=== PATIENT | female | born 1935 | race Caucasian/White ===

== ENCOUNTER → 2016-07-12 | Emergency (ER) | payer MEDICARE ==
[~2016-07-12] VITALS: Ht 154.9 cm; Wt 45.4 kg
[~2016-07-12] MED LIST: ASP81TEC PO; BUPR150T PO; CALC-676 PO; CPR500T PO; DICY10CA12 PO; FISH1CAP15 PO; KCL10CCR PO; LACT1CAP39 PO; LEVO125T6 PO; METO100T5 PO; METR500T PO; OXYB10TA PO; PRAV40TA PO; PRD20T PO; SIME125C PO; TRIA1TAB5 PO
--- NOTE | 2016-07-12 21:02 | ED Fall/Injury ---
General Chief Complaint: Trauma-Non Activation Stated Complaint: FALL AMS Source: patient, family Exam Limitations: clinical condition History of Present Illness Time seen by provider: 20:57 Initial Comments Patient and her daughter presented to the emergency room by private conveyance with a complaint of recent fall in Wednesday or Wednesday approximately 4 days ago. She was found down with no memory of the fall by her son but they were unable to convince her to come to the doctor's or emergency room at that time this is the first inspection by medical personnel she's had for this injury. She denies having any pain, nausea, syncope. The daughter reports for the past few days she has been hallucinating visually and audio hearing and seeing in speaking to people who were not there. They state this has happened in the past and at that time she was dehydrated. They feel she is having more and more falls lately and are afraid to let her go home. The patient does live alone and sets up her own meds. Patient has a pertinent history of bilateral carotid endarterectomies multiple bypasses and 6 stents and legs as well as hysterectomy. Patient's primary care physician is Dr. Aguirre in [place]. Allergies and Home Medications Allergies Coded Allergies: lisinopril (Unverified Allergy, Unknown, 07/12/16) Sulfa (Sulfonamide Antibiotics) (Verified Adverse Reaction, Intermediate, RASH, 02/25/11) Home Medications Aspirin 81 Mg Tabec, 1 TAB PO DAILY, (Reported) Bupropion Hcl 150 Mg Tab.sr.24h, 1 TAB PO DAILY, (Reported) Calcium Carbonate/Vitamin D3 1 Each Tablet, 1 TAB PO DAILY, (Reported) Ciprofloxacin 500 Mg Tablet, 1 TAB PO BID for 5 Days, (Reported) Dicyclomine Hcl 10 Mg Capsule, 1 TAB PO QID, (Reported) Fish Oil/Dha/Epa 1 Each Capsule, 1 TAB PO QID, (Reported) Lactobacillus Rhamnosus 1 Cap Capsule, 1 TAB PO DAILY, (Reported) Levothyroxine Sodium 125 Mcg Tablet, 1 TAB PO DAILY, (Reported) Metoprolol Succinate 100 Mg Tab.sr.24h, 1 TAB PO DAILY, (Reported) Metronidazole 500 Mg Tab, 1 EACH PO BID for 5 Days, (Reported) Oxybutynin Chloride 10 Mg Tablet, 1 TAB PO DAILY, (Reported) Potassium Chloride 10 Meq Capcr, 1 TAB PO DAILY, (Reported) Pravastatin Sodium 40 Mg Tablet, 1 TAB PO DAILY, (Reported) Prednisone 20 Mg Tab, 20 MG PO BID for 5 Days, (Reported) Simethicone 125 Mg Capsule, 1 CAP PO PRN, (Reported) Triamterene/Hydrochlorothiazid 1 Each Tablet, 1 TAB PO DAILY, (Reported) Constitutional: see HPI, No chills, No fever, No malaise, No weakness Eyes: Denies Blindness, Blurred Vision (for past 10 years), Denies Pain Ears, Nose, Mouth, Throat: denies ear pain, denies ear discharge, denies nose pain, denies nose discharge, denies epistaxis, denies mouth pain Respiratory: No cough, No dyspnea on exertion Cardiovascular: No chest pain, No edema, Hx of Intervention, No palpitations, No syncope Gastrointestinal: No abdominal pain, No constipation, No diarrhea, No loss of appetite, No nausea, No vomiting Genitourinary: No dysuria, No frequency, No hematuria, incontinence Musculoskeletal: No back pain, No joint pain, No joint swelling, No muscle pain Skin: No pruritus, No rash Psychiatric/Neurological: Denies Headache Past Gqkfjrh-Lhabqe-Tloyfo Hx Patient Social History Alcohol Use: Denies Use Recreational Drug Use: No Smoking Status: Never a Smoker Recent Foreign Travel: No Contact w/Someone Who Travel: No Immunizations Up To Date Date of Influenza Vaccine: Dec 26, 2010 Respiratory Hx Respiratory Disorders: No Cardiovascular Hx Cardiac Disorders: Yes Neurological Hx Neurological Disorders: No Reproductive System Hx Reproductive Disorders: Yes Genitourinary Hx Genitourinary Disorders: No Gastrointestinal Hx Gastrointestinal Disorders: Yes (IBS, COLITIS) Musculoskeletal Hx Musculoskeletal Disorders: No Endocrine Hx Endocrine Disorders: No HEENT HX ENT Disorders: No Psychosocial Hx Psychiatric Problems: No Blood Transfusions Hx Blood Disorders: No Physical Exam Vital Signs Vital Sign - Last 12Hours Capillary Refill : General Appearance: WD/WN, no apparent distress HEENT: PERRL/EOMI, normal ENT inspection, other (conjunctival hemorrhage) Neck: non-tender, full range of motion (kyphotic), supple, normal inspection, No carotid bruit Cardiovascular: normal peripheral pulses, regular rate, rhythm, no edema, no JVD, no murmur Respiratory: chest non-tender, lungs clear, normal breath sounds, no respiratory distress, no accessory muscle use Peripheral Pulses: 3+ Dorsalis Pedis (R), 3+ Left Dors-Pedis (L), 3+ Radial Pulses (R), 3+ Radial Pulses (L) Gastrointestinal: normal bowel sounds, non tender, soft Back: normal inspection, no CVA tenderness, no vertebral tenderness Extremities: normal range of motion, non-tender, normal inspection, no pedal edema Neurologic/Psychiatric: director biostatistics II-XII nml as tested, no motor/sensory deficits, alert, normal mood/affect, oriented x 3 Skin: normal color, warm/dry Lymphatic: no adenopathy Progress/Results/Core Measures Results/Orders Lab Results Laboratory Tests Test 07/12/16 20:49 Range/Units White Blood Count 6.2 4.3-11.0 10^3/uL Red Blood Count 4.45 4.35-5.85 10^6/uL Hemoglobin 14.4 11.5-16.0 G/DL Hematocrit 42 35-52 % Mean Corpuscular Volume 94 80-99 FL Mean Corpuscular Hemoglobin 32 25-34 PG Mean Corpuscular Hemoglobin Concent 35 32-36 G/DL Red Cell Distribution Width 12.8 10.0-14.5 % Platelet Count 135 130-400 10^3/uL Mean Platelet Volume 10.4 7.4-10.4 FL Neutrophils (%) (Auto) 55 42-75 % Lymphocytes (%) (Auto) 32 12-44 % Monocytes (%) (Auto) 13 H 0-12 % Eosinophils (%) (Auto) 0 0-10 % Basophils (%) (Auto) 0 0-10 % Neutrophils # (Auto) 3.4 1.8-7.8 X 10^3 Lymphocytes # (Auto) 2.0 1.0-4.0 X 10^3 Monocytes # (Auto) 0.8 0.0-1.0 X 10^3 Eosinophils # (Auto) 0.0 0.0-0.3 10^3/uL Basophils # (Auto) 0.0 0.0-0.1 10^3/uL Prothrombin Time 13.7 12.2-14.7 SEC INR Comment 1.1 0.8-1.4 Activated Partial Thromboplast Time 29 24-35 SEC Urine Color STRAW Urine Clarity CLEAR Urine pH 8 5-9 Urine Specific [place] 1.010 L 1.016-1.022 Urine Protein NEGATIVE NEGATIVE Urine Glucose (UA) NEGATIVE NEGATIVE Urine Ketones NEGATIVE NEGATIVE Urine Nitrite NEGATIVE NEGATIVE Urine Bilirubin NEGATIVE NEGATIVE Urine Urobilinogen NORMAL NORMAL MG/DL Urine Leukocyte Esterase 1+ H NEGATIVE Urine RBC (Auto) NEGATIVE NEGATIVE Urine RBC NONE /HPF Urine WBC 0-2 /HPF Urine Squamous Epithelial Cells 10-25 H /HPF Urine Renal Epithelial Cells NONE /HPF Urine Crystals NONE /LPF Urine Bacteria NEGATIVE /HPF Urine Casts NONE /LPF Urine Mucus NEGATIVE /LPF Urine Culture Indicated NO Sodium Level 140 135-145 MMOL/L Potassium Level 4.1 3.6-5.0 MMOL/L Chloride Level 106 98-107 MMOL/L Carbon Dioxide Level 22 21-32 MMOL/L Anion Gap 12 5-14 MMOL/L Blood Urea Nitrogen 18 7-18 MG/DL Creatinine 0.82 0.60-1.30 MG/DL Estimat Glomerular Filtration Rate > 60 BUN/Creatinine Ratio 22 Glucose Level 110 H 70-105 MG/DL Calcium Level 9.8 8.5-10.1 MG/DL Magnesium Level 2.3 1.8-2.4 MG/DL Total Bilirubin 0.4 0.1-1.0 MG/DL Aspartate Amino Transf (AST/SGOT) 30 5-34 U/L Alanine Aminotransferase (ALT/SGPT) 19 0-55 U/L Alkaline Phosphatase 58 40-136 U/L Total Protein 7.6 6.4-8.2 G/DL Albumin 4.3 3.2-4.5 G/DL My Orders Orders - SHIRENE,ERON J Saline Lock/Iv-Start (07/12/16 21:03) Cbc With Automated Diff (07/12/16 21:03) Comprehensive Metabolic Panel (07/12/16 21:03) Magnesium (07/12/16 21:03) Protime With Inr (07/12/16 21:03) Partial Thromboplastin Time (07/12/16 21:03) Ua Culture If Indicated (07/12/16 21:03) Chest Pa/Lat (2 View) (07/12/16 21:03) Ekg Tracing (07/12/16 21:03) Ct Head/Face/Cervical Wo (07/12/16 21:26) Vital Signs/I&O Vital Sign - Last 12Hours 07/12/16 07/12/16 20:45 20:45 Temp 97.6 97.6 Pulse 72 76 Resp 18 18 B/P (MAP) 172/94 (120) 172/94 Pulse Ox 94 96 Progress Note : Time: 21:24 Progress Note Patient presents with large ecchymosis over her face with right scleral hemorrhage and history of falls but no memory of the falls from proximal to 4 days ago. We'll plan to scan her for fracture or hemorrhage. Get blood work and urinalysis looking for occult infection. She'll probably need an observation stay and placement in some kind of significant for physiotherapy rehabilitation for her increased falls. Her neck is stable and she is been walking around with a 4 post cane and walker past several days without issue. ECG Initial ECG Impression Date: Jul 12, 2016 Initial ECG Impression Time: 21:13 Initial ECG Rate: 68 Initial ECG Rhythm: Normal Sinus Initial ECG Intervals: Normal Initial ECG Impression: Normal Initial ECG Comparisson: No Previous ECG Available Diagnostic Imaging Diagonstic Imaging: Xray Plain Films/CT/US/NM/MRI: chest Comments Evidence of prior sternotomy but no acute cardiopulmonary problems. NAME: BRADLEY SLADE [facility] REC#: [id number] PHYSICIAN: ERON IYER MD CC: KELECHI ALEXANDER MD; ERON IYER Page 1 of 1 RADIOLOGY REPORT VIA [facility]. [place], [place] CC: KELECHI ALEXANDER MD; ERON IYER Page 1 of 1 RADIOLOGY REPORT NAME: BRADLEY SLADE [facility] REC#: [id number] PT STATUS: REG ER : 1935 PHYSICIAN: ERON IYER MD ADMIT DATE: 07/12/16/ER Signed Date of Exam: 07/12/16 CHEST PA/LAT (2 VIEW) INDICATION: Fell six days ago. Amnesia. EXAMINATION: Two views of the chest were obtained. FINDINGS: Normal heart size and vascularity. There is bibasilar discoid atelectasis. There is no effusion or pneumothorax. There are changes of prior CABG. There is no acute bony abnormality evident. There is a compression deformity of a midthoracic vertebral body which is somewhat sclerotic and may be old. IMPRESSION: No acute abnormality is seen. Dictated by: Dictated on workstation # [id number] <Dictated by KELECHI ALEXANDER MD> 07/12/16 7270 Reviewed: Reviewed by Me Diagonstic Imaging: CT Plain Films/CT/US/NM/MRI: head (face) Comments No evidence of ischemia or hemorrhage in the brain. No evidence of acute fracture head or face. 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 Reviewed: Reviewed by Me Departure Impression Impression: Primary Impression: Fall Qualified Codes: W19.XXXA - Unspecified fall, initial encounter Additional Impression: Contusion Qualified Codes: S05.11XA - Contusion of eyeball and orbital tissues, right eye, initial encounter Disposition: HOME, SELF-CARE Condition: Stable Departure-Patient Inst. Decision time for Depature: 22:22 Referrals: NO,LOCAL PHYSICIAN (PCP) Primary Care Physician Patient Instructions: Minor Head Injury (DC) Add. Discharge Instructions: Your CAT scan and chest x-ray were unrevealing for any fractures or bleeds in the brain. Your labs are unremarkable for infection or other concerning features. You should follow up with your primary care physician sometime this following week. You should look into assisted living care for extra support to make sure that you get plenty of meals and support with her activities of daily living as well as make sure that you're getting the appropriate support in case of falls. you should also check with your home health company about your physical therapy and strengthening exercises as well as a home evaluation if it' s not been done to look for safety measures that could be addressed in your home. Family should check in on you every day for the next day or two. Return to the ER if you having any new, worsening symptoms such as nausea vomiting or intractable headaches or other concerning features. All discharge instructions reviewed with patient and/or family. Voiced understanding. ERON IYER Jul 12, 2016 21:02
[2016-07-12 21:28] LABS: BASOPHILS % (AUTO) 0 % (0-10); BILIRUBIN,URINE NEGATIVE (NEGATIVE); EOSINOPHILS % (AUTO) 0 % (0-10); KETONES,URINE NEGATIVE (NEGATIVE); LEUKOCYTE ESTERASE ,URINE 1+ (NEGATIVE); LYMPHOCYTES % (AUTO) 32 % (12-44); MEAN CORPUSCULAR HEMOGLOBIN 32 PG (25-34); MEAN CORPUSCULAR HGB CONC 35 G/DL (32-36); MEAN CORPUSCULAR VOLUME 94 FL (80-99); MEAN PLATELET VOLUME 10.4 FL (7.4-10.4); MONOCYTES # (AUTO) 0.8 X 10^3 (0.0-1.0); MONOCYTES % (AUTO) 13 % (0-12); NEUTROPHILS # (AUTO) 3.4 X 10^3 (1.8-7.8); NEUTROPHILS % (AUTO) 55 % (42-75); NITRITE,URINE NEGATIVE (NEGATIVE); PH,URINE 8 (5-9); PLATELET COUNT 135 10^3/uL (130-400); PROTEIN,URINE NEGATIVE (NEGATIVE); RED BLOOD COUNT 4.45 10^6/uL (4.35-5.85); RED CELL DISTRIBUTION WIDTH 12.8 % (10.0-14.5); UROBILINOGEN,URINE NORMAL (NORMAL); WHITE BLOOD COUNT 6.2 10^3/uL (4.3-11.0)
[2016-07-12 21:38] LABS: INR 1.1 (0.8-1.4); PROTHROMBIN TIME PATIENT 13.7 SEC (12.2-14.7)
[2016-07-12 21:42] LABS: WBC,URINE 0-2 /HPF
--- NOTE | 2016-07-12 21:43 | Diagnostic Imaging Report ---
PROCEDURE: CT head, face, and cervical spine without contrast. TECHNIQUE: Multiple contiguous axial images were obtained through the head, neck, and facial bones without the use of intravenous contrast. Sagittal and coronal reformations through the cervical spine and facial bones were also performed. INDICATION: 6 days status post fall. Right periorbital hematoma. The ventricles are normal in size, shape and position. There is no acute parenchymal hemorrhage, edema or mass. There is no extra-axial mass or hemorrhage. There is no skull fracture. No facial bone fracture is seen. The paranasal sinuses are well aerated. No intraorbital abnormality is seen. There are degenerative changes of the cervical spine with no fracture or other acute abnormality seen. There is no soft tissue swelling. There is no spinal canal encroachment. IMPRESSION: Normal CT of the head. Normal CT of the facial bones. There are degenerative changes of the cervical spine with no acute abnormality. Dictated by: Dictated on workstation # [id number]
--- NOTE | 2016-07-12 21:49 | Diagnostic Imaging Report ---
INDICATION: Fell six days ago. Amnesia. EXAMINATION: Two views of the chest were obtained. FINDINGS: Normal heart size and vascularity. There is bibasilar discoid atelectasis. There is no effusion or pneumothorax. There are changes of prior CABG. There is no acute bony abnormality evident. There is a compression deformity of a midthoracic vertebral body which is somewhat sclerotic and may be old. IMPRESSION: No acute abnormality is seen. Dictated by: Dictated on workstation # [id number]
[2016-07-12 21:50] LABS: ALANINE AMINOTRANSFERASE 19 U/L (0-55); ALBUMIN 4.3 G/DL (3.2-4.5); ANION GAP 12 MMOL/L (5-14); ASPARTATE AMINO TRANSFERASE 30 U/L (5-34); BILIRUBIN,TOTAL 0.4 MG/DL (0.1-1.0); BLOOD UREA NITROGEN 18 MG/DL (7-18); BUN/CREATININE RATIO 22; CALCIUM 9.8 MG/DL (8.5-10.1); CARBON DIOXIDE 22 MMOL/L (21-32); CHLORIDE 106 MMOL/L (98-107); CREATININE SERUM 0.82 MG/DL (0.60-1.30); GFR ESTIMATED > 60; GLUCOSE 110 MG/DL (70-105); MAGNESIUM 2.3 MG/DL (1.8-2.4); POTASSIUM 4.1 MMOL/L (3.6-5.0); SODIUM 140 MMOL/L (135-145); TOTAL PROTEIN 7.6 G/DL (6.4-8.2)
[2016-07-12 22:37] VITALS: BP 192/92
== END | disposition home or self-care (01) ==
LOC: EDUNIT# 20:37 → ER 20:41
DX: S00.11XA Contusion of right eyelid and periocular area, initial encounter (principal); R44.0 Auditory hallucinations; R44.1 Visual hallucinations; R54 Age-related physical debility; Z79.82 Long term (current) use of aspirin; Z79.899 Other long term (current) drug therapy; Z95.1 Presence of aortocoronary bypass graft; Z95.5 Presence of coronary angioplasty implant and graft; W01.0XXA Fall on same level from slipping, tripping and stumbling without subsequent striking against object, initial encounter; Y92.009 Unspecified place in unspecified non-institutional (private) residence as the place of occurrence of the external cause; Y99.8 Other external cause status
CPT/HCPCS: 36415; 70450; 70486; 71020; 72125; 80053; 81000; 83735; 85025; 85610; 85730; 93005

== ENCOUNTER 2019-08-10 13:37 | Emergency (ER) | payer MEDICARE ==
[~2019-08-10] VITALS: Ht 154 cm; Wt 58.9 kg
[2019-08-10] MEDS ORDERED: NS IV 1000 ML 1,000 ML IV SCH (14:26)
--- NOTE | 2019-08-10 14:33 | ED Abdominal Pain ---
General Chief Complaint: Abdominal/GI Problems Stated Complaint: ESCEMIC COLITIS Nursing Triage Note: PATIENT STATES "BLACK" STOOL WITH SOME BLOOD. STATES HX OF THIS Sepsis Screen: No Definite Risk Source of Information: Patient Exam Limitations: No Limitations History of Present Illness Date Seen by Provider: August 10, 2019 Time Seen by Provider: 14:15 Initial Comments Patient presents ER by private conveyance with chief complaint since last night she started having some severe 10 out of 10 abdominal pain on her right side and black stools. At the moment she says the pain has resided and she rates it as a 0 out of 10. She noticed some blood in the stool mixed in. She has some soreness around her anus due to excessive wiping. She says this happened a couple months ago and they did a colonoscopy and put her in the hospital in [place] and they said the colonoscopy was normal. She has a history of irritable bowel syndrome p redominantly diarrhea. She does not turn black however decided that her. She does take antacids or history of ulcers. She follows with Dr. Aguirre and cardiology by Dr. Gerber. She's not on a blood thinner or aspirin. She has a history of stents in her legs and CABG 2. She's not feeling short of breath or having any chest pain presently. She's had a hysterectomy, appendectomy, cholecystectomy. History of ulcerative colitis since 2006. The patient clarifies that she had a colonoscopy 2 months ago but she did not have EGD. She has not been referred to gastroenterology yet. She would prefer to do endoscopy here and [place]. Allergies and Home Medications Allergies Coded Allergies: lisinopril (Unverified Allergy, Unknown, 07/12/16) Sulfa (Sulfonamide Antibiotics) (Verified Adverse Reaction, Intermediate, RASH, 02/25/11) Home Medications Aspirin 81 Mg Tabec, 1 TAB PO DAILY, (Reported) Bupropion Hcl 150 Mg Tab.sr.24h, 1 TAB PO DAILY, (Reported) Calcium Carbonate/Vitamin D3 1 Each Tablet, 1 TAB PO DAILY, (Reported) Ciprofloxacin 500 Mg Tablet, 1 TAB PO BID, (Reported) Dicyclomine Hcl 10 Mg Capsule, 1 TAB PO QID, (Reported) Fish Oil/Dha/Epa 1 Each Capsule, 1 TAB PO QID, (Reported) Lactobacillus Rhamnosus 1 Cap Capsule, 1 TAB PO DAILY, (Reported) Levothyroxine Sodium 125 Mcg Tablet, 1 TAB PO DAILY, (Reported) Metoprolol Succinate 100 Mg Tab.sr.24h, 1 TAB PO DAILY, (Reported) Metronidazole 500 Mg Tab, 1 EACH PO BID, (Reported) Oxybutynin Chloride 10 Mg Tablet, 1 TAB PO DAILY, (Reported) Potassium Chloride 10 Meq Capcr, 1 TAB PO DAILY, (Reported) Pravastatin Sodium 40 Mg Tablet, 1 TAB PO DAILY, (Reported) Prednisone 20 Mg Tab, 20 MG PO BID, (Reported) Simethicone 125 Mg Capsule, 1 CAP PO PRN, (Reported) Triamterene/Hydrochlorothiazid 1 Each Tablet, 1 TAB PO DAILY, (Reported) Patient Home Medication List Home Medication List Reviewed: Yes Review of Systems Review of Systems Constitutional: No chills, No diaphoresis EENTM: No Blurred Vision, No Double Vision Respiratory: Denies Cough, Denies Shortness of Air Cardiovascular: Denies Chest Pain, Denies Lightheadedness, Denies Palpitations, Denies Syncope Gastrointestinal: See HPI, Abdominal Pain; Denies Constipated; Diarrhea; Denies Nausea Genitourinary: Denies Burning, Denies Discharge Musculoskeletal: No back pain, No joint pain Psychiatric/Neurological: Denies Anxiety, Denies Depressed All Other Systems Reviewed Negative Unless Noted: Yes Past Nwydayi-Fynvtl-Yurbli Hx Patient Social History Alcohol Use: Denies Use Recreational Drug Use: No Smoking Status: Former Smoker Former Smoker, Quit: July 28, 1999 Recent Foreign Travel: No Contact w/Someone Who Travel: No Recent Infectious Disease Expo: No Recent Hopitalizations: No Immunizations Up To Date Tetanus Booster (TDap): Unknown Date of Influenza Vaccine: Dec 26, 2010 Past Medical History Surgeries: Yes Appendectomy, CABG, Gallbladder, Hysterectomy, Thyroidectomy Respiratory: No Cardiac: Yes Coronary Artery Disease, High Cholesterol, Hypertension, Peripheral Vascular Neurological: No Reproductive Disorders: Yes Gastrointestinal: Yes (IBS, COLITIS) Musculoskeletal: No Endocrine: Yes (throid removed) Hyperthyroidism Cancer: No Psychosocial: No Blood Disorders: No Physical Exam Vital Signs Vital Signs - First Documented 08/10/19 14:10 Temp 36.6 Pulse 127 Resp 20 B/P (MAP) 137/100 (112) Pulse Ox 97 O2 Delivery Room Air Capillary Refill : Less Than 3 Seconds Height/Weight/BMI Height: 5'1.00" Weight: 100lbs. oz. [id number]; 24.00 BMI Method:Stated General Appearance: WD/WN, no apparent distress HEENT: PERRL/EOMI, pharynx normal Neck: full range of motion, normal inspection Respiratory: normal breath sounds, no respiratory distress, no accessory muscle use Cardiovascular: normal peripheral pulses, regular rate, rhythm, tachycardia (110) Peripheral Pulses: 2+ Radial Pulses (R), 2+ Radial Pulses (L) Gastrointestinal: abnormal bowel sounds (active, tinkling), distended, tenderness (especially right-sided tenderness without Abreu sign) Extremities: normal range of motion, normal inspection, normal capillary refill Neurologic/Psychiatric: alert, normal mood/affect, oriented x 3 Skin: normal color, warm/dry Focused Exam Sepsis Stage: Ruled Out Reason for ruling out sepsis: no source of infection Lactate Level 08/10/19 14:35: Lactic Acid Level 2.53*H 08/10/19 17:15: Lactic Acid Level 2.97*H Lactic Acid Level Laboratory Tests Test 08/10/19 14:35 08/10/19 17:15 Lactic Acid Level 2.53 MMOL/L (0.50-2.00) *H 2.97 MMOL/L (0.50-2.00) *H Progress/Results/Core Measures Results/Orders Lab Results Laboratory Tests Test 08/10/19 14:00 08/10/19 14:15 08/10/19 14:35 08/10/19 17:15 Range/Units Urine Color YELLOW Urine Clarity SL CLOUDY Urine pH 7.5 5-9 Urine Specific [place] 1.015 L 1.016-1.022 Urine Protein NEGATIVE NEGATIVE Urine Glucose (UA) NEGATIVE NEGATIVE Urine Ketones TRACE H NEGATIVE Urine Nitrite NEGATIVE NEGATIVE Urine Bilirubin NEGATIVE NEGATIVE Urine Urobilinogen 0.2 < = 1.0 MG/DL Urine Leukocyte Esterase NEGATIVE NEGATIVE Urine RBC (Auto) NEGATIVE NEGATIVE Urine RBC NONE /HPF Urine WBC NONE /HPF Urine Crystals PRESENT H /LPF Urine Amorphous Sediment LARGE STUART PHOSPHATE H /LPF Urine Bacteria FEW H /HPF Urine Casts NONE /LPF Urine Mucus SMALL H /LPF Urine Culture Indicated CULTURE PENDING White Blood Count 9.3 4.3-11.0 10^3/uL Red Blood Count 4.91 4.35-5.85 10^6/uL Hemoglobin 14.5 11.5-16.0 G/DL Hematocrit 43 35-52 % Mean Corpuscular Volume 87 80-99 FL Mean Corpuscular Hemoglobin 30 25-34 PG Mean Corpuscular Hemoglobin Concent 34 32-36 G/DL Red Cell Distribution Width 15.4 H 10.0-14.5 % Platelet Count 186 130-400 10^3/uL Mean Platelet Volume 10.9 H 7.4-10.4 FL Neutrophils (%) (Auto) 54 42-75 % Lymphocytes (%) (Auto) 37 12-44 % Monocytes (%) (Auto) 9 0-12 % Eosinophils (%) (Auto) 0 0-10 % Basophils (%) (Auto) 0 0-10 % Neutrophils # (Auto) 5.0 1.8-7.8 X 10^3 Lymphocytes # (Auto) 3.4 1.0-4.0 X 10^3 Monocytes # (Auto) 0.8 0.0-1.0 X 10^3 Eosinophils # (Auto) 0.0 0.0-0.3 10^3/uL Basophils # (Auto) 0.0 0.0-0.1 10^3/uL Prothrombin Time 13.0 12.2-14.7 SEC INR Comment 0.9 0.8-1.4 Activated Partial Thromboplast Time 29 24-35 SEC Sodium Level 141 135-145 MMOL/L Potassium Level 4.4 3.6-5.0 MMOL/L Chloride Level 106 98-107 MMOL/L Carbon Dioxide Level 19 L 21-32 MMOL/L Anion Gap 16 H 5-14 MMOL/L Blood Urea Nitrogen 14 7-18 MG/DL Creatinine 0.84 0.60-1.30 MG/DL Estimat Glomerular Filtration Rate > 60 BUN/Creatinine Ratio 17 Glucose Level 106 H 70-105 MG/DL Calcium Level 10.5 H 8.5-10.1 MG/DL Corrected Calcium 8.5-10.1 MG/DL Total Bilirubin 0.4 0.1-1.0 MG/DL Aspartate Amino Transf (AST/SGOT) 34 5-34 U/L Alanine Aminotransferase (ALT/SGPT) 15 0-55 U/L Alkaline Phosphatase 59 40-136 U/L Total Protein 9.1 H 6.4-8.2 GM/DL Albumin 4.6 H 3.2-4.5 GM/DL Lactic Acid Level 2.53 *H 2.97 *H 0.50-2.00 MMOL/L Test 08/10/19 18:00 Range/Units Troponin I < 0.028 <0.028 NG/ML My Orders Orders - STEFFEN SPARKS Cbc With Automated Diff (08/10/19) Comprehensive Metabolic Panel (08/10/19) Blood Culture (08/10/19) Sputum Culture (08/10/19) Urinalysis (08/10/19) Urine Culture (08/10/19) Protime With Inr (08/10/19) Partial Thromboplastin Time (08/10/19) Chest 1 View, Ap/Pa Only (08/10/19) Ed Iv/Invasive Line Start (08/10/19) Ed Iv/Invasive Line Start (08/10/19) Vital Signs Adult Sepsis Patie Q15M (08/10/19) O2 (08/10/19:) Remove Rings In Anticipation O (08/10/19) Lactic Acid Analyzer (08/10/19) Ns Iv 1000 Ml (Sodium Chloride 0.9%) (08/10/19:) Ed Iv/Invasive Line Start (08/10/19:) Ct Angio Abdomen/Pelv W (08/10/19:) Occult Blood Stool (08/10/19 14:37) Ed Iv/Invasive Line Start (08/10/19 16:10) Ns Iv 500 Ml (Sodium Chloride 0.9%) (08/10/19 16:10) Iohexol Injection (Omnipaque 350 Mg/Ml 1 (08/10/19 16:45) Received Contrast (Hold Metformin- Contr (08/10/19 16:45) Ns (Ivpb) (Sodium Chloride 0.9% Ivpb Bag (08/10/19 16:45) Troponin I (08/10/19 17:46) Ekg Tracing (08/10/19 17:46) Continuous Ekg Monitoring (08/10/19 17:46) Medications Given in ED Vital Signs/I&O 08/10/19 08/10/19 14:10 18:57 Temp 36.6 36.6 Pulse 127 100 Resp 20 18 B/P (MAP) 137/100 (112) 118/65 (112) Pulse Ox 97 96 O2 Delivery Room Air Room Air Blood Pressure Mean: 112 Progress Progress Note #1: Time: 14:33 Progress Note Concern for bowel obstruction, ischemic bowel given her history of peripheral and central coronary disease. Concern for diverticulitis or colitis. Plan to get labs including blood cultures and lactic acid. We'll hold off on antibiotics to leave better understanding. CT of her abdomen and pelvis. Progress Note #2: Time: 16:30 Progress Note Patient back from CT. She went to the bathroom and was able to walk short distance from the wheelchair to the commode and back to the bed. She was short of breath and had oxygen sat of 92% so 2 L by nasal cannula was initiated. Progress Note #3: Time: 17:15 Progress Note Oxygen was turned off and her O2 sats remained 98% on room air. Patient states she's not having any pain or nausea at this time. Initial ECG Impression Date: August 10, 2019 Initial ECG Impression Time: 17:49 Initial ECG Rate: 97 Initial ECG Rhythm: Normal Sinus Initial ECG Intervals: Normal Initial ECG Impression: Normal Initial ECG Comparisson: Unchanged Comment Normal sinus rhythm without ST elevation or depression. Diagnostic Imaging Diagonstic Imaging: CT (with IV contrast, angiogram) Plain Films/CT/US/NM/MRI: abdomen, pelvis Comments NAME: BRADLEY SLADE MED REC#: [id number] PT STATUS: REG ER : 1935 PHYSICIAN: STEFFEN SPARKS MD ADMIT DATE: 08/10/19/ER Signed Date of Exam:08/10/19 CT ANGIO ABDOMEN/PELV W PROCEDURE: CT Angio Abdomen/Pelvis with. TECHNIQUE: Multiple contiguous axial images were obtained through the abdomen and pelvis after the uneventful bolus administration of intravenous contrast. Sagittal and coronal MIP reconstructions with then performed. All CT scans use one or more of the following dose optimizing techniques: automated exposure control, MA and/or KvP adjustment based on a patient size and exam type, or iterative reconstruction. INDICATION: Melena. Diagnosed with ischemic bowel 2 months ago. Right-sided abdominal pain. COMPARISON: 02/25/2011. FINDINGS: Post CABG changes are noted. Prominent interstitial markings are seen in the lung bases. A nodule is present in the anterior aspect of the right lung base measuring 0.7 cm. There is calcified aortic and iliac atherosclerotic plaque without aneurysm. No evidence of dissection is seen in the abdominal aorta. No periaortic inflammatory changes are seen. The celiac axis, SMA, KRISTY, and renal arteries are patent. No evidence of bowel obstruction, free fluid, or free air. No definite areas of bowel not enhancement are seen to suggest ischemic bowel. The majority of the colon is decompressed. A tiny focus of increased attenuation is seen within the bowel lumen in the cecum. There is hepatic steatosis. No focal hepatic lesions are seen. The gallbladder surgically absent. The portal vein is patent. Small simple cortical cysts are seen in the kidneys bilaterally. No suspicious renal masses. No evidence of hydronephrosis or nephrolithiasis. The spleen, pancreas, and adrenal glands have a normal appearance. There is no pathologically enlarged mesenteric or retroperitoneal adenopathy. Age-indeterminate compression fractures seen at the T12 level. There is a small amount of bony retropulsion measuring 3 mm. Generalized osteopenia is noted. A right hip arthroplasty is noted. Ureters and bladder are grossly normal. There is no free air, loculated collection, or adenopathy in the pelvis. IMPRESSION: 1. No obvious CT evidence of bowel ischemia. No areas of non-enhancement of the bowel wall are seen. No evidence of bowel obstruction, free fluid, or free air. 2. Tiny focus of increased attenuation in the lumen of the cecum. This does not significantly miranda on delayed venous imaging. However, this still may represent a small focus of gastrointestinal bleed. Consider nuclear medicine gastrointestinal bleed study to further evaluate if indicated. 3. No evidence of aneurysm or dissection in the abdominal aorta. The major branch vessels are patent. Atherosclerotic plaque is present. 4. Nodule in the right lung base measuring 0.[address] on a nonemergent basis to further evaluate for additional nodules. Follow-up for this nodule should be performed in 6 months to ensure stability. 5. Hepatic steatosis. No focal hepatic lesions. 6. Age-indeterminate compression fracture at T12 with 3 mm a bony retropulsion at this level. Recommend correlation with point tenderness and if indicated MRI to evaluate for acuity. Findings were discussed with Steffen Sparks at 4:55 PM on 08/10/[address] Roxy Guallpa. Dictated by: Dictated on workstation # [id number] Dict: 08/10/19 1642 Trans: 08/10/191656 [facility] [id number] Interpreted by: ROXY GUALLPA DO Electronically signed by: ROXY GUALLPA DO 08/10/19 1657 Reviewed: Reviewed by Me Diagonstic Imaging: Xray Plain Films/CT/US/NM/MRI: chest (1 view) Comments No acute cardiopulmonary processes. Post CABG changes noted. [facility]Fitness[facility] [place], [place] NAME: BRADLEY SLADE [facility] REC#: [id number] PT STATUS: REG ER : 1935 PHYSICIAN: STEFFEN SPARKS MD ADMIT DATE: 08/10/19/ER Signed Date of Exam:08/10/19 CHEST 1 VIEW, AP/PA ONLY INDICATION: Colitis COMPARISON: 07/12/2016 FINDINGS: Slight bibasilar atelectasis, improved from prior. No alveolar consolidation, failure pattern, effusion or pneumothorax. Postoperative changes stable. IMPRESSION: Minimal residual atelectasis with no adverse development. Dictated by: Dictated on workstation # [id number] Dict: 08/10/19 1609 Trans: 08/10/191654 [facility] [id number] Interpreted by: MONTY GERBER Electronically signed by: MONTY GERBER 08/10/19 165 Reviewed: Reviewed by Me Consults : Consulting Physician: MARY OLSON DO Consults Notes 1800: Discussed the case and he reviewed imaging and agrees this does not seem to be ulcer of colitis flare. The patient is without symptoms now and wants to go home. He recommended she can go however she should return if she has any mounting symptoms. We discussed that she has not had an EGD yet and he is happy to see her in the clinic. We discussed the mounting lactate and it's not really clear how to interpret this as there does not seem to be any infection so there is no sepsis. With her ongoing GI bleed and history of ulcerative colitis the lactic acid is probably of no diagnostic value at this time. Departure Impression Primary Impression: GI bleeding Qualified Codes: K92.2 - Gastrointestinal hemorrhage, unspecified Additional Impressions: Abdominal pain Qualified Codes: R10.31 - Right lower quadrant pain Ulcerative colitis Qualified Codes: K51.90 - Ulcerative colitis, unspecified, without complications Disposition: 01 HOME, SELF-CARE Condition: Stable Departure-Patient Inst. Decision time for Depature: 18:12 Referrals: AMRY OLSON DO NO,LOCAL PHYSICIAN (PCP) Primary Care Physician Patient Instructions: Gastrointestinal Bleeding (DC) Add. Discharge Instructions: Return to the ER promptly if you begin to experience intractable nausea and vomiting, shortness of breath or intractable pain. Continue to take your medications as prescribed. Tomorrow morning call Dr. Olson, General Surgery and request a follow-up kavya ointment to discuss doing an EGD or other appropriate workup for your black, stools. Avoid NSAIDs such as ibuprofen, Advil, Aleve, naproxen or aspirin until you have been okayed by your doctor. I think your abdominal pain and black stools are related. You may have an upper GI bleed. Dr. Olson can help you discover and treat this appropriately. All discharge instructions reviewed with patient and/or family. Voiced understanding. Copy Copies To 1: AMRY OLSON TITUS J August 10, 2019 14:33
[2019-08-10 14:35] LABS: BILIRUBIN,URINE NEGATIVE (NEGATIVE); CLARITY,URINE SL CLOUDY; COLOR,URINE YELLOW; GLUCOSE, URINE (UA) NEGATIVE (NEGATIVE); KETONES,URINE TRACE (NEGATIVE); LEUKOCYTE ESTERASE ,URINE NEGATIVE (NEGATIVE); NITRITE,URINE NEGATIVE (NEGATIVE); PH,URINE 7.5 (5-9); PROTEIN,URINE NEGATIVE (NEGATIVE)
[2019-08-10 14:39] LABS: BASOPHILS % (AUTO) 0 % (0-10); EOSINOPHILS % (AUTO) 0 % (0-10); HEMATOCRIT 43 % (35-52); HEMOGLOBIN 14.5 G/DL (11.5-16.0); LYMPHOCYTES # (AUTO) 3.4 X 10^3 (1.0-4.0); LYMPHOCYTES % (AUTO) 37 % (12-44); MEAN CORPUSCULAR HEMOGLOBIN 30 PG (25-34); MEAN CORPUSCULAR HGB CONC 34 G/DL (32-36); MEAN CORPUSCULAR VOLUME 87 FL (80-99); MEAN PLATELET VOLUME 10.9 FL (7.4-10.4); MONOCYTES # (AUTO) 0.8 X 10^3 (0.0-1.0); MONOCYTES % (AUTO) 9 % (0-12); NEUTROPHILS % (AUTO) 54 % (42-75); PLATELET COUNT 186 10^3/uL (130-400); RED CELL DISTRIBUTION WIDTH 15.4 % (10.0-14.5); WHITE BLOOD COUNT 9.3 10^3/uL (4.3-11.0)
[2019-08-10 14:44] LABS: ALBUMIN 4.6 GM/DL (3.2-4.5); CHLORIDE 106 MMOL/L (98-107); POTASSIUM 4.4 MMOL/L (3.6-5.0); SODIUM 141 MMOL/L (135-145)
[2019-08-10 14:45] LABS: CALCIUM 10.5 MG/DL (8.5-10.1)
[2019-08-10 14:46] LABS: GLUCOSE 106 MG/DL (70-105); INR 0.9 (0.8-1.4)
[2019-08-10 14:47] LABS: CARBON DIOXIDE 19 MMOL/L (21-32); TOTAL PROTEIN 9.1 GM/DL (6.4-8.2)
[2019-08-10 14:48] LABS: BILIRUBIN,TOTAL 0.4 MG/DL (0.1-1.0)
[2019-08-10 14:50] LABS: ALKALINE PHOSPHATASE 59 U/L (40-136); CREATININE SERUM 0.84 MG/DL (0.60-1.30); GFR ESTIMATED > 60
[2019-08-10 14:51] LABS: BUN/CREATININE RATIO 17
[2019-08-10 14:53] LABS: ALANINE AMINOTRANSFERASE 15 U/L (0-55)
[2019-08-10 15:01] LABS: AMORPHOUS SEDIMENT,UR LARGE AMOR PHOSPHATE /LPF; BACTERIA,URINE FEW /HPF
[2019-08-10] MEDS ORDERED: NS IV 500 ML 500 ML IV ONE (16:10)
--- NOTE | 2019-08-10 16:15 | Diagnostic Imaging Report ---
INDICATION: Colitis COMPARISON: 07/12/2016 FINDINGS: Slight bibasilar atelectasis, improved from prior. No alveolar consolidation, failure pattern, effusion or pneumothorax. Postoperative changes stable. IMPRESSION: Minimal residual atelectasis with no adverse development. Dictated by: Dictated on workstation # [id number]
[2019-08-10] MEDS ORDERED: NS 100 ML (IVPB) BAG IV ONE (16:45)
[2019-08-10] MEDS ORDERED: HOLD METFORMIN - RECEIVED CONTRAST 20 ML VIAL IV SCH (16:45)
[2019-08-10] MEDS ORDERED: IOHEXOL 350 MG/ML 100 ML (OMNIPAQUE 350) VIAL IV ONE (16:45)
--- NOTE | 2019-08-10 16:58 | Diagnostic Imaging Report ---
PROCEDURE: CT Angio Abdomen/Pelvis with. TECHNIQUE: Multiple contiguous axial images were obtained through the abdomen and pelvis after the uneventful bolus administration of intravenous contrast. Sagittal and coronal MIP reconstructions with then performed. All CT scans use one or more of the following dose optimizing techniques: automated exposure control, MA and/or KvP adjustment based on a patient size and exam type, or iterative reconstruction. INDICATION: Melena. Diagnosed with ischemic bowel 2 months ago. Right-sided abdominal pain. COMPARISON: 02/25/2011. FINDINGS: Post CABG changes are noted. Prominent interstitial markings are seen in the lung bases. A nodule is present in the anterior aspect of the right lung base measuring 0.7 cm. There is calcified aortic and iliac atherosclerotic plaque without aneurysm. No evidence of dissection is seen in the abdominal aorta. No periaortic inflammatory changes are seen. The celiac axis, SMA, KRISTY, and renal arteries are patent. No evidence of bowel obstruction, free fluid, or free air. No definite areas of bowel not enhancement are seen to suggest ischemic bowel. The majority of the colon is decompressed. A tiny focus of increased attenuation is seen within the bowel lumen in the cecum. There is hepatic steatosis. No focal hepatic lesions are seen. The gallbladder surgically absent. The portal vein is patent. Small simple cortical cysts are seen in the kidneys bilaterally. No suspicious renal masses. No evidence of hydronephrosis or nephrolithiasis. The spleen, pancreas, and adrenal glands have a normal appearance. There is no pathologically enlarged mesenteric or retroperitoneal adenopathy. Age-indeterminate compression fractures seen at the T12 level. There is a small amount of bony retropulsion measuring 3 mm. Generalized osteopenia is noted. A right hip arthroplasty is noted. Ureters and bladder are grossly normal. There is no free air, loculated collection, or adenopathy in the pelvis. IMPRESSION: 1. No obvious CT evidence of bowel ischemia. No areas of non-enhancement of the bowel wall are seen. No evidence of bowel obstruction, free fluid, or free air. 2. Tiny focus of increased attenuation in the lumen of the cecum. This does not significantly miranda on delayed venous imaging. However, this still may represent a small focus of gastrointestinal bleed. Consider nuclear medicine gastrointestinal bleed study to further evaluate if indicated. 3. No evidence of aneurysm or dissection in the abdominal aorta. The major branch vessels are patent. Atherosclerotic plaque is present. 4. Nodule in the right lung base measuring 0.[address] on a nonemergent basis to further evaluate for additional nodules. Follow-up for this nodule should be performed in 6 months to ensure stability. 5. Hepatic steatosis. No focal hepatic lesions. 6. Age-indeterminate compression fracture at T12 with 3 mm a bony retropulsion at this level. Recommend correlation with point tenderness and if indicated MRI to evaluate for acuity. Findings were discussed with Steffen Sparks at 4:55 PM on 08/10/[address] Aiden Guallpa. Dictated by: Dictated on workstation # [id number]
[2019-08-10 18:57] VITALS: BP 118/65
[2019-08-11] MEDS ORDERED: PRD20T PO (22:53)
[2019-08-11] MEDS ORDERED: HYOS0.1283 SL (22:53)
== END 2019-08-10 19:11 | disposition home or self-care (01) ==
LOC: EDUNIT# 13:37 → ER 13:38
DX: K51.911 Ulcerative colitis, unspecified with rectal bleeding (principal); I10 Essential (primary) hypertension; I25.10 Atherosclerotic heart disease of native coronary artery without angina pectoris; E78.00 Pure hypercholesterolemia, unspecified; E05.90 Thyrotoxicosis, unspecified without thyrotoxic crisis or storm; Z88.2 Allergy status to sulfonamides; Z79.82 Long term (current) use of aspirin; Z79.52 Long term (current) use of systemic steroids; Z87.891 Personal history of nicotine dependence; Z11.59 Encounter for screening for other viral diseases
CPT/HCPCS: 36415; 71045; 74174; 80053; 81000; 82274; 83605; 84484; 85025; 85610; 85730; 87040; 87088; 93005; 96360; 96361

== ENCOUNTER 2019-08-11 21:44 | Emergency (ER) | payer MEDICARE ==
[~2019-08-11] VITALS: Ht 154 cm; Wt 58.0 kg
[2019-08-11 22:11] LABS: BASOPHILS % (AUTO) 0 % (0-10); EOSINOPHILS % (AUTO) 0 % (0-10); HEMATOCRIT 40 % (35-52); HEMOGLOBIN 13.8 G/DL (11.5-16.0); LYMPHOCYTES # (AUTO) 2.8 X 10^3 (1.0-4.0); LYMPHOCYTES % (AUTO) 41 % (12-44); MEAN CORPUSCULAR HEMOGLOBIN 30 PG (25-34); MEAN CORPUSCULAR HGB CONC 34 G/DL (32-36); MEAN CORPUSCULAR VOLUME 86 FL (80-99); MONOCYTES # (AUTO) 0.8 X 10^3 (0.0-1.0); MONOCYTES % (AUTO) 11 % (0-12); NEUTROPHILS # (AUTO) 3.2 X 10^3 (1.8-7.8); NEUTROPHILS % (AUTO) 47 % (42-75); PLATELET COUNT 172 10^3/uL (130-400); RED CELL DISTRIBUTION WIDTH 15.5 % (10.0-14.5); WHITE BLOOD COUNT 6.8 10^3/uL (4.3-11.0)
[2019-08-11 22:22] LABS: ALBUMIN 4.5 GM/DL (3.2-4.5); CHLORIDE 108 MMOL/L (98-107); POTASSIUM 3.8 MMOL/L (3.6-5.0); SODIUM 142 MMOL/L (135-145)
[2019-08-11 22:23] LABS: CALCIUM 9.9 MG/DL (8.5-10.1)
[2019-08-11 22:24] LABS: GLUCOSE 105 MG/DL (70-105)
[2019-08-11 22:25] LABS: TOTAL PROTEIN 8.4 GM/DL (6.4-8.2)
[2019-08-11 22:26] LABS: BILIRUBIN,TOTAL 0.4 MG/DL (0.1-1.0); CARBON DIOXIDE 20 MMOL/L (21-32)
[2019-08-11 22:28] LABS: ALKALINE PHOSPHATASE 58 U/L (40-136); CREATININE SERUM 0.77 MG/DL (0.60-1.30); GFR ESTIMATED > 60
[2019-08-11 22:29] LABS: BUN/CREATININE RATIO 13; ERYTHROCYTE SEDIMENTATION RATE 45 MM/HR (0-30)
[2019-08-11 22:31] LABS: ALANINE AMINOTRANSFERASE 21 U/L (0-55); MAGNESIUM 2.2 MG/DL (1.6-2.4)
[2019-08-11] MEDS ORDERED: PRD20T PO (22:53)
[2019-08-11] MEDS ORDERED: HYOS0.1283 SL (22:53)
--- NOTE | 2019-08-11 22:53 | ED Abdominal Pain ---
General Chief Complaint: Abdominal/GI Problems Stated Complaint: STOMACH PAIN,DIARRHEA Nursing Triage Note: patient states abdominal pain x2 days. hx of colitis Sepsis Screen: No Definite Risk Source of Information: Patient, Old Records Exam Limitations: No Limitations History of Present Illness Date Seen by Provider: August 11, 2019 Time Seen by Provider: 21:55 Initial Comments This 84-year-old woman presents to the emergency room for a recheck after being seen here yesterday and receiving a thorough workup primarily for abdominal pain and GI bleed. She has a history of ulcerative colitis and has been having hematochezia and cramping abdominal pain for several days. Her workup yesterday was thorough and included a CT angiogram. She has had continued hematochezia with a small amount of blood mixed in with her few bowel movements over the past 24 hours. She is not presently on any significant maintenance for her ulcer ative colitis. She has not been started on any antibiotics or steroids. See Dr. Sparks's note for a thorough history. Allergies and Home Medications Allergies Coded Allergies: lisinopril (Unverified Allergy, Unknown, 07/12/16) Sulfa (Sulfonamide Antibiotics) (Verified Adverse Reaction, Intermediate, RASH, 02/25/11) Home Medications Aspirin 81 Mg Tabec, 1 TAB PO DAILY, (Reported) Bupropion Hcl 150 Mg Tab.sr.24h, 1 TAB PO DAILY, (Reported) Calcium Carbonate/Vitamin D3 1 Each Tablet, 1 TAB PO DAILY, (Reported) Ciprofloxacin 500 Mg Tablet, 1 TAB PO BID, (Reported) Dicyclomine Hcl 10 Mg Capsule, 1 TAB PO QID, (Reported) Fish Oil/Dha/Epa 1 Each Capsule, 1 TAB PO QID, (Reported) Hyoscyamine Sulfate 0.125 Mg Tab.subl, 0.125 MG SL Q4H PRN for CRAMPS Prescribed by: ASUNCION LUJAN on 08/11/19 9475 Lactobacillus Rhamnosus 1 Cap Capsule, 1 TAB PO DAILY, (Reported) Levothyroxine Sodium 125 Mcg Tablet, 1 TAB PO DAILY, (Reported) Metoprolol Succinate 100 Mg Tab.sr.24h, 1 TAB PO DAILY, (Reported) Metronidazole 500 Mg Tab, 1 EACH PO BID, (Reported) Oxybutynin Chloride 10 Mg Tablet, 1 TAB PO DAILY, (Reported) Potassium Chloride 10 Meq Capcr, 1 TAB PO DAILY, (Reported) Pravastatin Sodium 40 Mg Tablet, 1 TAB PO DAILY, (Reported) Prednisone 20 Mg Tab, 20 MG PO BID, (Reported) Prednisone 20 Mg Tab, 40 MG PO DAILY Prescribed by: ASUNCION LUJAN on 08/11/192252 Simethicone 125 Mg Capsule, 1 CAP PO PRN, (Reported) Triamterene/Hydrochlorothiazid 1 Each Tablet, 1 TAB PO DAILY, (Reported) Patient Home Medication List Home Medication List Reviewed: Yes Review of Systems Review of Systems Constitutional: no symptoms reported EENTM: No Symptoms Reported Respiratory: No Symptoms Reported Cardiovascular: No Symptoms Reported Gastrointestinal: See HPI Genitourinary: No Symptoms Reported Musculoskeletal: other (severe disfiguring arthritis) Skin: no symptoms reported Psychiatric/Neurological: No Symptoms Reported Endocrine: No Symptoms Reported Hematologic/Lymphatic: No Symptoms Reported Past Wvrqmwj-Uzcbsi-Iexngk Hx Past Med/Social Hx: Reviewed Nursing Past Med/Soc Hx Patient Social History Alcohol Use: Denies Use Recreational Drug Use: No Smoking Status: Never a Smoker Former Smoker, Quit: July 28, 1999 2nd Hand Smoke Exposure: Yes Recent Foreign Travel: No Contact w/Someone Who Travel: No Recent Infectious Disease Expo: No Recent Hopitalizations: No Physical Abuse: No Sexual Abuse: No Mistreated: No Fear: No Immunizations Up To Date Tetanus Booster (TDap): Unknown Date of Pneumonia Vaccine: Nov 27, 2018 Date of Influenza Vaccine: Dec 26, 2018 Past Medical History Surgeries: Yes Appendectomy, CABG, Gallbladder, Hysterectomy, Thyroidectomy Respiratory: No Cardiac: Yes Coronary Artery Disease, High Cholesterol, Hypertension, Peripheral Vascular Neurological: No Reproductive Disorders: Yes Gastrointestinal: Yes (IBS, COLITIS) Musculoskeletal: Yes Arthritis Endocrine: Yes (throid removed) Hyperthyroidism Cancer: No Psychosocial: No Blood Disorders: No Physical Exam Vital Signs Vital Signs - First Documented 08/11/19 21:56 Temp 37.1 Pulse 111 Resp 20 B/P (MAP) 195/97 (129) Pulse Ox 96 O2 Delivery Simple Mask Capillary Refill : Less Than 3 Seconds Height/Weight/BMI Height: 5'1.00" Weight: 100lbs. oz. 45.364695nx; 24.00 BMI Method:Stated General Appearance: WD/WN, no apparent distress HEENT: PERRL/EOMI, normal ENT inspection Neck: normal inspection Respiratory: lungs clear, normal breath sounds, no respiratory distress Cardiovascular: regular rate, rhythm, no edema, no murmur Gastrointestinal: normal bowel sounds, non tender, soft; No distended Extremities: normal inspection, no pedal edema Neurologic/Psychiatric: mold maker plaster II-XII nml as tested, no motor/sensory deficits, alert, normal mood/affect, oriented x 3 Skin: normal color, warm/dry Progress/Results/Core Measures Results/Orders Lab Results Laboratory Tests Test 08/11/19 22:00 Range/Units White Blood Count 6.8 4.3-11.0 10^3/uL Red Blood Count 4.64 4.35-5.85 10^6/uL Hemoglobin 13.8 11.5-16.0 G/DL Hematocrit 40 35-52 % Mean Corpuscular Volume 86 80-99 FL Mean Corpuscular Hemoglobin 30 25-34 PG Mean Corpuscular Hemoglobin Concent 34 32-36 G/DL Red Cell Distribution Width 15.5 H 10.0-14.5 % Platelet Count 172 130-400 10^3/uL Mean Platelet Volume 10.0 7.4-10.4 FL Neutrophils (%) (Auto) 47 42-75 % Lymphocytes (%) (Auto) 41 12-44 % Monocytes (%) (Auto) 11 0-12 % Eosinophils (%) (Auto) 0 0-10 % Basophils (%) (Auto) 0 0-10 % Neutrophils # (Auto) 3.2 1.8-7.8 X 10^3 Lymphocytes # (Auto) 2.8 1.0-4.0 X 10^3 Monocytes # (Auto) 0.8 0.0-1.0 X 10^3 Eosinophils # (Auto) 0.0 0.0-0.3 10^3/uL Basophils # (Auto) 0.0 0.0-0.1 10^3/uL Erythrocyte Sedimentation Rate 45 H 0-30 MM/HR Sodium Level 142 135-145 MMOL/L Potassium Level 3.8 3.6-5.0 MMOL/L Chloride Level 108 H 98-107 MMOL/L Carbon Dioxide Level 20 L 21-32 MMOL/L Anion Gap 14 5-14 MMOL/L Blood Urea Nitrogen 10 7-18 MG/DL Creatinine 0.77 0.60-1.30 MG/DL Estimat Glomerular Filtration Rate > 60 BUN/Creatinine Ratio 13 Glucose Level 105 70-105 MG/DL Calcium Level 9.9 8.5-10.1 MG/DL Corrected Calcium 9.5 8.5-10.1 MG/DL Magnesium Level 2.2 1.6-2.4 MG/DL Total Bilirubin 0.4 0.1-1.0 MG/DL Aspartate Amino Transf (AST/SGOT) 49 H 5-34 U/L Alanine Aminotransferase (ALT/SGPT) 21 0-55 U/L Alkaline Phosphatase 58 40-136 U/L C-Reactive Protein High Sensitivity 0.69 H 0.00-0.50 MG/DL Total Protein 8.4 H 6.4-8.2 GM/DL Albumin 4.5 3.2-4.5 GM/DL My Orders Orders - ASUNCION BACK MD Cbc With Automated Diff (08/11/19 22:05) Comprehensive Metabolic Panel (08/11/19 22:05) Hs C Reactive Protein (08/11/19 22:05) Erythrocyte Sedimentation Rate (08/11/19 22:05) Ed Iv/Invasive Line Start (08/11/19 22:05) Magnesium (08/11/19 22:00) Vital Signs/I&O 08/11/19 08/11/19 21:56 23:10 Temp 37.1 37.1 Pulse 111 102 Resp 20 20 B/P (MAP) 195/97 (129) 149/90 (129) Pulse Ox 96 96 O2 Delivery Simple Mask Room Air Blood Pressure Mean: 129 Progress Progress Note : Progress Note Labs were obtained for comparison from yesterday. Patient is afebrile with a normal white count and normal CRP. ESR is elevated. These findings would suggest her symptoms are more related to ulcerative colitis than infection. Her abdomen demonstrates no significant tenderness. Her pain is more of a crampy nature when she has bowel movements. I have suggested treatment with a short burst of steroids and Levsin for cramping as a short-term therapy until she follows up with her primary care provider. Patient is agreeable to trying these options. Hemoglobin was stable despite some continued bleeding with stools. Departure Impression Primary Impression: Intestinal cramps Additional Impression: Colitis Disposition: 01 HOME, SELF-CARE Condition: Improved Departure-Patient Inst. Decision time for Depature: 22:51 Referrals: NO,LOCAL PHYSICIAN (PCP/Family) Primary Care Physician Patient Instructions: Ulcerative Colitis in Adults Add. Discharge Instructions: Continue your previously prescribed medications. Try using Levsin (hyoscyamine) dissolved under the tongue every 4 hours as needed for bowel cramping. This may reduce your pain significantly when you cramping. Start your prednisone in the morning. Take with food or milk to avoid stomach upset. Take prednisone early in the day to avoid sleep disturbance. Please follow-up with your primary care provider soon as possible. Call Wednesday for an appointment. Return to the emergency room if you have worsening symptoms. All discharge instructions reviewed with patient and/or family. Voiced understanding. Scripts Prednisone (Prednisone) 20 Mg Tab 40 MG PO DAILY, #8 TAB 0 Refills Prov: ASUNCION BACK MD 08/11/19 Hyoscyamine Sulfate (Levsin-Sl) 0.125 Mg Tab.subl 0.125 MG SL Q4H PRN for CRAMPS, #10 TAB 0 Refills Prov: ASUNCION BACK MD 08/11/19 ASUNCION BACK MD August 11, 2019 22:53
[2019-08-11 23:10] VITALS: BP 149/90
== END 2019-08-11 23:13 | disposition home or self-care (01) ==
LOC: EDUNIT# 21:44 → ER 21:46
DX: K52.9 Noninfective gastroenteritis and colitis, unspecified (principal); I25.10 Atherosclerotic heart disease of native coronary artery without angina pectoris; E78.00 Pure hypercholesterolemia, unspecified; I10 Essential (primary) hypertension; E05.90 Thyrotoxicosis, unspecified without thyrotoxic crisis or storm; K58.9 Irritable bowel syndrome, unspecified; I73.9 Peripheral vascular disease, unspecified; Z88.8 Allergy status to other drugs, medicaments and biological substances; Z88.2 Allergy status to sulfonamides; Z79.82 Long term (current) use of aspirin; Z77.22 Contact with and (suspected) exposure to environmental tobacco smoke (acute) (chronic); Z95.1 Presence of aortocoronary bypass graft; Z79.52 Long term (current) use of systemic steroids
CPT/HCPCS: 36415; 80053; 83735; 85025; 85652; 86141

== ENCOUNTER 2020-07-30 21:50 | Inpatient (IN) | payer MEDICARE ==
[~2020-07-30] VITALS: Ht 154.9 cm; Wt 61.3 kg
[~2020-07-30 21:50] MED LIST changes: +HYOS0.1283 SL
[2020-07-30] MEDS ORDERED: RT-ALBUTEROL INHALER HFA (VENTOLIN HFA) 18 GM IH ONE ×2 (22:21→22:30)
[2020-07-30] MEDS ORDERED: ASPIRIN 81 MG CHEW (CHILDREN'S ASA) ONE (22:21)
[2020-07-30] MEDS ORDERED: ASPIRIN 81 MG CHEW (CHILDREN'S ASA) PO ONE (22:30)
[2020-07-30 22:41] LABS: BASOPHILS % (AUTO) 0 % (0-10); EOSINOPHILS # (AUTO) 0.1 10^3/uL (0.0-0.3); EOSINOPHILS % (AUTO) 2 % (0-10); HEMATOCRIT 38 % (35-52); HEMOGLOBIN 11.7 g/dL (11.5-16.0); LYMPHOCYTES # (AUTO) 1.2 10^3/uL (1.0-4.0); LYMPHOCYTES % (AUTO) 20 % (12-44); MEAN CORPUSCULAR HEMOGLOBIN 29 pg (25-34); MEAN CORPUSCULAR HGB CONC 31 g/dL (32-36); MEAN CORPUSCULAR VOLUME 93 fL (80-99); MEAN PLATELET VOLUME 11.4 fL (9.0-12.2); MONOCYTES # (AUTO) 0.6 10^3/uL (0.0-1.0); MONOCYTES % (AUTO) 10 % (0-12); NEUTROPHILS # (AUTO) 4.1 10^3/uL (1.8-7.8); NEUTROPHILS % (AUTO) 67 % (42-75); PLATELET COUNT 196 10^3/uL (130-400); WHITE BLOOD COUNT 6.1 10^3/uL (4.3-11.0)
[2020-07-30 22:48] LABS: CHLORIDE 106 MMOL/L (98-107); POTASSIUM 3.8 MMOL/L (3.6-5.0); SODIUM 143 MMOL/L (135-145)
[2020-07-30 22:51] LABS: GLUCOSE 111 MG/DL (70-105); TOTAL PROTEIN 7.8 GM/DL (6.4-8.2)
[2020-07-30 22:52] LABS: CARBON DIOXIDE 24 MMOL/L (21-32)
[2020-07-30 22:53] LABS: BILIRUBIN,TOTAL 0.8 MG/DL (0.1-1.0)
[2020-07-30 22:54] LABS: ALKALINE PHOSPHATASE 52 U/L (40-136); CREATININE SERUM 0.83 MG/DL (0.60-1.30); GFR ESTIMATED > 60
[2020-07-30 22:55] LABS: BUN/CREATININE RATIO 12; FIBRIN DEGRADATION PRODUCTS 1.49 UG/ML (0.00-0.49); PROTHROMBIN TIME PATIENT 13.8 SEC (12.2-14.7)
[2020-07-30 22:57] LABS: ALANINE AMINOTRANSFERASE 19 U/L (0-55); MAGNESIUM 1.9 MG/DL (1.6-2.4)
[2020-07-30] MEDS ORDERED: NS IV 1000 ML 1,000 ML IV SCH (23:00)
[2020-07-31] MEDS ORDERED: IOHEXOL 350 MG/ML 100 ML (OMNIPAQUE 350) VIAL IV ONE (00:30)
[2020-07-31] MEDS ORDERED: NS 100 ML (IVPB) BAG IV ONE (00:30)
[2020-07-31] MEDS ORDERED: HOLD METFORMIN - RECEIVED CONTRAST 20 ML VIAL IV SCH (00:30)
[2020-07-31 01:10] LABS: BILIRUBIN,URINE NEGATIVE (NEGATIVE); CLARITY,URINE CLEAR; COLOR,URINE YELLOW; GLUCOSE, URINE (UA) NEGATIVE (NEGATIVE); KETONES,URINE NEGATIVE (NEGATIVE); LEUKOCYTE ESTERASE ,URINE NEGATIVE (NEGATIVE); NITRITE,URINE NEGATIVE (NEGATIVE); PROTEIN,URINE NEGATIVE (NEGATIVE)
[2020-07-31] MEDS ORDERED: CLOPIDOGREL 75 MG (PLAVIX) TABLET PO ONE (01:15)
[2020-07-31] MEDS ORDERED: KCL 10 MEQ TAB (MICRO K) PO ONE (01:15)
[2020-07-31] MEDS ORDERED: FUROSEMIDE 40 MG/4 ML INJ (LASIX) IVP ONE (01:15)
[2020-07-31 01:25] LABS: BACTERIA,URINE NEGATIVE /HPF; RBC,URINE RARE /HPF; SQUAMOUS EPITHELIAL CELL,UR 0-2 /HPF
[2020-07-31] MEDS ORDERED: methylPREDNISolone 40 MG/ML (Solu-MEDROL) VIAL IV ONE (01:30)
--- NOTE | 2020-07-31 01:30 | ED Chest Pain ---
General Chief Complaint: Respiratory Problems Stated Complaint: SOB Nursing Triage Note: AMBULATES TO ROOM #9 VIA POV W/CO SOA. LABORED BREATHING NOTED UPON ARRIVAL. POST EXERTIONAL INITIAL SPO2 83%VIA RA. 4L NC APPLIED ET SAT ISABELLE TO 100%. O2 DECREASED TO 2L VIA NC ET REMAINS >95% STATES PROGRESSIVE SOA FOR THE PAST 2-3 DAYS ASSOCIATED WITH MEDIAL CHEST DISCOMFORT. DENIES CHEST PAIN OR DISCOMFORT DURING TRIAGE. Nursing Sepsis Screen: No Definite Risk Source: patient, family Exam Limitations: no limitations History of Present Illness Date Seen by Provider: July 30, 2020 Time Seen by Provider: 22:15 Initial Comments This 85-year-old woman presents to the emergency room with complaints of shortness of breath and chest pain worsening over the past 5 days. She denies any cough or fever. She does have history of coronary artery disease treated with stenting and CABG. O2 sat was 83% on initial assessment. This recovered rapidly with nasal cannula. She has audible wheezing but denies any asthma or COPD. She does have an appointment pending with Dr. Cowart later this month. Patient recently moved to [place] to be near her family. She had been in the [facility]. She lives in a trailer by her daughter. Dr. Aguirre in [place] has been her primary care doctor. Allergies and Home Medications Allergies Coded Allergies: lisinopril (Unverified Allergy, Unknown, 07/12/16) Sulfa (Sulfonamide Antibiotics) (Verified Adverse Reaction, Intermediate, RASH, 02/25/11) Home Medications Aspirin 81 Mg Tabec, 1 TAB PO DAILY, (Reported) Bupropion Hcl 150 Mg Tab.sr.24h, 1 TAB PO DAILY, (Reported) Calcium Carbonate/Vitamin D3 1 Each Tablet, 1 TAB PO DAILY, (Reported) Ciprofloxacin 500 Mg Tablet, 1 TAB PO BID, (Reported) Dicyclomine Hcl 10 Mg Capsule, 1 TAB PO QID, (Reported) Fish Oil/Dha/Epa 1 Each Capsule, 1 TAB PO QID, (Reported) Hyoscyamine Sulfate 0.125 Mg Tab.subl, 0.125 MG SL Q4H PRN for CRAMPS Prescribed by: ASUNCION LUJAN on 08/11/19 6783 Lactobacillus Rhamnosus 1 Cap Capsule, 1 TAB PO DAILY, (Reported) Levothyroxine Sodium 125 Mcg Tablet, 1 TAB PO DAILY, (Reported) Metoprolol Succinate 100 Mg Tab.sr.24h, 1 TAB PO DAILY, (Reported) Metronidazole 500 Mg Tab, 1 EACH PO BID, (Reported) Oxybutynin Chloride 10 Mg Tablet, 1 TAB PO DAILY, (Reported) Potassium Chloride 10 Meq Capcr, 1 TAB PO DAILY, (Reported) Pravastatin Sodium 40 Mg Tablet, 1 TAB PO DAILY, (Reported) Prednisone 20 Mg Tab, 20 MG PO BID, (Reported) Prednisone 20 Mg Tab, 40 MG PO DAILY Prescribed by: ASUNCION LUJAN on 08/11/19 9235 Simethicone 125 Mg Capsule, 1 CAP PO PRN, (Reported) Triamterene/Hydrochlorothiazid 1 Each Tablet, 1 TAB PO DAILY, (Reported) Patient Home Medication List Home Medication List Reviewed: Yes Review of Systems Review of Systems Constitutional: no symptoms reported EENTM: No Symptoms Reported Respiratory: See HPI Cardiovascular: See HPI Gastrointestinal: No Symptoms Reported Genitourinary: No Symptoms Reported Musculoskeletal: no symptoms reported Skin: no symptoms reported Psychiatric/Neurological: No Symptoms Reported Endocrine: No Symptoms Reported Past Ptwgqke-Ccxcrd-Xdrzam Hx Patient Social History Alcohol Use: Denies Use Smoking Status: Former Smoker Former Smoker, Quit: July 28, 1999 2nd Hand Smoke Exposure: Yes Recent Infectious Disease Expo: No Recent Hopitalizations: No Immunizations Up To Date Tetanus Booster (TDap): Unknown Date of Pneumonia Vaccine: Nov 27, 2018 Date of Influenza Vaccine: Dec 26, 2018 Past Medical History Surgeries: Yes Appendectomy, CABG, Coronary Stent, Gallbladder, Hysterectomy, Thyroidectomy Respiratory: No Cardiac: Yes Coronary Artery Disease, High Cholesterol, Hypertension, Peripheral Vascular Neurological: No Reproductive Disorders: Yes Gastrointestinal: Yes (IBS, COLITIS) Musculoskeletal: Yes Arthritis Endocrine: Yes (throid removed) Hyperthyroidism Cancer: No Psychosocial: No Blood Disorders: No Physical Exam Vital Signs Vital Signs - First Documented 07/30/20 22:06 Temp 37.0 Pulse 79 Resp 30 B/P (MAP) 112/79 (90) Pulse Ox 95 O2 Delivery Nasal Cannula O2 Flow Rate 2.00 Capillary Refill : Less Than 3 Seconds Height, Weight, BMI Height: 5'1.00" Weight: 100lbs. oz. 45.913219eo; 24.00 BMI Method:Stated General Appearance: WD/WN, Mild Distress HEENT: PERRL/EOMI, Normal ENT Inspection Neck: Normal Inspection Respiratory: No Accessory Muscle Use, No Respiratory Distress, Wheezing, Other (Increased work of breathing) Cardiovascular: Regular Rate, Rhythm, No Edema, Systolic Murmur Gastrointestinal: Normal Bowel Sounds, Non Tender, Soft Extremity: Normal Inspection Focused Exam Lactate Level 07/30/20 22:50: Lactic Acid Level 1.35 Lactic Acid Level Laboratory Tests Test 07/30/20 22:50 Lactic Acid Level 1.35 MMOL/L (0.50-2.00) Progress/Results/Core Measures Results/Orders Lab Results Laboratory Tests Test 07/30/20 22:20 07/30/20 22:25 07/30/20 22:50 07/31/20 01:00 Range/Units Coronavirus 2019 (OSVALDO) Negative Not Detecte White Blood Count 6.1 4.3-11.0 10^3/uL Red Blood Count 4.07 3.80-5.11 10^6/uL Hemoglobin 11.7 11.5-16.0 g/dL Hematocrit 38 35-52 % Mean Corpuscular Volume 93 80-99 fL Mean Corpuscular Hemoglobin 29 25-34 pg Mean Corpuscular Hemoglobin Concent 31 L 32-36 g/dL Red Cell Distribution Width 15.9 H 10.0-14.5 % Platelet Count 196 130-400 10^3/uL Mean Platelet Volume 11.4 9.0-12.2 fL Immature Granulocyte % (Auto) 1 % Neutrophils (%) (Auto) 67 42-75 % Lymphocytes (%) (Auto) 20 12-44 % Monocytes (%) (Auto) 10 0-12 % Eosinophils (%) (Auto) 2 0-10 % Basophils (%) (Auto) 0 0-10 % Neutrophils # (Auto) 4.1 1.8-7.8 10^3/uL Lymphocytes # (Auto) 1.2 1.0-4.0 10^3/uL Monocytes # (Auto) 0.6 0.0-1.0 10^3/uL Eosinophils # (Auto) 0.1 0.0-0.3 10^3/uL Basophils # (Auto) 0.0 0.0-0.1 10^3/uL Immature Granulocyte # (Auto) 0.0 0.0-0.1 10^3/uL Prothrombin Time 13.8 12.2-14.7 SEC INR Comment 1.0 0.8-1.4 Activated Partial Thromboplast Time 30 24-35 SEC D-Dimer 1.49 H 0.00-0.49 UG/ML Sodium Level 143 135-145 MMOL/L Potassium Level 3.8 3.6-5.0 MMOL/L Chloride Level 106 98-107 MMOL/L Carbon Dioxide Level 24 21-32 MMOL/L Anion Gap 13 5-14 MMOL/L Blood Urea Nitrogen 10 7-18 MG/DL Creatinine 0.83 0.60-1.30 MG/DL Estimat Glomerular Filtration Rate > 60 BUN/Creatinine Ratio 12 Glucose Level 111 H 70-105 MG/DL Calcium Level 9.0 8.5-10.1 MG/DL Corrected Calcium 9.0 8.5-10.1 MG/DL Magnesium Level 1.9 1.6-2.4 MG/DL Total Bilirubin 0.8 0.1-1.0 MG/DL Aspartate Amino Transf (AST/SGOT) 38 H 5-34 U/L Alanine Aminotransferase (ALT/SGPT) 19 0-55 U/L Alkaline Phosphatase 52 40-136 U/L Lactate Dehydrogenase 357 H 125-220 U/L Myoglobin 81.0 10.0-92.0 NG/ML Troponin I 1.814 *H <0.028 NG/ML C-Reactive Protein High Sensitivity 2.34 H 0.00-0.50 MG/DL B-Type Natriuretic Peptide 352.9 H <100.0 PG/ML Total Protein 7.8 6.4-8.2 GM/DL Albumin 4.0 3.2-4.5 GM/DL Procalcitonin 0.07 <0.10 NG/ML Lactic Acid Level 1.35 0.50-2.00 MMOL/L Urine Color YELLOW Urine Clarity CLEAR Urine pH 5.0 5-9 Urine Specific [place] <=1.005 1.016-1.022 Urine Protein NEGATIVE NEGATIVE Urine Glucose (UA) NEGATIVE NEGATIVE Urine Ketones NEGATIVE NEGATIVE Urine Nitrite NEGATIVE NEGATIVE Urine Bilirubin NEGATIVE NEGATIVE Urine Urobilinogen 0.2 < = 1.0 MG/DL Urine Leukocyte Esterase NEGATIVE NEGATIVE Urine RBC (Auto) TRACE-I NEGATIVE Urine RBC RARE /HPF Urine WBC NONE /HPF Urine Squamous Epithelial Cells 0-2 /HPF Urine Crystals NONE /LPF Urine Bacteria NEGATIVE /HPF Urine Casts NONE /LPF Urine Mucus NEGATIVE /LPF Urine Culture Indicated CULTURE PENDING Micro Results Microbiology 07/30/20 Influenza Types A,B Antigen (SANDRA) - Final, Complete My Orders Orders - ASUNCION BACK MD Cbc With Automated Diff (07/30/20:) Magnesium (07/30/20:) Chest 1 View, Ap/Pa Only (07/30/20:) Ekg Tracing (07/30/20:) Comprehensive Metabolic Panel (07/30/20) Myoglobin Serum (07/30/20:) Protime With Inr (07/30/20:) Partial Thromboplastin Time (07/30/20:) O2 (07/30/20:) Monitor-Rhythm Ecg Trace Only (07/30/20:) Ed Iv/Invasive Line Start (07/30/20:) Troponin I (07/30/20:) Aspirin Chewable Tablet (Baby Aspirin Ch (07/30/20 22:30) Albuterol Inhaler (Ventolin Hfa) (07/30/20 22:30) Procalcitonin (Pct) (07/30/20 22:) Hs C Reactive Protein (07/30/20:) LDH (07/30/20:) Influenza A And B Antigens (07/30/20:) Covid 19 Inhouse Test (07/30/20:) Aspirin Chewable Tablet (Baby Aspirin Ch (07/30/20 22:21) Albuterol Inhaler (Ventolin Hfa) (07/30/20 22:) Fibrin Degradation Products (07/30/20 22:25) Ns Iv 1000 Ml (Sodium Chloride 0.9%) (07/30/20 23:00) Blood Culture (07/30/20 23:03) Sputum Culture (07/30/20 23:03) Urinalysis (07/30/20 23:03) Urine Culture (07/30/20 23:03) Vital Signs Adult Sepsis Patie Q15M (07/30/20 23:03) Remove Rings In Anticipation O (07/30/20 23:03) Lactic Acid Analyzer (07/30/20 23:03) Ct Angio Chest W (07/30/20 23:04) Iohexol Injection (Omnipaque 350 Mg/Ml 1 (07/31/20 00:30) Received Contrast (Hold Metformin- Contr (07/31/20 00:30) Ns (Ivpb) (Sodium Chloride 0.9% Ivpb Bag (07/31/20 00:30) BNP (07/31/20 00:40) Clopidogrel Tablet (Plavix Tablet) (07/31/20 01:15) Furosemide Injection (Lasix Injection) (07/31/20 01:15) Potassium Chloride (Tablet) (Klor Con Ta (07/31/20 01:15) Methylprednisolone Sod Succ (Solu-Medrol (07/31/20 01:30) Medications Given in ED Current Medications Medications Dose Ordered Sig/Norma Route Start Time Stop Time Status Last Admin Dose Admin Albuterol Sulfate 4 puffs with spacer ONCE ONCE IH 07/30/20 22:30 07/30/20 22:31 DC 07/30/20 22:47 18 GM Aspirin 324 mg ONCE ONCE PO 07/30/20 22:30 07/30/20 22:31 DC 07/30/20 22:45 324 MG Clopidogrel Bisulfate 150 mg ONCE ONCE PO 07/31/20 01:15 07/31/20 01:16 DC 07/31/20 01:33 150 MG Furosemide 20 mg ONCE ONCE IVP 07/31/20 01:15 07/31/20 01:16 DC 07/31/20 01:32 20 MG Iohexol 100 ml ONCE ONCE IV 07/31/20 00:30 07/31/20 00:32 DC 07/31/20 00:19 100 ML Potassium Chloride 20 meq ONCE ONCE PO 07/31/20 01:15 07/31/20 01:16 DC 07/31/20 01:33 20 MEQ Sodium Chloride 80 ml ONCE ONCE IV 07/31/20 00:30 07/31/20 00:32 DC 07/31/20 00:19 80 ML Vital Signs/I&O 07/30/20 07/30/20 07/30/20 07/30/20 22:06 22:06 22:15 23:00 Temp 37.0 36.0 Pulse 79 Resp 30 B/P (MAP) 112/79 (90) Pulse Ox 95 95 O2 Delivery Nasal Cannula Nasal Cannula Nasal Cannula O2 Flow Rate 2.00 2.0 5/5/21 00:00 Intake Total 1000 ml Balance 1000 ml Blood Pressure Mean: 90 Progress Progress Note : Progress Note Patient's oxygen saturations rebounded with nasal cannula. Albuterol was administered for the wheezing. Patient was found to have an elevated troponin likely representing NSTEMI. It is unclear if this was caused by the hypoxia or if she had a primary cardiac event. Case was discussed with Dr. Pugh who recommended treatment with Plavix 150 mg, Lasix 20 to 40 mg, and potassium 20 mEq. D-dimer was elevated and CT angiogram was obtained. It did not reveal any pulmonary emboli. Steroids were given for COPD exacerbation. Chest pain re solved prior to admission. Initial ECG Impression Date: July 30, 2020 Initial ECG Impression Time: 22:12 Initial ECG Rate: 88 Initial ECG Rhythm: Normal Sinus Comment Sinus rhythm with ST depression in lead II borderline depression and additional veins. No ST elevation. No abnormal intervals or axis deviation. Diagnostic Imaging Diagonstic Imaging: Xray Plain Films/CT/US/NM/MRI: chest Comments Chest x-ray viewed by me and report reviewed. See report below: NAME: BRADLEY LSADE [facility] REC#: [id number] PT STATUS: ADM IN : 1935 PHYSICIAN: ASUNCION BACK MD ADMIT DATE: 07/31/20/ICU Draft Date of Exam:07/30/20 CHEST 1 VIEW, AP/PA ONLY INDICATION: Chest pain Portable chest 11:28 PM There are postoperative changes from CABG surgery. There is cardiomegaly with pulmonary vascular congestion and interstitial edema. IMPRESSION: Congestive heart failure Dictated on workstation # [id number] Dict: 07/31/20 0501 Trans: 07/31/20 0510 VIV [id number] Interpreted by: JOSÉ MIGUEL OLMEDO MD Diagonstic Imaging: CT Plain Films/CT/US/NM/MRI: chest Comments CT angiogram chest viewed by me and report reviewed. See report below: NAME: BRADLEY SLADE [facility] REC#: [id number] PT STATUS: ADM IN : 1935 PHYSICIAN: ASUNCION BACK MD ADMIT DATE: 07/31/20/ICU Draft Date of Exam:07/30/20 CT ANGIO CHEST W PROCEDURE: CT angiography of the chest with contrast. TECHNIQUE: Multiple contiguous axial images were obtained through the chest after uneventful bolus administration of intravenous contrast. 3D reconstructed CTA MIP acquisitions were also performed. Auto Exposure Controls were utilized during the CT exam to meet ALARA standards for radiation dose reduction. INDICATION: Respiratory distress. FINDINGS: There is good opacification of the pulmonary arteries. There are no filling defects. No findings that would indicate pulmonary emboli. No evidence of aortic dissection. The aortic root measures 2.7 cm. There are moderate bilateral pleural effusions. There are bilateral groundglass infiltrates with bibasilar atelectasis. No mediastinal or hilar adenopathy of pathologic size. There is noted a cyst in the left kidney which is unchanged since 08/10/2019. IMPRESSION: 1. No evidence of pulmonary emboli. 2. Bilateral pleural effusions with basilar atelectasis and infiltrates consistent with congestive heart failure. Dictated on workstation # [id number] Dict: 07/31/20 0612 Trans: 07/31/20 0615 [facility] [id number] Interpreted by: MARY AVILA MD Departure Communication (Admissions) Time/Spoke to Admitting Phy: 01:20 Dr. Figueredo Time/Spoke to Consulting Phy: 01:15 Dr. Sandoval Impression Primary Impression: NSTEMI (non-ST elevated myocardial infarction) Additional Impression: COPD exacerbation Disposition: ADMITTED INPATIENT Condition: Improved Admissions Decision to Admit Reason: Admit from ER (General) Decision to Admit/Date: July 31, 2020 Time/Decision to Admit Time: 00:00 Departure-Patient Inst. Referrals: NO,LOCAL PHYSICIAN (PCP/Family) Primary Care Physician ASUNCION BACK MD July 31, 2020 01:30
[2020-07-31 02:30] VITALS: BP 95/75
[2020-07-31 02:49] VITALS: BP 112/79
[2020-07-31] MEDS ORDERED: RT-ALBUTEROL/IPRATROPIUM 3 ML (DUONEB) VIAL INH PRN (03:00)
[2020-07-31] MEDS ORDERED: ONDANSETRON 4 MG/2 ML (SDV) Z0FRAN IV PRN (03:15)
[2020-07-31] MEDS ORDERED: CATHETER FLUSH 10 ML SYR IV PRN (03:15)
[2020-07-31 03:36] LABS: BASOPHILS % (AUTO) 0 % (0-10); EOSINOPHILS % (AUTO) 0 % (0-10); HEMATOCRIT 35 % (35-52); HEMOGLOBIN 10.9 g/dL (11.5-16.0); LYMPHOCYTES # (AUTO) 0.6 10^3/uL (1.0-4.0); LYMPHOCYTES % (AUTO) 11 % (12-44); MEAN CORPUSCULAR HEMOGLOBIN 29 pg (25-34); MEAN CORPUSCULAR HGB CONC 31 g/dL (32-36); MEAN CORPUSCULAR VOLUME 93 fL (80-99); MONOCYTES # (AUTO) 0.3 10^3/uL (0.0-1.0); MONOCYTES % (AUTO) 6 % (0-12); NEUTROPHILS # (AUTO) 4.6 10^3/uL (1.8-7.8); NEUTROPHILS % (AUTO) 83 % (42-75); PLATELET COUNT 207 10^3/uL (130-400); WHITE BLOOD COUNT 5.6 10^3/uL (4.3-11.0)
[2020-07-31 03:49] LABS: CHLORIDE 106 MMOL/L (98-107); SODIUM 142 MMOL/L (135-145)
[2020-07-31 03:51] LABS: CALCIUM 8.4 MG/DL (8.5-10.1)
[2020-07-31 03:52] LABS: GLUCOSE 117 MG/DL (70-105); TRIGLYCERIDES 138 MG/DL (<150); VLDL CHOLESTEROL 28 MG/DL (5-40)
[2020-07-31 03:53] LABS: CARBON DIOXIDE 24 MMOL/L (21-32)
[2020-07-31 03:55] LABS: CREATININE SERUM 0.75 MG/DL (0.60-1.30); GFR ESTIMATED > 60; PHOSPHORUS 3.1 MG/DL (2.3-4.7)
[2020-07-31 03:56] LABS: BUN/CREATININE RATIO 12
[2020-07-31 03:57] LABS: CHOLESTEROL 169 MG/DL (< 200)
[2020-07-31 03:58] LABS: HDL CHOLESTEROL 31 MG/DL (40-60); MAGNESIUM 1.9 MG/DL (1.6-2.4)
--- NOTE | 2020-07-31 05:10 | Diagnostic Imaging Report ---
INDICATION: Chest pain Portable chest 11:28 PM There are postoperative changes from CABG surgery. There is cardiomegaly with pulmonary vascular congestion and interstitial edema. IMPRESSION: Congestive heart failure Dictated by: Dictated on workstation # [id number]
--- NOTE | 2020-07-31 05:13 | Pulmonary Consultation ---
History of Present Illness History of Present Illness Date Seen by Provider: July 31, 2020 Time Seen by Provider: 05:11 Date of Admission History of Present Illness 85yo presented to ED secondary to worsening SOB. She was found to be hypoxic upon admission which improved with NC. She denies CP. Pt was dx with NSTEMI and admitted to ICU. Allergies and Home Medications Allergies Coded Allergies: lisinopril (Unverified Allergy, Unknown, 07/12/16) Sulfa (Sulfonamide Antibiotics) (Verified Adverse Reaction, Intermediate, RASH, 02/25/11) Home Medications Aspirin 81 Mg Tabec, 1 TAB PO DAILY, (Reported) Bupropion Hcl 150 Mg Tab.sr.24h, 1 TAB PO DAILY, (Reported) Calcium Carbonate/Vitamin D3 1 Each Tablet, 1 TAB PO DAILY, (Reported) Ciprofloxacin 500 Mg Tablet, 1 TAB PO BID, (Reported) Dicyclomine Hcl 10 Mg Capsule, 1 TAB PO QID, (Reported) Fish Oil/Dha/Epa 1 Each Capsule, 1 TAB PO QID, (Reported) Hyoscyamine Sulfate 0.125 Mg Tab.subl, 0.125 MG SL Q4H PRN for CRAMPS Prescribed by: ASUNCION LUJAN on 08/11/192252 Lactobacillus Rhamnosus 1 Cap Capsule, 1 TAB PO DAILY, (Reported) Levothyroxine Sodium 125 Mcg Tablet, 1 TAB PO DAILY, (Reported) Metoprolol Succinate 100 Mg Tab.sr.24h, 1 TAB PO DAILY, (Reported) Metronidazole 500 Mg Tab, 1 EACH PO BID, (Reported) Oxybutynin Chloride 10 Mg Tablet, 1 TAB PO DAILY, (Reported) Potassium Chloride 10 Meq Capcr, 1 TAB PO DAILY, (Reported) Pravastatin Sodium 40 Mg Tablet, 1 TAB PO DAILY, (Reported) Prednisone 20 Mg Tab, 20 MG PO BID, (Reported) Prednisone 20 Mg Tab, 40 MG PO DAILY Prescribed by: ASUNCION LUJAN on 08/11/192252 Simethicone 125 Mg Capsule, 1 CAP PO PRN, (Reported) Triamterene/Hydrochlorothiazid 1 Each Tablet, 1 TAB PO DAILY, (Reported) Past Uismlxd-Clkcaw-Fgaotd Hx Patient Social History Alcohol Use: Denies Use Smoking Status: Former Smoker Former Smoker, Quit: July 28, 1999 2nd Hand Smoke Exposure: Yes Recent Infectious Disease Expo: No Recent Hopitalizations: No Have you traveled recently?: No Alcohol Use?: No Immunizations Up To Date Tetanus Booster (TDap): Unknown Date of Pneumonia Vaccine: Nov 27, 2018 Date of Influenza Vaccine: Dec 02, 2019 Past Medical History Surgeries: Yes Appendectomy, CABG, Gallbladder, Hysterectomy, Thyroidectomy Respiratory: No Cardiac: Yes Coronary Artery Disease, High Cholesterol, Hypertension, Peripheral Vascular Neurological: No Reproductive Disorders: Yes Gastrointestinal: Yes (IBS, COLITIS) Musculoskeletal: Yes Arthritis Endocrine: Yes (throid removed) Hyperthyroidism Cancer: No Psychosocial: No Blood Disorders: No Review of Systems Time Seen by Provider: 05:11 Sepsis Event Evaluation Height, Weight, BMI Height: 5'1.00" Weight: 100lbs. oz. 45.563174qc; 25.42 BMI Method:Stated Exam Exam Vital Signs Date Time Temp Pulse Resp B/P (MAP) Pulse Ox O2 Delivery O2 Flow Rate FiO2 07/31/20 05:00 76 22 97/58 (71) 95 Nasal Cannula 2.00 07/31/20 04:19 96 Nasal Cannula 2.00 07/31/20 04:00 77 16 108/70 (83) 93 Nasal Cannula 2.00 07/31/20 03:00 80 26 96/69 (78) 97 Nasal Cannula 2.00 07/31/20 02:52 36.0 84 18 95/75 (82) 96 Nasal Cannula 2.00 07/31/20 02:49 37.0 79 95 07/31/20 02:46 83 07/31/20 02:30 94 Nasal Cannula 2.00 07/31/20 02:30 36.0 73 21 95/75 (82) 94 Nasal Cannula 2.00 07/31/20 02:20 36.6 83 22 157/71 (90) 95 Nasal Cannula 2.00 07/30/20 23:00 36.0 07/30/20 22:15 Nasal Cannula 2.0 07/30/20 22:06 37.0 79 30 112/79 (90) 95 Nasal Cannula 07/30/20 22:06 95 Nasal Cannula 2.00 I & O 07/31/20 06:59 Intake Total 1000 ml Balance 1000 ml Height & Weight Height: 5'1.00" Weight: 100lbs. oz. 45.227642eg; 25.42 BMI Method:Stated General Appearance: No Apparent Distress, WD/WN HEENT: PERRL/EOMI, Normal ENT Inspection, Pharynx Normal Neck: Full Range of Motion, Non Tender, Supple Respiratory: Chest Non Tender, No Accessory Muscle Use, No Respiratory Distress, Crackles, Decreased Breath Sounds Cardiovascular: Regular Rate, Rhythm, No Edema Capillary Refill: Less Than 3 Seconds Gastrointestinal: non tender, soft Extremity: Normal Capillary Refill, Normal Inspection, Non Tender Neurologic/Psychiatric: Alert, Oriented x3 Skin: Normal Color, Warm/Dry Lymphatic: No Adenopathy Results Lab Laboratory Tests 07/30/20 22:25 07/31/20 03:17 Assessment/Plan Assessment/Plan NSTEMI -Cardiology following COPDAE -Solumedrol -Duoneb -Oxygen 2liters/min -Does not have home 02 Bilateral pleural effusions -start Lasix -Check Echo Anemia -Monitor ILIANA CORREA DO July 31, 2020 05:13
[2020-07-31] MEDS: ENOXAPARIN 40 MG/0.4 ML (LOVENOX) SYR SC SCH (05:59)
[2020-07-31] MEDS: KCL 20 MEQ TAB (K-DUR) PO SCH ×2 (06:00→08:47)
[2020-07-31] MEDS: MAGNESIUM 1 GM/100 ML IVPB 100 ML IV SCH (06:00)
[2020-07-31] MEDS: POTASSIUM CL 10MEQ/50ML IVPB 50 ML IV SCH (06:00)
[2020-07-31] MEDS: CATHETER FLUSH 10 ML SYR IV SCH ×3 (06:01→20:09)
--- NOTE | 2020-07-31 06:16 | Diagnostic Imaging Report ---
PROCEDURE: CT angiography of the chest with contrast. TECHNIQUE: Multiple contiguous axial images were obtained through the chest after uneventful bolus administration of intravenous contrast. 3D reconstructed CTA MIP acquisitions were also performed. Auto Exposure Controls were utilized during the CT exam to meet ALARA standards for radiation dose reduction. INDICATION: Respiratory distress. FINDINGS: There is good opacification of the pulmonary arteries. There are no filling defects. No findings that would indicate pulmonary emboli. No evidence of aortic dissection. The aortic root measures 2.7 cm. There are moderate bilateral pleural effusions. There are bilateral groundglass infiltrates with bibasilar atelectasis. No mediastinal or hilar adenopathy of pathologic size. There is noted a cyst in the left kidney which is unchanged since 08/10/2019. IMPRESSION: 1. No evidence of pulmonary emboli. 2. Bilateral pleural effusions with basilar atelectasis and infiltrates consistent with congestive heart failure. Dictated by: Dictated on workstation # [id number]
[2020-07-31] MEDS: RT-ALBUTEROL/IPRATROPIUM 3 ML (DUONEB) VIAL INH SCH ×3 (07:50→20:58)
--- NOTE | 2020-07-31 08:39 | History & Physical-Hospitalist ---
History of Present Illness HPI/Chief Complaint Pt is an 85yoCF with a PMH of CAD s/p 2 vessel CABG, HTN, HLD, PVD, and post surgical hypothyroidism who presented to the ER due to shortness of breath. She reported to the ER it had been going on for 2-3 days but to me states it had acctually been several weeks. She has not been vaccinated for COVID. She denies fevers, cough, or sick contacts. She states it was accompanied by chest pain and there we not aggrevating or alleviating factors. She was found to have a troponin of 1.8 on arrival and was admitted for an NSTEMI. She was also found to be hypoxic at 83%. She was currently receiving a breathing treatment and denied any shortness of breath to me. Source: patient Date Seen 07/31/20 Time Seen by a Provider: 13:21 Attending Physician Alicia Figueredo MD PCP No,Local Physician Referring Physician Date of Admission July 31, 2020 at 01:25 Home Medications & Allergies Home Medications Reviewed patient Home Medication Reconciliation performed by pharmacy medication reconciliations bindery technician and/or nursing. Patients Allergies have been reviewed. Allergies Allergies Coded Allergies lisinopril (Unverified Allergy, Unknown, 07/12/16) Sulfa (Sulfonamide Antibiotics) (Verified Adverse Reaction, Intermediate, RASH, 02/25/11) Patient Social History Employed/Student: retired Tobacco Use?: No Smoking Status: Former Smoker (quit in 1999) Smokeless Tobacco Frequency: Former User Use of E-Cig and/or Vaping dev: No Substance use?: No Alcohol Use?: No Pt stated abuse/neglect: No Immunizations Up To Date Influenza Vaccine Up-to-Date: Yes; Up-to-Date Tetanus Booster (TDap): Unknown Hepatitis A: No Hepatitis B: No TB Skin Test: None Date of Pneumonia Vaccine: Nov 27, 2018 Current Status status: No status: No Do you have an Advance Directi: No Communicates: Verbally Primary Language: Palestinian Preferred Spoken Language: Palestinian Is interpretation needed?: No Sensory deficits: Hearing impairment Implanted or Applied Medical D: None Past Medical History HTN, HLD CAD s/p CABG, PVD, post surgical hypothyroidism, IBS Surgical: CABG, Appendectomy, thyroidectomy, hysterectomy Family Medical History Family Hx: Non contributory Review of Systems Constitutional: No chills, No fever, No malaise Respiratory: No cough; dyspnea on exertion; No phlegm; short of breath; No wheezing Cardiovascular: chest pain, Hx of Intervention; No palpitations Gastrointestinal: No abdominal pain, No constipation, No diarrhea, No nausea, No vomiting Genitourinary: No dysuria, No frequency Musculoskeletal: no symptoms reported Skin: no symptoms reported Psychiatric/Neurological: No Symptoms Reported Physical Exam Physical Exam Vital Signs Vital Signs - First Documented 07/30/20 08/01/20 22:06 09:16 Temp 37.0 Pulse 79 Resp 30 B/P (MAP) 112/79 (90) Pulse Ox 95 O2 Delivery Nasal Cannula O2 Flow Rate 2.00 FiO2 32 Capillary Refill : Less Than 3 Seconds Height, Weight, BMI Height: 5'1.00" Weight: 100lbs. oz. 45.182223ld; 25.42 BMI Method:Stated General Appearance: No Apparent Distress, WD/WN HEENT: PERRL/EOMI, Moist Mucous Membranes Neck: Normal Inspection, Supple Respiratory: Lungs Clear, No Accessory Muscle Use, Other (on nasal cannula, doing breathing treatment) Cardiovascular: Regular Rate, Rhythm, No Murmur Gastrointestinal: Normal Bowel Sounds, Soft Extremity: No Calf Tenderness, No Pedal Edema Neurologic/Psychiatric: Alert, Oriented x3, Normal Mood/Affect Skin: Normal Color, Warm/Dry Results Results/Procedures Labs Laboratory Tests 07/30/20 22:25 07/31/20 03:17 08/01/20 02:49 Patient resulted labs reviewed. Imaging: Reviewed Imaging Report Imaging [facility] [place], [place] NAME: BRADLEY SLADE [facility] REC#: [id number] PT STATUS: ADM IN : 1935 PHYSICIAN: ASUNCION BACK MD ADMIT DATE: 07/31/20/ICU Draft Date of Exam:07/30/20 CHEST 1 VIEW, AP/PA ONLY INDICATION: Chest pain Portable chest 11:28 PM There are postoperative changes from CABG surgery. There is cardiomegaly with pulmonary vascular congestion and interstitial edema. IMPRESSION: Congestive heart failure Dictated on workstation # [id number] Dict: 07/31/20 0501 Trans: 07/31/20 0510 VIV [id number] Interpreted by: JOSÉ MIGUEL OLMEDO MD Electronically signed by: [facility] [place], [place] NAME: BRADLEY SLADE [facility] REC#: [id number] PT STATUS: ADM IN : 1935 PHYSICIAN: ASUNCION BACK MD ADMIT DATE: 07/31/20/ICU Draft Date of Exam:07/30/20 CT ANGIO CHEST W PROCEDURE: CT angiography of the chest with contrast. TECHNIQUE: Multiple contiguous axial images were obtained through the chest after uneventful bolus administration of intravenous contrast. 3D reconstructed CTA MIP acquisitions were also performed. Auto Exposure Controls were utilized during the CT exam to meet ALARA standards for radiation dose reduction. INDICATION: Respiratory distress. FINDINGS: There is good opacification of the pulmonary arteries. There are no filling defects. No findings that would indicate pulmonary emboli. No evidence of aortic dissection. The aortic root measures 2.7 cm. There are moderate bilateral pleural effusions. There are bilateral groundglass infiltrates with bibasilar atelectasis. No mediastinal or hilar adenopathy of pathologic size. There is noted a cyst in the left kidney which is unchanged since 08/10/2019. IMPRESSION: 1. No evidence of pulmonary emboli. 2. Bilateral pleural effusions with basilar atelectasis and infiltrates consistent with congestive heart failure. Dictated on workstation # [id number] Dict: 07/31/20611 Trans: 07/31/20 0615 VIV [id number] Interpreted by: MARY AVILA MD Electronically signed by: Assessment/Plan Admission Diagnosis NSTEMI Admission Status: Inpatient Order (span 2 midnights) Reason for Inpatient Admission: see below Assessment and Plan NSTEMI CAD s/p CABG troponin elevated on arrival and trended up overnight Cardiology consulted, apprecaite recs NPO Echo ordered Received ASA and Plavix Hypoxia COPD Likely multifactorial with COPD and CHF given effusions on imaging Given lasix this AM Continue steroids HTN BP on the low side, monitor and hold home meds HLD Continue home meds Hypothyroidism Continue home synthroid Falls Pt reported falls at home to RN PT/OT support services tech DVT ppx: Lovenox Diagnosis/Problems Diagnosis/Problems (1) NSTEMI (non-ST elevated myocardial infarction) Status: Acute (2) CAD (coronary artery disease) Qualifiers: Coronary Disease-Associated Artery/Lesion type: [place] artery [place] vs. transplanted heart: [place] heart Associated angina: with unspecified angina Qualified Codes: I25.119 - Atherosclerotic heart disease of [place] coronary artery with unspecified angina pectoris (3) Acute respiratory failure Status: Acute Qualifiers: Respiratory failure complication: hypoxia Qualified Codes: J96.01 - Acute respiratory failure with hypoxia (4) HLD (hyperlipidemia) Status: Chronic Qualifiers: Hyperlipidemia type: mixed hyperlipidemia Qualified Codes: E78.2 - Mixed hyperlipidemia (5) Essential (primary) hypertension Status: Chronic (6) Debility Status: Acute (7) Hypothyroidism Status: Chronic Qualifiers: Hypothyroidism type: postoperative Qualified Codes: E89.0 - Postprocedural hypothyroidism (8) COPD exacerbation Status: Acute Clinical Quality Measures AMI/AHF: ASA po Prior to arrival: YONY Rivas MD July 31, 2020 08:39
[2020-07-31] MEDS: ASPIRIN 81 MG CHEW (CHILDREN'S ASA) PO SCH (08:46)
[2020-07-31] MEDS: methylPREDNISolone 40 MG/ML (Solu-MEDROL) VIAL IV SCH ×3 (08:47→20:09)
[2020-07-31] MEDS: CLOPIDOGREL 75 MG (PLAVIX) TABLET PO SCH (08:47)
[2020-07-31] MEDS: FUROSEMIDE 40 MG/4 ML INJ (LASIX) IVP SCH (08:47)
--- NOTE | 2020-07-31 09:13 | Consultation-Cardiology ---
HPI-Cardiology Cardiology Consultation: Date of Consultation 07/31/20 Time Seen by a Provider: 08:35 Date of Admission 07-30-20 Attending Physician Alicia Figueredo MD Admitting Physician No,Local Physician Consulting Physician Talha Sandoval MD HPI: Chief Complaint: NSTEMI Ms. uKrtz is an 85 yr old female admitted to ICU 2 from the ED with c/o chest pain which radiates across her chest and into her left arm. She reports the discomfort started approx a yr ago, but has progressively become worse. She reports the pain comes in with exertion and relieves with rest after minutes to >20 minutes. She reports feeling diaphoretic, nauseated, palpitations, SOB. She states last night her daughter brought her to the ED. She reports LE swelling. No syncope or near syncope. She states the discomfort is exactly like the pain she had at the time of her OR prior CABG. She reports she was seeing Dr. Gunn, but quit seeing him because he made her mad. She states she do es not take ASA d/t blood in her stools in the past d/t colitis. She does not report any CP at this time. Review of Systems-Cardiology Review of Systems Constitutional: No chills, No fever; malaise Eyes: No vision change Ears/Nose/Throat: No epistaxis, No recent hearing loss Respiratory: As described under HPI Cardiovascular: As described under HPI Gastrointestinal: diarrhea, nausea Genitourinary: No dysuria, No hematuria Musculoskeletal: no symptoms reported Skin: No rash on exposed areas, No ulcerations on exposed areas Psychiatric/Neurological: No anxiety, No depression, No seizure, No focal weakness, No syncope Hematologic: No bleeding abnormalities FVT-Zzlota-Eekcip Hx Patient Social History Employed/Student: retired Smoking Status: Former Smoker (quit in 1999) 2nd Hand Smoke Exposure: Yes Have you traveled recently?: No Alcohol Use?: No Pt feels they are or have been: No Immunizations Up To Date Tetanus Booster (TDap): Unknown Date of Pneumonia Vaccine: Nov 27, 2018 Date of Influenza Vaccine: Dec 02, 2019 Past Medical History PMH As described under Assessment. Family Medical History Family Medical History: She reports her mother and sisters all have CAD. Allergies and Home Medications Allergies Coded Allergies: lisinopril (Unverified Allergy, Unknown, 07/12/16) Sulfa (Sulfonamide Antibiotics) (Verified Adverse Reaction, Intermediate, RASH, 02/25/11) Home Medications Acetaminophen 325 Mg Tablet, 325-650 MG PO Q6H PRN for PAIN-MILD (1-4), (Reported) Last Action: Reviewed Amlodipine Besylate 2.5 Mg Tablet, 2.5 MG PO DAILY, (Reported) Last Action: Reviewed Atorvastatin Calcium 40 Mg Tablet, 40 MG PO DAILY, (Reported) LAST FILLED 06-12-2020 #15/15 DAY SUPPLY Last Action: Reviewed Citalopram Hydrobromide 10 Mg Tablet, 10 MG PO DAILY, (Reported) Last Action: Reviewed Colestipol HCl 1 Gm Tablet, 1-2 GM PO Q8H PRN for DIARRHEA, (Reported) TAKES 1 TO 2 (1GM) TABS Last Action: Reviewed Fish Oil/Dha/Epa 1 Each Capsule, 1 EACH PO DAILY, (Reported) Last Action: Reviewed Furosemide 40 Mg Tablet, 40 MG PO 0700,1400, (Reported) LAST FILLED 03-25-2021 #180/90 DAY SUPPLY Last Action: Reviewed Isosorbide Mononitrate 30 Mg Tab.er.24h, 30 MG PO DAILY, (Reported) Last Action: Reviewed Levothyroxine Sodium 125 Mcg Tablet, 125 MCG PO DAILY, (Reported) Last Action: Reviewed Loperamide HCl 2 Mg Tablet, 2-4 MG PO UD PRN for DIARRHEA, (Reported) Last Action: Reviewed Meclizine HCl 25 Mg Tablet, 25 MG PO Q6H PRN for DIZZINESS, (Reported) Last Action: Reviewed Metoprolol Succinate 50 Mg Tab.er.24h, 50 MG PO DAILY, (Reported) Last Action: Reviewed Pantoprazole Sodium 40 Mg Tablet.dr, 40 MG PO DAILY, (Reported) Last Action: Reviewed Potassium Chloride 10 Meq Tab.er.prt, 10 MEQ PO 0700,1400, (Reported) LAST FILLED 04-22-2020 #60/30 DAY SUPPLY Last Action: Reviewed Physical Exam-Cardiology Physical Exam Vital Signs/I&O 08/01/20 08/01/20 08/01/20 08/01/20 05:26 06:36 06:37 08:00 Temp 36.0 Pulse 76 75 84 Resp 13 23 B/P (MAP) 134/56 (82) 158/69 (98) Pulse Ox 91 93 O2 Delivery Nasal Cannula Nasal Cannula Nasal Cannula O2 Flow Rate 2.00 3.00 3.00 08/01/20 08/01/20 08/01/20 08/01/20 09:16 10:08 15:00 16:00 Pulse 76 84 76 Resp 13 12 B/P (MAP) 122/61 (81) 125/59 (81) Pulse Ox 91 96 89 97 O2 Delivery Nasal Cannula Nasal Cannula Nasal Cannula O2 Flow Rate 3.00 5.00 5.00 FiO2 32 08/01/20 17:00 Pulse 86 Resp 11 B/P (MAP) 159/73 (101) Pulse Ox 98 O2 Delivery Nasal Cannula O2 Flow Rate 3.00 08/01/20 00:00 Intake Total 750 ml Output Total 775 ml Balance -25 ml Capillary Refill : Less Than 3 Seconds Constitutional: AAO x 3, well-developed, well-nourished HEENT: PERRL, hearing is well preserved Neck: No carotid bruit; carotid pulses are 2 + bilaterally Respiratory: No accessory muscle use, No respiratory distress; chest expansion is symmetric, chest is bilaterally symmetric, lungs clear to auscultation Cardiovascular: regular rate-rhythm; No JVD; S1 and S2 Gastrointestinal: soft, round; No guarding; audible bowel sounds Extremities: no lower extremity edema bilateral Neurologic/Psychiatric: grossly intact (moves all extremities) Skin: No rash on exposed areas, No ulcerations on exposed areas Data Review Labs Laboratory Tests 08/01/20 02:49: White Blood Count 7.5, Red Blood Count 3.96, Hemoglobin 11.5, Hematocrit 36, Mean Corpuscular Volume 91, Mean Corpuscular Hemoglobin 29, Mean Corpuscular Hemoglobin Concent 32, Red Cell Distribution Width 15.9H, Platelet Count 216, Mean Platelet Volume 11.6, Immature Granulocyte % (Auto) 1, Neutrophils (%) (Auto) 88H, Lymphocytes (%) (Auto) 8L, Monocytes (%) (Auto) 3, Eosinophils (%) (Auto) 0, Basophils (%) (Auto) 0, Neutrophils # (Auto) 6.6, Lymphocytes # (Auto) 0.6L, Monocytes # (Auto) 0.2, Eosinophils # (Auto) 0.0, Basophils # (Auto) 0.0, Immature Granulocyte # (Auto) 0.1, Neutrophils % (Manual) 91, Lymphocytes % (Manual) 8, Monocytes % (Manual) 1, Blood Morphology Comment NORMAL, Sodium Level 141, Potassium Level 3.7, Chloride Level 103, Carbon Dioxide Level 25, Anion Gap 13, Blood Urea Nitrogen 17, Creatinine 0.85, Estimat Glomerular Filtr ation Rate > 60, BUN/Creatinine Ratio 20, Glucose Level 152H, Calcium Level 9.0, Phosphorus Level 3.2, Magnesium Level 2.3 08/01/20 03:30: Prothrombin Time 14.3, INR Comment 1.0, Activated Partial Thromboplast Time 29 Microbiology 07/31/20 Urine Culture - Final, Complete NO GROWTH 07/30/20 Blood Culture - Preliminary, Resulted No growth 07/30/20 Influenza Types A,B Antigen (SANDRA) - Final, Complete Radiology NAME: BRADLEY KURTZ [facility] REC#: [id number] PT STATUS: ADM IN : 1935 PHYSICIAN: ASUNCION BACK MD ADMIT DATE: 07/31/20/ICU Draft Date of Exam:07/30/20 CHEST 1 VIEW, AP/PA ONLY INDICATION: Chest pain Portable chest 11:28 PM There are postoperative changes from CABG surgery. There is cardiomegaly with pulmonary vascular congestion and interstitial edema. IMPRESSION: Congestive heart failure Dictated on workstation # [id number] Dict: 07/31/20 0501 Trans: 07/31/20 0510 VIV [id number] Interpreted by: JOSÉ MIGUEL OLMEDO MD Electronically signed by: NAME: BRADLEY KURTZ [employer] [facility] REC#: [id number] PT STATUS: ADM IN : 1935 PHYSICIAN: ASUNCION BACK MD ADMIT DATE: 07/31/20/ICU Draft Date of Exam:07/30/20 CT ANGIO CHEST W PROCEDURE: CT angiography of the chest with contrast. TECHNIQUE: Multiple contiguous axial images were obtained through the chest after uneventful bolus administration of intravenous contrast. 3D reconstructed CTA MIP acquisitions were also performed. Auto Exposure Controls were utilized during the CT exam to meet ALARA standards for radiation dose reduction. INDICATION: Respiratory distress. FINDINGS: There is good opacification of the pulmonary arteries. There are no filling defects. No findings that would indicate pulmonary emboli. No evidence of aortic dissection. The aortic root measures 2.7 cm. There are moderate bilateral pleural effusions. There are bilateral groundglass infiltrates with bibasilar atelectasis. No mediastinal or hilar adenopathy of pathologic size. There is noted a cyst in the left kidney which is unchanged since 08/10/2019. IMPRESSION: 1. No evidence of pulmonary emboli. 2. Bilateral pleural effusions with basilar atelectasis and infiltrates consistent with congestive heart failure. Dictated on workstation # [id number] Dict: 07/31/20611 Trans: 07/31/20 0615 [facility] [id number] Interpreted by: MARY AVILA MD Electronically signed by: ECG Impression ECG Initial ECG Rhythm: Normal Sinus A/P-Cardiology Assessment/Admission Diagnosis NSTEMI CAD: - CABG x 2 vessel approx 20 yrs ago at [facility] by Dr. Guadalupe Carotid dz: - H/O bilat CEA at [facility] > 10 yrs ago HTN HLD Colitis Discussion and Recomendations NSTEMI - advise cardiac cath. We have discussed the procedure, risks, benefits and potential complications of cardiac cath with possible ad hoc coronary i ntervention. She wishes to talk to her daughter and will let us know of her decision. She is currently pain free Continue ASA, Plavix and statin Not suitable for BB at this time d/t low blood pressure, albeit asymptomatic Monitor lab Replace electrolytes as indicated Further recs will be based on her hospital course We would like to thank medical services for this consult Clinical Quality Measures AMI/AHF: ASA po Prior to arrival: CM Knight July 31, 2020 09:13
[2020-07-31] MEDS ORDERED: PANT40TA52 PO (10:02)
[2020-07-31] MEDS ORDERED: AMLO2.5T4 PO (10:02)
[2020-07-31] MEDS ORDERED: MECL-149 PO (10:02)
[2020-07-31] MEDS ORDERED: POTA10TA36 PO (10:02)
[2020-07-31] MEDS ORDERED: LOPE-134 PO (10:02)
[2020-07-31] MEDS ORDERED: FURO40TA4 PO (10:02)
[2020-07-31] MEDS ORDERED: COLE1TAB PO (10:02)
[2020-07-31] MEDS ORDERED: METO50TA7 PO (10:02)
[2020-07-31] MEDS ORDERED: CITA10TA7 PO (10:02)
[2020-07-31] MEDS ORDERED: ISOS30TA82 PO (10:02)
[2020-07-31] MEDS ORDERED: ACET325T38 PO (10:02)
[2020-07-31] MEDS ORDERED: ATOR40TA70 PO (10:02)
[2020-07-31] MEDS ORDERED: LEVO125T6 PO (10:02)
[2020-07-31] MEDS ORDERED: FISH1CAP15 PO (10:03)
--- NOTE | 2020-07-31 12:45 | Consultation-Cardiology ---
HPI-Cardiology Cardiology Consultation: Date of Consultation 07/31/20 Time Seen by a Provider: 09:15 Date of Admission Attending Physician Alicia Figueredo MD Admitting Physician No,Local Physician Consulting Physician JUDAH WHITTINGTON MD, MA, FACP, FACC, [facility] [place], CCDS HPI: Chief Complaint: Reason for consultation: NSTEMI HPI Ms. Kurtz is an 85 yr old female admitted to ICU 2 from the ED with c/o chest pain which radiates across her chest and into her left arm. She reports the discomfort started approx a yr ago, but has progressively become worse. She reports the pain comes in with exertion and relieves with rest after minutes to >20 minutes. She reports feeling diaphoretic, nauseated, palpitations, SOB. She states last night her daughter brought her to the ED. She reports LE swelling. No syncope or near syncope. She states the discomfort is exactly like the pain she had at the time of her [place] prior CABG. She reports she was seeing Dr. Gunn, but quit seeing him because he made her mad. She states she does not take ASA d/t blood in her stools in the past d/t colitis. She does not report any CP at this time. Review of Systems-Cardiology Review of Systems Constitutional: No chills, No fever; malaise Eyes: No vision change Ears/Nose/Throat: No epistaxis, No recent hearing loss Respiratory: As described under HPI Cardiovascular: As described under HPI Gastrointestinal: diarrhea, nausea Genitourinary: No dysuria, No hematuria Musculoskeletal: no symptoms reported Skin: No rash on exposed areas, No ulcerations on exposed areas Psychiatric/Neurological: No anxiety, No depression, No seizure, No focal weakness, No syncope Hematologic: No bleeding abnormalities HGS-[id number]-Wsptoj Hx Patient Social History Employed/Student: retired Smoking Status: Former Smoker (quit in 1999) 2nd Hand Smoke Exposure: Yes Have you traveled recently?: No Alcohol Use?: No Pt feels they are or have been: No Immunizations Up To Date Tetanus Booster (TDap): Unknown Date of Pneumonia Vaccine: Nov 27, 2018 Date of Influenza Vaccine: Dec 02, 2019 Past Medical History PMH As described under Assessment. Family Medical History Family Medical History: She reports her mother and sisters all have CAD. Allergies and Home Medications Allergies Coded Allergies: lisinopril (Unverified Allergy, Unknown, 07/12/16) Sulfa (Sulfonamide Antibiotics) (Verified Adverse Reaction, Intermediate, RASH, 02/25/11) Home Medications Acetaminophen 325 Mg Tablet, 325-650 MG PO Q6H PRN for PAIN-MILD (1-4), (Reported) Last Action: Reviewed Amlodipine Besylate 2.5 Mg Tablet, 2.5 MG PO DAILY, (Reported) Last Action: Reviewed Atorvastatin Calcium 40 Mg Tablet, 40 MG PO DAILY, (Reported) LAST FILLED 06-12-2020 #15/15 DAY SUPPLY Last Action: Reviewed Citalopram Hydrobromide 10 Mg Tablet, 10 MG PO DAILY, (Reported) Last Action: Reviewed Colestipol HCl 1 Gm Tablet, 1-2 GM PO Q8H PRN for DIARRHEA, (Reported) TAKES 1 TO 2 (1GM) TABS Last Action: Reviewed Fish Oil/Dha/Epa 1 Each Capsule, 1 EACH PO DAILY, (Reported) Last Action: Reviewed Furosemide 40 Mg Tablet, 40 MG PO 0700,1400, (Reported) LAST FILLED 03-25-2021 #180/90 DAY SUPPLY Last Action: Reviewed Isosorbide Mononitrate 30 Mg Tab.er.24h, 30 MG PO DAILY, (Reported) Last Action: Reviewed Levothyroxine Sodium 125 Mcg Tablet, 125 MCG PO DAILY, (Reported) Last Action: Reviewed Loperamide HCl 2 Mg Tablet, 2-4 MG PO UD PRN for DIARRHEA, (Reported) Last Action: Reviewed Meclizine HCl 25 Mg Tablet, 25 MG PO Q6H PRN for DIZZINESS, (Reported) Last Action: Reviewed Metoprolol Succinate 50 Mg Tab.er.24h, 50 MG PO DAILY, (Reported) Last Action: Reviewed Pantoprazole Sodium 40 Mg Tablet.dr, 40 MG PO DAILY, (Reported) Last Action: Reviewed Potassium Chloride 10 Meq Tab.er.prt, 10 MEQ PO 0700,1400, (Reported) LAST FILLED 04-22-2020 #60/30 DAY SUPPLY Last Action: Reviewed Patient Home Medication List Home Medication List Reviewed: Yes Physical Exam-Cardiology Physical Exam Vital Signs/I&O 07/31/20 07/31/20 07/31/20 07/31/20 02:20 02:30 02:30 02:46 Temp 36.6 36.0 Pulse 83 73 83 Resp 22 21 B/P (MAP) 157/71 (90) 95/75 (82) Pulse Ox 95 94 94 O2 Delivery Nasal Cannula Nasal Cannula Nasal Cannula O2 Flow Rate 2.00 2.00 2.00 07/31/20 07/31/20 07/31/20 07/31/20 02:49 02:52 03:00 04:00 Temp 37.0 36.0 Pulse 79 84 80 77 Resp 18 26 16 B/P (MAP) 95/75 (82) 96/69 (78) 108/70 (83) Pulse Ox 95 96 97 93 O2 Delivery Nasal Cannula Nasal Cannula Nasal Cannula O2 Flow Rate 2.00 2.00 2.00 07/31/20 07/31/20 07/31/20 07/31/20 04:19 05:00 06:54 07:20 Temp 37.0 Pulse 76 84 Resp 22 B/P (MAP) 97/58 (71) Pulse Ox 96 95 O2 Delivery Nasal Cannula Nasal Cannula O2 Flow Rate 2.00 2.00 07/31/20 07/31/20 07/31/20 07/31/20 07:50 08:00 08:00 12:00 Pulse 87 Resp 19 B/P (MAP) 90/56 (67) Pulse Ox 95 94 94 94 O2 Delivery Nasal Cannula Nasal Cannula Nasal Cannula Nasal Cannula O2 Flow Rate 2.00 2.00 2.00 2.00 07/31/20 00:00 Intake Total 1000 ml Balance 1000 ml Capillary Refill : Less Than 3 Seconds Constitutional: AAO x 3, well-developed, well-nourished HEENT: PERRL, hearing is well preserved Neck: No carotid bruit; carotid pulses are 2 + bilaterally Respiratory: No accessory muscle use, No respiratory distress; chest expansion is symmetric, chest is bilaterally symmetric, lungs clear to auscultation Cardiovascular: regular rate-rhythm; No JVD; S1 and S2 Gastrointestinal: soft, round; No guarding; audible bowel sounds Extremities: no lower extremity edema bilateral Neurologic/Psychiatric: grossly intact (moves all extremities) Skin: No rash on exposed areas, No ulcerations on exposed areas Data Review Labs Laboratory Tests 07/30/20 22:20: Coronavirus 2019 (OSVALDO) Negative 07/30/20 22:25: White Blood Count 6.1, Red Blood Count 4.07, Hemoglobin 11.7, Hematocrit 38, Mean Corpuscular Volume 93, Mean Corpuscular Hemoglobin 29, Mean Corpuscular Hemoglobin Concent 31L, Red Cell Distribution Width 15.9H, Platelet Count 196, Mean Platelet Volume 11.4, Immature Granulocyte % (Auto) 1, Neutrophils (%) (Auto) 67, Lymphocytes (%) (Auto) 20, Monocytes (%) (Auto) 10, Eosinophils (%) (Auto) 2, Basophils (%) (Auto) 0, Neutrophils # (Auto) 4.1, Lymphocytes # (Auto) 1.2, Monocytes # (Auto) 0.6, Eosinophils # (Auto) 0.1, Basophils # (Auto) 0.0, Immature Granulocyte # (Auto) 0.0, Prothrombin Time 13.8, INR Comment 1.0, Activated Partial Thromboplast Time 30, D-Dimer 1.49H, Sodium Level 143, Potassium Level 3.8, Chloride Level 106, Carbon Dioxide Level 24, Anion Gap 13, Blood Urea Nitrogen 10, Creatinine 0.83, Estimat Glomerular Filtration Rate > 60, BUN/Creatinine Ratio 12, Glucose Level 111H, Calcium Level 9.0, Corrected Calcium 9.0, Magnesium Level 1.9, Total Bilirubin 0.8, Aspartate Amino Transf (AST/SGOT) 38H, Alanine Aminotransferase (ALT/SGPT) 19, Alkaline Phosphatase 52, Lactate Dehydrogenase 357H, Myoglobin 81.0, Troponin I 1.814*H, C-Reactive Protein High Sensitivity 2.34H, B-Type Natriuretic Peptide 352.9H, Total Protein 7.8, Albumin 4.0, Procalcitonin 0.07 07/30/20 22:50: Lactic Acid Level 1.35 07/31/20 01:00: Urine Color YELLOW, Urine Clarity CLEAR, Urine pH 5.0, Urine Specific [place] <=1.005, Urine Protein NEGATIVE, Urine Glucose (UA) NEGATIVE, Urine Ketones NEGATIVE, Urine Nitrite NEGATIVE, Urine Bilirubin NEGATIVE, Urine Urobilinogen 0.2, Urine Leukocyte Esterase NEGATIVE, Urine RBC (Auto) TRACE-I, Urine RBC RARE, Urine WBC NONE, Urine Squamous Epithelial Cells 0-2, Urine Crystals NONE, Urine Bacteria NEGATIVE, Urine Casts NONE, Urine Mucus NEGATIVE, Urine Culture Indicated CULTURE PENDING 07/31/20 03:17: White Blood Count 5.6, Red Blood Count 3.78L, Hemoglobin 10.9L, Hematocrit 35, Mean Corpuscular Volume 93, Mean Corpuscular Hemoglobin 29, Mean Corpuscular Hemoglobin Concent 31L, Red Cell Distribution Width 16.1H, Platelet Count 207, Mean Platelet Volume 12.0, Immature Granulocyte % (Auto) 1, Neutrophils (%) (Auto) 83H, Lymphocytes (%) (Auto) 11L, Monocytes (%) (Auto) 6, Eosinophils (%) (Auto) 0, Basophils (%) (Auto) 0, Neutrophils # (Auto) 4.6, Lymphocytes # (Auto) 0.6L, Monocytes # (Auto) 0.3, Eosinophils # (Auto) 0.0, Basophils # (Auto) 0.0, Immature Granulocyte # (Auto) 0.0, Sodium Level 142, Potassium Level 4.0, Chloride Level 106, Carbon Dioxide Level 24, Anion Gap 12, Blood Urea Nitrogen 9, Creatinine 0.75, Estimat Glomerular Filtration Rate > 60, BUN/Creatinine Ratio 12, Glucose Level 117H, Calcium Level 8.4L, Phosphorus Level 3.1, Magnesium Level 1.9, Troponin I 2.131*H, Triglycerides Level 138, Cholesterol Level 169, LDL Cholesterol Direct 130H, VLDL Cholesterol 28, HDL Cholesterol 31L Microbiology 07/30/20 Influenza Types A,B Antigen (SANDRA) - Final, Complete Laboratory Tests 07/30/20 22:25 07/31/20 03:17 A/P-Cardiology Assessment/Admission Diagnosis NSTEMI CAD: - CABG x 2 vessel approx 20 yrs ago at [facility] by Dr. Guadalupe Carotid dz: - H/O bilat CEA at [facility] > 10 yrs ago HTN HLD Colitis Discussion and Recomendations NSTEMI - advise cardiac cath. We have discussed the procedure, risks, benefits and potential complications of cardiac cath with possible ad hoc coronary intervention. She wishes to talk to her daughter and will let us know of her decision. She is currently pain free Continue ASA, Plavix and statin Not suitable for BB at this time d/t low blood pressure, albeit asymptomatic Monitor lab Replace electrolytes as indicated Further recs will be based on her hospital course We would like to thank medical services for this consult Discussed with Dr White Clinical Quality Measures AMI/AHF: ASA po Prior to arrival: JUDAH Henderson MD [facility] July 31, 2020 12:45
[2020-07-31] MEDS ORDERED: ALPRAZolam 0.25 MG (XANAX) TAB ONE (21:06)
[2020-07-31] MEDS: ALPRAZolam 0.25 MG (XANAX) TAB PO PRN (21:25)
[2020-08-01] MEDS: RT-ALBUTEROL/IPRATROPIUM 3 ML (DUONEB) VIAL INH SCH ×2 (02:56→10:08)
[2020-08-01] MEDS: methylPREDNISolone 40 MG/ML (Solu-MEDROL) VIAL IV SCH ×4 (03:01→21:07)
[2020-08-01 03:20] LABS: BASOPHILS % (AUTO) 0 % (0-10); EOSINOPHILS % (AUTO) 0 % (0-10); HEMATOCRIT 36 % (35-52); HEMOGLOBIN 11.5 g/dL (11.5-16.0); LYMPHOCYTES # (AUTO) 0.6 10^3/uL (1.0-4.0); LYMPHOCYTES % (AUTO) 8 % (12-44); MEAN CORPUSCULAR HEMOGLOBIN 29 pg (25-34); MEAN CORPUSCULAR HGB CONC 32 g/dL (32-36); MEAN CORPUSCULAR VOLUME 91 fL (80-99); MEAN PLATELET VOLUME 11.6 fL (9.0-12.2); MONOCYTES # (AUTO) 0.2 10^3/uL (0.0-1.0); MONOCYTES % (AUTO) 3 % (0-12); NEUTROPHILS # (AUTO) 6.6 10^3/uL (1.8-7.8); NEUTROPHILS % (AUTO) 88 % (42-75); PLATELET COUNT 216 10^3/uL (130-400); WHITE BLOOD COUNT 7.5 10^3/uL (4.3-11.0)
[2020-08-01 03:41] LABS: CHLORIDE 103 MMOL/L (98-107); POTASSIUM 3.7 MMOL/L (3.6-5.0); SODIUM 141 MMOL/L (135-145)
[2020-08-01 03:42] LABS: GLUCOSE 152 MG/DL (70-105)
[2020-08-01 03:44] LABS: CARBON DIOXIDE 25 MMOL/L (21-32)
[2020-08-01 03:46] LABS: CREATININE SERUM 0.85 MG/DL (0.60-1.30); GFR ESTIMATED > 60; PHOSPHORUS 3.2 MG/DL (2.3-4.7)
[2020-08-01 03:47] LABS: BUN/CREATININE RATIO 20
[2020-08-01 03:48] LABS: MAGNESIUM 2.3 MG/DL (1.6-2.4)
[2020-08-01 04:05] LABS: PROTHROMBIN TIME PATIENT 14.3 SEC (12.2-14.7)
[2020-08-01 04:34] LABS: LYMPHOCYTES % (MANUAL) 8 %; MONOCYTES % (MANUAL) 1 %; NEUTROPHILS % (MANUAL) 91 %; RBC MORPH NORMAL
[2020-08-01] MEDS: MAGNESIUM 1 GM/100 ML IVPB 100 ML IV SCH (05:19)
[2020-08-01] MEDS: POTASSIUM CL 10MEQ/50ML IVPB 50 ML IV SCH (05:19)
[2020-08-01] MEDS: KCL 20 MEQ TAB (K-DUR) PO SCH ×2 (05:20→09:04)
[2020-08-01] MEDS: CATHETER FLUSH 10 ML SYR IV SCH ×3 (05:59→21:07)
[2020-08-01] MEDS ORDERED: NS IV 1000 ML 1,000 ML IV SCH (06:00)
--- NOTE | 2020-08-01 08:27 | Progress Note - Hospitalist ---
Subjective HPI/CC On Admission Date Seen by Provider: August 01, 2020 Time Seen by Provider: 08:21 Pt is an 85yoCF with a PMH of CAD s/p 2 vessel CABG, HTN, HLD, PVD, and post surgical hypothyroidism who presented to the ER due to shortness of breath. She reported to the ER it had been going on for 2-3 days but to me states it had acctually been several weeks. She has not been vaccinated for COVID. She denies fevers, cough, or sick contacts. She states it was accompanied by chest pain and there we not aggrevating or alleviating factors. She was found to have a troponin of 1.8 on arrival and was admitted for an NSTEMI. She was also found to be hypoxic at 83%. She was currently receiving a breathing treatment and denied any shortness of breath to me. Subjective/Events-last exam Pt sleeping when I entered. No complaints. Breathing better. States she was sleeping well. Now agreeable to cath. Focused Exam Lactate Level 07/30/20 22:50: Lactic Acid Level 1.35 Objective Exam Vital Signs Vital Signs Date Time Temp Pulse Resp B/P (MAP) Pulse Ox O2 Delivery O2 Flow Rate FiO2 08/01/20 06:37 Nasal Cannula 3.00 08/01/20 06:36 75 08/01/20 05:26 36.0 13 134/56 (82) 91 Capillary Refill : Less Than 3 Seconds General Appearance: No Apparent Distress, Chronically ill Respiratory: Lungs Clear, No Respiratory Distress Cardiovascular: Regular Rate, Rhythm, No Murmur Gastrointestinal: Normal Bowel Sounds, Non Tender, Soft Neurologic/Psychiatric: Alert, Oriented x3 Results/Procedures Lab Laboratory Tests 08/01/20 02:49 Patient resulted labs reviewed. Imaging: Reviewed Imaging Report Assessment/Plan Assessment and Plan Assess & Plan/Chief Complaint NSTEMI CAD s/p CABG troponin elevated Cardiology consulted, appreciate recs NPO for cath Echo read pending Continue ASA and Plavix Discussed with Hanna [employer] SUPERVISOR For Dr Sandoval about patient's agreement with cath today, she will attempt to get on schedule today Hypoxia COPD Likely multifactorial with COPD and CHF given effusions on imaging Continue lasix Continue steroids HTN BP improved somewhat today, trend HLD Continue home meds Hypothyroidism Continue home synthroid Falls Pt reported falls at home to RN PT/OT rn patient services DVT ppx: Lovenox Diagnosis/Problems Diagnosis/Problems (1) NSTEMI (non-ST elevated myocardial infarction) Status: Acute (2) CAD (coronary artery disease) Qualifiers: Coronary Disease-Associated Artery/Lesion type: [place] artery [place] vs. transplanted heart: [place] heart Associated angina: with unspecified angina Qualified Codes: I25.119 - Atherosclerotic heart disease of [place] coronary artery with unspecified angina pectoris (3) Acute respiratory failure Status: Acute Qualifiers: Respiratory failure complication: hypoxia Qualified Codes: J96.01 - Acute respiratory failure with hypoxia (4) HLD (hyperlipidemia) Status: Chronic Qualifiers: Hyperlipidemia type: mixed hyperlipidemia Qualified Codes: E78.2 - Mixed hyperlipidemia (5) Essential (primary) hypertension Status: Chronic (6) Debility Status: Acute (7) Hypothyroidism Status: Chronic Qualifiers: Hypothyroidism type: postoperative Qualified Codes: E89.0 - Postprocedural hypothyroidism (8) COPD exacerbation Status: Acute Clinical Quality Measures AMI/AHF: ASA po Prior to arrival: YONY Rivas MD August 01, 2020 08:27
--- NOTE | 2020-08-01 08:35 | Diagnostic Imaging Report ---
HISTORY: COPD exacerbation COMPARISON: 07/30/2020 TECHNIQUE: Frontal view the chest FINDINGS: Lung volumes are mildly low. There is mild central vascular congestion and interstitial edema which appears improved compared to the prior study. No significant pleural effusion or pneumothorax is seen. Sternotomy wires and multiple clips are seen in the chest. There is diffuse osteopenia. IMPRESSION: 1. Bilateral interstitial opacities, likely interstitial edema, mildly improved since the prior exam. No new consolidation is seen. Dictated by: Dictated on workstation # [id number]
[2020-08-01] MEDS: ASPIRIN 81 MG CHEW (CHILDREN'S ASA) PO SCH (09:04)
[2020-08-01] MEDS: CLOPIDOGREL 75 MG (PLAVIX) TABLET PO SCH (09:04)
[2020-08-01] MEDS: FUROSEMIDE 40 MG/4 ML INJ (LASIX) IVP SCH (09:04)
[2020-08-01 09:16] VITALS: BP 134/56
[2020-08-01] MEDS ORDERED: HEParin (CATH LAB) 2,000 ML IV ONE (09:34)
[2020-08-01] MEDS ORDERED: LIDOCAINE 1% INJ 20 ML 20 ML VIAL ONE (09:34)
[2020-08-01] MEDS ORDERED: NS IV 1000 ML 1,000 ML ONE (09:34)
[2020-08-01] MEDS: ENOXAPARIN 40 MG/0.4 ML (LOVENOX) SYR SC SCH (10:53)
[2020-08-01] MEDS ORDERED: MIDAZOLAM 5 MG/5 ML (VERSED) VIAL ONE (11:14)
[2020-08-01] MEDS ORDERED: fentaNYL INJ 100 MCG/2 ML AMP ONE ×2 (11:14→16:03)
--- NOTE | 2020-08-01 11:27 | Physical Therapy Evaluation ---
PT Evaluation-General Medical Diagnosis Admission Date July 31, 2020 at 01:25 Medical Diagnosis: NSTEMI/COPD exacerbation Onset Date: July 31, 2020 Therapy Diagnosis Therapy Diagnosis: generalized weakness/debility Height/Weight Height (Feet): 5 Height (Inches): 1.00 Weight (Pounds): 100 Precautions Precautions/Isolations: Fall Prevention, Standard Precautions Referral Physician: Henrietta Reason for Referral: Evaluation/Treatment Medical History Pertinent Medical History: CABG, CAD, COPD, HTN, PVD Current History ER secondary to CP and SOA Reviewed History: Yes Social History Home: Single Level (trailer) Current Living Status: Alone PT Steps Into Home: 5 Prior Prior Level of Function SCALE: Activities may be completed with or without assistive devices. 2-Mgmqcjxscx-ggfxmlv completes the activity by him/herself with no assistance from a helper. 5-Set-up or Clean-up Assistance-helper sets up or cleans up; patient completes activity. [place] assists only prior to or following the activity. 4-Supervision or Touching Assistance-helper provides verbal cues and/or touching/steadying and/or contact guard assistance as patient completes activity. Assistance may be provided throughout the activity or intermittently. 3-Partial/Moderate Assistance-helper does LESS THAN HALF the effort. [place] lifts, holds or supports trunk or limbs, but provides less than half the effort. 2-Substantial/Maximal Assistance-helper does MORE THAN HALF the effort. [place] lifts or holds trunk or limbs and provides more than half the effort. 6-Zmdpafhib-nziuqn does ALL the effort. Patient does none of the effort to complete the activity. Or, the assistance of 2 or more helpers is required for the patient to complete the activity. If activity was not attempted, code reason: 7-Patient Refused. 9-Not Applicable-not attempted and the patient did not perform the activity before the current illness, exacerbation or injury. 10-Not Attempted due to Environmental Limitations-(lack of equipment, weather restraints, etc.). 88-Not Attempted due to Medical Conditions or Safety Concerns. Bed Mobility: 6 Transfers (B,C,W/C): 6 Gait: 6 Stairs: 6 Indoor Mobility (Ambulation): Independent Stairs: Independent Prior Devices Use: Walker PT Evaluation-Current Subjective Patient reports she just moved from an apartment to a trailer near family. Agrees to PT. Objective Patient Orientation: Normal For Age Attachments: Oxygen ROM/Strength ROM Lower Extremities bilateral LE WFL Strength Lower Extremities 3/5 grossly bilateral LE Integumentary/Posture Integumentary refer to nursing notes Bladder Incontinence: No Posture slightly kyphotic Neuromuscular (Tone, Coordination, Reflexes) grossly intact Sensory Vision: Functional Hearing: Impaired Transfers Roll Left to Right (QC): 3 Lying to Sitting/Side of Bed(Q: 3 Sit to Stand (QC): 3 Chair/Xfr-qv-Showz Xfer(QC): 3 Gait Does the Patient Walk?: Yes Mode of Locomotion: Walk Anticipated Mode of Locomotion: Walk Walk 10 feet (QC): 3 Walk 50 ft with 2 Turns(QC): 88 Walk 150 ft (QC): 88 Gait Assistive Device: FWW Comments/Gait Description slightly unsteady Balance Sitting Static: Normal Sitting Dynamic: Normal Standing Static: Fair Standing Dynamic: Fair Picking up an Object (QC): 88 Assessment/Needs 85 y.o. female, to have a heart cath on this date, will benefit from skilled PT to address functional strength and mobility to improve current LOF to safely return to home at maximum LOF. Rehab Potential: Fair PT Port Surveyor Goals Port Surveyor Goals PT Port Surveyor Goals Time Frame: August 10, 2020 Roll Left & Right (QC): 6 Sit to Lying (QC): 6 Lying-Sitting on Side/Bed(QC): 6 Sit to Stand (QC): 6 Chair/Sxr-dx-Onznv Xfer(QC): 6 Toilet Transfer (QC): 6 Does the Patient Walk: Yes Walk 10 feet (QC): 6 Walk 50ft with 2 Turns (QC): 6 Walk 150 ft (QC): 6 1 Step (curb) (QC): 6 4 Steps (QC): 6 PT Plan Problem List Problem List: Activity Tolerance, Functional Strength, Safety, Balance, Gait, Transfer, Bed Mobility Treatment/Plan Treatment Plan: Continue Plan of Care Treatment Plan: Bed Mobility, Education, Functional Activity Kurtis, Functional Strength, Gait, Safety, Therapeutic Exercise, Transfers Treatment Duration: August 10, 2020 Frequency: 6 times per week Estimated Hrs Per Day: .25 hour per day Patient and/or Family Agrees t: Yes Time/GCodes Time In: 1040 Time Out: 1051 Total Billed Treatment Time: 11 Total Billed Treatment 1 visit EVModC 11 min ILA BURROWS PT August 01, 2020 11:27
[2020-08-01] MEDS ORDERED: NITRO DRIP 25000 MCG/D5W 0 ML IV ONE (12:16)
[2020-08-01] MEDS ORDERED: EPTIFIBATIDE BOLUS 20 ML IV ONE (12:16)
[2020-08-01] MEDS ORDERED: HEParin 1000 UNIT/ML (10ML VIAL) FOR BOLUS ONE (12:16)
[2020-08-01] MEDS ORDERED: niCARdipine 25 MG/10 ML (CARDENE) AMP IV ONE (12:38)
[2020-08-01] MEDS ORDERED: NS (IVPB) 250 ML ONE (12:38)
[2020-08-01] MEDS ORDERED: PATIENT MAY USE OWN MEDS, ALL PO SCH (13:45)
[2020-08-01] MEDS ORDERED: CLOPIDOGREL 300 MG (PLAVIX) TABLET PO ONE (13:51)
[2020-08-01] MEDS ORDERED: ASPIRIN 81 MG CHEW (CHILDREN'S ASA) PO NR (14:15)
[2020-08-01] MEDS ORDERED: CLOPIDOGREL 300 MG (PLAVIX) TABLET PO NR (14:15)
[2020-08-01] MEDS: NS IV 1000 ML 1,000 ML IV SCH (14:22)
--- NOTE | 2020-08-01 15:19 | Occ Therapy Progress Note ---
Therapy Progress Note OT order received. Pt. to have heart cath. Will evaluate in a.m. 1519 MOHAN VENCES OT August 01, 2020 15:19
[2020-08-01] MEDS ORDERED: ATROPINE INJ 0.4 MG/ML SDV ONE (16:03)
--- NOTE | 2020-08-01 17:03 | CARDIAC CATHETERIZATION ---
DATE OF SERVICE: 08/01/2020 CARDIAC CATHETERIZATION AND CORONARY INTERVENTION REPORT INDICATION FOR PROCEDURE: The patient is an 85-year-old lady, who has a history of coronary artery disease and coronary artery bypass surgery several years ago. This was done at [facility] in [place], [place]. After that, she also has a history of stenting of the right coronary artery. She presented with acute non-ST elevation myocardial infarction. Cardiac catheterization was recommended. Informed consent was obtained. The procedure was carried out today after she provided informed consent today. DESCRIPTION OF PROCEDURE: She was brought to the cardiac catheterization laboratory in a fasting state. Right groin was prepared and draped in the usual sterile fashion. Lidocaine 1% was used for local anesthesia. Modified Seldinger technique was used to advance a 5-Mexican sheath into the right femoral artery. A 5-Mexican JL4 catheter was used for left coronary angiography. A 5-Mexican JR4 catheter was used for left heart catheterization and left ventricular angiography. The JR4 catheter was then pulled back. It did not engage the right coronary artery adequately. It did engage the saphenous vein graft to a diagonal branch of the left anterior descending, and angiography of that was performed. The catheter was then used to carry out angiography of the left subclavian artery. Selective angiography of the left internal mammary artery graft to left anterior descending artery could not be performed because there is 99% to 100% stenosis in the proximal left subclavian artery. Subsequently, we changed the sheath over a wire for a 6-Mexican sheath and we used a 6-Mexican JR4 guide catheter with a short tape to engage the right coronary artery and to perform selective angiography of the right coronary artery. This catheter was then used to perform percutaneous intervention to the saphenous vein graft to a diagonal and that is described below. PERCUTANEOUS INTERVENTION TO THE SAPHENOUS VEIN GRAFT TO A DIAGONAL BRANCH OF THE LEFT ANTERIOR DESCENDING: We used a 6-Mexican JR4 catheter with a short tape. We used a ChoICE floppy wire to cross the lesion. That did not cross. We then chose a ChoICE PT Graphix wire. This did cross with moderate difficulty and we were able to place the tip of the wire in the diagonal branch. We then carried out balloon angioplasty with a 2.0 x 20 mm balloon. This reduced a subtotal stenosis to approximately 80% residual. The balloon was removed. We try to advance, Alpine Xience 3.0 x 18 mm stent across the lesion, but were not successful. We then used a phuong wire. We chose ChoICE extra support wire and used it as a phuong wire and we then were able to advance a stent on the Choice PT Graphix wire with moderate difficulty. The stent was adequately positioned and deployed at 22 atmospheres after the phuong wire had been removed. Subsequent angiography revealed no significant residual stenosis at the previous site of greater than 99% stenosis in the mid portion of this saphenous vein graft. Flow prior to intervention was SHANIA 1. Following intervention, there was SHANIA 3. She tolerated the procedure well. HEMODYNAMICS: Left ventricular end-diastolic pressure following coronary angiography was 8 mmHg. There is approximately 10 mmHg pressure gradient across the aortic valve. Ascending aortic pressure was 119/49 with a mean of 79 mmHg. CORONARY ANGIOGRAPHY: Left main coronary artery does not exhibit significant disease. Left anterior descending artery is occluded at its ostium. The left circumflex artery is patent and has diffuse mild to moderate disease. Right coronary artery is patent and is found to be extensively stented. The stents are patent and do not exhibit significant obstructive disease. There was diffuse moderate plaque within the right coronary artery. AORTOCORONARY GRAFT ANGIOGRAPHY: Aortocoronary graft to a diagonal branch, left anterior descending artery had a greater than 99% stenosis in its mid portion with slow antegrade flow. To this, successful percutaneous intervention was carried out and, following deployment of Alpine Xience 3.0 x 18 mm stent, there is no significant residual stenosis and flow throughout the vessel is normal. ANGIOGRAPHY OF THE LEFT SUBCLAVIAN ARTERY: The subclavian artery is 95% to 99% stenosed in its proximal portion. The left internal mammary artery graft is not well visualized on antegrade injection of the left subclavian. The left internal mammary artery graft is visualized on the injections performed through the aortocoronary graft to the diagonal branch. It exhibits competitive flow in the distal part of the left anterior descending. LEFT VENTRICULAR ANGIOGRAPHY: Left ventricular angiography was carried out in the right anterior oblique projection. Global left ventricular systolic function is well preserved. Left ventricular ejection fraction approximately 60%. CONCLUSIONS: 1. Coronary artery disease primarily consisting of ostial occlusion of the left anterior descending, mild to moderate diffuse disease of the left circumflex artery, and an extensively stented dominant right coronary with diffuse moderate disease without significant focal obstructive disease. 2. 95% to 99% stenosis of the proximal left subclavian. The left internal mammary artery graft is not well visualized. 3. Greater than 99% mid-vessel stenosis of a saphenous vein graft to a diagonal. This was probably the culprit lesion and was successfully stented with Alpine Xience 3.0 x 18 mm stent. 4. Well-preserved global left ventricular systolic function with ejection fraction approximately 60%. 5. 10 mm pressure gradient on pullback across the aortic valve. 7. Normal left ventricular end-diastolic pressure. DISCUSSION AND RECOMMENDATIONS: The culprit vessel was treated. 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 The left internal mammary artery graft is probably served via the left-sided circulation. This subclavian lesion may need intervention at a later time. This is a chronic lesion and does not appear to have been responsible for her acute symptom. Job ID: [id number] DocumentID: [id number] Dictated Date: 08/01/2020 13:33:21 Rn Staff Date: 08/01/2020 17:03:14 Dictated By: JUDAH WHITTINGTON MD, MA, FACP, FACC, MTDD
--- NOTE | 2020-08-01 17:38 | Progress Note - Cardiology ---
Cardiology SOAP Progress Note Subjective: Gen malaise and weakness Vague chest discomfort this am No shortness of breath No palp or syncope No n/v/d Objective: I&O/Vital Signs 08/01/20 08/01/20 08/01/20 08/01/20 06:36 06:37 07:50 08:00 Pulse 75 84 Resp 23 B/P (MAP) 158/69 (98) Pulse Ox 97 93 O2 Delivery Nasal Cannula Nasal Cannula Nasal Cannula O2 Flow Rate 3.00 3.00 3.00 08/01/20 08/01/20 08/01/20 08/01/20 09:16 10:08 11:15 15:00 Pulse 76 84 Resp 13 B/P (MAP) 122/61 (81) Pulse Ox 91 96 96 89 O2 Delivery Nasal Cannula Nasal Cannula Nasal Cannula O2 Flow Rate 3.00 3.00 5.00 FiO2 32 08/01/20 08/01/20 08/01/20 16:00 16:30 17:00 Pulse 76 86 Resp 12 11 B/P (MAP) 125/59 (81) 159/73 (101) Pulse Ox 97 96 98 O2 Delivery Nasal Cannula Nasal Cannula Nasal Cannula O2 Flow Rate 5.00 3.00 3.00 08/01/20 00:00 Intake Total 750 ml Output Total 775 ml Balance -25 ml Weight (Pounds): 100 Weight (Calculated Kilograms): 45.508656 Constitutional: AAO x 3, well-developed, well-nourished Respiratory: No accessory muscle use, No respiratory distress; chest expansion is symmetric, chest is bilaterally symmetric, lungs clear to auscultation Cardiovascular: regular rate-rhythm; No JVD; S1 and S2 Gastrointestional: soft, round; No guarding; audible bowel sounds Extremities: no lower extremity edema bilateral Neurologic/Psychiatric: grossly intact (moves all extremities) Skin: No rash on exposed areas, No ulcerations on exposed areas Results/Procedures: Labs Laboratory Tests 08/01/20 02:49: White Blood Count 7.5, Red Blood Count 3.96, Hemoglobin 11.5, Hematocrit 36, Mean Corpuscular Volume 91, Mean Corpuscular Hemoglobin 29, Mean Corpuscular Hemoglobin Concent 32, Red Cell Distribution Width 15.9H, Platelet Count 216, Mean Platelet Volume 11.6, Immature Granulocyte % (Auto) 1, Neutrophils (%) (Auto) 88H, Lymphocytes (%) (Auto) 8L, Monocytes (%) (Auto) 3, Eosinophils (%) (Auto) 0, Basophils (%) (Auto) 0, Neutrophils # (Auto) 6.6, Lymphocytes # (Auto) 0.6L, Monocytes # (Auto) 0.2, Eosinophils # (Auto) 0.0, Basophils # (Auto) 0.0, Immature Granulocyte # (Auto) 0.1, Neutrophils % (Manual) 91, Lymphocytes % (Manual) 8, Monocytes % (Manual) 1, Blood Morphology Comment NORMAL, Sodium Level 141, Potassium Level 3.7, Chloride Level 103, Carbon Dioxide Level 25, Anion Gap 13, Blood Urea Nitrogen 17, Creatinine 0.85, Estimat Glomerular Filt ration Rate > 60, BUN/Creatinine Ratio 20, Glucose Level 152H, Calcium Level 9. 0, Phosphorus Level 3.2, Magnesium Level 2.3 08/01/20 03:30: Prothrombin Time 14.3, INR Comment 1.0, Activated Partial Thromboplast Time 29 Microbiology 07/31/20 Urine Culture - Final, Complete NO GROWTH 07/30/20 Blood Culture - Preliminary, Resulted No growth 07/30/20 Influenza Types A,B Antigen (SANDRA) - Final, Complete Laboratory Tests 07/30/20 22:25 07/31/20 03:17 08/01/20 02:49 A/P: Assessment: NSTEMI and unstable angina (treated with PCI to SVG to LAD, as described below) CAD: - CABG x 2 vessel approx 20 yrs ago at [facility] by Dr. Guadalupe - Card cath on 08/01/20: ostial occlusion of the left anterior descending, mild to moderate diffuse disease of the left circumflex artery, and an extensively stented dominant right coronary with diffuse moderate disease without signi ficant focal obstructive disease. 95% to 99% stenosis of the proximal left subclavian. The left internal mammary artery graft is not well visualized. Greater than 99% mid-vessel stenosis of a saphenous vein graft to a diagonal. This was probably the culprit lesion and was successfully stented with Alpine Xience 3.0 x 18 mm stent. Well-preserved global left ventricular systolic function with ejection fraction approximately 60%.10 mm pressure gradient on pullback across the aortic valve. 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 This appears to be a chronic lesion. Intervention to this would be planned for a later date if pt and family agree I discussed her cath findings and the interventions undertaken in detail with her and her daughter Continue current regimen, including DAPT Monitor labs Clinical Quality Measures AMI/AHF: ASA po Prior to arrival: JUDAH Henderson MD FACP FAC CCDS August 01, 2020 17:38
[2020-08-02] MEDS: NS IV 1000 ML 1,000 ML IV SCH (00:39)
[2020-08-02] MEDS: methylPREDNISolone 40 MG/ML (Solu-MEDROL) VIAL IV SCH ×4 (02:20→21:25)
[2020-08-02 03:58] LABS: BASOPHILS % (AUTO) 0 % (0-10); EOSINOPHILS % (AUTO) 0 % (0-10); HEMATOCRIT 35 % (35-52); HEMOGLOBIN 10.6 g/dL (11.5-16.0); LYMPHOCYTES # (AUTO) 0.6 10^3/uL (1.0-4.0); LYMPHOCYTES % (AUTO) 6 % (12-44); MEAN CORPUSCULAR HEMOGLOBIN 28 pg (25-34); MEAN CORPUSCULAR HGB CONC 31 g/dL (32-36); MEAN CORPUSCULAR VOLUME 93 fL (80-99); MEAN PLATELET VOLUME 11.7 fL (9.0-12.2); MONOCYTES # (AUTO) 0.4 10^3/uL (0.0-1.0); MONOCYTES % (AUTO) 4 % (0-12); NEUTROPHILS # (AUTO) 8.8 10^3/uL (1.8-7.8); NEUTROPHILS % (AUTO) 89 % (42-75); PLATELET COUNT 225 10^3/uL (130-400); WHITE BLOOD COUNT 9.9 10^3/uL (4.3-11.0)
[2020-08-02 04:19] LABS: CHLORIDE 107 MMOL/L (98-107); POTASSIUM 4.3 MMOL/L (3.6-5.0); SODIUM 143 MMOL/L (135-145)
[2020-08-02 04:20] LABS: CALCIUM 8.7 MG/DL (8.5-10.1); GLUCOSE 177 MG/DL (70-105)
[2020-08-02 04:22] LABS: CARBON DIOXIDE 24 MMOL/L (21-32)
[2020-08-02 04:24] LABS: GFR ESTIMATED > 60; PHOSPHORUS 2.2 MG/DL (2.3-4.7)
[2020-08-02 04:25] LABS: BUN/CREATININE RATIO 29
[2020-08-02 04:27] LABS: MAGNESIUM 2.2 MG/DL (1.6-2.4)
[2020-08-02] MEDS: MAGNESIUM 1 GM/100 ML IVPB 100 ML IV SCH (05:53)
[2020-08-02] MEDS: KCL 20 MEQ TAB (K-DUR) PO SCH ×2 (05:53→08:29)
[2020-08-02] MEDS: POTASSIUM CL 10MEQ/50ML IVPB 50 ML IV SCH (05:53)
[2020-08-02] MEDS: CATHETER FLUSH 10 ML SYR IV SCH ×3 (06:21→21:25)
[2020-08-02] MEDS: RT-ALBUTEROL/IPRATROPIUM 3 ML (DUONEB) VIAL INH SCH ×3 (06:45→18:55)
--- NOTE | 2020-08-02 06:47 | Diagnostic Imaging Report ---
INDICATION: COPD exacerbation. Comparison made with prior examination 08/01/2020 FINDINGS: The heart size is stable. There is some venous congestion. There is bibasilar atelectasis and/or pneumonitis. There is no pleural effusion or pneumothorax. Mediastinum is unremarkable. There has been previous median sternotomy and coronary bypass graft IMPRESSION: Bibasilar atelectasis and/or pneumonitis. Mild central pulmonary venous congestion. Dictated by: Dictated on workstation # [id number]
[2020-08-02] MEDS ORDERED: METO-351 PO (08:09)
[2020-08-02] MEDS ORDERED: CLOP75TA28 PO (08:09)
[2020-08-02] MEDS ORDERED: SIMETHICONE 80 MG (MYLICON) CHEW PO PRN (08:15)
[2020-08-02] MEDS ORDERED: SIMETHICONE 80 MG (MYLICON) CHEW PO NR (08:15)
[2020-08-02] MEDS: ASPIRIN 81 MG CHEW (CHILDREN'S ASA) PO SCH (08:29)
[2020-08-02] MEDS: CLOPIDOGREL 75 MG (PLAVIX) TABLET PO SCH (08:30)
[2020-08-02] MEDS: ENOXAPARIN 40 MG/0.4 ML (LOVENOX) SYR SC SCH (08:30)
[2020-08-02] MEDS: FUROSEMIDE 40 MG/4 ML INJ (LASIX) IVP SCH (08:30)
[2020-08-02] MEDS ORDERED: METO-352 PO (08:55)
--- NOTE | 2020-08-02 08:59 | Progress Note - Cardiology ---
Cardiology SOAP Progress Note Subjective: Sitting up in bed this morning No c/o CP or SOB No c/o right groin discomfort No c/o palpitations Objective: I&O/Vital Signs Weight (Pounds): 100 Weight (Calculated Kilograms): 45.373747 Side: right Groin site without hematoma: Yes Condition: DP/PT pulses palpable Bruising: moderated bruising Constitutional: AAO x 3, well-developed, well-nourished Respiratory: No accessory muscle use, No respiratory distress; chest expansion is symmetric, chest is bilaterally symmetric, lungs clear to auscultation Cardiovascular: regular rate-rhythm; No JVD; S1 and S2 Gastrointestional: soft, round; No guarding; audible bowel sounds Extremities: no lower extremity edema bilateral Neurologic/Psychiatric: grossly intact (moves all extremities) Skin: No rash on exposed areas, No ulcerations on exposed areas Results/Procedures: Labs Microbiology 07/31/20 Urine Culture - Final, Complete NO GROWTH 07/30/20 Blood Culture - Final, Complete No growth 07/30/20 Influenza Types A,B Antigen (SANDRA) - Final, Complete Procedures NAME: [facility] REC#: [id number] PT STATUS: ADM IN : 1935 PHYSICIAN: YOSSI EDMONDS MD ADMIT DATE: 07/31/20/ICU Signed Date of Exam:08/02/20 CHEST 1 VIEW, AP/PA ONLY INDICATION: COPD exacerbation. Comparison made with prior examination 08/01/2020 FINDINGS: The heart size is stable. There is some venous congestion. There is bibasilar atelectasis and/or pneumonitis. There is no pleural effusion or pneumothorax. Mediastinum is unremarkable. There has been previous median sternotomy and coronary bypass graft IMPRESSION: Bibasilar atelectasis and/or pneumonitis. Mild central pulmonary venous congestion. Dictated by: Dictated on workstation # [id number] Dict: 08/02/20 [id number] Trans: 08/02/2009 [id number] Interpreted by: ROSE MARIE LOPEZ MD Electronically signed by: ROSE MARIE LOPEZ MD 08/02/20 0809 A/P: Assessment: NSTEMI and unstable angina (treated with PCI to SVG to LAD, as described below) CAD: - CABG x 2 vessel approx 20 yrs ago at [facility] by Dr. Guadalupe - Card cath on 08/01/20: ostial occlusion of the left anterior descending, mild to moderate diffuse disease of the left circumflex artery, and an extensively stented dominant right coronary with diffuse moderate disease without significa nt focal obstructive disease. 95% to 99% stenosis of the proximal left subclavian. The left internal mammary artery graft is not well visualized. Greater than 99% mid-vessel stenosis of a saphenous vein graft to a diagonal. This was probably the culprit lesion and was successfully stented with [employer] Xience 3.0 x 18 mm stent. Well-preserved global left ventricular systolic functi on with ejection fraction approximately 60%.10 mm pressure gradient on pullback across the aortic valve. 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 Intervention to this would be planned for a la ter date if pt and family agree I discussed her cath findings and the interventions undertaken in detail with her and her daughter Continue current regimen, including DAPT HR and BP not well controlled - add BB to her regimen Add statin Monitor labs Increase activity today Clinical Quality Measures AMI/AHF: ASA po Prior to arrival: CM Knight August 02, 2020 08:59
[2020-08-02] MEDS ORDERED: meTOproloL SUCCINATE 50 MG (TOPROL XL) TAB PO SCH (09:00)
--- NOTE | 2020-08-02 09:51 | Progress Note - Hospitalist ---
Subjective HPI/CC On Admission Date Seen by Provider: August 02, 2020 Time Seen by Provider: 09:46 Pt is an 85yoCF with a PMH of CAD s/p 2 vessel CABG, HTN, HLD, PVD, and post surgical hypothyroidism who presented to the ER due to shortness of breath. She reported to the ER it had been going on for 2-3 days but to me states it had acctually been several weeks. She has not been vaccinated for COVID. She denies fevers, cough, or sick contacts. She states it was accompanied by chest pain and there we not aggrevating or alleviating factors. She was found to have a troponin of 1.8 on arrival and was admitted for an NSTEMI. She was also found to be hypoxic at 83%. She was currently receiving a breathing treatment and denied any shortness of breath to me. Subjective/Events-last exam Pt reports feeling better today. No complaints. Discussed with KALI Ferreira for Dr Sandoval and plan to ambulate today and make sureno more symptoms and would be ready for DC tomorrow from their standpoint. Focused Exam Lactate Level 07/30/20 22:50: Lactic Acid Level 1.35 Objective Exam Vital Signs Vital Signs Date Time Temp Pulse Resp B/P (MAP) Pulse Ox O2 Delivery O2 Flow Rate FiO2 08/02/20 09:12 112 12 176/74 (108) 94 Nasal Cannula 1.50 08/02/20 04:00 36.8 08/01/20 09:16 32 Capillary Refill : Less Than 3 Seconds General Appearance: No Apparent Distress, WD/WN Respiratory: Lungs Clear, No Respiratory Distress Cardiovascular: Regular Rate, Rhythm, No Murmur Neurologic/Psychiatric: Alert, Oriented x3 Results/Procedures Lab Laboratory Tests 08/02/20 03:43 Patient resulted labs reviewed. 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 transplanted heart: [place] heart Associated angina: with unspecified angina Qualified Codes: I25.119 - Atherosclerotic heart disease of [place] coronary artery with unspecified angina pectoris (3) Acute respiratory failure Status: Acute Qualifiers: Respiratory failure complication: hypoxia Qualified Codes: J96.01 - Acute respiratory failure with hypoxia (4) HLD (hyperlipidemia) Status: Chronic Qualifiers: Hyperlipidemia type: mixed hyperlipidemia Qualified Codes: E78.2 - Mixed hyperlipidemia (5) Essential (primary) hypertension Status: Chronic (6) Debility Status: Acute (7) Hypothyroidism Status: Chronic Qualifiers: Hypothyroidism type: postoperative Qualified Codes: E89.0 - Postprocedural hypothyroidism (8) COPD exacerbation Status: Acute Clinical Quality Measures AMI/AHF: ASA po Prior to arrival: YONY Rivas MD August 02, 2020 09:51
--- NOTE | 2020-08-02 10:35 | Physical Therapy Daily Note ---
PT Daily Note-Current Subjective Patient agrees to PT. Had heart cath 08/01/20. Rn placed patient on portable telemetry. Mental Status Patient Orientation: Normal For Age Attachments: Oxygen (1.5L) Transfers SCALE: Activities may be completed with or without assistive devices. 1-Rizkoecnaz-vhtkdnb completes the activity by him/herself with no assistance from a helper. 5-Set-up or Clean-up Assistance-helper sets up or cleans up; patient completes activity. [place] assists only prior to or following the activity. 4-Supervision or Touching Assistance-helper provides verbal cues and/or touching/steadying and/or contact guard assistance as patient completes activity. Assistance may be provided throughout the activity or intermittently. 3-Partial/Moderate Assistance-helper does LESS THAN HALF the effort. [place] lifts, holds or supports trunk or limbs, but provides less than half the effort. 2-Substantial/Maximal Assistance-helper does MORE THAN HALF the effort. [place] lifts or holds trunk or limbs and provides more than half the effort. 2-Dowhoogoc-qepyfi does ALL the effort. Patient does none of the effort to complete the activity. Or, the assistance of 2 or more helpers is required for the patient to complete the activity. If activity was not attempted, code reason: 7-Patient Refused. 9-Not Applicable-not attempted and the patient did not perform the activity before the current illness, exacerbation or injury. 10-Not Attempted due to Environmental Limitations-(lack of equipment, weather restraints, etc.). 88-Not Attempted due to Medical Conditions or Safety Concerns. Lying to Sitting/Side of Bed(Q: 4 Sit to Stand (QC): 4 Chair/Zcx-qz-Wrgsk Xfer(QC): 4 Gait Training Does the Patient Walk?: Yes Distance: 275' Walk 10 feet (QC): 4 Walk 50 ft with 2 Turns(QC): 4 Walk 150 ft (QC): 4 Gait Assistive Device: FWW safe and functional with no deviation Treatments Patient performed activity on RA with SAO2 remaining 94% with all activity. RN notified and patient left off O2 at this time with RN monitoring PRN to ensure SAO2 remains >90% RA. Assessment Patient tolerated treatment well and is up in recliner on RA with needs met. Per , patient will dismiss to home on this date with home health intervention. PT Wetlands Technician Goals Skilled Nursing Goals PT Wetlands Technician Goals Time Frame: August 10, 2020 Roll Left & Right (QC): 6 Sit to Lying (QC): 6 Lying-Sitting on Side/Bed(QC): 6 Sit to Stand (QC): 6 Chair/Mfy-rm-Tplkt Xfer(QC): 6 Toilet Transfer (QC): 6 Does the Patient Walk: Yes Walk 10 feet (QC): 6 Walk 50ft with 2 Turns (QC): 6 Walk 150 ft (QC): 6 1 Step (curb) (QC): 6 4 Steps (QC): 6 PT Plan Treatment/Plan Treatment Plan: Continue Plan of Care Treatment Plan: Bed Mobility, Education, Functional Activity Kurtis, Functional Strength, Gait, Safety, Therapeutic Exercise, Transfers Treatment Duration: August 10, 2020 Frequency: 6 times per week Estimated Hrs Per Day: .25 hour per day Patient and/or Family Agrees t: Yes Time/GCodes Time In: 935 Time Out: 953 Total Billed Treatment Time: 18 Total Billed Treatment 1 visit FA 18 min ILA BURROWS PT August 02, 2020 10:35
--- NOTE | 2020-08-02 12:15 | Progress Note - Cardiology ---
Cardiology SOAP Progress Note Subjective: Gen weakness and malaise No cp or palp or syncope or shortness of breath No n/v/d Objective: I&O/Vital Signs 08/02/20 08/02/20 08/02/20 08/02/20 00:33 01:00 04:00 04:00 Temp 36.8 Pulse 79 90 Resp 17 B/P (MAP) 145/63 (90) Pulse Ox 96 98 O2 Delivery Nasal Cannula Nasal Cannula O2 Flow Rate 2.00 2.00 08/02/20 08/02/20 08/02/20 08/02/20 06:01 06:20 06:47 07:00 Pulse 95 Pulse Ox 98 97 O2 Delivery Room Air Nasal Cannula Nasal Cannula O2 Flow Rate 2.00 2.00 08/02/20 08/02/20 08/02/20 08/02/20 08:00 08:30 09:12 12:00 Temp 36.8 Pulse 112 112 Resp 12 12 B/P (MAP) 176/74 (108) 176/74 (108) Pulse Ox 94 94 O2 Delivery Nasal Cannula Nasal Cannula Nasal Cannula O2 Flow Rate 1.50 1.50 1.50 08/01/20 23:59 Intake Total 750 ml Output Total 950 ml Balance -200 ml Weight (Pounds): 100 Weight (Calculated Kilograms): 45.204141 Side: right Groin site without hematoma: Yes Condition: DP/PT pulses palpable Bruising: moderated bruising Constitutional: AAO x 3, well-developed, well-nourished Respiratory: No accessory muscle use, No respiratory distress; chest expansion is symmetric, chest is bilaterally symmetric, lungs clear to auscultation Cardiovascular: regular rate-rhythm; No JVD; S1 and S2 Gastrointestional: soft, round; No guarding; audible bowel sounds Extremities: no lower extremity edema bilateral Neurologic/Psychiatric: grossly intact (moves all extremities) Skin: No rash on exposed areas, No ulcerations on exposed areas Results/Procedures: Labs Laboratory Tests 08/02/20 03:43: White Blood Count 9.9, Red Blood Count 3.73L, Hemoglobin 10.6L, Hematocrit 35, Mean Corpuscular Volume 93, Mean Corpuscular Hemoglobin 28, Mean Corpuscular Hemoglobin Concent 31L, Red Cell Distribution Width 16.4H, Platelet Count 225, Mean Platelet Volume 11.7, Immature Granulocyte % (Auto) 1, Neutrophils (%) (Auto) 89H, Lymphocytes (%) (Auto) 6L, Monocytes (%) (Auto) 4, Eosinophils (%) (Auto) 0, Basophils (%) (Auto) 0, Neutrophils # (Auto) 8.8H, Lymphocytes # (Auto) 0.6L, Monocytes # (Auto) 0.4, Eosinophils # (Auto) 0.0, Basophils # (Auto) 0.0, Immature Granulocyte # (Auto) 0.1, Sodium Level 143, Potassium Level 4.3, Chloride Level 107, Carbon Dioxide Level 24, Anion Gap 12, Blood Urea Nitrogen 23H, Creatinine 0.80, Estimat Glomerular Filtration Rate > 60, BUN/Creatinine Ratio 29, Glucose Level 177H, Calcium Level 8.7, Phosphorus Level 2.2L, Magnesium Level 2.2 Microbiology 07/31/20 Urine Culture - Final, Complete NO GROWTH 07/30/20 Blood Culture - Preliminary, Resulted No growth 07/30/20 Influenza Types A,B Antigen (SANDRA) - Final, Complete Laboratory Tests 08/01/20 02:49 08/02/20 03:43 A/P: Assessment: NSTEMI and unstable angina (treated with PCI to SVG to LAD, as described below) CAD: - CABG x 2 vessel approx 20 yrs ago at [facility] by Dr. Guadalupe - Card cath on 08/01/20 showed the following. [place] cors: ostial occlusion of the left anterior descending, mild to moderate diffuse disease of the left circumflex artery, and an extensively stented dominant right coronary with diffuse moderate disease without significant focal obstructive disease. 95% to 99% stenosis of the proximal left subclavian. The left internal mammary artery graft not well visualized. Greater than 99% mid-vessel stenosis of a saphenous vein graft to a diagonal. This was probably the culprit lesion and was successfully stented with Alpine Xience 3.0 x 18 mm stent. Well-preserved global left ventricular systolic function with ejection fraction approximately 60%.10 mm pressure gradient on pullback across the aortic valve. LVEDP 8 mmHg Echo on 07/31/20: LVEF 50-55%, mild to mod and MR Carotid dz: - H/O bilat CEA at [facility] > 10 yrs ago HTN HLD Colitis Plan: Extensive CAD seen. 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 Intervention to this would be planned for a later date if pt and family agree Continue current regimen, including DAPT HR and BP not well controlled - add BB to her regimen Add statin Monitor labs Increase activity today Dr Hills covering Cardiology service Clinical Quality Measures AMI/AHF: ASA po Prior to arrival: JUDAH Henderson MD FACP FAC CCDS August 02, 2020 12:14
--- NOTE | 2020-08-02 12:21 | D/C HH Face to Face Order ---
D/C Face to Face Orders Instructions for Patient Via [facility], Patient Instructions/FollowUp: Please continue to take your medications as written. Please follow up with your primary care doctor in the next week and with Dr Sandoval in one week. Physician to follow Patient: Dr. Boone Discharge Diet for Home: Cardiac Diet Patient Data-Allergies,Ht & Wt Patient Allergies: Coded Allergies: lisinopril (Unverified Allergy, Unknown, 07/12/16) Sulfa (Sulfonamide Antibiotics) (Verified Adverse Reaction, Intermediate, RASH, 02/25/11) Height (Feet): 5 Height (Inches): 1.00 Weight (Pounds): 100 Home Health Need/Face to Face Date of Face to Face: August 02, 2020 Clinical Findings: Generalized weakness and fatigue, Shortness of breath I have seen Pt [id number]: Yes Discharged To: Home Diagnosis/Conditions: CAD, HTN Patient is Homebound due to: Shortness of breath/distress Homebound Status Due to the above stated illness, injury or surgical procedure (medical condition or diagnosis) and associated clinical findings, the patient is homebound because of his/her inability to leave home except with aid of a s upportive device and/or person AND leaving the home requires a considerable and taxing effort or is medically contraindicated. Pt req the following assistanc: Walker Home Health Nursing Orders Home Health Services Order: Nursing Services, Physical Therapy-Evaluate & Treat Home Health Infusion Therapy Line Start Date: July 30, 2020 Therapy Orders Therapy Orders: Physical Therapy, PT to assess for OT Therapy Specific Orders: Eval assistive deivces, Teach enviro modifications/safety, Gait training, Increase strength/endurance Certify Stmt I certify that this patient is under my care and that I, a nurse practitioner or a physician; a health assistant working with me, had a face to face encounter that - meets the physician face to face encounter requirements with this patient as dated. YONY ORR MD August 02, 2020 12:21
--- NOTE | 2020-08-02 14:22 | Occupational Therapy Eval ---
OT Evaluation-General/PLF Medical Diagnosis Admission Date July 31, 2020 at 01:25 Medical Diagnosis: NSTEMI/COPD exacerbation Onset Date: July 31, 2020 Therapy Diagnosis Therapy Diagnosis: Decreased ADL status Height/Weight Height (Feet): 5 Height (Inches): 1.00 Weight (Pounds): 100 Precautions Precautions/Isolations: Fall Prevention, Standard Precautions Referral Physician: Henrietta Referral Reason: Activity Tolerance, Self Care, Evaluation/Treatment, Strengthening/ROM Medical History Pertinent Medical History: CABG, CAD, COPD, HTN, PVD Additional Medical History CABG, HTN, HLD, PVD, falls Current History admits to ER with SOB, NSTEMI with hypoxia. Reviewed History: Yes Social History Home: Single Level (trailer) Current Living Status: Alone Steps Into Home: 5 ADL-Prior Level of Function SCALE: Activities may be completed with or without assistive devices. 1-Zizvuroljs-iunsaxl completes the activity by him/herself with no assistance from a helper. 5-Set-up or Clean-up Assistance-helper sets up or cleans up; patient completes a ctivity. [place] assists only prior to or following the activity. 4-Supervision or Touching Assistance-helper provides verbal cues and/or touching/steadying and/or contact guard assistance as patient completes activity. Assistance may be provided throughout the activity or intermittently. 3-Partial/Moderate Assistance-helper does LESS THAN HALF the effort. [place] lifts, holds or supports trunk or limbs, but provides less than half the effort. 2-Substantial/Maximal Assistance-helper does MORE THAN HALF the effort. [place] lifts or holds trunk or limbs and provides more than half the effort. 2-Ypcnnwhcs-rvpvid does ALL the effort. Patient does none of the effort to complete the activity. Or, the assistance of 2 or more helpers is required for the patient to complete the activity. If activity was not attempted, code reason: 7-Patient Refused. 9-Not Applicable-not attempted and the patient did not perform the activity before the current illness, exacerbation or injury. 10-Not Attempted due to Environmental Limitations-(lack of equipment, weather restraints, etc.). 88-Not Attempted due to Medical Conditions or Safety Concerns. ADL PLOF Comments Pt expresses IND without use of AD in the home for all ADLs. Pt states a hx of a few falls, use of walker when "feeling dizzy" and daughter's assist when needed. Completes cooking/ cleaning IND though requires daughter's assist for community transportation Self Care: Independent Functional Cognition: Independent DME/Equipment: Grab Bars, Shower DME/Equipment Comments states just moved into her trailer and has plans to place gbs in shower. Does not utilize sc. Occupation: retired. Drive Self: No OT Current Status Subjective Pt's nurse clears for OT entry. Pt AxO, agrees to tx. No pain. Mental Status/Objective Patient Orientation: Person, Place, Situation, Normal For Age Attachments: Telemetry Current Glasses/Contacts: No Hearing Aids: No Dentures/Partials: Yes Upper Extremity ROM WFL BUE Upper Extremity Coordination WFL BUE Upper Extremity Sensation decreased median nerve distribution in BUE Upper Extremity Strength WFL BUE (4-/5) ADL-Treatment Eating (QC): 6 Oral Hygiene (QC): 6 On/Off Footwear (QC): 6 Other Treatments Pt completes environmental hx and medical hx. Pt AROM MMT/ ROM WFL. Pt expresses no concerns for d/c tomorrow, expresses will have daughter's assist at home if needed as she lives across the street. Pt expresses multiple falls in past- educated on safety in the home including life alert (pt denies use as had poor experience prior) then educated to keep phone on her/ in bathroom or use of Rubina for emergency contact by voice command. Pt educated on safety in kitchen and proper body positioning in/out of oven as she utilizes to cook. Pt acknowledges understanding. Pt completes sock doff/ donning BLE. No issues. Pt left in recliner with all needs met, call light in reach. Pt states at PLOF and will continue to Education OT Patient Education: Progress toward Goal/Update tx plan, Purpose of tx/functional activities, Safety issues Teaching Recipient: Patient Teaching Methods: Discussion Response to Teaching: Verbalize Understanding, Return Demonstration OT Senior Care Goals Senior Care Goals 1=Demonstrate adherence to instructed precautions during ADL tasks. 2=Patient will verbalize/demonstrate understanding of assistive devices/modifications for ADL. 3=Patient will improve strength/tolerance for activity to enable patient to perform ADL's. OT Education/Plan Problem List/Assessment Assessment: No Skilled OT Needs ID'd Discharge Recommendations Plan/Recommendations: Discharge/Goals Met Therapy Discharge Recommendati: Home & Family Equpiment Recommendations-D/C: Rails on Tub/Shower, Bath Chair Comment pt educated on use of cell phone or Rubina unit in bathroom/ around home in case of falls. Pt expresses she does not have, nor will get, life alert again. Treatment Plan/Plan of Care Treatment,Training & Education: Yes Patient would benefit from OT for education, treatment and training to promote independence in ADL's, mobility, safety and/or upper extremity function for ADL's. Plan of Care: OTHER (d/c) Treatment Duration: August 02, 2020 Frequency: 1 time per week (eval and d/c. ) Rehab Potential: Fair Time/GCodes Start Time: 13:55 Stop Time: 14:10 Total Time Billed (hr/min): 15 Billed Treatment Time 1, EVM (15) d/c. BING LORD OTR August 02, 2020 14:22
[2020-08-02] MEDS: meTOproloL SUCCINATE 50 MG (TOPROL XL) TAB PO SCH (21:24)
[2020-08-03] MEDS: ALPRAZolam 0.25 MG (XANAX) TAB PO PRN (00:19)
[2020-08-03] MEDS: RT-ALBUTEROL/IPRATROPIUM 3 ML (DUONEB) VIAL INH SCH ×2 (02:08→07:11)
[2020-08-03] MEDS: methylPREDNISolone 40 MG/ML (Solu-MEDROL) VIAL IV SCH ×2 (03:49→08:13)
[2020-08-03 04:46] LABS: BASOPHILS % (AUTO) 0 % (0-10); EOSINOPHILS % (AUTO) 0 % (0-10); HEMATOCRIT 35 % (35-52); HEMOGLOBIN 10.7 g/dL (11.5-16.0); LYMPHOCYTES # (AUTO) 0.9 10^3/uL (1.0-4.0); LYMPHOCYTES % (AUTO) 9 % (12-44); MEAN CORPUSCULAR HEMOGLOBIN 28 pg (25-34); MEAN CORPUSCULAR HGB CONC 31 g/dL (32-36); MEAN CORPUSCULAR VOLUME 92 fL (80-99); MEAN PLATELET VOLUME 11.6 fL (9.0-12.2); MONOCYTES # (AUTO) 0.6 10^3/uL (0.0-1.0); MONOCYTES % (AUTO) 6 % (0-12); NEUTROPHILS # (AUTO) 8.6 10^3/uL (1.8-7.8); NEUTROPHILS % (AUTO) 84 % (42-75); PLATELET COUNT 225 10^3/uL (130-400); WHITE BLOOD COUNT 10.3 10^3/uL (4.3-11.0)
[2020-08-03 05:02] LABS: CHLORIDE 103 MMOL/L (98-107); POTASSIUM 4.3 MMOL/L (3.6-5.0); SODIUM 141 MMOL/L (135-145)
[2020-08-03 05:03] LABS: CALCIUM 9.1 MG/DL (8.5-10.1)
[2020-08-03 05:04] LABS: GLUCOSE 165 MG/DL (70-105)
[2020-08-03 05:05] LABS: CARBON DIOXIDE 23 MMOL/L (21-32)
[2020-08-03 05:07] LABS: CREATININE SERUM 0.75 MG/DL (0.60-1.30); GFR ESTIMATED > 60; PHOSPHORUS 2.6 MG/DL (2.3-4.7)
[2020-08-03 05:08] LABS: BUN/CREATININE RATIO 32
[2020-08-03 05:10] LABS: MAGNESIUM 2.1 MG/DL (1.6-2.4)
[2020-08-03] MEDS: MAGNESIUM 1 GM/100 ML IVPB 100 ML IV SCH (05:42)
[2020-08-03] MEDS: CATHETER FLUSH 10 ML SYR IV SCH (05:42)
[2020-08-03] MEDS: POTASSIUM CL 10MEQ/50ML IVPB 50 ML IV SCH (05:42)
[2020-08-03] MEDS: KCL 20 MEQ TAB (K-DUR) PO SCH ×2 (05:43→08:13)
[2020-08-03] MEDS: ENOXAPARIN 40 MG/0.4 ML (LOVENOX) SYR SC SCH (08:13)
[2020-08-03] MEDS: CLOPIDOGREL 75 MG (PLAVIX) TABLET PO SCH (08:13)
[2020-08-03] MEDS: ASPIRIN 81 MG CHEW (CHILDREN'S ASA) PO SCH (08:13)
[2020-08-03] MEDS: meTOproloL SUCCINATE 50 MG (TOPROL XL) TAB PO SCH (08:13)
[2020-08-03] MEDS: FUROSEMIDE 40 MG/4 ML INJ (LASIX) IVP SCH (08:13)
[2020-08-03] MEDS ORDERED: MTP100TCR PO (08:47)
--- NOTE | 2020-08-03 08:48 | Discharge Summary ---
Diagnosis/Chief Complaint Date of Admission July 31, 2020 at 01:25 Date of Discharge Discharge Date: August 03, 2020 Admission Diagnosis NSTEMI Primary Care No,Local Physician Discharge Diagnosis (1) NSTEMI (non-ST elevated myocardial infarction) Status: Acute (2) CAD (coronary artery disease) (3) Acute respiratory failure Status: Acute (4) HLD (hyperlipidemia) Status: Chronic (5) Essential (primary) hypertension Status: Chronic (6) Debility Status: Acute (7) Hypothyroidism Status: Chronic (8) COPD exacerbation Status: Acute Discharge Summary Discharge Physical Exam Allergies: Coded Allergies: lisinopril (Unverified Allergy, Unknown, 07/12/16) Sulfa (Sulfonamide Antibiotics) (Verified Adverse Reaction, Intermediate, RASH, 02/25/11) Vitals & I&Os Vital Signs Date Time Temp Pulse Resp B/P (MAP) Pulse Ox O2 Delivery O2 Flow Rate FiO2 08/03/20 11:00 36.6 79 18 143/74 (97) 93 Room Air 08/02/20 16:00 1.50 08/01/20 09:16 32 General Appearance: No Apparent Distress, Chronically ill Cardiovascular: Regular Rate, Rhythm, No Murmur Neurologic/Psychiatric: Alert, Oriented x3 Hospital Course Pt was admitted to the hospital due to an NSTEMI. She has a history of CABG and cardiology was consulted and recommended cardiac cath and stent was deployed during this. She had further disease that Dr Sandoval recommends further evaluation and possible intervention at a later date. She was able to be titrated off oxygen and home study revealed no need for exertional oxygen. She was discharged home with Home Health for continued therapy. She is to follow up with her primary care doctor and Dr Sandoval in the next week to follow up this hospital stay. Labs (last 24 hrs) Microbiology 07/31/20 Urine Culture - Final, Complete NO GROWTH 07/30/20 Blood Culture - Preliminary, Resulted No growth 07/30/20 Influenza Types A,B Antigen (SANDRA) - Final, Complete Patient resulted labs reviewed. Pending Labs Imaging: Reviewed Imaging Report Discussion & Recommendations Discharge Planning: >30 minutes discharge planning Discharge Home Medications: Active Scripts Active Metoprolol Succinate 100 Mg Tab.er.24h 100 Mg PO DAILY Clopidogrel (Clopidogrel Bisulfate) 75 Mg Tablet 75 Mg PO DAILY Reported Fish Oil 1,200 mg Fish Oil (Fish Oil/Dha/Epa) 1 Each Capsule 1 Each PO DAILY Imodium A-D (Loperamide HCl) 2 Mg Tablet 2-4 Mg PO UD PRN Tylenol (Acetaminophen) 325 Mg Tablet 325-650 Mg PO Q6H PRN Potassium Chloride 10 Meq Tab.er.prt 10 Meq PO 0700,1400 LAST FILLED 04-22-2020 #60/30 DAY SUPPLY Furosemide 40 Mg Tablet 40 Mg PO 0700,1400 LAST FILLED 03-25-2021 #180/90 DAY SUPPLY Colestipol HCl 1 Gm Tablet 1-2 Gm PO Q8H PRN TAKES 1 TO 2 (1GM) TABS Pantoprazole Sodium 40 Mg Tablet.dr 40 Mg PO DAILY Meclizine HCl 25 Mg Tablet 25 Mg PO Q6H PRN Citalopram HBr (Citalopram Hydrobromide) 10 Mg Tablet 10 Mg PO DAILY Atorvastatin Calcium 40 Mg Tablet 40 Mg PO DAILY LAST FILLED 06-12-2020 #15/15 DAY SUPPLY Levothyroxine Sodium 125 Mcg Tablet 125 Mcg PO DAILY Instructions to patient/family Please see electronic discharge instructions given to patient. Clinical Quality Measures AMI/AHF: ASA po Prior to arrival: No Problem Qualifiers (1) CAD (coronary artery disease): Coronary Disease-Associated Artery/Lesion type: [place] artery [place] vs. transplanted heart: [place] heart Associated angina: with unspecified angina Qualified Codes: I25.119 - Atherosclerotic heart disease of [place] coronary artery with unspecified angina pectoris (2) Acute respiratory failure: Respiratory failure complication: hypoxia Qualified Codes: J96.01 - Acute respiratory failure with hypoxia (3) HLD (hyperlipidemia): Hyperlipidemia type: mixed hyperlipidemia Qualified Codes: E78.2 - Mixed hyperlipidemia (4) Hypothyroidism: Hypothyroidism type: postoperative Qualified Codes: E89.0 - Postprocedural hypothyroidism YONY ORR MD August 03, 2020 08:48
--- NOTE | 2020-08-03 08:49 | Cardiology Progress Note ---
Subjective Date Seen by Provider: August 03, 2020 Time Seen by Provider: 08:47 Subjective/Events-last exam Patient was seen at bedside, sitting comfortably, denied any active pain. Feeling better. Review of Systems General: No Chills, No Night Sweats; Fatigue; No Malaise, No Appetite, No Other HEENT: No Head Aches, No Visual Changes, No Eye Pain, No Ear Pain, No Dyspha marianna, No Sinus Congestion, No Post Nasal Drip, No Sore Throat, No Other Pulmonary: No Dyspnea, No Cough, No Pleuritic Chest Pain, No Other Cardiovascular: No: Chest Pain, Palpitations, Orthopnea, Paroxysmal Noc. Dyspnea, Edema, Lt Headedness, Other Objective-Cardiology Exam Last Set of Vital Signs Vital Signs 08/01/20 08/02/20 08/03/20 08/03/20 08/03/20 09:16 16:00 04:00 07:00 08:16 Temp 36.3 Pulse 67 Resp 18 B/P (MAP) 161/79 (106) Pulse Ox 92 O2 Delivery Room Air O2 Flow Rate 1.50 FiO2 32 Capillary Refill : Less Than 3 Seconds I&O Intake and Output 08/03/20 00:00 Intake Total 1430 ml Output Total 300 ml Balance 1130 ml Intake Oral 1430 ml Output Urine Total 300 ml # Voids 5 General: Alert, Oriented X3, Cooperative HEENT: Atraumatic, PERRLA Neck: Supple, No JVD, No Thyromegaly Lungs: Clear to Auscultation, Normal Air Movement Heart: Regular Rate, Normal S1, Normal S2, No Murmurs Abdomen: Normal Bowel Sounds, Soft, No Tenderness, No Hepatosplenomegaly, No Masses Extremities: No Clubbing, No Cyanosis, No Edema, Normal Pulses, No Tenderness/Swelling Skin: No Rashes, No Breakdown, No Significant Lesion Neuro: Normal Gait, Normal Speech, Strength at 5/5 X4 Ext, Normal Tone, Sensation Intact Psych/Mental Status: Mental Status NL, Mood NL Results Lab Laboratory Tests 08/03/20 04:05 A/P-Cardiology Admission Diagnosis Non-ST elevation myocardial infarction Coronary artery disease Hypertension Hyperlipidemia Assessment/Plan NSTEMI and unstable angina, reporting improvement. Continue to monitor Coronary artery disease, - CABG x 2 vessel approx 20 yrs ago at [facility] by Dr. Guadalupe - Card cath on 08/01/20 showed the following. [place] cors: ostial occlusion of the left anterior descending, mild to moderate diffuse disease of the left circumflex artery, and an extensively stented dominant right coronary with diffuse moderate disease without significant focal obstructive disease. 95% to 99% stenosis of the proximal left subclavian. The left internal mammary artery graft not well visualized. Greater than 99% mid-vessel stenosis of a saphenous vein graft to a diagonal. This was probably the culprit lesion and was successf ully stented with Alpine Xience 3.0 x 18 mm stent. Well-preserved global left ventricular systolic function with ejection fraction approximately 60%.10 mm pressure gradient on pullback across the aortic valve. LVEDP 8 mmHg. Continue on aspirin and Plavix. Okay for discharge and follow-up with Dr. Janet wray as an outpatient Echo on 07/31/20: LVEF 50-55%, mild to mod and MR Carotid dz: - H/O bilat CEA at [facility] > 10 yrs ago HTN, continue on current medication monitor blood pressure HLD, continue to monitor lipids Okay for discharge from cardiology standpoint, follow-up with Dr. Sandoval as an outpatient Clinical Quality Measures AMI/AHF: ASA po Prior to arrival: No ANETTE RODRIGUEZ MD August 03, 2020 08:49
--- NOTE | 2020-08-03 08:55 | Diagnostic Imaging Report ---
EXAMINATION: Chest 1 view HISTORY: COPD exacerbation COMPARISON: Chest radiograph 08/02/2020 FINDINGS: Heart size and pulmonary vasculature are stable with surgical changes from CABG and median sternotomy. Stable surgical clips overlying the mediastinum and left hilum. Stable low lung volumes with bibasilar opacities. No pleural effusion or pneumothorax. The osseous structures are intact. IMPRESSION: 1. Stable low lung volumes with bibasilar atelectasis or consolidation. Dictated by: Dictated on workstation # [id number]
== END 2020-08-03 11:50 | disposition home health service (06) | DRG 246 ==
LOC: EDUNIT# 21:50 → ER 21:51 → ICU 07-31 01:25
PROVIDERS: ADMIT Internal Medicine; ATTEND Internal Medicine
PROC: 027034Z Dilation of Coronary Artery, One Artery with Drug-eluting Intraluminal Device, Percutaneous Approach (ICD-10-PCS; principal; 2020-07-31)
PROC: 4A023N7 Measurement of Cardiac Sampling and Pressure, Left Heart, Percutaneous Approach (ICD-10-PCS; 2020-07-31)
PROC: B2111ZZ Fluoroscopy of Multiple Coronary Arteries using Low Osmolar Contrast (ICD-10-PCS; 2020-07-31)
PROC: B2151ZZ Fluoroscopy of Left Heart using Low Osmolar Contrast (ICD-10-PCS; 2020-07-31)
PROC: B2121ZZ Fluoroscopy of Single Coronary Artery Bypass Graft using Low Osmolar Contrast (ICD-10-PCS; 2020-07-31)
DX: I21.4 Non-ST elevation (NSTEMI) myocardial infarction (principal); J96.01 Acute respiratory failure with hypoxia; J44.1 Chronic obstructive pulmonary disease with (acute) exacerbation; E89.0 Postprocedural hypothyroidism; Z20.822 Contact with and (suspected) exposure to COVID-19; I25.110 Atherosclerotic heart disease of native coronary artery with unstable angina pectoris; I11.0 Hypertensive heart disease with heart failure; E78.00 Pure hypercholesterolemia, unspecified; M19.90 Unspecified osteoarthritis, unspecified site; I73.9 Peripheral vascular disease, unspecified; K58.9 Irritable bowel syndrome, unspecified; I50.9 Heart failure, unspecified; R53.81 Other malaise; Z95.1 Presence of aortocoronary bypass graft; Z79.82 Long term (current) use of aspirin; Z79.899 Other long term (current) drug therapy; Z87.891 Personal history of nicotine dependence; Z88.2 Allergy status to sulfonamides
CPT/HCPCS: 36415; 71045; 71275; 80048; 80053; 80061; 81000; 83605; 83615; 83735; 83874; 83880; 84100; 84145; 84484; 85007; 85025; 85027; 85379; 85610; 85730; 86141; 87040; 87088; 87635; 87804; 93005; 93041; 93306; 93459; 93567; 94640; 94761

== ENCOUNTER → 2020-08-21 | Outpatient (CLI) | payer MEDICARE ==
[~2020-08-21] MED LIST changes: +ACET325T38 PO; +AMLO2.5T4 PO; +ATOR40TA70 PO; +CATHETER FLUSH 10 ML SYR IV PRN; +CITA10TA7 PO; +CLOP75TA28 PO; +COLE1TAB PO; +FURO40TA4 PO; +HOLD METFORMIN - RECEIVED CONTRAST 20 ML VIAL IV SCH; +IOHEXOL 350 MG/ML 100 ML (OMNIPAQUE 350) VIAL IV ONE; +ISOS30TA82 PO; +LOPE-134 PO; +MECL-149 PO; +METO-351 PO; +METO-352 PO; +METO50TA7 PO; +MTP100TCR PO; +NS 100 ML (IVPB) BAG IV ONE; +PANT40TA52 PO; +POTA10TA36 PO; +RT-ALBUTEROL SULF 2.5 MG/3 ML PRE-MIX VIAL INH ONE
[2020-08-21 10:27] LABS: CREATININE SERUM 0.86 MG/DL (0.60-1.30); GFR ESTIMATED > 60
[2020-08-21 10:28] LABS: BUN/CREATININE RATIO 21
--- NOTE | 2020-08-21 13:31 | Diagnostic Imaging Report ---
PROCEDURE: CT chest with contrast only. TECHNIQUE: Multiple contiguous axial images were obtained through the chest after administration of intravenous contrast. Auto Exposure Controls were utilized during the CT exam to meet ALARA standards for radiation dose reduction. DATE: August 21, 2020. COMPARISON: Chest radiograph 08/03/2020. CT chest 07/30/2020. INDICATION: 85-year-old female, shortness of breath. FINDINGS: There is a 4 mm noncalcified left lower lobe pulmonary nodule on axial image 74 which is not well seen on the comparison exam and may have been previously obscured. There is no lung mass. There are linear opacities in the right and left lower lobes and lingula which most likely relate to atelectasis. There is no additional focal airspace consolidation. There is no pneumothorax. There is no pleural effusion. There is no identified central or segmental pulmonary embolus. The main pulmonary artery diameter is within normal limits. There is a coronary artery bypass graft noted. The heart is not grossly enlarged. There is no pericardial effusion. There are atherosclerotic calcifications. There is no identified abnormally enlarged mediastinal, hilar, or axillary lymph node meeting CT size criteria for adenopathy. The patient is status post cholecystectomy. The common bile duct measures 14 mm in diameter which is unchanged since the comparison exam. There is no intrahepatic bile duct dilation. There are incompletely imaged low-attenuation right renal lesions measuring up to 6 mm in size on axial image 133 which are not able to be definitively characterized. There is a technically indeterminate low-attenuation left renal lesion measuring 11 mm in size on axial image 111 with an internal attenuation value of 20 Hounsfield units. There is a 4 mm low-attenuation left renal lesion, too small to characterize, as well as additional subcentimeter left renal lesions which are also too small to characterize. There are compression deformities of T3, T4, T7, and T12. There is retropulsion at the level of T12 by approximately 3 mm. There is approximately 50% height loss of T4 and 25% height loss of T7 and T12. The compression deformities of T3, T4, and T7 are unchanged since July 30, 2020 and are otherwise age-indeterminate. The T12 compression deformity is stable since at least August 10, 2019. IMPRESSION: 1. Interval resolution of previously noted bilateral pleural effusions. 2. Linear opacities in the lower lobes and lingula are compatible with atelectasis. 3. There is a 4 mm left lower lobe pulmonary nodule. 4. Technically indeterminate renal lesions. 5. Compression deformities of T3, T4, and T7 are stable since July 30, 2020 although of otherwise uncertain exact age. The T12 compression deformity is stable since at least August 10, 2019. Dictated by: Dictated on workstation # [id number]
== END ==
LOC: RT 09:45
PROVIDERS: ATTEND Internal Medicine Critical Care Medicine
DX: Z13.83 Encounter for screening for respiratory disorder NEC (principal); R91.8 Other nonspecific abnormal finding of lung field
CPT/HCPCS: 36415; 71260; 82565; 84520; 94060; 94726; 94729

== ENCOUNTER 2020-08-26 12:57 | Observation (INO) | payer MEDICARE ==
[~2020-08-26] VITALS: Ht 154.9 cm; Wt 59.4 kg
[~2020-08-26 12:57] MED LIST changes: -CATHETER FLUSH 10 ML SYR IV PRN; -HOLD METFORMIN - RECEIVED CONTRAST 20 ML VIAL IV SCH; -IOHEXOL 350 MG/ML 100 ML (OMNIPAQUE 350) VIAL IV ONE; -NS 100 ML (IVPB) BAG IV ONE; -RT-ALBUTEROL SULF 2.5 MG/3 ML PRE-MIX VIAL INH ONE
--- NOTE | 2020-08-26 13:23 | ED Hip Pain/Injury ---
General Chief Complaint: Hip/Pelvic Problems Stated Complaint: L LEG PAIN Nursing Triage Note: PT ARRIVED PER EMS PT CO OF R HIP RATES PAIN 01/05, DENIES FALL OR INJURY, PT STATES UNABLE TO BARE WT ON L LEG TODAY Source: patient Exam Limitations: no limitations History of Present Illness Date Seen by Provider: August 26, 2020 Time Seen by Provider: 13:05 Initial Comments Patient is an 85-year-old female who presents to the emergency department today with a chief complaint of left leg pain. Patient states she has had this pain for several days. It was worse this morning so bad that she could not get up and walk on her left leg. She adamantly denies any events of trauma. She did not twist, fall, trip or otherwise injure herself. She states this pain is spontaneous in nature. She actually states that it is her low back into her left hip and down into her left leg. She has a hard time bending her left knee secondary to the pain in her upper leg. She denies any recent chest pain or shortness of breath, no nausea vomiting no urinary complaints. She has had no bowel or bladder incontinence. Her last bowel movement was 2 days ago and she states this is normal for her. No fevers or chills. Per review of the medical record she recently had a cardiac cath and stent placement on July 31. She is followed by Dr. Woodson. She had blood drawn a few days ago before her primary care would prescribe her any pain medications She has not been made aware of the results and has not taken anything other than a little Tylenol for the pain. She states this has not helped. All other review of systems reviewed and negative except as stated above. Timing/Duration: week Severity: severe Location: hip (L) Method of Injury: unknown Modifying Factors: Improves With Immobilization Associated Symptoms: denies symptoms Allergies and Home Medications Allergies Coded Allergies: lisinopril (Unverified Allergy, Unknown, 07/12/16) Sulfa (Sulfonamide Antibiotics) (Verified Adverse Reaction, Intermediate, RASH, 02/25/11) Home Medications Acetaminophen 325 Mg Tablet, 325-650 MG PO Q6H PRN for PAIN-MILD (1-4), (Reported) Atorvastatin Calcium 40 Mg Tablet, 40 MG PO DAILY, (Reported) LAST FILLED 06-12-2020 #15/15 DAY SUPPLY Citalopram Hydrobromide 10 Mg Tablet, 10 MG PO DAILY, (Reported) Clopidogrel Bisulfate 75 Mg Tablet, 75 MG PO DAILY Prescribed by: CM HERNANDEZ on 08/02/20 0809 Colestipol HCl 1 Gm Tablet, 1-2 GM PO Q8H PRN for DIARRHEA, (Reported) TAKES 1 TO 2 (1GM) TABS Fish Oil/Dha/Epa 1 Each Capsule, 1 EACH PO DAILY, (Reported) Furosemide 40 Mg Tablet, 40 MG PO 0700,1400, (Reported) LAST FILLED 03-25-2021 #180/90 DAY SUPPLY Levothyroxine Sodium 125 Mcg Tablet, 125 MCG PO DAILY, (Reported) Loperamide HCl 2 Mg Tablet, 2-4 MG PO UD PRN for DIARRHEA, (Reported) Meclizine HCl 25 Mg Tablet, 25 MG PO Q6H PRN for DIZZINESS, (Reported) Metoprolol Succinate 100 Mg Tab.er.24h, 100 MG PO DAILY Prescribed by: YONY WHITE on 08/03/20 0847 Pantoprazole Sodium 40 Mg Tablet.dr, 40 MG PO DAILY, (Reported) Potassium Chloride 10 Meq Tab.er.prt, 10 MEQ PO 0700,1400, (Reported) LAST FILLED 04-22-2020 #60/30 DAY SUPPLY Patient Home Medication List Home Medication List Reviewed: Yes Review of Systems Constitutional: see HPI EENTM: no symptoms reported Respiratory: no symptoms reported Cardiovascular: no symptoms reported Gastrointestinal: no symptoms reported Genitourinary: no symptoms reported Musculoskeletal: back pain, joint pain Skin: no symptoms reported Psychiatric/Neurological: No Symptoms Reported All Other Systems Reviewed Negative Unless Noted: Yes Past Tpiivft-Basuvn-Iuxoci Hx Patient Social History Alcohol Use: Denies Use Smoking Status: Former Smoker Former Smoker, Quit: July 28, 1999 2nd Hand Smoke Exposure: Yes Recent Infectious Disease Expo: No Recent Hopitalizations: No Immunizations Up To Date Tetanus Booster (TDap): Unknown Date of Pneumonia Vaccine: Nov 27, 2018 Date of Influenza Vaccine: Dec 02, 2019 Past Medical History Surgeries: Yes Appendectomy, CABG, Coronary Stent, Gallbladder, Hysterectomy, Thyroidectomy Respiratory: No Cardiac: Yes Coronary Artery Disease, High Cholesterol, Hypertension, Peripheral Vascular Neurological: No Reproductive Disorders: Yes Gastrointestinal: Yes (IBS, COLITIS) Musculoskeletal: Yes Arthritis Endocrine: Yes (throid removed) Hyperthyroidism Cancer: No Psychosocial: No Blood Disorders: No Family Medical History Non contributory Physical Exam Vital Signs Vital Signs - First Documented 08/26/20 13:00 Temp 36.3 Pulse 70 Resp 18 B/P (MAP) 189/90 (123) Pulse Ox 97 Capillary Refill : Less Than 3 Seconds Height, Weight, BMI Height: 5'1.00" Weight: 100lbs. oz. 45.956641gq; 21.00 BMI Method:Stated General Appearance: No Apparent Distress, WD/WN HEENT: PERRL/EOMI Neck: Normal Inspection Cardiovascular: Regular Rate, Rhythm Respiratory: Lungs Clear, Normal Breath Sounds, No Accessory Muscle Use, No Respiratory Distress Gastrointestinal: Soft, Tenderness (Mild tenderness to palpation in the left lower quadrant) Back: Normal Inspection (No rashes), Vertebral Tenderness (Mild tenderness to palpation over L5-S1 in the upper sacrum no direct tenderness to palpation over the posterior superior iliac crest/SI joint/posterior hip/sciatic nerve. No pain upon compression of the left hip. The left thigh is soft and supple. There are no rashes.) Extremity: Normal Capillary Refill, Normal Inspection, No Calf Tenderness, Other (Decreased range of motion specifically flexion at the left hip and knee) Neurologic/Psychiatric: Alert, Oriented x3, No Motor/Sensory Deficits, Normal Mood/Affect Skin: Normal Color, Warm/Dry Progress/Results/Core Measures Results/Orders My Orders Orders - KALIE FU MD Tramadol Tablet (Ultram Tablet) (08/26/20 13:30) Pelvis With Left Hip 2-3 Views (08/26/20 13:27) Prednisone Tablet (Deltasone Tablet) (08/26/20 14:45) Orphenadrine Inj (Ed Only) (Norflex Inje (08/26/20 14:45) Ct Lumbar Spine Wo (08/26/20 15:31) Ed Iv/Invasive Line Start (08/26/20 16:41) Fentanyl Inj (Sublimaze Injection) (08/26/20 16:45) Medications Given in ED Current Medications Medications Dose Ordered Sig/Norma Route Start Time Stop Time Status Last Admin Dose Admin Orphenadrine Citrate 60 mg ONCE ONCE IM 08/26/20 14:45 08/26/20 14:46 DC 08/26/20 14:47 60 MG Prednisone 50 mg ONCE ONCE PO 08/26/20 14:45 08/26/20 14:46 DC 08/26/20 14:48 50 MG Tramadol HCl 50 mg ONCE ONCE PO 08/26/20 13:30 08/26/20 13:31 DC 08/26/20 13:37 50 MG Vital Signs/I&O 08/26/20 13:00 Temp 36.3 Pulse 70 Resp 18 B/P (MAP) 189/90 (123) Pulse Ox 97 Blood Pressure Mean: 123 Progress Progress Note : Time: 14:59 Progress Note Patient's x-rays of the left hip are unremarkable except for degenerative disease. She was given tramadol initially in the emergency room for pain management but this apparently did not help at all. Patient was unable to sit forward or get to a standing position. I started her on some prednisone, 50 mg as well as some Norflex IM. Will wait another 30 minutes and see if she has any relief of symptoms. 154 Reevaluated after Norflex and prednisone. Patient still refuses to sit up and complains of excruciating pain in her low back and left hip. Will CT her low back 164 Patient still has intractable back pain, will not go more than [address] White accepts the patient for admission. Would like a CT scan of the left hip on admission. She advises for 25 mcg fentanyl. Diagnostic Imaging Diagonstic Imaging: Xray Comments [facility], [place] NAME: BRADLEY SLADE [facility] REC#: [id number] PT STATUS: REG ER : 1937 PHYSICIAN: KALIE FU MD ADMIT DATE: 08/26/20/ER Signed Date of Exam:08/26/20 PELVIS WITH LEFT HIP 2-3 VIEWS INDICATION: Left hip pain unable to bear weight, no known trauma or fall. FINDINGS: AP view of the pelvis and 2 views of the left hip demonstrates mild degenerative changes left hip. No fracture or dislocation is present. A right hip prosthesis is present without complications. IMPRESSION: There are mild degenerative changes of the left hip with no acute findings. Dictated by: Dictated on workstation # [id number] Dict: 08/26/20 1345 Trans: 08/26/20 1349 [id number] Interpreted by: TIA ENGLISH MD Electronically signed by: TIA ENGLISH MD 08/26/20 1349 Departure Communication (Admissions) Time/Spoke to Admitting Phy: 16:[address] Torres who accepts the patient for observation admission Impression Primary Impression: Low back pain Qualified Codes: M54.42 - Lumbago with sciatica, left side Additional Impression: Left hip pain Disposition: ADMITTED INPATIENT Condition: Stable Admissions Decision to Admit Reason: Admit from ER (General) Decision to Admit/Date: August 26, 2020 Time/Decision to Admit Time: 16:42 Departure-Patient Inst. Referrals: NO,LOCAL PHYSICIAN (PCP/Family) Primary Care Physician KALIE FU MD August 26, 2020 13:23
--- NOTE | 2020-08-26 13:49 | Diagnostic Imaging Report ---
INDICATION: Left hip pain unable to bear weight, no known trauma or fall. FINDINGS: AP view of the pelvis and 2 views of the left hip demonstrates mild degenerative changes left hip. No fracture or dislocation is present. A right hip prosthesis is present without complications. IMPRESSION: There are mild degenerative changes of the left hip with no acute findings. Dictated by: Dictated on workstation # [id number]
[2020-08-26] MEDS ORDERED: predniSONE 20 MG TAB PO ONE (14:45)
[2020-08-26] MEDS ORDERED: ORPHENADRINE 60 MG/2 ML (NORFLEX) AMP (ED ONLY) IM ONE (14:45)
--- NOTE | 2020-08-26 16:03 | Diagnostic Imaging Report ---
PROCEDURE: CT lumbar spine without contrast. TECHNIQUE: Multiple contiguous axial images were obtained through the lumbar spine without the use of intravenous contrast. Sagittal and coronal reformations were then performed. Auto Exposure Controls were utilized during the CT exam to meet ALARA standards for radiation dose reduction. INDICATION: Back pain. Inability to bear weight COMPARISON: The study is interpreted in correlation with overlapped images obtained during a CT chest 08/21/2020. FINDINGS: A wedge deformity of the superior endplate of T12 with mild retropulsion of its superior endplate identical in appearance to the previous. The endplate is sclerotic and well-marginated with no adjacent hemorrhage or appreciable paraspinal swelling. This is presumed chronic and again is a stable finding. The lumbar statures themselves are unremarkable with a chronic appearing L5 inferior Schmorl's node deformity. No acute lumbar fracture. No bony destructive process. No paravertebral mass, hemorrhage or fluid collection. There is degenerative change to the discs, endplates and facets throughout. The visualized sacrum and SI joints unremarkable. At L5-S1 there is moderate canal and mild biforaminal stenosis. At L4-L5 there is mild to moderate canal and mild biforaminal stenosis at L3-L4. There is mild canal stenosis. IMPRESSION: Stable presumed chronic L1 superior endplate fracture with mild retropulsion, chronic appearing L5 inferior endplate Schmorl's node deformity. Degenerative changes with multilevel chronic stenoses. No acute appearing bony abnormality identified. Dictated by: Dictated on workstation # [id number]
[2020-08-26] MEDS ORDERED: fentaNYL INJ 100 MCG/2 ML AMP IVP ONE (16:45)
--- NOTE | 2020-08-26 17:48 | Diagnostic Imaging Report ---
PROCEDURE: CT left lower extremity without contrast. TECHNIQUE: Multiple contiguous axial images were obtained through the left lower extremity without the use of intravenous contrast. Sagittal and coronal reformations were then performed. Auto Exposure Controls were utilized during the CT exam to meet ALARA standards for radiation dose reduction. INDICATION: Left hip pain. FINDINGS: The alignment is normal. There are degenerative changes in the left hip. There is no acute fracture or dislocation. Soft tissues are unremarkable. IMPRESSION: Degenerative changes however no acute fracture or dislocation. Dictated by: Dictated on workstation # [id number]
[2020-08-26 20:00] VITALS: BP 189/74
[2020-08-26] MEDS ORDERED: CATHETER FLUSH 10 ML SYR IV PRN (21:45)
[2020-08-26] MEDS ORDERED: fentaNYL INJ 100 MCG/2 ML AMP IV PRN (21:45)
[2020-08-26 22:10] VITALS: BP 123/60
[2020-08-26] MEDS: CATHETER FLUSH 10 ML SYR IV SCH (23:07)
[2020-08-26 23:38] VITALS: BP_SYST 138; BP_SYST 18; BP_DIAS 64
[2020-08-27 03:59] VITALS: BP 131/66
[2020-08-27] MEDS: CATHETER FLUSH 10 ML SYR IV SCH (06:09)
[2020-08-27 08:04] VITALS: BP 113/55
--- NOTE | 2020-08-27 09:28 | Physical Therapy Evaluation ---
PT Evaluation-General Medical Diagnosis Admission Date August 26, 2020 at 16:44 Medical Diagnosis: Intractable back/hip pain Onset Date: Aug 27, 2020 Therapy Diagnosis Therapy Diagnosis: abn gait Height/Weight Height (Feet): 5 Height (Inches): 1.00 Weight (Pounds): 100 Precautions Precautions/Isolations: Standard Precautions Weight Bear Status Right Lower Extremity: Right Weight Bearing/Tolerated Left Lower Extremity: Left Weight Bearing/Tolerated Referral Physician: Cindy Reason for Referral: Evaluation/Treatment Medical History Pertinent Medical History: CABG, CAD, COPD, HTN, PVD Current History Admitted to [facility] with new onset of LB/left hip pain with inability to weight bear or walk. Reviewed History: Yes Social History Home: Single Level Current Living Status: Alone Entry Into Home: Stairs With Railing Pt lives in a trailer home on her daughter's property. Prior Prior Level of Function SCALE: Activities may be completed with or without assistive devices. 7-Ofhutllqnp-zjhywly completes the activity by him/herself with no assistance from a helper. 5-Set-up or Clean-up Assistance-helper sets up or cleans up; patient completes activity. Jackson assists only prior to or following the activity. 4-Supervision or Touching Assistance-helper provides verbal cues and/or touching/steadying and/or contact guard assistance as patient completes activity. Assistance may be provided throughout the activity or intermittently. 3-Partial/Moderate Assistance-helper does LESS THAN HALF the effort. Jackson lifts, holds or supports trunk or limbs, but provides less than half the effort. 2-Substantial/Maximal Assistance-helper does MORE THAN HALF the effort. Jackson lifts or holds trunk or limbs and provides more than half the effort. 3-Cxfmlbepz-imdwfv does ALL the effort. Patient does none of the effort to complete the activity. Or, the assistance of 2 or more helpers is required for the patient to complete the activity. If activity was not attempted, code reason: 7-Patient Refused. 9-Not Applicable-not attempted and the patient did not perform the activity before the current illness, exacerbation or injury. 10-Not Attempted due to Environmental Limitations-(lack of equipment, weather restraints, etc.). 88-Not Attempted due to Medical Conditions or Safety Concerns. Bed Mobility: 6 Transfers (B,C,W/C): 6 Gait: 6 Stairs: 6 Indoor Mobility (Ambulation): Independent Stairs: Independent Prior Devices Use: None Pt lives alone with her daughter nearby. PT Evaluation-Current Subjective Pt apprehensive about getting up but agrees. Pain Numeric Pain Scale: 5-Moderate Pain Location: Left Location Body Site: Hip (/low back) Pain Description: Ache Pt/Family Goals Return home as before. Objective Patient Orientation: Person, Place, Time, Situation ROM/Strength ROM Lower Extremities WNL Strength Lower Extremities WFL Integumentary/Posture Integumentary Refer to nursing notes for full assessment. Bowel Incontinence: No Bladder Incontinence: No Posture normal and symmetrical Neuromuscular (Tone, Coordination, Reflexes) Intact and functional Sensory Vision: Wears Glasses Hearing: Impaired Sensation Right Lower Extremit: Intact Sensation Left Lower Extremity: Intact Transfers Roll Left to Right (QC): 4 Lying to Sitting/Side of Bed(Q: 3 (min assist to raise torso) Sit to Stand (QC): 4 Chair/Cwh-jw-Pdcfs Xfer(QC): 4 Toilet Transfer (QC): 4 skilled cues for sequencing and task initiation. Gait Does the Patient Walk?: Yes Mode of Locomotion: Walk Anticipated Mode of Locomotion: Walk Walk 10 feet (QC): 3 Walk 50 ft with 2 Turns(QC): 3 Distance: 25 ft x 2 Gait Assistive Device: FWW Comments/Gait Description CG-min assist for balance with gait. Wheelchair Training Does the Pt Use a Wheelchair?: No Balance Sitting Static: Normal Sitting Dynamic: Normal Standing Static: Fair Standing Dynamic: Fair Treatment Pt toileted. Up to chair post treatment with needs met. Assessment/Needs Pt presents with reports of intractable back/hip pain with limits in funcitonal mobility at home. She was able to get up this morning and get out of bed with assist and decreased pain. She will benefit from skilled PT to address functional mobility and safety to allow her to return home as before. Rehab Potential: Good PT Prison Goals Prison Goals PT Prison Goals Time Frame: Sep 03, 2020 Roll Left & Right (QC): 6 Sit to Lying (QC): 6 Lying-Sitting on Side/Bed(QC): 6 Sit to Stand (QC): 6 Chair/Lpf-oh-Kcpyx Xfer(QC): 6 Toilet Transfer (QC): 6 Walk 150 ft (QC): 6 PT Plan Problem List Problem List: Activity Tolerance, Functional Strength, Safety, Balance, Gait, Transfer, Bed Mobility Treatment/Plan Treatment Plan: Continue Plan of Care Treatment Plan: Bed Mobility, Education, Functional Activity Kurtis, Functional Strength, Gait, Safety, Therapeutic Exercise, Transfers Treatment Duration: Sep 03, 2020 Frequency: 6 times per week Estimated Hrs Per Day: .5 hour per day Patient and/or Family Agrees t: Yes Safety Risks/Education Patient Education: Transfer Techniques, Safety Issues Teaching Recipient: Patient Teaching Methods: Demonstration, Discussion Response to Teaching: Reinforcement Needed Discharge Recommendations Therapy Discharge Recommendati: Post Acute PT (HHC PT) Time/GCodes Time In: 835 Time Out: 900 Total Billed Treatment Time: 25 Total Billed Treatment visit EVM 15 FA 10 ROGE TERESA PT Aug 27, 2020 09:28
[2020-08-27] MEDS ORDERED: MTP100TCR PO (09:36)
[2020-08-27] MEDS ORDERED: CALC600T91 PO (09:36)
[2020-08-27] MEDS ORDERED: ASPI-999 PO (09:36)
[2020-08-27] MEDS ORDERED: KRIL1CAP18 PO (09:36)
[2020-08-27] MEDS ORDERED: CLOP75TA28 PO (09:36)
--- NOTE | 2020-08-27 09:58 | History & Physical-Hospitalist ---
History of Present Illness HPI/Chief Complaint Pt is an 85yoCF with a PMH of CAD and recent stent placement who presented to the ER due to hip pain. She was just admitted for an NSTEMI and was discharged home with home health. She had intermittent visits with them but had difficulty coordinating them and was frustrated with that. She developed left leg/hip pain over the past few days and it worsened significantly yesterday morning. She was unable to get up and ambulate as she normally does. She denied any recent falls or trauma. She tried tylenol for the pain without relief. She had a call out to her PCP for pain medication but it worsened before she could be seen. She was unable to get up and ambulate normal and in the ER could not get out of the bed without pain. X-ray was negative for fracture and CT lumbar spine and hip were negative as well. She was admitted overnight for pain control and PT. This morning she states she is feeling much better. She was able to get out of bed and walk to the bathroom with just mild discomfort. Source: patient Date Seen 08/27/20 Time Seen by a Provider: 09:58 Attending Physician Yony White MD PCP No,Local Physician Referring Physician Date of Admission August 26, 2020 at 16:44 Home Medications & Allergies Home Medications Reviewed patient Home Medication Reconciliation performed by pharmacy medication reconciliations crown and bridge dental lab technician and/or nursing. Patients Allergies have been reviewed. Allergies Allergies Coded Allergies lisinopril (Unverified Allergy, Unknown, 07/12/16) Sulfa (Sulfonamide Antibiotics) (Verified Adverse Reaction, Intermediate, RASH, 02/25/11) Past Ksvukwi-Golfbh-Ghcqsx Hx Patient Social History Employed/Student: retired Tobacco Use?: No Smoking Status: Former Smoker Use of E-Cig and/or Vaping dev: No Substance use?: No Alcohol Use?: No Pt feels they are or have been: No Immunizations Up To Date Date of Influenza Vaccine: Dec 27, 2019 Tetanus Booster (TDap): Unknown Hepatitis A: No Hepatitis B: No Date of Pneumonia Vaccine: Nov 27, 2018 Current Status status: No status: No Advance Directives: Yes Advance Directive Location: Family to bring in copy Communicates: Verbally Primary Language: Belgian Preferred Spoken Language: Belgian Is interpretation needed?: No Past Medical History Surgeries: Appendectomy, CABG, Coronary Stent, Gallbladder, Hysterectomy, Thyroidectomy Coronary Artery Disease, High Cholesterol, Hypertension, Peripheral Vascular Arthritis Hyperthyroidism Blood Disorders: No HTN, HLD CAD s/p CABG, PVD, post surgical hypothyroidism, IBS Surgical: CABG, Appendectomy, thyroidectomy, hysterectomy Family Medical History Reviewed Nursing Family Hx No Pertinent Family Hx Review of Systems Constitutional: No chills, No fever EENTM: no symptoms reported Respiratory: no symptoms reported Cardiovascular: No chest pain, No edema; Hx of Intervention Gastrointestinal: No abdominal pain, No constipation, No nausea, No vomiting Genitourinary: no symptoms reported Musculoskeletal: see HPI, joint pain Skin: no symptoms reported Psychiatric/Neurological: No Symptoms Reported Physical Exam Physical Exam Vital Signs Vital Signs - First Documented 08/26/20 08/26/20 13:00 17:59 Temp 36.3 Pulse 70 Resp 18 B/P (MAP) 189/90 (123) Pulse Ox 97 O2 Delivery Room Air Capillary Refill : Less Than 3 Seconds Height, Weight, BMI Height: 5'1.00" Weight: 100lbs. oz. 45.390120ak; 24.75 BMI Method:Stated General Appearance: No Apparent Distress, Chronically ill HEENT: PERRL/EOMI, Moist Mucous Membranes Respiratory: Lungs Clear, No Accessory Muscle Use, No Respiratory Distress Cardiovascular: Regular Rate, Rhythm, No Murmur Gastrointestinal: Normal Bowel Sounds, Soft Extremity: No Calf Tenderness, No Pedal Edema Neurologic/Psychiatric: Alert, Oriented x3, Normal Mood/Affect Results Results/Procedures Labs Laboratory Tests 08/27/20 11:05 Patient resulted labs reviewed. Imaging: Reviewed Imaging Report Imaging [facility] [place], [place] NAME: BRADLEY SLADE [facility] REC#: [id number] PT STATUS: REG ER : 1935 PHYSICIAN: KALIE FU MD ADMIT DATE: 08/26/20/ER Signed Date of Exam:08/26/20 CT LUMBAR SPINE WO PROCEDURE: CT lumbar spine without contrast. TECHNIQUE: Multiple contiguous axial images were obtained through the lumbar spine without the use of intravenous contrast. Sagittal and coronal reformations were then performed. Auto Exposure Controls were utilized during the CT exam to meet ALARA standards for radiation dose reduction. INDICATION: Back pain. Inability to bear weight COMPARISON: The study is interpreted in correlation with overlapped images obtained during a CT chest 08/21/2020. FINDINGS: A wedge deformity of the superior endplate of T12 with mild retropulsion of its superior endplate identical in appearance to the previous. The endplate is sclerotic and well-marginated with no adjacent hemorrhage or appreciable paraspinal swelling. This is presumed chronic and again is a stable finding. The lumbar statures themselves are unremarkable with a chronic appearing L5 inferior Schmorl's node deformity. No acute lumbar fracture. No bony destructive process. No paravertebral mass, hemorrhage or fluid collection. There is degenerative change to the discs, endplates and facets throughout. The visualized sacrum and SI joints unremarkable. At L5-S1 there is moderate canal and mild biforaminal stenosis. At L4-L5 there is mild to moderate canal and mild biforaminal stenosis at L3-L4. There is mild canal stenosis. IMPRESSION: Stable presumed chronic L1 superior endplate fracture with mild retropulsion, chronic appearing L5 inferior endplate Schmorl's node deformity. Degenerative changes with multilevel chronic stenoses. No acute appearing bony abnormality identified. Dictated by: Dictated on workstation # [id number] Dict: 08/26/20 1552 Trans: 08/26/20 1613 [facility] [id number] Interpreted by: MONTY GERBER Electronically signed by: MONTY GERBER 08/26/20 1613 [facility] [place], [place] NAME: BRADLEY SLADE [facility] REC#: [id number] PT STATUS: ADM Govind : 1935 PHYSICIAN: KALIE FU MD ADMIT DATE: 08/26/20 Signed Date of Exam:08/26/20 CT EXTREMITY LOWER LEFT WO PROCEDURE: CT left lower extremity without contrast. TECHNIQUE: Multiple contiguous axial images were obtained through the left lower extremity without the use of intravenous contrast. Sagittal and coronal reformations were then performed. Auto Exposure Controls were utilized during the CT exam to meet ALARA standards for radiation dose reduction. INDICATION: Left hip pain. FINDINGS: The alignment is normal. There are degenerative changes in the left hip. There is no acute fracture or dislocation. Soft tissues are unremarkable. IMPRESSION: Degenerative changes however no acute fracture or dislocation. Dictated by: Dictated on workstation # [id number] Dict: 08/26/20 1731 Trans: 08/26/20 183 [facility] [id number] Interpreted by: ROSE MARIE LOPEZ MD Electronically signed by: ROSE MARIE LOPEZ MD 08/26/201831 Assessment/Plan Admission Diagnosis Intractable hip pain Admission Status: Observation Assessment and Plan Intractable hip pain Imaging all negative Pain now controlled PT saw and IRU consult Place to DC to IRU today YONY WHITE MD Aug 27, 2020 09:58
[2020-08-27] MEDS ORDERED: MECLIZINE 25 MG (ANTIVERT) TAB PO PRN (10:45)
[2020-08-27] MEDS ORDERED: LOPERAMIDE 2 MG (IMODIUM) TABLET PO PRN (11:00)
[2020-08-27] MEDS ORDERED: COLESTIPOL 1 GM (COLESTID) TAB PO PRN (11:00)
[2020-08-27 11:13] LABS: HEMATOCRIT 43 % (35-52); HEMOGLOBIN 13.6 g/dL (11.5-16.0); MEAN CORPUSCULAR HEMOGLOBIN 28 pg (25-34); MEAN CORPUSCULAR HGB CONC 31 g/dL (32-36); MEAN CORPUSCULAR VOLUME 89 fL (80-99); MEAN PLATELET VOLUME 11.3 fL (9.0-12.2); PLATELET COUNT 248 10^3/uL (130-400); WHITE BLOOD COUNT 8.5 10^3/uL (4.3-11.0)
[2020-08-27 11:34] LABS: POTASSIUM 3.7 MMOL/L (3.6-5.0)
[2020-08-27 11:35] LABS: CALCIUM 10.2 MG/DL (8.5-10.1)
[2020-08-27 11:39] LABS: CREATININE SERUM 1.03 MG/DL (0.60-1.30)
[2020-08-27 11:45] VITALS: BP 113/55
[2020-08-27] MEDS ORDERED: CARB15DR87 EACH EAR (16:17)
[2020-08-28] MEDS ORDERED: LEVOTHYROXINE 125 MCG (LEVOTHROID) TABLET PO SCH (06:30)
[2020-08-28] MEDS ORDERED: CALCIUM CARBONATE 600 MG (CALCARB) TAB PO SCH (09:00)
[2020-08-28] MEDS ORDERED: meTOprolol SUCCINATE 100 MG (TOPROL XL) TAB PO SCH (09:00)
[2020-08-28] MEDS ORDERED: OMEGA 3 (FISH OIL) 1000 MG CAP PO SCH (09:00)
[2020-08-28] MEDS ORDERED: ASPIRIN 81 MG CHEW (CHILDREN'S ASA) PO SCH (09:00)
[2020-08-28] MEDS ORDERED: PANTOPRAZOLE 40 MG (PROTONIX) TAB PO SCH (09:00)
[2020-08-28] MEDS ORDERED: CLOPIDOGREL 75 MG (PLAVIX) TABLET PO SCH (09:00)
[2020-08-28] MEDS ORDERED: FUROSEMIDE 40 MG (LASIX) TAB PO SCH (09:00)
[2020-08-28] MEDS ORDERED: KCL 10 MEQ TAB (MICRO K) PO SCH (09:00)
[2020-09-03] MEDS ORDERED: ACHD5005 PO (05:43)
[2020-09-03] MEDS ORDERED: METO50TA7 PO (05:43)
== END 2020-08-27 11:15 ==
LOC: EDUNIT# 12:57 → ER 13:00 → 4TH 16:44
PROVIDERS: ADMIT Family Medicine; ATTEND Family Medicine
DX: M25.552 Pain in left hip (principal); I25.10 Atherosclerotic heart disease of native coronary artery without angina pectoris; M54.42 Lumbago with sciatica, left side; I10 Essential (primary) hypertension; I21.4 Non-ST elevation (NSTEMI) myocardial infarction; M19.90 Unspecified osteoarthritis, unspecified site; E78.00 Pure hypercholesterolemia, unspecified; E05.90 Thyrotoxicosis, unspecified without thyrotoxic crisis or storm; Z79.02 Long term (current) use of antithrombotics/antiplatelets; Z79.890 Hormone replacement therapy; Z95.1 Presence of aortocoronary bypass graft; Z90.710 Acquired absence of both cervix and uterus; Z79.899 Other long term (current) drug therapy; Z90.89 Acquired absence of other organs
CPT/HCPCS: 72131; 73502; 73700; 80048; 85027; 86141; 97162; 97530; 99284; G0378; 36415

== ENCOUNTER 2020-08-27 11:02 | Inpatient (IN) | payer MEDICARE ==
[~2020-08-27] VITALS: Ht 154.9 cm; Wt 57.2 kg
[~2020-08-27 11:02] MED LIST changes: +ASPI-999 PO; +CALC600T91 PO; +KRIL1CAP18 PO
[2020-08-27] MEDS ORDERED: ONDANSETRON 4 MG (ZOFRAN) ORAL DISSOLVE TAB PO PRN (11:30)
[2020-08-27] MEDS ORDERED: DOCUSATE SODIUM 100 MG (COLACE) CAP PO PRN (11:30)
[2020-08-27] MEDS ORDERED: FLEET ENEMA ADULT 1 EA BTL PR PRN (11:30)
[2020-08-27] MEDS ORDERED: MELATONIN 3 MG TABLET PO PRN (11:30)
[2020-08-27] MEDS ORDERED: BISACODYL 10 MG SUPP (DULCOLAX) PR PRN (11:30)
[2020-08-27] MEDS ORDERED: LOPERAMIDE 2 MG (IMODIUM) TABLET PO PRN (11:30)
[2020-08-27] MEDS ORDERED: guaiFENesin/CODEINE (ROBITUSSIN AC) 10ML UDC PO PRN (11:30)
[2020-08-27] MEDS ORDERED: diphenhydrAMINE 25 MG TAB (BENADRYL) PO PRN (11:30)
[2020-08-27] MEDS ORDERED: CALCIUM CARBONATE 500 MG (TUMS) TAB.CHEW PO PRN (11:30)
[2020-08-27] MEDS ORDERED: ALPRAZolam 0.25 MG (XANAX) TAB PO PRN (11:30)
[2020-08-27] MEDS ORDERED: LACTULOSE SYRUP 10GM/15ML (ENULOSE) 30ML UDC PO PRN (11:30)
--- NOTE | 2020-08-27 11:31 | PM&R Post Admission Assessment ---
PM&R Date of Visit: Aug 27, 2020 Time of Visit: 12:00 History of Present Illness CC: Debility HPI: This is an 85yoWF who presents to the ER with severe hip pain after a fall several days before. She had been admitted a few weeks earlier and had become quite debilitated, ended up moving to a trailer by her daughter but started having severe pain, unrelenting so she was admitted for observation for pain control and PT and OT consulted and will aggressively work on getting her back on track to be able to be discharged home. She does have some memory loss and she is very hard of hearing. Past Nykakxt-Gfunmc-Rwavmh Hx Past Med/Social Hx: Reviewed Nursing Past Med/Soc Hx, Reviewed and Corrections made Patient Social History Marrital Status: single Employed/Student: retired Alcohol Use: Denies Use Smoking Status: Never a Smoker Former Smoker, Quit: July 28, 1999 2nd Hand Smoke Exposure: Yes Recent Hopitalizations: No Immunizations Up To Date Tetanus Booster (TDap): Unknown Date of Pneumonia Vaccine: Nov 27, 2018 Date of Influenza Vaccine: Dec 27, 2019 Past Medical History Surgeries: Appendectomy, CABG, Coronary Stent, Gallbladder, Hysterectomy, Thyroidectomy Cardiac: Coronary Artery Disease, High Cholesterol, Hypertension, Peripheral Vascular Reproductive: Yes Musculoskeletal: Arthritis Endocrine: Hyperthyroidism History of Blood Disorders: No Family History Non contributory Occupation: retired. PM&R Allergy/Meds/Data Review Allergies Coded Allergies: lisinopril (Unverified Allergy, Unknown, 07/12/16) Sulfa (Sulfonamide Antibiotics) (Verified Adverse Reaction, Intermediate, RASH, 02/25/11) Home Medications Scheduled Aspirin (Aspirin), 81 MG PO DAILY, (Reported) Atorvastatin Calcium (Atorvastatin Calcium), 40 MG PO DAILY, (Reported) Calcium Carbonate (Calcium), 600 MG PO DAILY, (Reported) Carbamide Peroxide (Debrox), 5 DROPS EACH EAR BID, (Reported) Citalopram Hydrobromide (Citalopram HBr), 10 MG PO DAILY, (Reported) Clopidogrel Bisulfate (Clopidogrel), 75 MG PO DAILY, (Reported) Furosemide (Furosemide), 40 MG PO DAILY, (Reported) Krill/Om-3/Dha/Epa/Phospho/Ast (Krill Oil 1,000 mg Softgel), 1 EACH PO DAILY, (Reported) Levothyroxine Sodium (Levothyroxine Sodium), 125 MCG PO DAILY, (Reported) Metoprolol Succinate (Metoprolol Succinate), 100 MG PO DAILY, (Reported) Pantoprazole Sodium (Pantoprazole Sodium), 40 MG PO DAILY, (Reported) Potassium Chloride (Potassium Chloride), 20 MEQ PO DAILY, (Reported) Scheduled PRN Colestipol HCl (Colestipol HCl), 1-2 GM PO Q8H PRN for DIARRHEA, (Reported) Loperamide HCl (Imodium A-D), 2-4 MG PO UD PRN for DIARRHEA, (Reported) Meclizine HCl (Meclizine HCl), 25 MG PO Q6H PRN for DIZZINESS, (Reported) Discontinued Medications Acetaminophen (Tylenol), 325-650 MG PO Q6H PRN for PAIN-MILD (1-4), (Reported) Discontinued Reason: No Longer Taking Clopidogrel Bisulfate (Clopidogrel), 75 MG PO DAILY Discontinued Reason: Duplicate Order Fish Oil/Dha/Epa (Fish Oil 1,200 mg Fish Oil), 1 EACH PO DAILY, (Reported) Discontinued Reason: Duplicate Order Current Medications Current Medications Reviewed Review of Systems Constitutional: see HPI, malaise, weakness EENTM: no symptoms reported Respiratory: no symptoms reported Cardiovascular: no symptoms reported Gastrointestinal: no symptoms reported Musculoskeletal: back pain, joint pain Skin: no symptoms reported Psychiatric/Neurological: Other (confusion) Physical Exam Physical Exam Vital Signs Capillary Refill : Height, Weight, BMI Height: 5'1.00" Weight: 100lbs. oz. 45.284957sy; 24.75 BMI Method:Stated General Appearance: No Apparent Distress, WD/WN, Chronically ill Eyes: Bilateral Eye Normal Inspection, Bilateral Eye PERRL HEENT: PERRL/EOMI, Normal ENT Inspection, Pharynx Normal, Other ([place]) Neck: Full Range of Motion, Normal Inspection, Non Tender, Supple, Carotid Bruit Respiratory: Chest Non Tender, Lungs Clear, Normal Breath Sounds, No Accessory Muscle Use, No Respiratory Distress Cardiovascular: Regular Rate, Rhythm, No Edema, No Gallop, No JVD, No Murmur, Normal Peripheral Pulses Gastrointestinal: Normal Bowel Sounds, No Organomegaly, No Pulsatile Mass, Non Tender, Soft Back: Normal Inspection, No CVA Tenderness, No Vertebral Tenderness Extremity: Normal Capillary Refill, Normal Inspection, Normal Range of Motion, Non Tender, No Calf Tenderness, No Pedal Edema Neurologic/Psychiatric: Alert, Oriented x3, No Motor/Sensory Deficits, Normal Mood/Affect, Abnormal Gait, Depressed Affect, Motor Weakness (lower extremities) Skin: Normal Color, Warm/Dry Lymphatic: No Adenopathy PM&R Medical Assessment & Plan REHAB/MEDICAL ASSESSMENT AND PLAN: REHAB IMPAIRMENT GROUP: Debility ETIOLOGIC DIAGNOSIS: Debility The comorbidities that impact the patients function and/or functional outcome by: memory loss, hearing loss, fall risk, lives alone REHAB PLAN: The patient is being admitted to our comprehensive inpatient rehabilitation facility and can tolerate the intensity of service consisting of at least: 180 minutes of therapy a day, 5 out of 7 days a week Rehab treatment will consist of: PT OT will focus on fall risk prevention and help with cognition to retain instructions to help regain independence The patient/family has a good understanding of our discharge process and will benefit from an interdisciplinary inpatient rehabilitation program. The patient has potential to make improvement and is in need of at least two of the following multidisciplinary therapies including but not limited to physical, occupational, speech, and prosthetics and orthotics. Additionally the patient will need services from respiratory, nutritional services, wound care, psychology, etc. (Customize this to each patient). Given the patients complex condition and risk of further medical complications, rehabilitation services cannot be safely or effectively provided at a lower level of care such as a chcf facility. BARRIERS TO DISCHARGE: Memory loss ESTIMATED LOS: 7 days DISPOSITION: Home RELEVANT CHANGES SINCE PREADMISSION SCREENING: I have compared the patients medical and functional status at the time of the preadmission screening and there are: no changes PROGNOSIS: Guarded REHABILITATION GOALS: 1. PT OT will focus on fall risk prevention and help with cognition to retain instructions to help regain independence All the above goals were reviewed with the patient and he/she is in agreement. By signing this document, I acknowledge that I have personally performed a full physical examination on this patient within 24 hours of admission to this inpatient rehabilitation facility and have determined the patient to be able to tolerate the above course of treatment at an intensive level for a reasonable period of time. I will be completing a detailed individualized Plan of Care for this patient by day #4 of the patients stay based upon the Preadmission Screen, the Post-Admission Evaluation, and the therapy evaluations. Admission Dx/Comorbidities: (1) Debility Status: Acute ICD Codes: R53.81 - Other malaise (2) Left hip pain Status: Acute ICD Codes: M25.552 - Pain in left hip (3) Low back pain Status: Acute ICD Codes: M54.5 - Low back pain (4) CAD (coronary artery disease) ICD Codes: I25.10 - Atherosclerotic heart disease of [place] coronary artery without angina pectoris (5) Essential (primary) hypertension Status: Chronic ICD Codes: I10 - Essential (primary) hypertension (6) Hypothyroidism Status: Chronic ICD Codes: E03.9 - Hypothyroidism, unspecified (7) HLD (hyperlipidemia) Status: Chronic ICD Codes: E78.5 - Hyperlipidemia, unspecified (8) Normocytic anemia ICD Codes: D64.9 - Anemia, unspecified Assessment/Plan Assessment and Plan Assess & Plan/Chief Complaint Assessment: Debility Left hip pain CAD HTN Memory loss Presbycusis Plan: Monitor closely Pain control Memory loss management DONN LEON DO Aug 27, 2020 11:31
[2020-08-27 12:31] VITALS: BP 137/63
--- NOTE | 2020-08-27 13:23 | Physical Therapy Evaluation ---
PT Evaluation-General Medical Diagnosis Admission Date Aug 27, 2020 at 11:30 Medical Diagnosis: intractable back/hip pain Onset Date: Aug 27, 2020 Therapy Diagnosis Therapy Diagnosis: impaired mobility, strength, endurance Height/Weight Height (Feet): 5 Height (Inches): 1.00 Weight (Pounds): 100 Referral Physician: Leah Newton DO Reason for Referral: Evaluation/Treatment Medical History Pertinent Medical History: CABG, CAD, COPD, HTN, PVD Additional Medical History Past Medical History Surgeries: Appendectomy, CABG, Coronary Stent, Gallbladder, Hysterectomy, Thyroidectomy Cardiac: Coronary Artery Disease, High Cholesterol, Hypertension, Peripheral Vascular Reproductive: Yes Musculoskeletal: Arthritis Endocrine: Hyperthyroidism Reviewed History: Yes Social History Home: Single Level Current Living Status: Alone (daughter lives across the street though) Entry Into Home: Stairs With Railing PT Steps Into Home: 4 Prior Prior Level of Function SCALE: Activities may be completed with or without assistive devices. 8-Iufpfzepzm-yzcxecz completes the activity by him/herself with no assistance from a helper. 5-Set-up or Clean-up Assistance-helper sets up or cleans up; patient completes activity. Hartly assists only prior to or following the activity. 4-Supervision or Touching Assistance-helper provides verbal cues and/or touching/steadying and/or contact guard assistance as patient completes activity. Assistance may be provided throughout the activity or intermittently. 3-Partial/Moderate Assistance-helper does LESS THAN HALF the effort. Hartly lifts, holds or supports trunk or limbs, but provides less than half the effort. 2-Substantial/Maximal Assistance-helper does MORE THAN HALF the effort. Hartly lifts or holds trunk or limbs and provides more than half the effort. 2-Ndewjdike-hxcntr does ALL the effort. Patient does none of the effort to complete the activity. Or, the assistance of 2 or more helpers is required for the patient to complete the activity. If activity was not attempted, code reason: 7-Patient Refused. 9-Not Applicable-not attempted and the patient did not perform the activity before the current illness, exacerbation or injury. 10-Not Attempted due to Environmental Limitations-(lack of equipment, weather restraints, etc.). 88-Not Attempted due to Medical Conditions or Safety Concerns. Bed Mobility: 6 Transfers (B,C,W/C): 6 Gait: 6 Stairs: 6 Indoor Mobility (Ambulation): Independent Stairs: Independent PT Evaluation-Current Subjective Patient in recliner pre tx, agrees to PT, has 5/10 low back pain but states its not too bad. Will be co-treating with OT due to poor patient mobility, severe pain with activity, coordinate UE and LE during activity, safety and reduce risk of falls. Objective Patient Orientation: Person, Place, Situation ROM/Strength ROM Lower Extremities WNL Strength Lower Extremities 4/5 gross BLE Sensory Hearing: Functional Sensation Right Lower Extremit: Intact Sensation Left Lower Extremity: Intact Transfers Roll Left & Right (QC): 6 Sit to Lying (QC): 4 Lying to Sitting/Side of Bed(Q: 3 Sit to Stand (QC): 4 Chair/Vzp-py-Nfkze Xfer(QC): 4 Toilet Transfer (QC): 4 Car Transfer (QC): 4 Patient performs bed mobility with independence, supine to sit with min assist, sit to supine with SBA, sit <-> stand and transfers with CGA, car transfer CGA. Patient needs cues for direction and hand placement. Gait Does the Patient Walk?: Yes Mode of Locomotion: Walk Anticipated Mode of Locomotion: Walk Walk 10 feet (QC): 4 Walk 50 ft with 2 Turns(QC): 4 Walk 150 ft (QC): 4 Walking 10ft/uneven surface-QC: 4 Distance: 200', 100' Gait Assistive Device: FWW Comments/Gait Description Patient can ambulate 200' with a rolling walker with CGA (including 50' with at least 2 turns of 90 degrees and 10' over an uneven surface). Patient needs cues for direction, sometimes tactile cues as she tends to go in the wrong direction. Wheelchair Training Does the Pt Use a Wheelchair?: No Wheel 50 ft with 2 turns (QC): 9 Wheel 150 ft (QC): 9 Stairs #of Steps: 1 1 Step (curb) (QC): 4 4 Steps (QC): 88 12 Steps (QC): 88 Walking Assistive Device: Walker Patient can go up and down 1 step using a rolling walker with CGA Balance Sitting Static: Normal Sitting Dynamic: Normal Standing Static: Good Standing Dynamic: Fair Picking up an Object (QC): 88 Treatment PT performed bed mobility and transfers, ambulation, stairs, safety and balance during dressing with OT, OT performed dressing, UE positioning and safety during activity. Assessment/Needs Patient in recliner post tx with nurse call, phone, tray, all needs met. Patient has impaired mobility, strength, endurance. She mostly needs CGA for transfers and ambulation but needs min assist for supine to sit. Rehab Potential: Fair PT Short Term Goals Short Term Goals Time Frame: Sep 03, 2020 Roll Left & Right: 6 Sit to lyin Lying to sitting on side of be: 4 Sit to stand: 4 Chair/sxh-rx-adhuq transfer: 4 Walk 10 feet: 4 Walk 50 feet with two turns: 4 Walk 150 feet: 4 PT Log Handler Goals Log Handler Goals PT Nursing Home Goals Time Frame: Sep 17, 2020 Roll Left & Right (QC): 6 Sit to Lying (QC): 6 Lying-Sitting on Side/Bed(QC): 6 Sit to Stand (QC): 6 Chair/Dmx-fn-Biojk Xfer(QC): 5 Toilet Transfer (QC): 5 Car Transfer (QC): 5 Does the Patient Walk: Yes Walk 10 feet (QC): 5 Walk 50ft with 2 Turns (QC): 5 Walk 150 ft (QC): 5 Walking 10ft on Uneven Surface: 5 1 Step (curb) (QC): 5 4 Steps (QC): 5 12 Steps (QC): 88 Picking up an Object (QC): 88 Wheel 50 feet with 2 turns (QC: 9 Wheel 150 feet: 9 PT Plan Problem List Problem List: Activity Tolerance, Functional Strength, Safety, Balance, Gait, Transfer, Bed Mobility, ROM Treatment/Plan Treatment Plan: Continue Plan of Care Treatment Plan: Bed Mobility, Education, Functional Activity Kurtis, Functional Strength, Group Therapy, Gait, Safety, Therapeutic Exercise, Transfers Treatment Duration: Sep 17, 2020 Frequency: At least 5 of 7 days/Wk (IRF) Estimated Hrs Per Day: 1.5 hours per day Patient and/or Family Agrees t: Yes Safety Risks/Education Patient Education: Gait Training, Transfer Techniques, Steps, Correct Positioning, Safety Issues Teaching Recipient: Patient Teaching Methods: Demonstration, Discussion Response to Teaching: Reinforcement Needed Discharge Recommendations Plan Patient will perform bed mobility and transfer training, balance and endurance training, functional strengthening, stair training, gait training, and education, to improve functional mobility and independence at home. Therapy Discharge Recommendati: Scheduled Assistance, Home & Family, Post Acute PT Time/GCodes Time In: 1115 Time Out: 1215 Total Billed Treatment Time: 20 Total Billed Treatment 1 visit EVM 10' (no charge for the other 10') PT eval from [id number], OT eval from 1103-1102, co-treat from [id number] ZA URIOSTEGUI PT Aug 27, 2020 13:23
--- NOTE | 2020-08-27 13:57 | Occupational Therapy Eval ---
OT Evaluation-General/PLF Medical Diagnosis Admission Date Aug 27, 2020 at 11:30 Medical Diagnosis: intractable back/hip pain Onset Date: Aug 27, 2020 Therapy Diagnosis Therapy Diagnosis: Decreased ADL skills, weakness Height/Weight Height (Feet): 5 Height (Inches): 1.00 Weight (Pounds): 100 Weight Bear Status Weight Bearing Restriction: Weight Bearing/Tolerated Referral Physician: Leah Newton DO Referral Reason: Activity Tolerance, Self Care, Evaluation/Treatment, Strength ening/ROM Medical History Pertinent Medical History: CABG, CAD, COPD, HTN, PVD Current History Pt. states that she has been having severe back pain approximately 1 week. She is unsure why. Came to hospital yesterday. Feeling better today. Reviewed History: Yes Social History Home: Single Level (trailer) Current Living Status: Alone (daughter lives across the street though) Entry Into Home: Stairs With Railing Steps Into Home: 4 ADL-Prior Level of Function SCALE: Activities may be completed with or without assistive devices. 8-Wexxgmjjrj-mkedxeq completes the activity by him/herself with no assistance from a helper. 5-Set-up or Clean-up Assistance-helper sets up or cleans up; patient completes activity. [place] assists only prior to or following the activity. 4-Supervision or Touching Assistance-helper provides verbal cues and/or touching/steadying and/or contact guard assistance as patient completes activity. Assistance may be provided throughout the activity or intermittently. 3-Partial/Moderate Assistance-helper does LESS THAN HALF the effort. [place] lifts, holds or supports trunk or limbs, but provides less than half the effort. 2-Substantial/Maximal Assistance-helper does MORE THAN HALF the effort. [place] lifts or holds trunk or limbs and provides more than half the effort. 2-Wimoultfo-fzwbfn does ALL the effort. Patient does none of the effort to complete the activity. Or, the assistance of 2 or more helpers is required for the patient to complete the activity. If activity was not attempted, code reason: 7-Patient Refused. 9-Not Applicable-not attempted and the patient did not perform the activity before the current illness, exacerbation or injury. 10-Not Attempted due to Environmental Limitations-(lack of equipment, weather restraints, etc.). 88-Not Attempted due to Medical Conditions or Safety Concerns. ADL PLOF Comments Pt. states that up until 1 week ago, she was independent with daily skills. She was able to cook and clean for self. She has a walker but does not use it. Her daughter lives very close, and checks on her frequently. Self Care: Independent Functional Cognition: Unknown DME/Equipment: Bath Chair, Grab Bars, Tub/Shower DME/Equipment Comments Walker Drive Self: No OT Current Status Subjective No pain reported at this time. Mental Status/Objective Patient Orientation: Person Pt. does have some light confusion at evaluation. She does not know what year she was born. She is very pleasant, and demonstrates some confusion with daughter about simple things during conversation. Current Upper Extremity ROM WFL ADL-Treatment Eating (QC): 5 Oral Hygiene (QC): 7 (Dentures. Does not want to put in at this time. Maikught er reports that she has already brushed them for pt.) Shower/Bathe Self (QC): 88 Upper Body Dressing (QC): 88 Lower Body Dressing (QC): 88 On/Off Footwear (QC): 4 Toileting Hygiene (QC): 7 Other Treatments Pt. seen for initial evaluation with PT due to perceived low endurance and strength. PT focused on transfer training while OT assessed ADL skills and energy conservation. Pt. does require cues at times to stay on task. Pt. ambulated with CGA with walker, and practiced multiple transfer situations, including in and out of a car. Practiced doffing/donning slipper socks, and in/out of reclining chair. Pt. educated about OT goals, and rehab stay. Verbalizes understanding with ongoing education. Pt. up in chair with nursing assessing pt. All needs met. Education OT Patient Education: Correct positioning, Modified ADL techniques, Progress toward Goal/Update tx plan, Purpose of tx/functional activities, Reviewed precautions, Rehab process, Transfer techniques Teaching Recipient: Patient, Family Teaching Methods: Demonstration, Discussion Response to Teaching: Verbalize Understanding, Return Demonstration, Reinforcement Needed OT Short Term Goals Short Term Goals Time Frame: Sep 03, 2020 OT Community Education Coordinator Goals Community Education Coordinator Goals Time Frame: Sep 10, 2020 Eating (QC): 6 Oral Hygiene (QC): 6 Toileting Hygiene (QC): 6 Shower/Bathe Self (QC): 4 Upper Body Dressing (QC): 5 Lower Body Dressing (QC): 4 On/Off Footwear (QC): 6 Additional Goals: 1-Demonstrate ADL Tasks, 2-Verbalize Understanding, 3- ImproveStrength/Kurtis 1=Demonstrate adherence to instructed precautions during ADL tasks. 2=Patient will verbalize/demonstrate understanding of assistive devices/modifi cations for ADL. 3=Patient will improve strength/tolerance for activity to enable patient to perform ADL's. OT Education/Plan Problem List/Assessment Assessment: Decreased Activ Tolerance, Impaired I ADL's, Impaired Self-Care Skills Discharge Recommendations Plan/Recommendations: Continue POC Therapy Discharge Recommendati: Post Acute OT Comment To be determined. Treatment Plan/Plan of Care Treatment,Training & Education: Yes Patient would benefit from OT for education, treatment and training to promote independence in ADL's, mobility, safety and/or upper extremity function for ADL's. Plan of Care: ADL Retraining, Functional Mobility, UE Funct Exercise/Act Treatment Duration: Sep 10, 2020 Frequency: At least 5 of 7 days/Wk (IRF) Estimated Hrs Per Day: 1.5 hours per day Agreement: Yes Rehab Potential: Good Time/GCodes Start Time: 11:45 Stop Time: 12:15 Total Time Billed (hr/min): 20 Billed Treatment Time 7181-0412 PT eval, no charge 7960-1144 1, EVM x 10minutes [id number] FA x [id number] with PT. Please see above note for designated roles. MOHAN VENCES OT Aug 27, 2020 13:57
--- NOTE | 2020-08-27 14:03 | Occupational Ther Daily Note ---
OT Current Status-Daily Note Subjective Pt alert, sitting in recliner. Pt agrees to therapy. Pt c/o back pain, MHP placed at area, pain decreased. Mental Status/Objective Patient Orientation: Person, Place, Time, Situation ADL-Treatment Pt declined shower, agrees to sponge bath. Set up with warm bath pack to complete sponge bath. Set up sitting in recliner to complete sponge bath. Set up for dressing, SBA to complete donning/doffing clothing. Set up for footwear. Standing at sink, pt completes oral care with SBA. SBA to transfer on/off toilet. SBA for toileting hygiene and clothing manipulation. Meal set up, pt able to use regular utensils to eat. After session, pt sitting in recliner with call light/phone in reach. All needs met in room. Therapy Code Descriptions/Definitions Functional [place] Measure: 0=Not Assessed/NA 4=Minimal Assistance 1=Total Assistance 5=Supervision or Setup 2=Maximal Assistance 6=Modified [place] 3=Moderate Assistance 7=Complete IndependenceSCALE: Activities may be completed with or without assistive devices. 3-Ddtaqdnsjo-mptdcra completes the activity by him/herself with no assistance from a helper. 5-Set-up or Clean-up Assistance-helper sets up or cleans up; patient completes activity. [place] assists only prior to or following the activity. 4-Supervision or Touching Assistance-helper provides verbal cues and/or touching/steadying and/or contact guard assistance as patient completes activity. Assistance may be provided throughout the activity or intermittently. 3-Partial/Moderate Assistance-helper does LESS THAN HALF the effort. [place] lifts, holds or supports trunk or limbs, but provides less than half the effort. 2-Substantial/Maximal Assistance-helper does MORE THAN HALF the effort. [place] lifts or holds trunk or limbs and provides more than half the effort. 9-Wifnltahz-xgsopb does ALL the effort. Patient does none of the effort to complete the activity. Or, the assistance of 2 or more helpers is required for the patient to complete the activity. If activity was not attempted, code reason: 7-Patient Refused. 9-Not Applicable-not attempted and the patient did not perform the activity before the current illness, exacerbation or injury. 10-Not Attempted due to Environmental Limitations-(lack of equipment, weather restraints, etc.). 88-Not Attempted due to Medical Conditions or Safety Concerns. Eating (QC): 6 Oral Hygiene (QC): 4 Shower/Bathe Self (QC): 4 Upper Body Dressing (QC): 4 Lower Body Dressing (QC): 4 On/Off Footwear: 5 Toileting Hygiene (QC): 4 Toilet Transfer (QC): 4 OT Director Case Management Goals Director Case Management Goals Eating (QC): 6 Oral Hygiene (QC): 6 Toileting Hygiene (QC): 6 Shower/Bathe Self (QC): 4 Upper Body Dressing (QC): 5 Lower Body Dressing (QC): 4 On/Off Footwear (QC): 6 1=Demonstrate adherence to instructed precautions during ADL tasks. 2=Patient will verbalize/demonstrate understanding of assistive devices/modifications for ADL. 3=Patient will improve strength/tolerance for activity to enable patient to perform ADL's. OT Education/Plan Problem List/Assessment Assessment: Decreased Activ Tolerance, Decreased Safety Aware, Impaired Self- Care Skills Discharge Recommendations Plan/Recommendations: Continue POC Treatment Plan/Plan of Care Patient would benefit from OT for education, treatment and training to promote independence in ADL's, mobility, safety and/or upper extremity function for ADL's. Plan of Care: ADL Retraining, Functional Mobility, Group Exercise/Act as Ind, UE Funct Exercise/Act Treatment Duration: Sep 10, 2020 Frequency: At least 5 of 7 days/Wk (IRF) Estimated Hrs Per Day: 1.5 hours per day Agreement: Yes Rehab Potential: Fair Time/GCodes Start Time: 12:45 Stop Time: 13:45 Total Time Billed (hr/min): 60 Billed Treatment Time 1 visit-ADL 4 (60 min) ROGE RODRIGUEZ Aug 27, 2020 14:03
--- NOTE | 2020-08-27 14:29 | ST Cognitive Linguistic Eval ---
Speech Evaluation-General Medical Diagnosis intractable back/hip pain Onset Date: Aug 27, 2020 Therapy Diagnosis Therapy Diagnosis: Cognitive-communication Precautions Precautions/Isolations: Fall Prevention, Standard Precautions Referral Referring Physician: Dr. Newton Medical History Pertinent Medical History: CABG, CAD, COPD, HTN, PVD Reviewed History: Yes Social History Current Living Status: Alone (daughter lives across the street though) Speech PLF-Current Status Prior Level of Function Patient lives alone with her daughter living across the street. Her daughter assists her with her daily needs. Subjective Patient was pleasant and cooperative with the cognitive assessment. Language Eval: Auditory Comprehends Simple Yes/No Ques: Functional Indent/Objects Multiple Bond: Functional Ident/Pics in Multiple Bond: Functional Follows 1-Step Commands: Mild Follows Complex Directions: Moderate Follows General Conversations: Mild Language Eval: Verbal Language Completes Spontaneous Greeting: Functional Produces Auto, Serial Info: Functional Imitates Simple Words/Phrases: Functional Word Finding: Moderate Requests Basic Needs: Mild States Basic Personal Info: Mild Objective Cognitive Domain Attention: WNL Memory: Mild Problem Solving: Mild Executive Functions: Mild Visuospatial Skills: WNL Composite Severity Rating: Moderate Clock Drawing Severity Rating: Mild Objective Formal/Standardized Tests [facility] Status ([facility]) Results 18/30, Moderate Dementia range of function Oral Motor/Speech Production Within Normal Limits Impression Patient is an 85 y/o female who was admitted to the ARU due to debility and pain. Patient states she just couldn't stand up on her leg due to the pain and weakness. The patient lives alone with her daughter as one of her neighbors. Her daughter assists her with all of her daily needs. The patient was given the SLUMS with a score of 18/30 obtained. This score is within the moderate dementia range of function which indicates the need for further ST services. Speech Patient Assess Expression of Ideas/Wants: Exhibits (3) Understanding Verbal Content: Sometimes Understands(2) Brief Interview-Mental Status: Yes Repetition of Three Words: Three (3) Temporal Orientation: Year: Correct (3) Temporal Orientation: Month: Accurate within 5 days(2) Temporal Orientation: Day: Correct (1) Recall : Wear to say "Sock": Yes,after cueing (1) Recall : Color: No, could not recall (0) Recall : Bed: No, could not recall (0) Memory/Recall Ability: Current season, That he or she is in a hsp/hsp unit Speech Short Term Goals Short Term Goals Short Term Goals 1) Patient will complete memory tasks related to her daily needs at 80% or greater with minimal cues. 2) Patient will complete safety awareness tasks related to her daily needs at 80% or greater with minimal cues. 3) Patient will complete problem solving tasks related to her daily needs at 80% or greater with minimal cues. Speech Penitentiary Goals Record Press Operator Goals Patient will improve her cognitive communication abilities in order to require decreased assist with her daily needs. Speech-Plan Patient/Family Goals Patient/Family Goals: Patient plans on returning to her home with family assist for daily needs. At this time this may not be the best discharge plan due to her cognitive status and debility. Her discharge situation will be determined at a later date. Treatment Plan Speech Therapy Treatment Plan: Continue Plan of Care Treatment Duration: Sep 11, 2020 Frequency: 4 times per week (Patient will receive skilled ST 4-5x per week) Estimated Hrs Per Day: .5 hour per day Rehab Potential: Good Barriers to Learning: Patient's cognitive deficits, age Pt/Family Agrees to Plan: Yes Safety Risks/Education Teaching Recipient: Patient Teaching Methods: Discussion Response to Teaching: Verbalize Understanding, Reinforcement Needed Education Topics Provided: Safety within her room, communication of wants/needs Time Speech Therapy Time In: 13:45 Speech Therapy Time Out: 14:15 Total Billed Time: 30 Billed Treatment Time 1, FERNANDA QUINTEROS [address] Aug 27, 2020 14:28
--- NOTE | 2020-08-27 15:03 | Physical Therapy Daily Note ---
PT Daily Note-Current Subjective Patient in recliner pre tx, agrees to PT, states she doesn't have any pain at rest. Appearance Patient in recliner post tx with nurse call, phone, tray, all needs met, instructed to use nurse call if she needs to get up for any reason. Mental Status Patient Orientation: Person, Place, Situation Transfers SCALE: Activities may be completed with or without assistive devices. 1-Crdwazjfbq-gtcjfzx completes the activity by him/herself with no assistance from a helper. 5-Set-up or Clean-up Assistance-helper sets up or cleans up; patient completes activity. [place] assists only prior to or following the activity. 4-Supervision or Touching Assistance-helper provides verbal cues and/or touching/steadying and/or contact guard assistance as patient completes activity. Assistance may be provided throughout the activity or intermittently. 3-Partial/Moderate Assistance-helper does LESS THAN HALF the effort. [place] lifts, holds or supports trunk or limbs, but provides less than half the effort. 2-Substantial/Maximal Assistance-helper does MORE THAN HALF the effort. [place] lifts or holds trunk or limbs and provides more than half the effort. 7-Qznmwanxe-uoishx does ALL the effort. Patient does none of the effort to complete the activity. Or, the assistance of 2 or more helpers is required for the patient to complete the activity. If activity was not attempted, code reason: 7-Patient Refused. 9-Not Applicable-not attempted and the patient did not perform the activity before the current illness, exacerbation or injury. 10-Not Attempted due to Environmental Limitations-(lack of equipment, weather restraints, etc.). 88-Not Attempted due to Medical Conditions or Safety Concerns. Sit to Stand (QC): 4 Chair/Mxk-hc-Awgtc Xfer(QC): 4 SBA Gait Training Distance: 300', 120' Walk 10 feet (QC): 4 Walk 50 ft with 2 Turns(QC): 4 Walk 150 ft (QC): 4 Gait Persons Needed: 1 Gait Assistive Device: FWW slow but steady ambulation, slumped posture Exercises Standing: Hip Abduction, Heel/toe raises, Marching, Mini squats Standing Reps: 15 LAQ alternating for 5 min NuStep Minutes: 15 NuStep Workload: 3 Treatments transfers, ambulation, functional strengthening Assessment Current Status: Fair Progress Patient had progressing low back pain during tx, pain will be an issue with her progress, frequent rest breaks due to pain and fatigue PT Short Term Goals Short Term Goals Time Frame: Sep 03, 2020 Roll Left & Right: 6 Sit to lyin Lying to sitting on side of be: 4 Sit to stand: 4 Chair/uta-ve-hqgdv transfer: 4 Walk 10 feet: 4 Walk 50 feet with two turns: 4 Walk 150 feet: 4 PT Parachute Officer Goals Parachute Officer Goals PT Detention Goals Time Frame: Sep 17, 2020 Roll Left & Right (QC): 6 Sit to Lying (QC): 6 Lying-Sitting on Side/Bed(QC): 6 Sit to Stand (QC): 6 Chair/Uif-vc-Qetfg Xfer(QC): 5 Toilet Transfer (QC): 5 Car Transfer (QC): 5 Does the Patient Walk: Yes Walk 10 feet (QC): 5 Walk 50ft with 2 Turns (QC): 5 Walk 150 ft (QC): 5 Walking 10ft on Uneven Surface: 5 1 Step (curb) (QC): 5 4 Steps (QC): 5 12 Steps (QC): 88 Picking up an Object (QC): 88 Wheel 50 feet with 2 turns (QC: 9 Wheel 150 feet: 9 PT Plan Problem List Problem List: Activity Tolerance, Functional Strength, Safety, Balance, Gait, Transfer, Bed Mobility, ROM Treatment/Plan Treatment Plan: Continue Plan of Care Treatment Plan: Bed Mobility, Education, Functional Activity [place], Functional Strength, Group Therapy, Gait, Safety, Therapeutic Exercise, Transfers Treatment Duration: Sep 17, 2020 Frequency: At least 5 of 7 days/Wk (IRF) Estimated Hrs Per Day: 1.5 hours per day Patient and/or Family Agrees t: Yes Safety Risks/Education Patient Education: Gait Training, Transfer Techniques, Correct Positioning, Safety Issues Teaching Recipient: Patient Teaching Methods: Demonstration, Discussion Response to Teaching: Reinforcement Needed Time/GCodes Time In: 1415 Time Out: 1505 Total Billed Treatment Time: 50 Total Billed Treatment 1 visit EX 30' GT 20' ZA URIOSTEGUI PT Aug 27, 2020 15:03
[2020-08-27] MEDS ORDERED: CARB15DR87 EACH EAR (16:17)
[2020-08-27] MEDS ORDERED: LOPERAMIDE HCL PO PRN (18:30)
[2020-08-27] MEDS ORDERED: MECLIZINE 25 MG (ANTIVERT) TAB PO PRN (18:30)
[2020-08-27] MEDS ORDERED: COLESTIPOL 1 GM (COLESTID) TAB PO PRN (18:30)
[2020-08-27 20:00] VITALS: BP 153/70
[2020-08-27] MEDS: DOCUSATE SODIUM 100 MG (COLACE) CAP PO SCH (20:20)
[2020-08-27] MEDS: ACETAMINOPHEN 325 MG TABLET PO PRN (20:20)
[2020-08-27] MEDS: CARBAM PEROX/GLYC/PROP 15 ML DROPS (DEBROX) EACH EAR SCH (20:21)
[2020-08-27] MEDS ORDERED: SENNA W/DOCUSATE (SENOKOT S) TABLET PO SCH (21:00)
[2020-08-27] MEDS ORDERED: SENNA W/DOCUSATE (SENOKOT S) TABLET PO PRN (21:00)
[2020-08-27] MEDS ORDERED: polyethylene glycoL POWDER 17 GM (MIRALAX) PACK PO PRN (21:00)
[2020-08-27] MEDS ORDERED: polyethylene glycoL POWDER 17 GM (MIRALAX) PACK PO SCH (21:00)
[2020-08-28 05:52] LABS: BASOPHILS % (AUTO) 0 % (0-10); EOSINOPHILS % (AUTO) 0 % (0-10); HEMATOCRIT 34 % (35-52); HEMOGLOBIN 10.5 g/dL (11.5-16.0); LYMPHOCYTES # (AUTO) 2.4 10^3/uL (1.0-4.0); LYMPHOCYTES % (AUTO) 48 % (12-44); MEAN CORPUSCULAR HEMOGLOBIN 27 pg (25-34); MEAN CORPUSCULAR HGB CONC 31 g/dL (32-36); MEAN CORPUSCULAR VOLUME 89 fL (80-99); MEAN PLATELET VOLUME 11.8 fL (9.0-12.2); MONOCYTES # (AUTO) 0.5 10^3/uL (0.0-1.0); MONOCYTES % (AUTO) 10 % (0-12); NEUTROPHILS # (AUTO) 2.1 10^3/uL (1.8-7.8); NEUTROPHILS % (AUTO) 42 % (42-75); PLATELET COUNT 161 10^3/uL (130-400)
[2020-08-28 06:01] LABS: ALBUMIN 3.5 GM/DL (3.2-4.5)
[2020-08-28 06:02] LABS: CHLORIDE 105 MMOL/L (98-107); POTASSIUM 3.6 MMOL/L (3.6-5.0); SODIUM 142 MMOL/L (135-145)
[2020-08-28 06:03] LABS: CALCIUM 9.2 MG/DL (8.5-10.1)
[2020-08-28 06:04] LABS: GLUCOSE 100 MG/DL (70-105); TOTAL PROTEIN 6.4 GM/DL (6.4-8.2)
[2020-08-28 06:05] LABS: CARBON DIOXIDE 25 MMOL/L (21-32)
[2020-08-28 06:06] LABS: BILIRUBIN,TOTAL 0.3 MG/DL (0.1-1.0)
[2020-08-28 06:08] LABS: ALKALINE PHOSPHATASE 49 U/L (40-136); CREATININE SERUM 0.83 MG/DL (0.60-1.30); GFR ESTIMATED > 60
[2020-08-28 06:09] LABS: BUN/CREATININE RATIO 20
[2020-08-28 06:11] LABS: ALANINE AMINOTRANSFERASE 11 U/L (0-55)
--- NOTE | 2020-08-28 06:28 | Individualized Plan of Care ---
Individualized Plan of Care Rehab Nursing IPOC Order Admission Date Aug 27, 2020 at 11:30 Current Orders Orders Admission Order(Inpt,Obs,Sdc) (08/27/20 11:30) Vital Signs: Per Unit Policy ( 08,16,00 (08/27/20 11:30) Kanu Polanco (08/27/20 11:30) Sequential Compression Device .admit (08/27/20 11:30) Wireline Field Operator-Inpt Rehab Con (08/27/20 11:30) Rehab Nursing Orders-Ipoc (08/27/20 11:30) Physical Therapy Rehab Orders (08/27/20 11:30) Occupational Therapy Rehab Ord (08/27/20 11:30) Speech Therapy Rehab Orders (08/27/20 11:30) Cbc With Automated Diff (08/28/20 06:00) Comprehensive Metabolic Panel (08/28/20 06:00) Precautions (Aru) (08/27/20 11:30) Rehab-Intensity Of Therapy (08/27/20 11:30) Initiate Admission Nursing Pro .admission (08/27/20 11:30) Acetaminophen Tablet/Caplet (Tylenol T (08/27/20 11:30) Alprazolam Tablet (Xanax Tablet) (08/27/20 11:30) Calcium Carbonate Chew Tablet (Antacid C (08/27/20 11:30) Diphenhydramine Tablet (Benadryl Tablet) (08/27/20 11:30) Docusate Sodium Capsule (Colace Capsule) (08/27/20 21:00) Docusate Sodium Capsule (Colace Capsule) (08/27/20 11:30) Bisacodyl Suppository (Dulcolax Supposit (08/27/20 11:30) Lactulose Oral Solution (Enulose Oral So (08/27/20 11:30) Na Phos/Na Biphos Enema (Fleet Enema Juice (08/27/20 11:30) Guaifenesin/Codeine Syrup (Robitussin Ac (08/27/20 11:30) Loperamide Tablet (Imodium Tablet) (08/27/20 11:30) Melatonin Tablet (Melatonin Tablet) (08/27/20 11:30) Polyethylene Glycol Powder Pkt (Miralax (08/27/20 21:00) Ondansetron Oral Dissolve Tab (Zofran (08/27/20 11:30) Senna S Tablet (Senokot S Tablet) (08/27/20 21:00) Initiate Admission Nursing Pro .admission (08/27/20 11:30) Admission Arrival Bed Request (08/27/20 11:58) General/Regular (08/27/20 Lunch) Enlive Variety (08/27/20 14:00) Patient Visit (08/27/20 ) Speech Sound Lang Comp (08/27/20 ) Treat. Speech/Lang/Voice (08/27/20 ) Patient Visit (08/27/20 ) Pt Eval Moderate Complexity (08/27/20 ) Exercise Therap, Ea 15 Min (08/27/20 ) Gait Training, Ea 15 Min (08/27/20 ) Aspirin Chewable Tablet (Baby Aspirin Ch (08/28/20 09:00) Atorvastatin Tablet (Lipitor) (08/28/20 09:00) Calcium Carbonate Tablet (Calcarb 600 Ta (08/28/20 09:00) Carbam Perox/Glycer/Prop Glyc (Debrox Ot (08/27/20 21:00) Citalopram Tablet (Celexa Tablet) (08/28/20 09:00) Clopidogrel Tablet (Plavix Tablet) (08/28/20 09:00) Colestipol Tablet (Colestid Tablet) (08/27/20 18:30) Furosemide Tablet (Lasix Tablet) (08/28/20 09:00) Levothyroxine Tablet (Synthroid Tablet) (08/28/20 06:30) Meclizine Tablet (Antivert Tablet) (08/27/20 18:30) Metoprolol Succinate (Xl) Tab (Toprol Xl (08/28/20 09:00) Pantoprazole Tablet (Protonix Tablet) (08/28/20 09:00) (Nf) Krill/Om-3/Dha/Epa/Phospho/Ast (Kri (08/28/20 09:00) (Nf) Loperamide Hcl (Imodium A-D) (08/27/20 18:30) (Nf) Potassium Chloride (08/28/20 09:00) Polyethylene Glycol Powder Pkt (Miralax (08/27/20 21:00) Senna S Tablet (Senokot S Tablet) (08/27/20 21:00) Potassium Chloride (Tablet) (K Dur Table (08/28/20 07:00) [place] 3 Capsule (Fish Oil Capsule) (08/28/20 09:00) Code/Resuscitation (08/27/20 19:34) Oxycodone Immediate Rel Tablet (Oxyir Ta (08/27/20 22:45) Patient Visit (08/28/20 ) Gait Training, Ea 15 Min (08/28/20 ) Exercise Therap, Ea 15 Min (08/28/20 ) Patient Visit (08/28/20 ) Self Care/Home Mgmt/Adl 15 Min (08/28/20 ) Colestipol Tablet (Colestid Tablet) (08/28/20 11:45) Calcitonin Nasal [place] (Miacalcin Nasal (08/29/20 09:00) Cholecalciferol Capsule/Tablet (Vitamin (08/29/20 07:00) Consult Family Medicine (08/28/20 13:00) Patient Visit (08/28/20 ) Treat. Speech/Lang/Voice (08/28/20 ) Hydrocodone/Apap 5/325 Tablet (Lortab 5 (08/28/20 15:00) Rehab Nursing Orders: Ongoing Assess. of Cognitive Status, Ongoing Assess. of Function Status, Bladder Management, Bladder Scan, Bladder Training, Bowel Management, Bowel Training, Disease Management & Educaiton, DVT Prophylaxis, Fall Prevention, Fluid/Electrolyte/Nutrition Mgmt, Infection Prevention, Medication Management & Education, Management of Risks & Complications, Nutrition Management, Pain Management, Patient/Family Support, Safety Management Intensity of Therapy to be met Patient to be seen: Min.3h per day/5 of 7d PT IPOC Problem List: Activity Tolerance, Functional Strength, Safety, Balance, Gait, Transfer, Bed Mobility, ROM Treatment Plan: Continue Plan of Care Bed Mobility, Education, Functional Activity Kurtis, Functional Strength, Group Therapy, Gait, Safety, Therapeutic Exercise, Transfers Treatment Duration: Sep 17, 2020 Frequency: At least 5 of 7 days/Wk (IRF) Estimated Hrs Per Day: 1.5 hours per day OT IPOC Problems: Decreased Activ Tolerance, Decreased Safety Aware, Impaired Self-Care Skills OT Treatment, Training and Edu: Yes Plan of Care: ADL Retraining, Functional Mobility, Group Exercise/Act as Ind, UE Funct Exercise/Act Treatment Duration: Sep 10, 2020 Frequency: At least 5 of 7 days/Wk (IRF) Estimated Hrs Per Day: 1.[address] IPOC Speech Therapy Treatment Plan: Continue Plan of Care Treatment Duration: Sep 11, 2020 Frequency: 4 times per week (Patient will receive skilled ST 4-5x per week) Estimated Hrs Per Day: .5 hour per day Wireline Field Operator/Case Mgmt Wireline Field Operator/Case Managemen: Discharge Planning Dietitian/Sanitation Manager Dietitian/Sanitation Manager to monitor nutritional status and make changes and/or recommendations as needed and work with speech pathology on dietary upgrades as the occur. Physician IPOC Medical Issues being managed closely and that require the 24 hour availability of a physician: Recent fall with decline in function with acute on chronic diarrhea along with cognitive deficit will require close monitoring for increased confusion and change in status Medical Issues: Bowel/Bladder Function, DVT Prophylaxis, Falls Precautions, Fluid/Electrolyte/Nutrition Balance, Infection Protection, Pain Management Brief Synthesis of Preadmission Screen, Post-Admission Evaluation, and Therapy Evaluations: PT OT will focus on regaining function with fall risk prevention and ST will help with cognitive retention in order to regain enough function to return to independent living Medical Prognosis: Good Anticipated Length of Stay: 7 days DONN LEON DO Aug 28, 2020 06:28
--- NOTE | 2020-08-28 06:28 | PM&R Progress Note ---
Subjective HPI/CC On Admission Date Seen by Provider: Aug 28, 2020 Time Seen by Provider: 11:45 Subjective/Events-last exam 08/28/20: Pt doing pretty well Oxycodone made her too drowsy last night Changing Colestid to two pils TID scheduled to help with the diarrhea She really wont eat unless the diarrhea is stopped Dr. Jean-Baptiste will see her in consultation She moved [facility] to [place] to be by her daughter Memory loss is noted Lortab ordered Review of Systems General: Fatigue, Malaise Gastrointestinal: Diarrhea Neurological: Confusion Objective Exam Vital Signs Vital Signs Date Time Temp Pulse Resp B/P (MAP) Pulse Ox O2 Delivery O2 Flow Rate FiO2 08/28/20 20:15 94 Room Air 08/28/20 20:15 36.6 75 20 107/62 (77) Capillary Refill : General Appearance: No Apparent Distress, WD/WN, Chronically ill HEENT: PERRL/EOMI, Normal ENT Inspection, Pharynx Normal, Other ([place]) Neck: Full Range of Motion, Normal Inspection, Non Tender, Supple, Carotid Bruit Respiratory: Chest Non Tender, Lungs Clear, Normal Breath Sounds, No Accessory Muscle Use, No Respiratory Distress Cardiovascular: Regular Rate, Rhythm, No Edema, No Gallop, No JVD, No Murmur, Normal Peripheral Pulses Gastrointestinal: Normal Bowel Sounds, No Organomegaly, No Pulsatile Mass, Non Tender, Soft Back: Normal Inspection, No CVA Tenderness, No Vertebral Tenderness Extremity: Normal Capillary Refill, Normal Inspection, Normal Range of Motion, Non Tender, No Calf Tenderness, No Pedal Edema Neurologic/Psychiatric: Alert, Oriented x3, No Motor/Sensory Deficits, Normal Mood/Affect, Abnormal Gait, Depressed Affect, Motor Weakness (lower extremities) Skin: Normal Color, Warm/Dry Lymphatic: No Adenopathy Results/Procedures Lab Laboratory Tests 08/28/20 05:18 Patient resulted labs reviewed. FIM Transfers Therapy Code Descriptions/Definitions Functional Walker Measure: 0=Not Assessed/NA 4=Minimal Assistance 1=Total Assistance 5=Supervision or Setup 2=Maximal Assistance 6=Modified Walker 3=Moderate Assistance 7=Complete IndependenceSCALE: Activities may be completed with or without assistive devices. 2-Clshluznhj-oufakud completes the activity by him/herself with no assistance from a helper. 5-Set-up or Clean-up Assistance-helper sets up or cleans up; patient completes activity. [place] assists only prior to or following the activity. 4-Supervision or Touching Assistance-helper provides verbal cues and/or touching/steadying and/or contact guard assistance as patient completes activity. Assistance may be provided throughout the activity or intermittently. 3-Partial/Moderate Assistance-helper does LESS THAN HALF the effort. [place] lifts, holds or supports trunk or limbs, but provides less than half the effort. 2-Substantial/Maximal Assistance-helper does MORE THAN HALF the effort. [place] lifts or holds trunk or limbs and provides more than half the effort. 7-Leaxbdunq-qrxlgy does ALL the effort. Patient does none of the effort to complete the activity. Or, the assistance of 2 or more helpers is required for the patient to complete the activity. If activity was not attempted, code reason: 7-Patient Refused. 9-Not Applicable-not attempted and the patient did not perform the activity before the current illness, exacerbation or injury. 10-Not Attempted due to Environmental Limitations-(lack of equipment, weather restraints, etc.). 88-Not Attempted due to Medical Conditions or Safety Concerns. Roll Left to Right (QC): 6 Sit to Lying (QC): 4 Sit to Stand (QC): 4 Chair/Lnn-ba-Ywpom Xfer(QC): 4 Car Transfer (QC): 4 Gait Training Does the Patient Walk?: Yes Distance: 300', 120' Walk 10 feet (QC): 4 Walk 50 ft with 2 Turns(QC): 4 Walk 150 ft (QC): 4 Walking 10ft/uneven surface-QC: 4 Gait Persons Needed: 1 Gait Assistive Device: FWW Wheelchair Training Does the Pt Use a Wheelchair?: No Wheel 50 ft with 2 turns (QC): 9 Wheel 150 ft (QC): 9 Stair Training #of Steps: 1 1 Step (curb) (QC): 4 4 Steps (QC): 88 12 Steps (QC): 88 Balance Picking up an Object (QC): 88 ADL-Treatment Eating (QC): 6 Oral Hygiene (QC): 4 Shower/Bathe Self (QC): 4 Upper Body Dressing (QC): 4 Lower Body Dressing (QC): 4 On/Off Footwear (QC): 5 Toileting Hygiene (QC): 4 Toilet Transfer (QC): 4 Assessment/Plan Assessment and Plan Assess & Plan/Chief Complaint Assessment: Debility Left hip pain CAD HTN Memory loss Presbycusis Acute on chronic diarrhea Plan: Monitor closely Pain control Memory loss management 08/28/20: Imodium Colestid FP consult IRF protocol (1) Debility Status: Acute (2) Left hip pain Status: Acute (3) Low back pain Status: Acute (4) CAD (coronary artery disease) (5) Essential (primary) hypertension Status: Chronic (6) Hypothyroidism Status: Chronic (7) HLD (hyperlipidemia) Status: Chronic (8) Normocytic anemia DONN LEON DO Aug 28, 2020 06:27
[2020-08-28] MEDS: KCL 20 MEQ TAB (K-DUR) PO SCH (06:39)
[2020-08-28] MEDS: LEVOTHYROXINE 125 MCG (LEVOTHROID) TABLET PO SCH (06:39)
[2020-08-28 08:00] VITALS: BP_SYST 120; BP_SYST 134; BP_DIAS 60; BP_DIAS 68
--- NOTE | 2020-08-28 08:59 | Physical Therapy Daily Note ---
PT Daily Note-Current Subjective Agreeable to PT. Reports she is a little tired and sore from yesterday. "I'm not used to doing that much stuff." Mental Status Patient Orientation: Person, Place, Time, Situation Transfers SCALE: Activities may be completed with or without assistive devices. 4-Smzddalymw-panpjlx completes the activity by him/herself with no assistance from a helper. 5-Set-up or Clean-up Assistance-helper sets up or cleans up; patient completes activity. [place] assists only prior to or following the activity. 4-Supervision or Touching Assistance-helper provides verbal cues and/or touching/steadying and/or contact guard assistance as patient completes activity. Assistance may be provided throughout the activity or intermittently. 3-Partial/Moderate Assistance-helper does LESS THAN HALF the effort. [place] lifts, holds or supports trunk or limbs, but provides less than half the effort. 2-Substantial/Maximal Assistance-helper does MORE THAN HALF the effort. [place] lifts or holds trunk or limbs and provides more than half the effort. 8-Jfktnxqik-tddbmy does ALL the effort. Patient does none of the effort to complete the activity. Or, the assistance of 2 or more helpers is required for the patient to complete the activity. If activity was not attempted, code reason: 7-Patient Refused. 9-Not Applicable-not attempted and the patient did not perform the activity before the current illness, exacerbation or injury. 10-Not Attempted due to Environmental Limitations-(lack of equipment, weather restraints, etc.). 88-Not Attempted due to Medical Conditions or Safety Concerns. Lying to Sitting/Side of Bed(Q: 3 (min assist to lift torso with skilled cues to sequence. ) Sit to Stand (QC): 4 (CGA with cues for hand placment. ) Toilet Transfer (QC): 4 Gait Training Does the Patient Walk?: Yes Walk 50 ft with 2 Turns(QC): 4 Walk 150 ft (QC): 4 Gait Persons Needed: 1 Gait Assistive Device: FWW 50 ft x 3; 150 ft x 2; 25 ft x 3 with FWW; decreased foot clearance B but corrects with cuing. Stair Training 4 Steps (QC): 4 Stairs: Pattern: Step to Cues for sequencing to decrease pain left hip with steps. Exercises Standing: Hip Abduction, Hamstring curls, Heel/toe raises, Marching, Mini squats Standing Reps: 12 Treatments Functional mobility and strength training. Pt in chair with call light in reach post treatment. Assessment Current Status: Good Progress Moving better and decreased left hip pain. Needs cues for sequencing on steps. PT Short Term Goals Short Term Goals Time Frame: Sep 03, 2020 Roll Left & Right: 6 Sit to lyin Lying to sitting on side of be: 4 Sit to stand: 4 Chair/nug-bv-qhrql transfer: 4 Walk 10 feet: 4 Walk 50 feet with two turns: 4 Walk 150 feet: 4 PT Residential Goals Industrial Paramedic Goals PT Residential Goals Time Frame: Sep 17, 2020 Roll Left & Right (QC): 6 Sit to Lying (QC): 6 Lying-Sitting on Side/Bed(QC): 6 Sit to Stand (QC): 6 Chair/Cqe-po-Inxjt Xfer(QC): 5 Toilet Transfer (QC): 5 Car Transfer (QC): 5 Does the Patient Walk: Yes Walk 10 feet (QC): 5 Walk 50ft with 2 Turns (QC): 5 Walk 150 ft (QC): 5 Walking 10ft on Uneven Surface: 5 1 Step (curb) (QC): 5 4 Steps (QC): 5 12 Steps (QC): 88 Picking up an Object (QC): 88 Wheel 50 feet with 2 turns (QC: 9 Wheel 150 feet: 9 PT Plan Problem List Problem List: Activity Tolerance, Functional Strength, Safety, Balance, Gait, Transfer, Bed Mobility Treatment/Plan Treatment Plan: Continue Plan of Care Treatment Plan: Bed Mobility, Education, Functional Activity Kurtis, Functional Strength, Group Therapy, Gait, Safety, Therapeutic Exercise, Transfers Treatment Duration: Sep 17, 2020 Frequency: At least 5 of 7 days/Wk (IRF) Estimated Hrs Per Day: 1.5 hours per day Patient and/or Family Agrees t: Yes Safety Risks/Education Patient Education: Steps Teaching Recipient: Patient Teaching Methods: Demonstration, Discussion Response to Teaching: Reinforcement Needed Time/GCodes Time In: 800 Time Out: 900 Total Billed Treatment Time: 60 Total Billed Treatment visit GT 30 EX 30 ROGE TERESA PT Aug 28, 2020 08:59
[2020-08-28] MEDS ORDERED: NON-FORMULARY MEDICATION 1 EA EA (Krill/Om-3/Dha/Epa/Phospho/Ast (Krill Oil 1,000 mg Softg PO SCH (09:00)
[2020-08-28] MEDS ORDERED: NON-FORMULARY MEDICATION 1 EA EA (Potassium Chloride 20 MEQ) PO SCH (09:00)
[2020-08-28] MEDS: FUROSEMIDE 40 MG (LASIX) TAB PO SCH (09:04)
[2020-08-28] MEDS: CLOPIDOGREL 75 MG (PLAVIX) TABLET PO SCH (09:05)
[2020-08-28] MEDS: meTOprolol SUCCINATE 100 MG (TOPROL XL) TAB PO SCH (09:05)
[2020-08-28] MEDS: CALCIUM CARBONATE 600 MG (CALCARB) TAB PO SCH (09:05)
[2020-08-28] MEDS: PANTOPRAZOLE 40 MG (PROTONIX) TAB PO SCH (09:05)
[2020-08-28] MEDS: OMEGA 3 (FISH OIL) 1000 MG CAP PO SCH (09:06)
[2020-08-28] MEDS: ASPIRIN 81 MG CHEW (CHILDREN'S ASA) PO SCH (09:06)
[2020-08-28] MEDS: CARBAM PEROX/GLYC/PROP 15 ML DROPS (DEBROX) EACH EAR SCH ×2 (09:06→21:07)
[2020-08-28] MEDS: DOCUSATE SODIUM 100 MG (COLACE) CAP PO SCH ×2 (09:07→21:05)
--- NOTE | 2020-08-28 10:46 | Occupational Ther Daily Note ---
OT Current Status-Daily Note Subjective No pain reported but pt. does report having to use toilet urgently for loose stool. Appearance Pt. up in chair. Agrees to work with OT. Mental Status/Objective Patient Orientation: Person, Place ADL-Treatment Therapy Code Descriptions/Definitions Functional [place] Measure: 0=Not Assessed/NA 4=Minimal Assistance 1=Total Assistance 5=Supervision or Setup 2=Maximal Assistance 6=Modified [place] 3=Moderate Assistance 7=Complete IndependenceSCALE: Activities may be completed with or without assistive devices. 5-Oqoxlixnea-uujznkm completes the activity by him/herself with no assistance from a helper. 5-Set-up or Clean-up Assistance-helper sets up or cleans up; patient completes activity. [place] assists only prior to or following the activity. 4-Supervision or Touching Assistance-helper provides verbal cues and/or touching/steadying and/or contact guard assistance as patient completes a ctivity. Assistance may be provided throughout the activity or intermittently. 3-Partial/Moderate Assistance-helper does LESS THAN HALF the effort. [place] lifts, holds or supports trunk or limbs, but provides less than half the effort. 2-Substantial/Maximal Assistance-helper does MORE THAN HALF the effort. [place] lifts or holds trunk or limbs and provides more than half the effort. 2-Jdrjbhemm-larpew does ALL the effort. Patient does none of the effort to complete the activity. Or, the assistance of 2 or more helpers is required for the patient to complete the activity. If activity was not attempted, code reason: 7-Patient Refused. 9-Not Applicable-not attempted and the patient did not perform the activity before the current illness, exacerbation or injury. 10-Not Attempted due to Environmental Limitations-(lack of equipment, weather restraints, etc.). 88-Not Attempted due to Medical Conditions or Safety Concerns. Oral Hygiene (QC): 4 (SBA in stance at sink to brush dentures and apply them in mouth.) Upper Body Dressing (QC): 3 (Mod assist. Pt. requires min assist to doff shirt from arms, and then assist to button small buttons after she has applied long sleeve shirt. She uses button hook at home.) Lower Body Dressing (QC): 4 (SBA to don underwear and pants.) On/Off Footwear: 3 (Pt. able to don socks and shoes with SBA. Requires assistance to tie shoes.) Toileting Hygiene (QC): 4 (Pt. incontinent of stool, but able to clean self at toilet level.) Toilet Transfer (QC): 4 Education OT Patient Education: Correct positioning, Modified ADL techniques, Progress toward Goal/Update tx plan, Purpose of tx/functional activities, Reviewed precautions, Rehab process, Transfer techniques Teaching Recipient: Patient Teaching Methods: Demonstration, Discussion Response to Teaching: Verbalize Understanding, Return Demonstration, Reinforcement Needed OT Short Term Goals Short Term Goals Time Frame: Sep 03, 2020 OT Email Deployment Specialist Goals Email Deployment Specialist Goals Time Frame: Sep 10, 2020 Eating (QC): 6 Oral Hygiene (QC): 6 Toileting Hygiene (QC): 6 Shower/Bathe Self (QC): 4 Upper Body Dressing (QC): 5 Lower Body Dressing (QC): 4 On/Off Footwear (QC): 6 Additional Goals: 1-Demonstrate ADL Tasks, 2-Verbalize Understanding, 3- ImproveStrength/Kurtis 1=Demonstrate adherence to instructed precautions during ADL tasks. 2=Patient will verbalize/demonstrate understanding of assistive devices/modifications for ADL. 3=Patient will improve strength/tolerance for activity to enable patient to perform ADL's. OT Education/Plan Problem List/Assessment Assessment: Decreased Activ Tolerance, Impaired I ADL's, Impaired Self-Care Skills Discharge Recommendations Plan/Recommendations: Continue POC Therapy Discharge Recommendati: Home & Family Treatment Plan/Plan of Care Treatment,Training & Education: Yes Patient would benefit from OT for education, treatment and training to promote independence in ADL's, mobility, safety and/or upper extremity function for ADL's. Plan of Care: ADL Retraining, Functional Mobility, Group Exercise/Act as Ind, UE Funct Exercise/Act Treatment Duration: Sep 10, 2020 Frequency: At least 5 of 7 days/Wk (IRF) Estimated Hrs Per Day: 1.5 hours per day Agreement: Yes Rehab Potential: Good Time/GCodes Start Time: 10:15 Stop Time: 11:00 Total Time Billed (hr/min): 45 Billed Treatment Time 1, ADL x 45minutes MOHAN VENCES OT Aug 28, 2020 10:46
--- NOTE | 2020-08-28 10:53 | Speech Therapy Daily Note ---
Speech Daily Progress Note Subjective Date Seen by Provider: Aug 28, 2020 Time Seen by Provider: 00:30 Patient was resting in her recliner following her PT session. Patient alert, pleasant and participated well with therapy. Objective Patient completed a series of q/a related to her daily needs with 75% given 20% verbal cues. Assessment Assessment Current Status: Good Progress Treatment Plan Continue Plan of Care Speech Short Term Goals Short Term Goals Short Term Goals 1) Patient will complete memory tasks related to her daily needs at 80% or greater with minimal cues. 2) Patient will complete safety awareness tasks related to her daily needs at 80% or greater with minimal cues. 3) Patient will complete problem solving tasks related to her daily needs at 80% or greater with minimal cues. Speech Window Assembler Goals Window Assembler Goals Patient will improve her cognitive communication abilities in order to require decreased assist with her daily needs. Speech-Plan Patient/Family Goals Patient/Family Goals: Patient plans on returning home where she lives alone. Her daughter lives across the street and is available to assist her with her daily needs. Due to the patient's moderate dementia range of function and physical debility it is unknown if this would be the safest situation upon discharge. Treatment Plan Speech Therapy Treatment Plan: Continue Plan of Care Treatment Duration: Sep 11, 2020 Frequency: 4 times per week (Patient will receive skilled ST 4-5x per week) Estimated Hrs Per Day: .5 hour per day Rehab Potential: Good Barriers to Learning: Patient's moderate range of function, age Pt/Family Agrees to Plan: Yes Safety Risks/Education Teaching Recipient: Patient Teaching Methods: Demonstration, Discussion Response to Teaching: Verbalize Understanding, Return Demonstration Education Topics Provided: Continued safety within her room, communication of wants/needs Time Speech Therapy Time In: 09:00 Speech Therapy Time Out: 09:30 Total Billed Time: 30 Billed Treatment Time 1, ORION Capps Aug 28, 2020 10:53
[2020-08-28] MEDS: COLESTIPOL 1 GM (COLESTID) TAB PO SCH ×3 (11:39→21:06)
--- NOTE | 2020-08-28 14:24 | Therapy Group Daily Note ---
Therapy Daily Group Note Patient Education Topic Exercises, ADL Exercises LE Seated Exercise, UE Exercise Session Ratio (pt:therapist): 4:1 Goal of Session: UE/LE Strengthing, Use of Adaptive Equipment Goal Met for this Session: Yes Pt Benefit of Group: Contributions to Others, F/U Use of Strategies @Home, Increased Functional Safety, Increased Functional Strength, Improved Cognition, Recognition of Peers, Socialization Other/Notes Pt ambulated using FWW to therapy gym for OT group. Group consisted of introductions (name, place living, favorite food), socialization, B UE/LE seated theraband exercises, educational topics of exercise and AE for dressing. Pt introduced self appropriately and actively listened to peers. Pt able to completed 4 exercises 1 set 10 reps each. Pt acknowledged understanding of educational topics by giving own strategies and attempting tasks with equipment available. After session, pt sitting in recliner with call light/phone in reac h. All needs met in room. Start Time: 13:00 Stop Time: 14:00 Total Billed Treatment Time: 60 Total Billed Treatment 1-[facility] ROGE RODRIGUEZ Aug 28, 2020 14:24
--- NOTE | 2020-08-28 15:05 | Consultation ---
History of Present Illness History of Present Illness Patient Consulted On(yeny/time) 08/28/20 14:59 Date Seen by Provider: Aug 28, 2020 Time Seen by Provider: 12:30 History of Present Illness This is an 85 year old female who is a new patient to me who was admitted after a fall with severe left hip and leg pain with worsening debility and inability to walk. She has been sent to rehab for strengthening with hopes of returning to home. She suffered a NSTEMI in early July and had a cardiac catheterization with stent deployment. She has had worsening debility since her NSTEMI. She has spinal stenosis of her back and numerous compression fractures of her thoracic and lumbar spine as well. Allergies and Home Medications Allergies Coded Allergies: lisinopril (Unverified Allergy, Unknown, 07/12/16) Sulfa (Sulfonamide Antibiotics) (Verified Adverse Reaction, Intermediate, RASH, 02/25/11) Home Medications Aspirin 81 Mg Tab.chew, 81 MG PO DAILY, (Reported) Last Action: Continued Atorvastatin Calcium 40 Mg Tablet, 40 MG PO DAILY, (Reported) LAST FILLED 06-12-2020 #15/15 DAY SUPPLY Last Action: Continued Calcium Carbonate 600 Mg Tablet, 600 MG PO DAILY, (Reported) Last Action: Continued Carbamide Peroxide 15 Ml Drops, 5 DROPS EACH EAR BID, (Reported) HOLD DROPS IN EACH EAR FOR 10 MINUTES Last Action: Continued Citalopram Hydrobromide 10 Mg Tablet, 10 MG PO DAILY, (Reported) Last Action: Continued Clopidogrel Bisulfate 75 Mg Tablet, 75 MG PO DAILY, (Reported) Last Action: Continued Colestipol HCl 1 Gm Tablet, 1-2 GM PO Q8H PRN for DIARRHEA, (Reported) TAKES 1 TO 2 (1GM) TABS Last Action: Continued Furosemide 40 Mg Tablet, 40 MG PO DAILY, (Reported) Last Action: Continued Krill/Om-3/Dha/Epa/Phospho/Ast 1 Each Capsule, 1 EACH PO DAILY, (Reported) Last Action: Converted Levothyroxine Sodium 125 Mcg Tablet, 125 MCG PO DAILY, (Reported) Last Action: Continued Loperamide HCl 2 Mg Tablet, 2-4 MG PO UD PRN for DIARRHEA, (Reported) Last Action: Converted Meclizine HCl 25 Mg Tablet, 25 MG PO Q6H PRN for DIZZINESS, (Reported) Last Action: Continued Metoprolol Succinate 100 Mg Tab.er.24h, 100 MG PO DAILY, (Reported) Last Action: Continued Pantoprazole Sodium 40 Mg Tablet.dr, 40 MG PO DAILY, (Reported) Last Action: Continued Potassium Chloride 10 Meq Tab.er.prt, 20 MEQ PO DAILY, (Reported) TAKES 2 (10MEQ) TABS Last Action: Converted Patient Home Medication List Home Medication List Reviewed: Yes Past Hjccemb-Ljifyk-Mpxkuj Hx Past Med/Social Hx: Reviewed Nursing Past Med/Soc Hx, Reviewed and Corrections made Patient Social History Alcohol Use: Denies Use Smoking Status: Never a Smoker Former Smoker, Quit: July 28, 1999 2nd Hand Smoke Exposure: Yes Recent Hopitalizations: No Have you traveled recently?: No Alcohol Use?: No Immunizations Up To Date Tetanus Booster (TDap): Unknown Date of Pneumonia Vaccine: Nov 27, 2018 Date of Influenza Vaccine: Dec 27, 2019 Past Medical History Surgeries: Yes Appendectomy, CABG, Coronary Stent, Gallbladder, Hysterectomy, Thyroidectomy Respiratory: No Cardiac: Yes Coronary Artery Disease, High Cholesterol, Hypertension, Peripheral Vascular Neurological: No Reproductive Disorders: Yes Gastrointestinal: Yes (IBS, COLITIS) Musculoskeletal: Yes Arthritis Endocrine: Yes (throid removed) Hyperthyroidism Cancer: No Psychosocial: No Blood Disorders: No Family Medical History Non contributory Review of Systems Review of Systems General: Fatigue HEENT: No Head Aches, No Visual Changes, No Eye Pain, No Ear Pain, No Dysphasia, No Sinus Congestion, No Post Nasal Drip, No Sore Throat, No Other Pulmonary: No Dyspnea, No Cough, No Pleuritic Chest Pain, No Other Cardiovascular: No: Chest Pain, Palpitations, Orthopnea, Paroxysmal Noc. Dyspnea, Edema, Lt Headedness, Other Gastrointestinal: Abdominal Pain, Diarrhea Genitourinary: No Dysuria, No Frequency, No Incontinence, No Hematuria, No Retention, No Other Musculoskeletal: leg pain Neurological: Weakness Physical Exam Vital Signs Vital Signs - First Documented 08/27/20 12:31 Temp 36.2 Pulse 71 Resp 16 B/P (MAP) 137/63 (87) Pulse Ox 94 O2 Delivery Room Air Capillary Refill : Height, Weight, BMI Height: 5'1.00" Weight: 100lbs. oz. 45.664273wy; 24.75 BMI Method:Stated General Appearance: No Apparent Distress Neck: Supple Respiratory: Lungs Clear Cardiovascular: Regular Rate, Rhythm, Systolic Murmur Gastrointestinal: Normal Bowel Sounds, Non Tender, Soft Rectal: Deferred Back: No CVA Tenderness Extremity: Non Tender, No Calf Tenderness, No Pedal Edema Neurologic/Psychiatric: Alert, Oriented x3 Skin: Warm/Dry Assessment/Plan Assessment/Plan Admission Dx 1. Severe Left Hip Pain after recent fall--pain control and PT 2. Worsening Debility--rehab for PT/OT 3. Thoracic and Lumbar Compression Fractures--miacalcin and Vitamin D, will need bone density as outpatient 4. Hypertension--on home meds 5. Recent NSTEMI with Stent Placement--on plavix, aspirin, atorvastatin, metoprolol 6. Hypothyroidism--back on home meds Problems: (1) Debility (2) Left hip pain (3) Low back pain (4) CAD (coronary artery disease) (5) Essential (primary) hypertension (6) Hypothyroidism (7) HLD (hyperlipidemia) (8) Normocytic anemia SHANNEN RENNER DO Aug 28, 2020 15:05
[2020-08-28 20:15] VITALS: BP 107/62
--- NOTE | 2020-08-29 05:33 | PM&R Progress Note ---
Subjective HPI/CC On Admission Date Seen by Provider: Aug 29, 2020 Time Seen by Provider: 11:30 Subjective/Events-last exam 09/25/2020: Patient doing pretty well Diarrhea slowed up No issues Has some pain issues sporadically Patient very debilitated Very hard of hearing Startles easily Very frail status 08/28/20: Pt doing pretty well Oxycodone made her too drowsy last night Changing Colestid to two pils TID scheduled to help with the diarrhea She really wont eat unless the diarrhea is stopped Dr. Jean-Baptiste will see her in consultation She moved from [facility] to [place] to be by her daughter Memory loss is noted Lortab ordered Review of Systems General: Fatigue, Malaise Neurological: Weakness, Confusion Objective Exam Vital Signs Vital Signs Date Time Temp Pulse Resp B/P (MAP) Pulse Ox O2 Delivery O2 Flow Rate FiO2 08/29/20 20:28 36.3 59 18 128/60 (82) 93 Room Air Capillary Refill : General Appearance: No Apparent Distress, WD/WN, Chronically ill HEENT: PERRL/EOMI, Normal ENT Inspection, Pharynx Normal, Other (APACHE) Neck: Full Range of Motion, Normal Inspection, Non Tender, Supple, Carotid Bruit Respiratory: Chest Non Tender, Lungs Clear, Normal Breath Sounds, No Accessory Muscle Use, No Respiratory Distress Cardiovascular: Regular Rate, Rhythm, No Edema, No Gallop, No JVD, No Murmur, Normal Peripheral Pulses Gastrointestinal: Normal Bowel Sounds, No Organomegaly, No Pulsatile Mass, Non Tender, Soft Rectal: Deferred Back: Normal Inspection, No CVA Tenderness, No Vertebral Tenderness Extremity: Normal Capillary Refill, Normal Inspection, Normal Range of Motion, Non Tender, No Calf Tenderness, No Pedal Edema Neurologic/Psychiatric: Alert, Oriented x3, No Motor/Sensory Deficits, Normal Mood/Affect, Abnormal Gait, Depressed Affect, Motor Weakness (lower extremities) Skin: Normal Color, Warm/Dry Lymphatic: No Adenopathy Results/Procedures Lab Patient resulted labs reviewed. FIM Transfers Therapy Code Descriptions/Definitions Functional [place] Measure: 0=Not Assessed/NA 4=Minimal Assistance 1=Total Assistance 5=Supervision or Setup 2=Maximal Assistance 6=Modified [place] 3=Moderate Assistance 7=Complete IndependenceSCALE: Activities may be completed with or without assistive devices. 6-Drctzlgjkg-ynlzmke completes the activity by him/herself with no assistance from a helper. 5-Set-up or Clean-up Assistance-helper sets up or cleans up; patient completes activity. [place] assists only prior to or following the activity. 4-Supervision or Touching Assistance-helper provides verbal cues and/or touching/steadying and/or contact guard assistance as patient completes activity. Assistance may be provided throughout the activity or intermittently. 3-Partial/Moderate Assistance-helper does LESS THAN HALF the effort. [place] lifts, holds or supports trunk or limbs, but provides less than half the effort. 2-Substantial/Maximal Assistance-helper does MORE THAN HALF the effort. [place] lifts or holds trunk or limbs and provides more than half the effort. 4-Ioyqpseqe-bkkaxl does ALL the effort. Patient does none of the effort to complete the activity. Or, the assistance of 2 or more helpers is required for the patient to complete the activity. If activity was not attempted, code reason: 7-Patient Refused. 9-Not Applicable-not attempted and the patient did not perform the activity before the current illness, exacerbation or injury. 10-Not Attempted due to Environmental Limitations-(lack of equipment, weather restraints, etc.). 88-Not Attempted due to Medical Conditions or Safety Concerns. Roll Left to Right (QC): 6 Sit to Lying (QC): 4 Sit to Stand (QC): 4 (CGA with cues for hand placment. ) Chair/Bgn-pv-Umylh Xfer(QC): 4 Car Transfer (QC): 4 Gait Training Does the Patient Walk?: Yes Distance: 300', 120' Walk 10 feet (QC): 4 Walk 50 ft with 2 Turns(QC): 4 Walk 150 ft (QC): 4 Walking 10ft/uneven surface-QC: 4 Gait Persons Needed: 1 Gait Assistive Device: FWW Wheelchair Training Does the Pt Use a Wheelchair?: No Wheel 50 ft with 2 turns (QC): 9 Wheel 150 ft (QC): 9 Stair Training #of Steps: 1 1 Step (curb) (QC): 4 4 Steps (QC): 4 12 Steps (QC): 88 Stairs: Pattern: Step to Balance Picking up an Object (QC): 88 ADL-Treatment Eating (QC): 6 Oral Hygiene (QC): 4 (SBA in stance at sink to brush dentures and apply them in mouth.) Shower/Bathe Self (QC): 4 Upper Body Dressing (QC): 3 (Mod assist. Pt. requires min assist to doff shirt from arms, and then assist to button small buttons after she has applied long sl eeve shirt. She uses button hook at home.) Lower Body Dressing (QC): 4 (SBA to don underwear and pants.) On/Off Footwear (QC): 3 (Pt. able to don socks and shoes with SBA. Requires assistance to tie shoes.) Toileting Hygiene (QC): 4 (Pt. incontinent of stool, but able to clean self at toilet level.) Toilet Transfer (QC): 4 Assessment/Plan Assessment and Plan Assess & Plan/Chief Complaint Assessment: Debility Left hip pain CAD HTN Memory loss Presbycusis Acute on chronic diarrhea Plan: Monitor closely Pain control Memory loss management 08/28/20: Imodium Colestid FP consult IRF protocol 08/29/2020: Supportive care Pain control Fall risk (1) Debility Status: Acute (2) Left hip pain Status: Acute (3) Low back pain Status: Acute (4) CAD (coronary artery disease) (5) Essential (primary) hypertension Status: Chronic (6) Hypothyroidism Status: Chronic (7) HLD (hyperlipidemia) Status: Chronic (8) Normocytic anemia DONN LEON 3, 2021 05:33
[2020-08-29] MEDS: KCL 20 MEQ TAB (K-DUR) PO SCH (06:20)
[2020-08-29] MEDS: VITAMIN D3 10 MCG (400 UNITS) TABLET PO SCH (06:20)
[2020-08-29] MEDS: LEVOTHYROXINE 125 MCG (LEVOTHROID) TABLET PO SCH (06:20)
[2020-08-29 08:00] VITALS: BP 110/69
[2020-08-29] MEDS: CLOPIDOGREL 75 MG (PLAVIX) TABLET PO SCH (08:43)
[2020-08-29] MEDS: CALCIUM CARBONATE 600 MG (CALCARB) TAB PO SCH (08:43)
[2020-08-29] MEDS: PANTOPRAZOLE 40 MG (PROTONIX) TAB PO SCH (08:43)
[2020-08-29] MEDS: FUROSEMIDE 40 MG (LASIX) TAB PO SCH (08:43)
[2020-08-29] MEDS: meTOprolol SUCCINATE 100 MG (TOPROL XL) TAB PO SCH (08:43)
[2020-08-29] MEDS: ASPIRIN 81 MG CHEW (CHILDREN'S ASA) PO SCH (08:43)
[2020-08-29] MEDS: OMEGA 3 (FISH OIL) 1000 MG CAP PO SCH (08:43)
--- NOTE | 2020-08-29 08:43 | Speech Therapy Daily Note ---
Speech Daily Progress Note Subjective Date Seen by Provider: Aug 29, 2020 Time Seen by Provider: 00:30 Patient was resting in her recliner following her PT session. She states she feels like she's getting stronger. Objective Patient completed a series of safety scenario cards at 80% with 10% vis ual/verbal cues. Assessment Assessment Current Status: Good Progress Treatment Plan Continue Plan of Care Speech Short Term Goals Short Term Goals Short Term Goals 1) Patient will complete memory tasks related to her daily needs at 80% or greater with minimal cues. 2) Patient will complete safety awareness tasks related to her daily needs at 80% or greater with minimal cues. 3) Patient will complete problem solving tasks related to her daily needs at 80% or greater with minimal cues. Speech Fpc Goals Fpc Goals Patient will improve her cognitive communication abilities in order to require decreased assist with her daily needs. Speech-Plan Patient/Family Goals Patient/Family Goals: Patient plans on returning to her home where she lives alone. Her daughter lives across the street and is available to assist the patient with her daily needs. Treatment Plan Speech Therapy Treatment Plan: Continue Plan of Care Treatment Duration: Sep 11, 2020 Frequency: 4 times per week (Patient will receive skilled ST 4-5x per week) Estimated Hrs Per Day: .5 hour per day Rehab Potential: Good Barriers to Learning: Patient's recent debility, age, cognitive deficits Pt/Family Agrees to Plan: Yes Safety Risks/Education Teaching Recipient: Patient Teaching Methods: Demonstration, Discussion Response to Teaching: Verbalize Understanding, Return Demonstration Education Topics Provided: Continued safety within her room, communication of wants/needs Time Speech Therapy Time In: 09:00 Speech Therapy Time Out: 09:30 Total Billed Time: 30 Billed Treatment Time 1ALDAIR [address] Aug 29, 2020 08:43
[2020-08-29] MEDS: CARBAM PEROX/GLYC/PROP 15 ML DROPS (DEBROX) EACH EAR SCH ×2 (08:44→20:46)
[2020-08-29] MEDS: DOCUSATE SODIUM 100 MG (COLACE) CAP PO SCH ×2 (08:44→20:45)
[2020-08-29] MEDS: COLESTIPOL 1 GM (COLESTID) TAB PO SCH ×3 (08:46→20:45)
[2020-08-29] MEDS: CALCITONIN NASAL 200 INTLU/AC (FORTICAL) 3.7 ML BTL SCH (08:46)
--- NOTE | 2020-08-29 08:57 | Physical Therapy Daily Note ---
PT Daily Note-Current Subjective Pt resting in supine, denies pain. Pt denied pain throughout ther ex and dynamic activities. "I can't believe my leg is not hurting!" Mental Status Patient Orientation: Person, Place, Situation Transfers SCALE: Activities may be completed with or without assistive devices. 5-Jjpebqumrg-yydepxe completes the activity by him/herself with no assistance from a helper. 5-Set-up or Clean-up Assistance-helper sets up or cleans up; patient completes activity. [place] assists only prior to or following the activity. 4-Supervision or Touching Assistance-helper provides verbal cues and/or touching/steadying and/or contact guard assistance as patient completes activity. Assistance may be provided throughout the activity or intermittently. 3-Partial/Moderate Assistance-helper does LESS THAN HALF the effort. [place] lifts, holds or supports trunk or limbs, but provides less than half the effort. 2-Substantial/Maximal Assistance-helper does MORE THAN HALF the effort. [place] lifts or holds trunk or limbs and provides more than half the effort. 7-Bzlngnves-giovna does ALL the effort. Patient does none of the effort to complete the activity. Or, the assistance of 2 or more helpers is required for the patient to complete the activity. If activity was not attempted, code reason: 7-Patient Refused. 9-Not Applicable-not attempted and the patient did not perform the activity before the current illness, exacerbation or injury. 10-Not Attempted due to Environmental Limitations-(lack of equipment, weather restraints, etc.). 88-Not Attempted due to Medical Conditions or Safety Concerns. Pt required min A supine ->sit EOB Gait Training Gait Assistive Device: FWW Treatments PROM (B) LE all planes, neural glides (B) LE x 10 each. LTR x 20, Posterior pelvic tilt x 10, single knee to chest with knees hooklying x 10 each, single knee to chest with legs straight x 10 each, Sidelying (R) for thoracic openers with gentle overpressure 5 x 10 sec. Pt dressed with A to don shoes, pants, shirt. Pt used BR SBA. Pt amb with FWW at steady speed x 250ft. Pt back to bedside chair with heating pad, call light and all needs met. Speech therapist present. Assessment Current Status: Good Progress Pt denied pain. Good tolerance to activity. Some difficulty with transfer supine to EOB, otherwise mod (I) functional mobility this morning. Pt in chair post therapy. Pt needs met. PT Short Term Goals Short Term Goals Time Frame: Sep 03, 2020 Roll Left & Right: 6 Sit to lyin Lying to sitting on side of be: 4 Sit to stand: 4 Chair/sdh-ld-tjnut transfer: 4 Walk 10 feet: 4 Walk 50 feet with two turns: 4 Walk 150 feet: 4 PT [employer] Officer Goals Detention Goals PT [employer] Officer Goals Time Frame: Sep 17, 2020 Roll Left & Right (QC): 6 Sit to Lying (QC): 6 Lying-Sitting on Side/Bed(QC): 6 Sit to Stand (QC): 6 Chair/Bfh-vy-Hywws Xfer(QC): 5 Toilet Transfer (QC): 5 Car Transfer (QC): 5 Does the Patient Walk: Yes Walk 10 feet (QC): 5 Walk 50ft with 2 Turns (QC): 5 Walk 150 ft (QC): 5 Walking 10ft on Uneven Surface: 5 1 Step (curb) (QC): 5 4 Steps (QC): 5 12 Steps (QC): 88 Picking up an Object (QC): 88 Wheel 50 feet with 2 turns (QC: 9 Wheel 150 feet: 9 PT Plan Treatment/Plan Treatment Plan: Continue Plan of Care Treatment Plan: Bed Mobility, Education, Functional Activity [place], Functional Strength, Group Therapy, Gait, Safety, Therapeutic Exercise, Transfers Treatment Duration: Sep 17, 2020 Frequency: At least 5 of 7 days/Wk (IRF) Estimated Hrs Per Day: 1.5 hours per day Patient and/or Family Agrees t: Yes Time/GCodes Time In: 800 Time Out: 900 Total Billed Treatment Time: 60 Total Billed Treatment 1, ther ex 45', gait 15' ILDA WAGGONER CPTA Aug 29, 2020 08:57
[2020-08-29] MEDS: ACETAMINOPHEN 325 MG TABLET PO PRN (12:08)
--- NOTE | 2020-08-29 12:15 | Physical Therapy Daily Note ---
PT Daily Note-Current Subjective Agrees to PT. During treatment, no complaints. Post treatment, pt reports upper back pain., Pain Numeric Pain Scale: 8 Location: Posterior Location Body Site: Back Pain Description: Stabbing Mental Status Patient Orientation: Person, Place, Time, Situation Transfers SCALE: Activities may be completed with or without assistive devices. 9-Zuccajsdjf-nfcqdkc completes the activity by him/herself with no assistance from a helper. 5-Set-up or Clean-up Assistance-helper sets up or cleans up; patient completes activity. [place] assists only prior to or following the activity. 4-Supervision or Touching Assistance-helper provides verbal cues and/or touching/steadying and/or contact guard assistance as patient completes activity. Assistance may be provided throughout the activity or intermittently. 3-Partial/Moderate Assistance-helper does LESS THAN HALF the effort. [place] lifts, holds or supports trunk or limbs, but provides less than half the effort. 2-Substantial/Maximal Assistance-helper does MORE THAN HALF the effort. [place] lifts or holds trunk or limbs and provides more than half the effort. 1-Uboqjmvmz-uvfwap does ALL the effort. Patient does none of the effort to complete the activity. Or, the assistance of 2 or more helpers is required for the patient to complete the activity. If activity was not attempted, code reason: 7-Patient Refused. 9-Not Applicable-not attempted and the patient did not perform the activity before the current illness, exacerbation or injury. 10-Not Attempted due to Environmental Limitations-(lack of equipment, weather restraints, etc.). 88-Not Attempted due to Medical Conditions or Safety Concerns. Sit to Stand (QC): 4 Chair/Syo-gx-Fetqx Xfer(QC): 4 Toilet Transfer (QC): 4 Gait Training Walk 150 ft (QC): 4 Gait Assistive Device: FWW 50 ft x 2; 150 ft x 2 with FWW. Safe and steady gait with step through pattern. Stair Training 4 Steps (QC): 4 (B handrails; reciprocal gait pattern) Neuromuscular Functional standing dynamic balance at sink unsupported as she washed her hands, put in her teeth; also toileting with pericare and clothing management; all with SBA. Assessment Current Status: Good Progress Safe with gait and transfers and dynamic balance in standing progressing. Post visit, acute back pain, nursing present and assisting with pain managment. PT Short Term Goals Short Term Goals Time Frame: Sep 03, 2020 Roll Left & Right: 6 Sit to lyin Lying to sitting on side of be: 4 Sit to stand: 4 Chair/mwz-ji-koihe transfer: 4 Walk 10 feet: 4 Walk 50 feet with two turns: 4 Walk 150 feet: 4 PT Fpc Goals Rag Boiler Goals PT Rag Boiler Goals Time Frame: Sep 17, 2020 Roll Left & Right (QC): 6 Sit to Lying (QC): 6 Lying-Sitting on Side/Bed(QC): 6 Sit to Stand (QC): 6 Chair/Crx-fc-Qhymp Xfer(QC): 5 Toilet Transfer (QC): 5 Car Transfer (QC): 5 Does the Patient Walk: Yes Walk 10 feet (QC): 5 Walk 50ft with 2 Turns (QC): 5 Walk 150 ft (QC): 5 Walking 10ft on Uneven Surface: 5 1 Step (curb) (QC): 5 4 Steps (QC): 5 12 Steps (QC): 88 Picking up an Object (QC): 88 Wheel 50 feet with 2 turns (QC: 9 Wheel 150 feet: 9 PT Plan Problem List Problem List: Activity Tolerance, Functional Strength, Safety, Balance, Gait, Transfer Treatment/Plan Treatment Plan: Continue Plan of Care Treatment Plan: Bed Mobility, Education, Functional Activity [place], Functional Strength, Group Therapy, Gait, Safety, Therapeutic Exercise, Transfers Treatment Duration: Sep 17, 2020 Frequency: At least 5 of 7 days/Wk (IRF) Estimated Hrs Per Day: 1.5 hours per day Patient and/or Family Agrees t: Yes Safety Risks/Education Patient Education: Safety Issues Teaching Recipient: Patient Teaching Methods: Discussion Response to Teaching: Reinforcement Needed Discharge Recommendations Therapy Discharge Recommendati: Post Acute PT (HHC PT) Time/GCodes Time In: 1140 Time Out: 1203 Total Billed Treatment Time: 23 Total Billed Treatment vsiit GT 13 NM 10 ROGE TERESA PT Aug 29, 2020 12:15
--- NOTE | 2020-08-29 12:50 | Occupational Ther Daily Note ---
OT Current Status-Daily Note Subjective No pain reported. Appearance Pt. up in chair in room. Agrees to work with OT. Mental Status/Objective Patient Orientation: Person, Place, Time, Situation ADL-Treatment Therapy Code Descriptions/Definitions Functional [place] Measure: 0=Not Assessed/NA 4=Minimal Assistance 1=Total Assistance 5=Supervision or Setup 2=Maximal Assistance 6=Modified [place] 3=Moderate Assistance 7=Complete IndependenceSCALE: Activities may be completed with or without assistive devices. 8-Cihusbusfg-wcihikr completes the activity by him/herself with no assistance from a helper. 5-Set-up or Clean-up Assistance-helper sets up or cleans up; patient completes activity. [place] assists only prior to or following the activity. 4-Supervision or Touching Assistance-helper provides verbal cues and/or touching/steadying and/or contact guard assistance as patient completes activity. Assistance may be provided throughout the activity or intermittently. 3-Partial/Moderate Assistance-helper does LESS THAN HALF the effort. [place] lifts, holds or supports trunk or limbs, but provides less than half the effort. 2-Substantial/Maximal Assistance-helper does MORE THAN HALF the effort. [place] lifts or holds trunk or limbs and provides more than half the effort. 4-Sxisryzwz-ikaklt does ALL the effort. Patient does none of the effort to complete the activity. Or, the assistance of 2 or more helpers is required for the patient to complete the activity. If activity was not attempted, code reason: 7-Patient Refused. 9-Not Applicable-not attempted and the patient did not perform the activity before the current illness, exacerbation or injury. 10-Not Attempted due to Environmental Limitations-(lack of equipment, weather restraints, etc.). 88-Not Attempted due to Medical Conditions or Safety Concerns. On/Off Footwear: 6 (OT put elastic laces in tennis shoes. Pt. able to don them with Mod I.) Other Treatment Pt. dressed from yesterday. Declines showering as she does not have different clothing here. States that her daughter will be bringing in new clothes and that she will shower in morning. Pt. ambulates to therapy gym with walker and SBA. Pt. is issued button hook to use on rehab, as she has one at home. OT placed elastic laces in tennis shoes and pt. was able to don with no difficulty. Pt. completed arm bike x 10 minutes at min resistance for continued UE strength and endurance. Tolerated treatment well. Completed fine motor UE activity with therapy pegs with reaching, back/forth and placing in resistive board for strength to increase independence with ADL skills and small clothing pieces. Pt. verbalizes that her left UE is weaker than her right. Increased time needed with this activity. All needs met and pt. ambulated back to room with walker. Education OT Patient Education: Correct positioning, Exercise program, Modified ADL techniques, Progress toward Goal/Update tx plan, Purpose of tx/functional activities, Reviewed precautions, Rehab process, Transfer techniques, Use of adapted equipment Teaching Recipient: Patient Teaching Methods: Demonstration, Discussion Response to Teaching: Verbalize Understanding, Return Demonstration OT Short Term Goals Short Term Goals Time Frame: Sep 03, 2020 OT Chcf Goals Chcf Goals Time Frame: Sep 10, 2020 Eating (QC): 6 Oral Hygiene (QC): 6 Toileting Hygiene (QC): 6 Shower/Bathe Self (QC): 4 Upper Body Dressing (QC): 5 Lower Body Dressing (QC): 4 On/Off Footwear (QC): 6 Additional Goals: 1-Demonstrate ADL Tasks, 2-Verbalize Understanding, 3- ImproveStrength/[place]urtis 1=Demonstrate adherence to instructed precautions during ADL tasks. 2=Patient will verbalize/demonstrate understanding of assistive kaylie liban/modifications for ADL. 3=Patient will improve strength/tolerance for activity to enable patient to perform ADL's. OT Education/Plan Problem List/Assessment Assessment: Decreased Activ Tolerance, Decreased UE Strength, Impaired Coordination, Impaired I ADL's, Impaired Self-Care Skills Discharge Recommendations Plan/Recommendations: Continue POC Therapy Discharge Recommendati: Home & Family Treatment Plan/Plan of Care Treatment,Training & Education: Yes Patient would benefit from OT for education, treatment and training to promote independence in ADL's, mobility, safety and/or upper extremity function for ADL's. Plan of Care: ADL Retraining, Functional Mobility, Group Exercise/Act as Ind, UE Funct Exercise/Act Treatment Duration: Sep 10, 2020 Frequency: At least 5 of 7 days/Wk (IRF) Estimated Hrs Per Day: 1.5 hours per day Agreement: Yes Rehab Potential: Good Time/GCodes Start Time: 10:00 Stop Time: 11:00 Total Time Billed (hr/min): 60 Billed Treatment Time 1, Ex x 15minutes, ADL x 15minutes, FA x 30minutes MOHAN VENCES OT Aug 29, 2020 12:50
--- NOTE | 2020-08-29 13:28 | Occupational Ther Daily Note ---
OT Current Status-Daily Note Subjective No pain reported. Mental Status/Objective Patient Orientation: Person, Place, Time, Situation ADL-Treatment Therapy Code Descriptions/Definitions Functional [place] Measure: 0=Not Assessed/NA 4=Minimal Assistance 1=Total Assistance 5=Supervision or Setup 2=Maximal Assistance 6=Modified [place] 3=Moderate Assistance 7=Complete IndependenceSCALE: Activities may be completed with or without assistive devices. 3-Yitwsdizgi-sdsiqgd completes the activity by him/herself with no assistance from a helper. 5-Set-up or Clean-up Assistance-helper sets up or cleans up; patient completes activity. [place] assists only prior to or following the activity. 4-Supervision or Touching Assistance-helper provides verbal cues and/or touching/steadying and/or contact guard assistance as patient completes activity. Assistance may be provided throughout the activity or intermittently. 3-Partial/Moderate Assistance-helper does LESS THAN HALF the effort. [place] lifts, holds or supports trunk or limbs, but provides less than half the effort. 2-Substantial/Maximal Assistance-helper does MORE THAN HALF the effort. [place] lifts or holds trunk or limbs and provides more than half the effort. 0-Xfwlhsyma-qexnoa does ALL the effort. Patient does none of the effort to complete the activity. Or, the assistance of 2 or more helpers is required for the patient to complete the activity. If activity was not attempted, code reason: 7-Patient Refused. 9-Not Applicable-not attempted and the patient did not perform the activity before the current illness, exacerbation or injury. 10-Not Attempted due to Environmental Limitations-(lack of equipment, weather restraints, etc.). 88-Not Attempted due to Medical Conditions or Safety Concerns. Other Treatment Pt. up in chair. Agrees to work with OT. Completed 3 bilateral UE exercises x 10 reps each with red theraband in all planes, for bicep flexion, tricep extension, and horizontal abduction for overall strengthening. Tolerated well. Also completed 10 bilateral hand squeezes on pink therapy sponge. Pt. verbalizes understanding of exercises and sponge and band left in room for continued strengthening. OT Short Term Goals Short Term Goals Time Frame: Sep 03, 2020 OT Nuclear Technician Goals Nuclear Technician Goals Time Frame: Sep 10, 2020 Eating (QC): 6 Oral Hygiene (QC): 6 Toileting Hygiene (QC): 6 Shower/Bathe Self (QC): 4 Upper Body Dressing (QC): 5 Lower Body Dressing (QC): 4 On/Off Footwear (QC): 6 Additional Goals: 1-Demonstrate ADL Tasks, 2-Verbalize Understanding, 3- ImproveStrength/[place]urt[place] 1=Demonstrate adherence to instructed precautions during ADL tasks. 2=Patient will verbalize/demonstrate understanding of assistive device s/modifications for ADL. 3=Patient will improve strength/tolerance for activity to enable patient to perform ADL's. OT Education/Plan Discharge Recommendations Plan/Recommendations: Continue POC Treatment Plan/Plan of Care Treatment,Training & Education: Yes Patient would benefit from OT for education, treatment and training to promote independence in ADL's, mobility, safety and/or upper extremity function for ADL's. Plan of Care: ADL Retraining, Functional Mobility, Group Exercise/Act as Ind, UE Funct Exercise/Act Treatment Duration: Sep 10, 2020 Frequency: At least 5 of 7 days/Wk (IRF) Estimated Hrs Per Day: 1.5 hours per day Agreement: Yes Rehab Potential: Good Time/GCodes Start Time: 13:10 Stop Time: 13:25 Total Time Billed (hr/min): 15 Billed Treatment Time 1, EX MOHAN VENCES OT Aug 29, 2020 13:28
[2020-08-29 20:28] VITALS: BP 128/60
[2020-08-30] MEDS: VITAMIN D3 10 MCG (400 UNITS) TABLET PO SCH (06:30)
[2020-08-30] MEDS: KCL 20 MEQ TAB (K-DUR) PO SCH (06:30)
[2020-08-30] MEDS: LEVOTHYROXINE 125 MCG (LEVOTHROID) TABLET PO SCH (06:30)
--- NOTE | 2020-08-30 06:39 | PM&R Progress Note ---
Subjective HPI/CC On Admission Date Seen by Provider: Aug 30, 2020 Time Seen by Provider: 11:30 Subjective/Events-last exam 08/30/2020: Patient doing well No more diarrhea Decrease Toprol per primary care provider Startles easily Very hard of hearing 08/29/2020: Patient doing pretty well Diarrhea slowed up No issues Has some pain issues sporadically Patient very debilitated Very hard of hearing Startles easily Very frail status 08/28/20: Pt doing pretty well Oxycodone made her too drowsy last night Changing Colestid to two pils TID scheduled to help with the diarrhea She really wont eat unless the diarrhea is stopped Dr. Jean-Baptiste will see her in consultation She moved from [facility] to [place] to be by her daughter Memory loss is noted Lortab ordered Review of Systems General: Fatigue, Malaise Musculoskeletal: leg pain Objective Exam Vital Signs Vital Signs Date Time Temp Pulse Resp B/P (MAP) Pulse Ox O2 Delivery O2 Flow Rate FiO2 08/30/20 20:00 90 Room Air 08/30/20 20:00 36.4 70 16 135/63 (87) Capillary Refill : General Appearance: No Apparent Distress, WD/WN, Chronically ill HEENT: PERRL/EOMI, Normal ENT Inspection, Pharynx Normal, Other ([place]) Neck: Full Range of Motion, Normal Inspection, Non Tender, Supple, Carotid Bruit Respiratory: Chest Non Tender, Lungs Clear, Normal Breath Sounds, No Accessory Muscle Use, No Respiratory Distress Cardiovascular: Regular Rate, Rhythm, No Edema, No Gallop, No JVD, No Murmur, Normal Peripheral Pulses Gastrointestinal: Normal Bowel Sounds, No Organomegaly, No Pulsatile Mass, Non Tender, Soft Rectal: Deferred Back: Normal Inspection, No CVA Tenderness, No Vertebral Tenderness Extremity: Normal Capillary Refill, Normal Inspection, Normal Range of Motion, Non Tender, No Calf Tenderness, No Pedal Edema Neurologic/Psychiatric: Alert, Oriented x3, No Motor/Sensory Deficits, Normal Mood/Affect, Abnormal Gait, Depressed Affect, Motor Weakness (lower extremities) Skin: Normal Color, Warm/Dry Lymphatic: No Adenopathy Results/Procedures Lab Patient resulted labs reviewed. FIM Transfers Therapy Code Descriptions/Definitions Functional [place] Measure: 0=Not Assessed/NA 4=Minimal Assistance 1=Total Assistance 5=Supervision or Setup 2=Maximal Assistance 6=Modified [place] 3=Moderate Assistance 7=Complete IndependenceSCALE: Activities may be completed with or without assistive devices. 1-Vyehphxjdd-zpatgig completes the activity by him/herself with no assistance from a helper. 5-Set-up or Clean-up Assistance-helper sets up or cleans up; patient completes activity. [place] assists only prior to or following the activity. 4-Supervision or Touching Assistance-helper provides verbal cues and/or touching /steadying and/or contact guard assistance as patient completes activity. Assistance may be provided throughout the activity or intermittently. 3-Partial/Moderate Assistance-helper does LESS THAN HALF the effort. [place] lifts, holds or supports trunk or limbs, but provides less than half the effort. 2-Substantial/Maximal Assistance-helper does MORE THAN HALF the effort. [place] lifts or holds trunk or limbs and provides more than half the effort. 3-Gycdhnvsj-kfrflr does ALL the effort. Patient does none of the effort to complete the activity. Or, the assistance of 2 or more helpers is required for the patient to complete the activity. If activity was not attempted, code reason: 7-Patient Refused. 9-Not Applicable-not attempted and the patient did not perform the activity before the current illness, exacerbation or injury. 10-Not Attempted due to Environmental Limitations-(lack of equipment, weather restraints, etc.). 88-Not Attempted due to Medical Conditions or Safety Concerns. Roll Left to Right (QC): 6 Sit to Lying (QC): 4 Sit to Stand (QC): 4 Chair/Jla-hq-Ipfxh Xfer(QC): 4 Car Transfer (QC): 4 Gait Training Does the Patient Walk?: Yes Distance: 300', 120' Walk 10 feet (QC): 4 Walk 50 ft with 2 Turns(QC): 4 Walk 150 ft (QC): 4 Walking 10ft/uneven surface-QC: 4 Gait Persons Needed: 1 Gait Assistive Device: FWW Wheelchair Training Does the Pt Use a Wheelchair?: No Wheel 50 ft with 2 turns (QC): 9 Wheel 150 ft (QC): 9 Stair Training #of Steps: 1 1 Step (curb) (QC): 4 4 Steps (QC): 4 (B handrails; reciprocal gait pattern) 12 Steps (QC): 88 Stairs: Pattern: Step to Balance Picking up an Object (QC): 88 ADL-Treatment Eating (QC): 6 Oral Hygiene (QC): 4 (SBA in stance at sink to brush dentures and apply them in mouth.) Shower/Bathe Self (QC): 4 Upper Body Dressing (QC): 3 (Mod assist. Pt. requires min assist to doff shirt from arms, and then assist to button small buttons after she has applied long sleeve shirt. She uses button hook at home.) Lower Body Dressing (QC): 4 (SBA to don underwear and pants.) On/Off Footwear (QC): 6 (OT put elastic laces in tennis shoes. Pt. able to don them with Mod I.) Toileting Hygiene (QC): 4 (Pt. incontinent of stool, but able to clean self at toilet level.) Toilet Transfer (QC): 4 Assessment/Plan Assessment and Plan Assess & Plan/Chief Complaint Assessment: Debility Left hip pain CAD HTN Memory loss Presbycusis Acute on chronic diarrhea Plan: Monitor closely Pain control Memory loss management 08/28/20: Imodium Colestid FP consult IRF protocol 08/29/2020: Supportive care Pain control Fall risk 08/30/2020: Much improved status Diarrhea much improved Ambulating around well (1) Debility Status: Acute (2) Left hip pain Status: Acute (3) Low back pain Status: Acute (4) CAD (coronary artery disease) (5) Essential (primary) hypertension Status: Chronic (6) Hypothyroidism Status: Chronic (7) HLD (hyperlipidemia) Status: Chronic (8) Normocytic anemia DONN LEON DO Aug 30, 2020 06:39
[2020-08-30] MEDS: DOCUSATE SODIUM 100 MG (COLACE) CAP PO SCH ×2 (07:39→20:25)
[2020-08-30 08:00] VITALS: BP 100/45
--- NOTE | 2020-08-30 09:02 | Physical Therapy Daily Note ---
PT Daily Note-Current Subjective Agrees to PT. Reports she is tired today. Mental Status Patient Orientation: Person, Place, Time, Situation Transfers SCALE: Activities may be completed with or without assistive devices. 0-Hxejvdxmjp-wnqppzy completes the activity by him/herself with no assistance from a helper. 5-Set-up or Clean-up Assistance-helper sets up or cleans up; patient completes activity. [place] assists only prior to or following the activity. 4-Supervision or Touching Assistance-helper provides verbal cues and/or t ouching/steadying and/or contact guard assistance as patient completes activity. Assistance may be provided throughout the activity or intermittently. 3-Partial/Moderate Assistance-helper does LESS THAN HALF the effort. [place] lifts, holds or supports trunk or limbs, but provides less than half the effort. 2-Substantial/Maximal Assistance-helper does MORE THAN HALF the effort. [place] lifts or holds trunk or limbs and provides more than half the effort. 1-Cyjbrhloj-alqtjk does ALL the effort. Patient does none of the effort to complete the activity. Or, the assistance of 2 or more helpers is required for the patient to complete the activity. If activity was not attempted, code reason: 7-Patient Refused. 9-Not Applicable-not attempted and the patient did not perform the activity before the current illness, exacerbation or injury. 10-Not Attempted due to Environmental Limitations-(lack of equipment, weather restraints, etc.). 88-Not Attempted due to Medical Conditions or Safety Concerns. Roll Left & Right (QC): 3 Sit to Lying (QC): 3 Lying to Sitting/Side of Bed(Q: 3 Sit to Stand (QC): 4 Chair/Mxv-di-Yntor Xfer(QC): 4 min assit with bed mobility due to pain with transfer. Gait Training Does the Patient Walk?: Yes Distance: 200 ft x 4 reps Walk 150 ft (QC): 4 Gait Assistive Device: FWW slow gait but steady and safe. Stair Training 4 Steps (QC): 4 (reciprocal gait with use of handrail) Exercises Supine Ex: Ankle pumps, Quad Set, Heel Slides, Short Arc Quads, Hip abd/add Supine Reps: 10 gentle LTR B x 10 each side to reduce complaints of back pain. Assessment Current Status: Good Progress Progressing well. Decreased back pain today with visit and post visit. PT Short Term Goals Short Term Goals Time Frame: Sep 03, 2020 Roll Left & Right: 6 Sit to lyin Lying to sitting on side of be: 4 Sit to stand: 4 Chair/bla-sz-biyhk transfer: 4 Walk 10 feet: 4 Walk 50 feet with two turns: 4 Walk 150 feet: 4 PT Nursing Home Goals Moisture Meter Operator Goals PT Moisture Meter Operator Goals Time Frame: Sep 17, 2020 Roll Left & Right (QC): 6 Sit to Lying (QC): 6 Lying-Sitting on Side/Bed(QC): 6 Sit to Stand (QC): 6 Chair/Efa-wu-Qhydw Xfer(QC): 5 Toilet Transfer (QC): 5 Car Transfer (QC): 5 Does the Patient Walk: Yes Walk 10 feet (QC): 5 Walk 50ft with 2 Turns (QC): 5 Walk 150 ft (QC): 5 Walking 10ft on Uneven Surface: 5 1 Step (curb) (QC): 5 4 Steps (QC): 5 12 Steps (QC): 88 Picking up an Object (QC): 88 Wheel 50 feet with 2 turns (QC: 9 Wheel 150 feet: 9 PT Plan Problem List Problem List: Activity Tolerance, Functional Strength, Safety, Balance, Gait, Transfer, Bed Mobility Treatment/Plan Treatment Plan: Continue Plan of Care Treatment Plan: Bed Mobility, Education, Functional Activity [place], Functional Strength, Group Therapy, Gait, Safety, Therapeutic Exercise, Transfers Treatment Duration: Sep 17, 2020 Frequency: At least 5 of 7 days/Wk (IRF) Estimated Hrs Per Day: 1.5 hours per day Patient and/or Family Agrees t: Yes Safety Risks/Education Patient Education: Safety Issues Teaching Recipient: Patient Teaching Methods: Discussion Response to Teaching: Reinforcement Needed Time/GCodes Time In: 800 Time Out: 900 Total Billed Treatment Time: 60 Total Billed Treatment visit EX 30 GT 30 ROGE TERESA PT Aug 30, 2020 09:02
[2020-08-30] MEDS: meTOprolol SUCCINATE 100 MG (TOPROL XL) TAB PO SCH (09:03)
[2020-08-30] MEDS: PANTOPRAZOLE 40 MG (PROTONIX) TAB PO SCH (09:17)
[2020-08-30] MEDS: FUROSEMIDE 40 MG (LASIX) TAB PO SCH (09:17)
[2020-08-30] MEDS: OMEGA 3 (FISH OIL) 1000 MG CAP PO SCH (09:17)
[2020-08-30] MEDS: CALCIUM CARBONATE 600 MG (CALCARB) TAB PO SCH (09:17)
[2020-08-30] MEDS: ASPIRIN 81 MG CHEW (CHILDREN'S ASA) PO SCH (09:17)
[2020-08-30] MEDS: CALCITONIN NASAL 200 INTLU/AC (FORTICAL) 3.7 ML BTL SCH (09:17)
[2020-08-30] MEDS: CLOPIDOGREL 75 MG (PLAVIX) TABLET PO SCH (09:17)
[2020-08-30] MEDS: CARBAM PEROX/GLYC/PROP 15 ML DROPS (DEBROX) EACH EAR SCH ×2 (09:17→20:25)
[2020-08-30] MEDS: COLESTIPOL 1 GM (COLESTID) TAB PO SCH ×3 (09:19→20:25)
--- NOTE | 2020-08-30 09:22 | Speech Therapy Daily Note ---
Speech Daily Progress Note Subjective Date Seen by Provider: Aug 30, 2020 Time Seen by Provider: 00:30 Patient was resting in her recliner following her PT session. Patient was alert and participated well with therapy. Objective Patient completed a series of memory task with 80% correct after 5 minutes and 75% after 15 minutes with10% verbal cues. Assessment Assessment Current Status: Good Progress Treatment Plan Continue Plan of Care Speech Short Term Goals Short Term Goals Short Term Goals 1) Patient will complete memory tasks related to her daily needs at 80% or greater with minimal cues. 2) Patient will complete safety awareness tasks related to her daily needs at 80% or greater with minimal cues. 3) Patient will complete problem solving tasks related to her daily needs at 80% or greater with minimal cues. Speech [facility] Goals Nonprofit Financial Controller Goals Patient will improve her cognitive communication abilities in order to require decreased assist with her daily needs. Speech-Plan Patient/Family Goals Patient/Family Goals: Patient plans on returning to her home where she lives alone. The patient's daughter lives across the street and assists her with her daily needs. Treatment Plan Speech Therapy Treatment Plan: Continue Plan of Care Treatment Duration: Sep 11, 2020 Frequency: 4 times per week (Patient will receive skilled ST 4-5x per week) Estimated Hrs Per Day: .5 hour per day Rehab Potential: Good Barriers to Learning: Patient's recent decline in function, age Pt/Family Agrees to Plan: Yes Safety Risks/Education Teaching Recipient: Patient Teaching Methods: Demonstration, Discussion Response to Teaching: Verbalize Understanding, Return Demonstration Education Topics Provided: Continued safety within her room, communication of wants/needs Time Speech Therapy Time In: 09:00 Speech Therapy Time Out: 09:30 Total Billed Time: 30 Billed Treatment Time 1, ORION Capps Aug 30, 2020 09:21
--- NOTE | 2020-08-30 10:16 | Progress Note ---
Subjective Date Seen by a Provider: Aug 30, 2020 Time Seen by a Provider: 10:13 Subjective/Events-last exam Fwup HTN, debility, CAD with recent NSTEMI and stent placement. Up in shower. Feels like getting stronger. No further hip pain. Has had pain in upper and lower back. BP and pulse low this morning so metoprolol held. Objective Exam Vital Signs Date Time Temp Pulse Resp B/P (MAP) Pulse Ox O2 Delivery O2 Flow Rate FiO2 08/30/20 09:00 94 08/30/20 08:00 36.8 63 18 100/45 (63) 91 Room Air 08/29/20 20:28 36.3 59 18 128/60 (82) 93 Room Air 08/29/20 20:00 93 Room Air Capillary Refill : General Appearance: No Apparent Distress Respiratory: Lungs Clear Cardiovascular: Regular Rate, Rhythm Gastrointestinal: normal bowel sounds, non tender, soft Extremity: Non Tender, No Calf Tenderness, No Pedal Edema Neurologic/Psychiatric: Alert, Oriented x3 Skin: Warm/Dry Assessment/Plan Assessment/Plan Assess & Plan/Chief Complaint 1. HTN--decrease metoprolol and monitor 2. Debility/Chronic Pain/Thoracic and Lumbar Compression fractures--improving with PT/OT 3. CAD with recent NSTEMI and stent placement--on plavix, aspirin, metoprolol, atorvastatin Clinical Quality Measures Admission Status Admission Dx 1. Severe Left Hip Pain after recent fall--pain control and PT 2. Worsening Debility--rehab for PT/OT 3. Thoracic and Lumbar Compression Fractures--miacalcin and Vitamin D, will need bone density as outpatient 4. Hypertension--on home meds 5. Recent NSTEMI with Stent Placement--on plavix, aspirin, atorvastatin, metoprolol 6. Hypothyroidism--back on home meds SHANNEN RENNER DO Aug 30, 2020 10:16
--- NOTE | 2020-08-30 11:05 | Occupational Ther Daily Note ---
OT Current Status-Daily Note Subjective Pt alert/ oriented. States pain in back, agrees to tx. Pt desires shower. Mental Status/Objective Patient Orientation: Person, Place, Situation ADL-Treatment Therapy Code Descriptions/Definitions Functional [place] Measure: 0=Not Assessed/NA 4=Minimal Assistance 1=Total Assistance 5=Supervision or Setup 2=Maximal Assistance 6=Modified [place] 3=Moderate Assistance 7=Complete IndependenceSCALE: Activities may be completed with or without assistive devices. 5-Qvwwzntulc-hurjmtp completes the activity by him/herself with no assistance f rom a helper. 5-Set-up or Clean-up Assistance-helper sets up or cleans up; patient completes activity. [place] assists only prior to or following the activity. 4-Supervision or Touching Assistance-helper provides verbal cues and/or touching/steadying and/or contact guard assistance as patient completes activity. Assistance may be provided throughout the activity or intermittently. 3-Partial/Moderate Assistance-helper does LESS THAN HALF the effort. [place] lifts, holds or supports trunk or limbs, but provides less than half the effort. 2-Substantial/Maximal Assistance-helper does MORE THAN HALF the effort. [place] lifts or holds trunk or limbs and provides more than half the effort. 9-Rgexckmcq-tjxexk does ALL the effort. Patient does none of the effort to complete the activity. Or, the assistance of 2 or more helpers is required for the patient to complete the activity. If activity was not attempted, code reason: 7-Patient Refused. 9-Not Applicable-not attempted and the patient did not perform the activity before the current illness, exacerbation or injury. 10-Not Attempted due to Environmental Limitations-(lack of equipment, weather restraints, etc.). 88-Not Attempted due to Medical Conditions or Safety Concerns. Eating (QC): 6 Oral Hygiene (QC): 7 Bathing Location: L Arm, R Arm, L Upper Leg, R Upper Leg, Chest, Abdomen, Buttocks, Perineal Area Shower/Bathe Self (QC): 4 (SBA in stance, SUP in sit. Completes all areas.) Upper Body Dressing (QC): 3 (min A with donning over back.) Lower Body Dressing (QC): 4 (SBA, increased time due to pain bending over.) On/Off Footwear: 3 (OT completes JAIME hose, pt completes shoes/ socks with adaptive laces. Pt requires increased time due to pain in chest after bending over. ) Toileting Hygiene (QC): 4 (SUP) Toilet Transfer (QC): 4 (SBA) Other Treatment Pt sit to stand with SBA, ambulates to toilet. Toilets, ambulates to shower with SBA and cues for transfer. Use of gbs. Pt completes shower in sit SUP/ stance SBA with no hands on gbs. Pt able to reach all areas with good ability. Dresses in shower as outlined and returns to chair. Pt educated on use of combustion analyst due to increased pain while bending, pt compensates by bringing ankle to knee. Pt completes 3 sets bilaterally of the following ex with 5 reps/ 10 reps/ 5 reps respectively: external shoulder rotation, bicep curls, and shoulder press. Pt provided with heating pad during this time (15 min) checked end of session without redness. All needs met, call light in reach, pt remains in chair end of session. Education OT Patient Education: Correct positioning, Exercise program, Modified ADL techniques, Progress toward Goal/Update tx plan, Purpose of tx/functional activities, Safety issues, Transfer techniques, Use of adapted equipment Teaching Recipient: Patient Teaching Methods: Demonstration, Discussion Response to Teaching: Verbalize Understanding, Return Demonstration OT Short Term Goals Short Term Goals Time Frame: Sep 03, 2020 OT Alf Goals Alf Goals Time Frame: Sep 10, 2020 Eating (QC): 6 Oral Hygiene (QC): 6 Toileting Hygiene (QC): 6 Shower/Bathe Self (QC): 4 Upper Body Dressing (QC): 5 Lower Body Dressing (QC): 4 On/Off Footwear (QC): 6 Additional Goals: 1-Demonstrate ADL Tasks, 2-Verbalize Understanding, 3- ImproveStrength/[place]urt[place] 1=Demonstrate adherence to instructed precautions during ADL tasks. 2=Patient will verbalize/demonstrate understanding of assistive devices/modifications for ADL. 3=Patient will improve strength/tolerance for activity to enable patient to perform ADL's. OT Education/Plan Problem List/Assessment Assessment: Decreased Activ Tolerance, Decreased UE Strength, Dependent Transfers, Impaired Funct Balance, Impaired I ADL's, Impaired Self-Care Skills Discharge Recommendations Plan/Recommendations: Continue POC Therapy Discharge Recommendati: Post Acute OT Treatment Plan/Plan of Care Treatment,Training & Education: Yes Patient would benefit from OT for education, treatment and training to promote independence in ADL's, mobility, safety and/or upper extremity function for ADL's. Plan of Care: ADL Retraining, Functional Mobility, Group Exercise/Act as Ind, UE Funct Exercise/Act Treatment Duration: Sep 10, 2020 Frequency: At least 5 of 7 days/Wk (IRF) Estimated Hrs Per Day: 1.5 hours per day Agreement: Yes Rehab Potential: Good Time/GCodes Start Time: 10:00 Stop Time: 11:00 Total Time Billed (hr/min): 60 Billed Treatment Time 1, ADL 3, EX (60) BING LORD OTR Aug 30, 2020 11:05
--- NOTE | 2020-08-30 14:30 | Therapy Group Daily Note ---
Therapy Daily Group Note Patient Education Topic Other List Below (hospital bed, safe transfer) Exercises LE Seated Exercise, UE Exercise Session Ratio (pt:therapist): 6:2 Goal of Session: UE/LE Strengthing, Safety with Transfers Goal Met for this Session: Yes Pt Benefit of Group: Contributions to Others, Increased Functional Safety, Increased Functional Strength, Improved Cognition, Recognition of Peers, Socialization Other/Notes Using FWW, pt ambulated to OT/PT group at [facility]. Group consisted of introductions(name, place born, first memory), socialization, B UE/LE exercises and education on safe transfers/hospital bed. Pt introduced self appropriately and actively listened to peers. Pt able to complete B UE/LE seated exercises with only verbal cues for correct technique. Pt acknowledged understanding of educational topics by giving own examples. 5 words given for memory task-dog, tiera, 6, burrito, guitar. After session, pt lying in bed with call light/phone in reach. All needs met in room. Start Time: 13:00 Stop Time: 14:00 Total Billed Treatment Time: 60 Total Billed Treatment 1-GRP ROGE RODRIGUEZ Aug 30, 2020 14:30
[2020-08-30 20:00] VITALS: BP 135/63
[2020-08-30] MEDS: HYDROcodone/APAP 5 MG/325 MG (LORTAB) TAB PO PRN (20:26)
[2020-08-31] MEDS: VITAMIN D3 10 MCG (400 UNITS) TABLET PO SCH (06:23)
[2020-08-31] MEDS: LEVOTHYROXINE 125 MCG (LEVOTHROID) TABLET PO SCH (06:23)
[2020-08-31] MEDS: KCL 20 MEQ TAB (K-DUR) PO SCH (06:23)
[2020-08-31 07:30] VITALS: BP 133/61
--- NOTE | 2020-08-31 07:46 | PM&R Progress Note ---
Subjective HPI/CC On Admission Date Seen by Provider: Aug 31, 2020 Time Seen by Provider: 12:00 Subjective/Events-last exam 08/31/2020: Patient doing really well No diarrhea Refusing calcitonin Left leg hurts when she is first getting up in the morning 08/30/2020: Patient doing well No more diarrhea Decrease Toprol per primary care provider Startles easily Very hard of hearing 08/29/2020: Patient doing pretty well Diarrhea slowed up No issues Has some pain issues sporadically Patient very debilitated Very hard of hearing Startles easily Very frail status 08/28/20: Pt doing pretty well Oxycodone made her too drowsy last night Changing Colestid to two pils TID scheduled to help with the diarrhea She really wont eat unless the diarrhea is stopped Dr. Jean-Baptiste will see her in consultation She moved from [facility] to [place] to be by her daughter Memory loss is noted Lortab ordered Review of Systems General: Fatigue Musculoskeletal: leg pain Objective Exam Vital Signs Vital Signs Date Time Temp Pulse Resp B/P (MAP) Pulse Ox O2 Delivery O2 Flow Rate FiO2 08/31/20 09:00 9 08/31/20 07:30 36.0 84 16 133/61 (85) Room Air Capillary Refill : General Appearance: No Apparent Distress, WD/WN, Chronically ill HEENT: PERRL/EOMI, Normal ENT Inspection, Pharynx Normal, Other ([place]) Neck: Full Range of Motion, Normal Inspection, Non Tender, Supple, Carotid Bruit Respiratory: Chest Non Tender, Lungs Clear, Normal Breath Sounds, No Accessory Muscle Use, No Respiratory Distress Cardiovascular: Regular Rate, Rhythm, No Edema, No Gallop, No JVD, No Murmur, Normal Peripheral Pulses Gastrointestinal: Normal Bowel Sounds, No Organomegaly, No Pulsatile Mass, Non Tender, Soft Rectal: Deferred Back: Normal Inspection, No CVA Tenderness, No Vertebral Tenderness Extremity: Normal Capillary Refill, Normal Inspection, Normal Range of Motion, Non Tender, No Calf Tenderness, No Pedal Edema Neurologic/Psychiatric: Alert, Oriented x3, No Motor/Sensory Deficits, Normal Mood/Affect, Abnormal Gait, Depressed Affect, Motor Weakness (lower extremities) Skin: Normal Color, Warm/Dry Lymphatic: No Adenopathy Results/Procedures Lab Patient resulted labs reviewed. FIM Transfers Therapy Code Descriptions/Definitions Functional [place] Measure: 0=Not Assessed/NA 4=Minimal Assistance 1=Total Assistance 5=Supervision or Setup 2=Maximal Assistance 6=Modified [place] 3=Moderate Assistance 7=Complete IndependenceSCALE: Activities may be completed with or without assistive devices. 1-Bkbtekattg-czocybi completes the activity by him/herself with no assistance from a helper. 5-Set-up or Clean-up Assistance-helper sets up or cleans up; patient completes activity. [place] assists only prior to or following the activity. 4-Supervision or Touching Assistance-helper provides verbal cues and/or touching/steadying and/or contact guard assistance as patient completes activity. Assistance may be provided throughout the activity or intermittently. 3-Partial/Moderate Assistance-helper does LESS THAN HALF the effort. [place] lifts, holds or supports trunk or limbs, but provides less than half the effort. 2-Substantial/Maximal Assistance-helper does MORE THAN HALF the effort. [place] lifts or holds trunk or limbs and provides more than half the effort. 4-Zxroflypi-ppajbk does ALL the effort. Patient does none of the effort to complete the activity. Or, the assistance of 2 or more helpers is required for the patient to complete the activity. If activity was not attempted, code reason: 7-Patient Refused. 9-Not Applicable-not attempted and the patient did not perform the activity before the current illness, exacerbation or injury. 10-Not Attempted due to Environmental Limitations-(lack of equipment, weather restraints, etc.). 88-Not Attempted due to Medical Conditions or Safety Concerns. Roll Left to Right (QC): 3 Sit to Lying (QC): 3 Sit to Stand (QC): 4 Chair/Vvx-gq-Fuspf Xfer(QC): 4 Car Transfer (QC): 4 Gait Training Does the Patient Walk?: Yes Distance: 200 ft x 4 reps Walk 10 feet (QC): 4 Walk 50 ft with 2 Turns(QC): 4 Walk 150 ft (QC): 4 Walking 10ft/uneven surface-QC: 4 Gait Persons Needed: 1 Gait Assistive Device: FWW Wheelchair Training Does the Pt Use a Wheelchair?: No Wheel 50 ft with 2 turns (QC): 9 Wheel 150 ft (QC): 9 Stair Training #of Steps: 1 1 Step (curb) (QC): 4 4 Steps (QC): 4 (reciprocal gait with use of handrail) 12 Steps (QC): 88 Stairs: Pattern: Step to Balance Picking up an Object (QC): 88 ADL-Treatment Eating (QC): 6 Oral Hygiene (QC): 7 Bathing Location: L Arm, R Arm, L Upper Leg, R Upper Leg, Chest, Abdomen, Buttocks, Perineal Area Shower/Bathe Self (QC): 4 (SBA in stance, SUP in sit. Completes all areas.) Upper Body Dressing (QC): 3 (min A with donning over back.) Lower Body Dressing (QC): 4 (SBA, increased time due to pain bending over.) On/Off Footwear (QC): 3 (OT completes JAIME hose, pt completes shoes/ socks with adaptive laces. Pt requires increased time due to pain in chest after bending over. ) Toileting Hygiene (QC): 4 (SUP) Toilet Transfer (QC): 4 (SBA) Assessment/Plan Assessment and Plan Assess & Plan/Chief Complaint Assessment: Debility Left hip pain CAD HTN Memory loss Presbycusis Acute on chronic diarrhea Plan: Monitor closely Pain control Memory loss management 08/28/20: Imodium Colestid FP consult IRF protocol 08/29/2020: Supportive care Pain control Fall risk 08/30/2020: Much improved status Diarrhea much improved Ambulating around well 08/31/2020: Monitor closely Pain control (1) Debility Status: Acute (2) Left hip pain Status: Acute (3) Low back pain Status: Acute (4) CAD (coronary artery disease) (5) Essential (primary) hypertension Status: Chronic (6) Hypothyroidism Status: Chronic (7) HLD (hyperlipidemia) Status: Chronic (8) Normocytic anemia DONN LEON DO Aug 31, 2020 07:45
[2020-08-31] MEDS: PANTOPRAZOLE 40 MG (PROTONIX) TAB PO SCH (08:04)
[2020-08-31] MEDS: CLOPIDOGREL 75 MG (PLAVIX) TABLET PO SCH (08:04)
[2020-08-31] MEDS: ASPIRIN 81 MG CHEW (CHILDREN'S ASA) PO SCH (08:05)
[2020-08-31] MEDS: meTOproloL SUCCINATE 50 MG (TOPROL XL) TAB PO SCH (08:05)
[2020-08-31] MEDS: COLESTIPOL 1 GM (COLESTID) TAB PO SCH ×3 (08:05→21:01)
[2020-08-31] MEDS: OMEGA 3 (FISH OIL) 1000 MG CAP PO SCH (08:05)
[2020-08-31] MEDS: CALCIUM CARBONATE 600 MG (CALCARB) TAB PO SCH (08:05)
[2020-08-31] MEDS: FUROSEMIDE 40 MG (LASIX) TAB PO SCH (08:05)
[2020-08-31] MEDS: CARBAM PEROX/GLYC/PROP 15 ML DROPS (DEBROX) EACH EAR SCH ×2 (08:12→21:05)
[2020-08-31] MEDS: DOCUSATE SODIUM 100 MG (COLACE) CAP PO SCH ×2 (08:12→21:11)
[2020-08-31] MEDS: CALCITONIN NASAL 200 INTLU/AC (FORTICAL) 3.7 ML BTL SCH (09:00)
--- NOTE | 2020-08-31 11:44 | Physical Therapy Daily Note ---
PT Daily Note-Current Subjective Pt in bed upon arrival. Pt agrees to PT tx after pt gets dressed. Pain Numeric Pain Scale: 0-No Pain Location: No Pain Reported Mental Status Patient Orientation: Normal For Age Attachments: Other-See Comments (JAIME Polanco) Transfers SCALE: Activities may be completed with or without assistive devices. 3-Btixggczws-pbccdtx completes the activity by him/herself with no assistance from a helper. 5-Set-up or Clean-up Assistance-helper sets up or cleans up; patient completes activity. [place] assists only prior to or following the activity. 4-Supervision or Touching Assistance-helper provides verbal cues and/or touching/steadying and/or contact guard assistance as patient completes activity. Assistance may be provided throughout the activity or intermittently. 3-Partial/Moderate Assistance-helper does LESS THAN HALF the effort. [place] lifts, holds or supports trunk or limbs, but provides less than half the effort. 2-Substantial/Maximal Assistance-helper does MORE THAN HALF the effort. [place] lifts or holds trunk or limbs and provides more than half the effort. 6-Yychsirpx-gcspzu does ALL the effort. Patient does none of the effort to complete the activity. Or, the assistance of 2 or more helpers is required for the patient to complete the activity. If activity was not attempted, code reason: 7-Patient Refused. 9-Not Applicable-not attempted and the patient did not perform the activity before the current illness, exacerbation or injury. 10-Not Attempted due to Environmental Limitations-(lack of equipment, weather restraints, etc.). 88-Not Attempted due to Medical Conditions or Safety Concerns. Lying to Sitting/Side of Bed(Q: 3 Sit to Stand (QC): 4 Pt has difficulty w/ supine to sitting d/t pain in back. Per pt, pain is not constant and only when getting up/down. Gait Training Does the Patient Walk?: Yes Distance: 200' Walk 10 feet (QC): 4 Walk 50 ft with 2 Turns(QC): 4 Walk 150 ft (QC): 4 Gait Persons Needed: 1 Gait Assistive Device: FWW Treatments Worked on bed mobility w/ focus on proper sequencing. Pt requires John during dressing. Gait training completed. Pt returns to room and sit in recliner w/ call light, bedside table w/in reach and all needs met at end of tx. Assessment Current Status: Good Progress Pt particular and demanding at times. PT Short Term Goals Short Term Goals Time Frame: Sep 03, 2020 Roll Left & Right: 6 Sit to lyin Lying to sitting on side of be: 4 Sit to stand: 4 Chair/liq-cd-[place] transfer: 4 Walk 10 feet: 4 Walk 50 feet with two turns: 4 Walk 150 feet: 4 PT Diver Pumper Goals Diver Pumper Goals PT Half-Way Goals Time Frame: Sep 17, 2020 Roll Left & Right (QC): 6 Sit to Lying (QC): 6 Lying-Sitting on Side/Bed(QC): 6 Sit to Stand (QC): 6 Chair/Zoc-gj-Czlpe Xfer(QC): 5 Toilet Transfer (QC): 5 Car Transfer (QC): 5 Does the Patient Walk: Yes Walk 10 feet (QC): 5 Walk 50ft with 2 Turns (QC): 5 Walk 150 ft (QC): 5 Walking 10ft on Uneven Surface: 5 1 Step (curb) (QC): 5 4 Steps (QC): 5 12 Steps (QC): 88 Picking up an Object (QC): 88 Wheel 50 feet with 2 turns (QC: 9 Wheel 150 feet: 9 PT Plan Problem List Problem List: Activity Tolerance, Functional Strength, Safety, Balance, Gait, Transfer, Bed Mobility, ROM Treatment/Plan Treatment Plan: Continue Plan of Care Treatment Plan: Bed Mobility, Education, Functional Activity [place], Functional Strength, Group Therapy, Gait, Safety, Therapeutic Exercise, Transfers Treatment Duration: Sep 17, 2020 Frequency: At least 5 of 7 days/Wk (IRF) Estimated Hrs Per Day: 1.5 hours per day Patient and/or Family Agrees t: Yes Safety Risks/Education Patient Education: Gait Training, Transfer Techniques, Safety Issues Teaching Recipient: Patient Teaching Methods: Discussion Response to Teaching: Verbalize Understanding Time/GCodes Time In: 0839 Time Out: 0902 Total Billed Treatment Time: 23 Total Billed Treatment 1, GT (8m), FA (15m) ROMARIO TREVIZO EMERGENCY MEDICAL SERVICE MANAGER Aug 31, 2020 11:44
[2020-08-31 20:00] VITALS: BP 90/42
[2020-08-31] MEDS: ACETAMINOPHEN 325 MG TABLET PO PRN (21:15)
[2020-09-01] MEDS: KCL 20 MEQ TAB (K-DUR) PO SCH (06:33)
[2020-09-01] MEDS: VITAMIN D3 10 MCG (400 UNITS) TABLET PO SCH (06:33)
[2020-09-01] MEDS: LEVOTHYROXINE 125 MCG (LEVOTHROID) TABLET PO SCH (06:33)
[2020-09-01] MEDS: ACETAMINOPHEN 325 MG TABLET PO PRN ×2 (06:38→11:19)
[2020-09-01 07:14] VITALS: BP 91/53
--- NOTE | 2020-09-01 08:19 | PM&R Progress Note ---
Subjective HPI/CC On Admission Date Seen by Provider: Sep 01, 2020 Time Seen by Provider: 12:30 Subjective/Events-last exam 09/01/2020: Much improved issues Metoprolol managed by primary care provider Tylenol handles left leg pain No significant falls Discharge planned on Wednesday08/31/2020: Patient doing really well No diarrhea Refusing calcitonin Left leg hurts when she is first getting up in the morning 08/30/2020: Patient doing well No more diarrhea Decrease Toprol per primary care provider Startles easily Very hard of hearing 08/29/2020: Patient doing pretty well Diarrhea slowed up No issues Has some pain issues sporadically Patient very debilitated Very hard of hearing Startles easily Very frail status 08/28/20: Pt doing pretty well Oxycodone made her too drowsy last night Changing Colestid to two pils TID scheduled to help with the diarrhea She really wont eat unless the diarrhea is stopped Dr. Jean-Baptiste will see her in consultation She moved from [facility] to [place] to be by her daughter Memory loss is noted Lortab ordered Review of Systems General: Fatigue Musculoskeletal: leg pain Objective Exam Vital Signs Vital Signs Date Time Temp Pulse Resp B/P (MAP) Pulse Ox O2 Delivery O2 Flow Rate FiO2 09/01/20 07:14 36.1 65 16 91/53 (66) 94 Room Air Capillary Refill : General Appearance: No Apparent Distress, WD/WN, Chronically ill HEENT: PERRL/EOMI, Normal ENT Inspection, Pharynx Normal, Other ([place]) Neck: Full Range of Motion, Normal Inspection, Non Tender, Supple, Carotid Bruit Respiratory: Chest Non Tender, Lungs Clear, Normal Breath Sounds, No Accessory Muscle Use, No Respiratory Distress Cardiovascular: Regular Rate, Rhythm, No Edema, No Gallop, No JVD, No Murmur, Normal Peripheral Pulses Gastrointestinal: Normal Bowel Sounds, No Organomegaly, No Pulsatile Mass, Non Tender, Soft Rectal: Deferred Back: Normal Inspection, No CVA Tenderness, No Vertebral Tenderness Extremity: Normal Capillary Refill, Normal Inspection, Normal Range of Motion, Non Tender, No Calf Tenderness, No Pedal Edema Neurologic/Psychiatric: Alert, Oriented x3, No Motor/Sensory Deficits, Normal Mood/Affect, Abnormal Gait, Depressed Affect, Motor Weakness (lower extremities) Skin: Normal Color, Warm/Dry Lymphatic: No Adenopathy Results/Procedures Lab Patient resulted labs reviewed. FIM Transfers Therapy Code Descriptions/Definitions Functional [place] Measure: 0=Not Assessed/NA 4=Minimal Assistance 1=Total Assistance 5=Supervision or Setup 2=Maximal Assistance 6=Modified [place] 3=Moderate Assistance 7=Complete IndependenceSCALE: Activities may be completed with or without assistive devices. 1-Dewgukrwrl-icnqvfj completes the activity by him/herself with no assistance from a helper. 5-Set-up or Clean-up Assistance-helper sets up or cleans up; patient completes activity. [place] assists only prior to or following the activity. 4-Supervision or Touching Assistance-helper provides verbal cues and/or touching/steadying and/or contact guard assistance as patient completes activity. Assistance may be provided throughout the activity or intermittently. 3-Partial/Moderate Assistance-helper does LESS THAN HALF the effort. [place] lifts, holds or supports trunk or limbs, but provides less than half the effort. 2-Substantial/Maximal Assistance-helper does MORE THAN HALF the effort. [place] lifts or holds trunk or limbs and provides more than half the effort. 8-Qrvehlfbr-eawxph does ALL the effort. Patient does none of the effort to complete the activity. Or, the assistance of 2 or more helpers is required for the patient to complete the activity. If activity was not attempted, code reason: 7-Patient Refused. 9-Not Applicable-not attempted and the patient did not perform the activity before the current illness, exacerbation or injury. 10-Not Attempted due to Environmental Limitations-(lack of equipment, weather restraints, etc.). 88-Not Attempted due to Medical Conditions or Safety Concerns. Roll Left to Right (QC): 3 Sit to Lying (QC): 3 Sit to Stand (QC): 4 Chair/Coy-qd-Aknsh Xfer(QC): 4 Car Transfer (QC): 4 Gait Training Does the Patient Walk?: Yes Distance: 200' Walk 10 feet (QC): 4 Walk 50 ft with 2 Turns(QC): 4 Walk 150 ft (QC): 4 Walking 10ft/uneven surface-QC: 4 Gait Persons Needed: 1 Gait Assistive Device: FWW Wheelchair Training Does the Pt Use a Wheelchair?: No Wheel 50 ft with 2 turns (QC): 9 Wheel 150 ft (QC): 9 Stair Training #of Steps: 1 1 Step (curb) (QC): 4 4 Steps (QC): 4 (reciprocal gait with use of handrail) 12 Steps (QC): 88 Stairs: Pattern: Step to Balance Picking up an Object (QC): 88 ADL-Treatment Eating (QC): 6 Oral Hygiene (QC): 7 Bathing Location: L Arm, R Arm, L Upper Leg, R Upper Leg, Chest, Abdomen, Buttocks, Perineal Area Shower/Bathe Self (QC): 4 (SBA in stance, SUP in sit. Completes all areas.) Upper Body Dressing (QC): 3 (min A with donning over back.) Lower Body Dressing (QC): 4 (SBA, increased time due to pain bending over.) On/Off Footwear (QC): 3 (OT completes JAIME hose, pt completes shoes/ socks with adaptive laces. Pt requires increased time due to pain in chest after bending over. ) Toileting Hygiene (QC): 4 (SUP) Toilet Transfer (QC): 4 (SBA) Assessment/Plan Assessment and Plan Assess & Plan/Chief Complaint Assessment: Debility Left hip pain CAD HTN Memory loss Presbycusis Acute on chronic diarrhea Plan: Monitor closely Pain control Memory loss management 08/28/20: Imodium Colestid FP consult IRF protocol 08/29/2020: Supportive care Pain control Fall risk 08/30/2020: Much improved status Diarrhea much improved Ambulating around well 08/31/2020: Monitor closely Pain control 09/01/2020: Pain control Fall risk Metoprolol per PCP (1) Debility Status: Acute (2) Left hip pain Status: Acute (3) Low back pain Status: Acute (4) CAD (coronary artery disease) (5) Essential (primary) hypertension Status: Chronic (6) Hypothyroidism Status: Chronic (7) HLD (hyperlipidemia) Status: Chronic (8) Normocytic anemia DONN LEON DO Sep 01, 2020 08:19
[2020-09-01] MEDS: FUROSEMIDE 40 MG (LASIX) TAB PO SCH (08:45)
[2020-09-01] MEDS: ASPIRIN 81 MG CHEW (CHILDREN'S ASA) PO SCH (08:45)
[2020-09-01] MEDS: CLOPIDOGREL 75 MG (PLAVIX) TABLET PO SCH (08:45)
[2020-09-01] MEDS: OMEGA 3 (FISH OIL) 1000 MG CAP PO SCH (08:46)
[2020-09-01] MEDS: PANTOPRAZOLE 40 MG (PROTONIX) TAB PO SCH (08:46)
[2020-09-01] MEDS: COLESTIPOL 1 GM (COLESTID) TAB PO SCH ×3 (08:46→20:02)
[2020-09-01] MEDS: CALCIUM CARBONATE 600 MG (CALCARB) TAB PO SCH (08:46)
[2020-09-01] MEDS: DOCUSATE SODIUM 100 MG (COLACE) CAP PO SCH ×2 (08:47→20:07)
[2020-09-01] MEDS: CALCITONIN NASAL 200 INTLU/AC (FORTICAL) 3.7 ML BTL SCH (08:49)
[2020-09-01] MEDS: CARBAM PEROX/GLYC/PROP 15 ML DROPS (DEBROX) EACH EAR SCH ×2 (08:50→20:04)
[2020-09-01] MEDS: meTOproloL SUCCINATE 50 MG (TOPROL XL) TAB PO SCH (09:00)
[2020-09-01 20:00] VITALS: BP 111/56
[2020-09-01] MEDS: HYDROcodone/APAP 5 MG/325 MG (LORTAB) TAB PO PRN (20:02)
[2020-09-02 05:26] LABS: BASOPHILS % (AUTO) 0 % (0-10); EOSINOPHILS % (AUTO) 0 % (0-10); HEMATOCRIT 37 % (35-52); HEMOGLOBIN 11.6 g/dL (11.5-16.0); LYMPHOCYTES # (AUTO) 1.6 10^3/uL (1.0-4.0); LYMPHOCYTES % (AUTO) 32 % (12-44); MEAN CORPUSCULAR HEMOGLOBIN 27 pg (25-34); MEAN CORPUSCULAR HGB CONC 32 g/dL (32-36); MEAN CORPUSCULAR VOLUME 86 fL (80-99); MEAN PLATELET VOLUME 11.3 fL (9.0-12.2); MONOCYTES # (AUTO) 0.6 10^3/uL (0.0-1.0); MONOCYTES % (AUTO) 13 % (0-12); NEUTROPHILS # (AUTO) 2.7 10^3/uL (1.8-7.8); NEUTROPHILS % (AUTO) 55 % (42-75); PLATELET COUNT 152 10^3/uL (130-400); WHITE BLOOD COUNT 4.9 10^3/uL (4.3-11.0)
[2020-09-02 05:33] LABS: ALBUMIN 3.8 GM/DL (3.2-4.5)
[2020-09-02 05:34] LABS: CHLORIDE 104 MMOL/L (98-107); POTASSIUM 4.3 MMOL/L (3.6-5.0); SODIUM 139 MMOL/L (135-145)
[2020-09-02 05:35] LABS: CALCIUM 9.5 MG/DL (8.5-10.1)
[2020-09-02 05:36] LABS: GLUCOSE 87 MG/DL (70-105); TOTAL PROTEIN 7.2 GM/DL (6.4-8.2)
[2020-09-02 05:37] LABS: CARBON DIOXIDE 22 MMOL/L (21-32)
[2020-09-02 05:38] LABS: BILIRUBIN,TOTAL 0.4 MG/DL (0.1-1.0)
[2020-09-02 05:39] LABS: ALKALINE PHOSPHATASE 53 U/L (40-136)
[2020-09-02 05:40] LABS: CREATININE SERUM 0.84 MG/DL (0.60-1.30); GFR ESTIMATED > 60
[2020-09-02 05:41] LABS: BUN/CREATININE RATIO 15
[2020-09-02 05:43] LABS: ALANINE AMINOTRANSFERASE 13 U/L (0-55)
[2020-09-02] MEDS: KCL 20 MEQ TAB (K-DUR) PO SCH (06:34)
[2020-09-02] MEDS: LEVOTHYROXINE 125 MCG (LEVOTHROID) TABLET PO SCH (06:34)
[2020-09-02] MEDS: VITAMIN D3 10 MCG (400 UNITS) TABLET PO SCH (06:34)
--- NOTE | 2020-09-02 06:59 | PM&R Progress Note ---
Subjective HPI/CC On Admission Date Seen by Provider: Sep 02, 2020 Time Seen by Provider: 09:00 Subjective/Events-last exam 09/02/2020: Much improved status Mildly confused Bowels moved 2 days ago Discharge tomorrow 09/01/2020: Much improved issues Metoprolol managed by primary care provider Tylenol handles left leg pain No significant falls Discharge planned on Wednesday08/31/2020: Patient doing really well No diarrhea Refusing calcitonin Left leg hurts when she is first getting up in the morning 08/30/2020: Patient doing well No more diarrhea Decrease Toprol per primary care provider Startles easily Very hard of hearing 08/29/2020: Patient doing pretty well Diarrhea slowed up No issues Has some pain issues sporadically Patient very debilitated Very hard of hearing Startles easily Very frail status 08/28/20: Pt doing pretty well Oxycodone made her too drowsy last night Changing Colestid to two pils TID scheduled to help with the diarrhea She really wont eat unless the diarrhea is stopped Dr. Jean-Baptiste will see her in consultation She moved from [facility] to [place] to be by her daughter Memory loss is noted Lortab ordered Review of Systems Musculoskeletal: leg pain Objective Exam Vital Signs Vital Signs Date Time Temp Pulse Resp B/P (MAP) Pulse Ox O2 Delivery O2 Flow Rate FiO2 09/02/20 20:10 Room Air 09/02/20 20:00 36.4 71 20 119/58 (78) 92 Capillary Refill : General Appearance: No Apparent Distress, WD/WN, Chronically ill HEENT: PERRL/EOMI, Normal ENT Inspection, Pharynx Normal, Other ([place]) Neck: Full Range of Motion, Normal Inspection, Non Tender, Supple, Carotid Bruit Respiratory: Chest Non Tender, Lungs Clear, Normal Breath Sounds, No Accessory Muscle Use, No Respiratory Distress Cardiovascular: Regular Rate, Rhythm, No Edema, No Gallop, No JVD, No Murmur, Normal Peripheral Pulses Gastrointestinal: Normal Bowel Sounds, No Organomegaly, No Pulsatile Mass, Non Tender, Soft Rectal: Deferred Back: Normal Inspection, No CVA Tenderness, No Vertebral Tenderness Extremity: Normal Capillary Refill, Normal Inspection, Normal Range of Motion, Non Tender, No Calf Tenderness, No Pedal Edema Neurologic/Psychiatric: Alert, Oriented x3, No Motor/Sensory Deficits, Normal Mood/Affect, Abnormal Gait, Depressed Affect, Motor Weakness (lower extremities) Skin: Normal Color, Warm/Dry Lymphatic: No Adenopathy Results/Procedures Lab Patient resulted labs reviewed. FIM Transfers Therapy Code Descriptions/Definitions Functional [place] Measure: 0=Not Assessed/NA 4=Minimal Assistance 1=Total Assistance 5=Supervision or Setup 2=Maximal Assistance 6=Modified [place] 3=Moderate Assistance 7=Complete IndependenceSCALE: Activities may be completed with or without assistive devices. 0-Bvqmivtaiu-numbncv completes the activity by him/herself with no assistance from a helper. 5-Set-up or Clean-up Assistance-helper sets up or cleans up; patient completes activity. [place] assists only prior to or following the activity. 4-Supervision or Touching Assistance-helper provides verbal cues and/or touching/steadying and/or contact guard assistance as patient completes activity. Assistance may be provided throughout the activity or intermittently. 3-Partial/Moderate Assistance-helper does LESS THAN HALF the effort. [place] lifts, holds or supports trunk or limbs, but provides less than half the effort. 2-Substantial/Maximal Assistance-helper does MORE THAN HALF the effort. [place] lifts or holds trunk or limbs and provides more than half the effort. 7-Pjbxuddhd-xhnvyo does ALL the effort. Patient does none of the effort to complete the activity. Or, the assistance of 2 or more helpers is required for the patient to complete the activity. If activity was not attempted, code reason: 7-Patient Refused. 9-Not Applicable-not attempted and the patient did not perform the activity before the current illness, exacerbation or injury. 10-Not Attempted due to Environmental Limitations-(lack of equipment, weather restraints, etc.). 88-Not Attempted due to Medical Conditions or Safety Concerns. Roll Left to Right (QC): 3 Sit to Lying (QC): 3 Sit to Stand (QC): 4 Chair/Ccy-aw-Hskun Xfer(QC): 4 Car Transfer (QC): 4 Gait Training Does the Patient Walk?: Yes Distance: 200' Walk 10 feet (QC): 4 Walk 50 ft with 2 Turns(QC): 4 Walk 150 ft (QC): 4 Walking 10ft/uneven surface-QC: 4 Gait Persons Needed: 1 Gait Assistive Device: FWW Wheelchair Training Does the Pt Use a Wheelchair?: No Wheel 50 ft with 2 turns (QC): 9 Wheel 150 ft (QC): 9 Stair Training #of Steps: 1 1 Step (curb) (QC): 4 4 Steps (QC): 4 (reciprocal gait with use of handrail) 12 Steps (QC): 88 Stairs: Pattern: Step to Balance Picking up an Object (QC): 88 ADL-Treatment Eating (QC): 6 Oral Hygiene (QC): 7 Bathing Location: L Arm, R Arm, L Upper Leg, R Upper Leg, Chest, Abdomen, Buttocks, Perineal Area Shower/Bathe Self (QC): 4 (SBA in stance, SUP in sit. Completes all areas.) Upper Body Dressing (QC): 3 (min A with donning over back.) Lower Body Dressing (QC): 4 (SBA, increased time due to pain bending over.) On/Off Footwear (QC): 3 (OT completes JAIME hose, pt completes shoes/ socks with adaptive laces. Pt requires increased time due to pain in chest after bending over. ) Toileting Hygiene (QC): 4 (SUP) Toilet Transfer (QC): 4 (SBA) Assessment/Plan Assessment and Plan Assess & Plan/Chief Complaint Assessment: Debility Left hip pain CAD HTN Memory loss Presbycusis Acute on chronic diarrhea Plan: Monitor closely Pain control Memory loss management 08/28/20: Imodium Colestid FP consult IRF protocol 08/29/2020: Supportive care Pain control Fall risk 08/30/2020: Much improved status Diarrhea much improved Ambulating around well 08/31/2020: Monitor closely Pain control 09/01/2020: Pain control Fall risk Metoprolol per PCP 09/02/2020: Discharge on home health tomorrow (1) Debility Status: Acute (2) Left hip pain Status: Acute (3) Low back pain Status: Acute (4) CAD (coronary artery disease) (5) Essential (primary) hypertension Status: Chronic (6) Hypothyroidism Status: Chronic (7) HLD (hyperlipidemia) Status: Chronic (8) Normocytic anemia DONN LEON DO Sep 02, 2020 06:59
[2020-09-02 08:00] VITALS: BP 111/53
[2020-09-02] MEDS: CLOPIDOGREL 75 MG (PLAVIX) TABLET PO SCH (08:14)
[2020-09-02] MEDS: COLESTIPOL 1 GM (COLESTID) TAB PO SCH ×3 (08:14→20:10)
[2020-09-02] MEDS: meTOproloL SUCCINATE 50 MG (TOPROL XL) TAB PO SCH (08:14)
[2020-09-02] MEDS: FUROSEMIDE 40 MG (LASIX) TAB PO SCH (08:14)
[2020-09-02] MEDS: PANTOPRAZOLE 40 MG (PROTONIX) TAB PO SCH (08:14)
[2020-09-02] MEDS: CALCIUM CARBONATE 600 MG (CALCARB) TAB PO SCH (08:14)
[2020-09-02] MEDS: ASPIRIN 81 MG CHEW (CHILDREN'S ASA) PO SCH (08:14)
[2020-09-02] MEDS: OMEGA 3 (FISH OIL) 1000 MG CAP PO SCH (08:14)
[2020-09-02] MEDS: DOCUSATE SODIUM 100 MG (COLACE) CAP PO SCH ×2 (08:16→20:10)
[2020-09-02] MEDS: CARBAM PEROX/GLYC/PROP 15 ML DROPS (DEBROX) EACH EAR SCH ×2 (08:17→20:11)
[2020-09-02] MEDS: CALCITONIN NASAL 200 INTLU/AC (FORTICAL) 3.7 ML BTL SCH (08:19)
--- NOTE | 2020-09-02 08:19 | Speech Therapy Daily Note ---
Speech Daily Progress Note Subjective Date Seen by Provider: Sep 02, 2020 Time Seen by Provider: 00:30 Patient was resting in her recliner watching television when I entered his room. She is ready to return home. Objective Patient completed a series of memory tasks related to her return home for improved safety and independence at 80% with 20% cues. Assessment Assessment Current Status: Good Progress Treatment Plan Discontinue ST, Goals Met Speech Short Term Goals Short Term Goals Short Term Goals 1) Patient will complete memory tasks related to her daily needs at 80% or g reater with minimal cues. 2) Patient will complete safety awareness tasks related to her daily needs at 80% or greater with minimal cues. 3) Patient will complete problem solving tasks related to her daily needs at 80% or greater with minimal cues. Speech Dispatcher [place] Goals Skilled Nursing Goals Patient will improve her cognitive communication abilities in order to require decreased assist with her daily needs. Speech-Plan Patient/Family Goals Patient/Family Goals: Patient is scheduled to return to her home where she lives across the [address] from her daughter. Treatment Plan Speech Therapy Treatment Plan: Discontinue ST, Goals Met Treatment Duration: Sep 11, 2020 Frequency: 4 times per week (Patient will receive skilled ST 4-5x per week) Estimated Hrs Per Day: .5 hour per day Rehab Potential: Good Barriers to Learning: Patient's recent decline in health, age Pt/Family Agrees to Plan: Yes Safety Risks/Education Teaching Recipient: Patient Teaching Methods: Demonstration, Discussion Response to Teaching: Verbalize Understanding, Return Demonstration Education Topics Provided: Continued safety upon her return home Time Speech Therapy Time In: 09:30 Speech Therapy Time Out: 10:00 Total Billed Time: 30 Billed Treatment Time 1, SLTS No QUALITY CODES: EXPRESSION OF IDEAS/WANTS: 4 UNDERSTANDING VERBAL CONTENT: 4 BRIEF INTERVIEW MENTAL STATUS: YES REPETITION OF 3 WORDS: 3 TEMPORAL ORIENTATION: YEAR: CORRECT, MONTH: CORRECT, DAY: CORRECT RECALL: SOCK: YES WITH CUE, COLOR: YES WITH CUE, BED: YES MEMORY/RECALL ABILITY: SEASON, THAT SHE IS IN THE HOSPITAL [facility]IC[facility] Sep 02, 2020 08:19
--- NOTE | 2020-09-02 09:40 | Physical Therapy Daily Note ---
PT Daily Note-Current Subjective Pt agreeable to PT. Reports she feels ready to go home tomorrow. Mental Status Patient Orientation: Person, Place, Time, Situation Transfers SCALE: Activities may be completed with or without assistive devices. 1-Ezmyrentur-vfdwzsg completes the activity by him/herself with no assistance from a helper. 5-Set-up or Clean-up Assistance-helper sets up or cleans up; patient completes activity. [place] assists only prior to or following the activity. 4-Supervision or Touching Assistance-helper provides verbal cues and/or touching/steadying and/or contact guard assistance as patient completes activity. Assistance may be provided throughout the activity or intermittently. 3-Partial/Moderate Assistance-helper does LESS THAN HALF the effort. [place] lifts, holds or supports trunk or limbs, but provides less than half the effort. 2-Substantial/Maximal Assistance-helper does MORE THAN HALF the effort. [place] lifts or holds trunk or limbs and provides more than half the effort. 4-Bayfmlnhz-lqbxvh does ALL the effort. Patient does none of the effort to complete the activity. Or, the assistance of 2 or more helpers is required for the patient to complete the activity. If activity was not attempted, code reason: 7-Patient Refused. 9-Not Applicable-not attempted and the patient did not perform the activity before the current illness, exacerbation or injury. 10-Not Attempted due to Environmental Limitations-(lack of equipment, weather restraints, etc.). 88-Not Attempted due to Medical Conditions or Safety Concerns. Roll Left & Right (QC): 6 Sit to Lying (QC): 6 Lying to Sitting/Side of Bed(Q: 6 Sit to Stand (QC): 6 Chair/Loy-ly-Yhakb Xfer(QC): 6 Toilet Transfer (QC): 6 Car Transfer (QC): 6 Pt is mod indep with be mobility but does use bedrail and takes extra time; limited by intermittent back pain with the transition. She does tend to pull up on the walker to stand but typically self corrects. Gait Training Does the Patient Walk?: Yes Walk 10 feet (QC): 6 Walk 50 ft with 2 Turns(QC): 6 Walk 150 ft (QC): 6 Walking 10ft/uneven surface-QC: 6 Gait Assistive Device: FWW Safe and steady gait with ambulation with FWW; typically antalgic with WB left initially but this resolves after a few steps. Wheelchair Training Does the Pt Use a Wheelchair?: No Wheel 50 ft with 2 turns (QC): 9 Wheel 150 ft (QC): 9 Stair Training 1 Step (curb) (QC): 6 4 Steps (QC): 6 12 Steps (QC): 9 one step at a time; B handrails on the steps;uses walker for the curb step Balance Picking up an Object (QC): 9 Treatments Functional mobility training and progression. Assessment Current Status: Excellent Progress Pt has made excellent progress. She is meeting PT goals and mobilizing without assist. PT Short Term Goals Short Term Goals Time Frame: Sep 03, 2020 Roll Left & Right: 6 Sit to lyin Lying to sitting on side of be: 4 Sit to stand: 4 Chair/ebu-ta-qoand transfer: 4 Walk 10 feet: 4 Walk 50 feet with two turns: 4 Walk 150 feet: 4 PT Fdc Goals Fdc Goals PT Fdc Goals Time Frame: Sep 17, 2020 Roll Left & Right (QC): 6 (met) Sit to Lying (QC): 6 (met) Lying-Sitting on Side/Bed(QC): 6 (met) Sit to Stand (QC): 6 (met) Chair/Wxb-yh-Rdxjd Xfer(QC): 5 (exceeded) Toilet Transfer (QC): 5 (exceeded) Car Transfer (QC): 5 (exceeded) Does the Patient Walk: Yes Walk 10 feet (QC): 5 (xceeded) Walk 50ft with 2 Turns (QC): 5 (exceeded) Walk 150 ft (QC): 5 (exceeded) Walking 10ft on Uneven Surface: 5 (xceeded) 1 Step (curb) (QC): 5 (exceeded) 4 Steps (QC): 5 (exceeded) 12 Steps (QC): 88 (na) Picking up an Object (QC): 88 (na) Wheel 50 feet with 2 turns (QC: 9 Wheel 150 feet: 9 PT Plan Problem List Problem List: Activity Tolerance, Functional Strength, Safety Treatment/Plan Treatment Plan: Continue Plan of Care Treatment Plan: Bed Mobility, Education, Functional Activity Kurtis, Functional Strength, Group Therapy, Gait, Safety, Therapeutic Exercise, Transfers Treatment Duration: Sep 17, 2020 Frequency: At least 5 of 7 days/Wk (IRF) Estimated Hrs Per Day: 1.5 hours per day Patient and/or Family Agrees t: Yes Safety Risks/Education Patient Education: Safety Issues Teaching Recipient: Patient Teaching Methods: Discussion Response to Teaching: Verbalize Understanding Discharge Recommendations Therapy Discharge Recommendati: Post Acute PT (HHC PT) Time/GCodes Time In: 800 Time Out: 845 Total Billed Treatment Time: 45 Total Billed Treatment visit FA 45 ROGE TERESA PT Sep 02, 2020 09:40
--- NOTE | 2020-09-02 10:52 | Occupational Ther Daily Note ---
OT Current Status-Daily Note Subjective Pt seen in room, up in recliner, agreeable to OT. No pain mentioned. Appearance Alert, cooperative ADL-Treatment Pt declined a shower but did agree to sponge bath. Walked SBA, FWW to bathroom and completed toilet transfer without assistance, grab bar, tall toilet. Managed clothing and hygiene without help. Pt washed self with bath pack with SBA for standing to wash elke and bottom. Able to doff and don upper body clothing with SBA when standing. Able to doff/don lower body clothing, with cues to sit to take pants off and put them on. Cues for safety awareness with reaching for clean clothing on her walker. Stood at sink to wash hands and brush teeth, no assist needed. While walking out of the bathroom, she stopped and leaned against doorway, stating that she was tired. Walked SBA, FWW to recliner and sat before she was squared up. Pt indicated that she felt ready to return home and will have her daughter with her when she showers. Pt left up in recliner, all needs met. Therapy Code Descriptions/Definitions Functional [place] Measure: 0=Not Assessed/NA 4=Minimal Assistance 1=Total Assistance 5=Supervision or Setup 2=Maximal Assistance 6=Modified [place] 3=Moderate Assistance 7=Complete IndependenceSCALE: Activities may be completed with or without assistive devices. 1-Nlmecfwgqd-ewwrglk completes the activity by him/herself with no assistance from a helper. 5-Set-up or Clean-up Assistance-helper sets up or cleans up; patient completes activity. [place] assists only prior to or following the activity. 4-Supervision or Touching Assistance-helper provides verbal cues and/or touching/steadying and/or contact guard assistance as patient completes activity. Assistance may be provided throughout the activity or intermittently. 3-Partial/Moderate Assistance-helper does LESS THAN HALF the effort. [place] lifts, holds or supports trunk or limbs, but provides less than half the effort. 2-Substantial/Maximal Assistance-helper does MORE THAN HALF the effort. [place] lifts or holds trunk or limbs and provides more than half the effort. 8-Lnelmefmp-hnnjtc does ALL the effort. Patient does none of the effort to complete the activity. Or, the assistance of 2 or more helpers is required for the patient to complete the activity. If activity was not attempted, code reason: 7-Patient Refused. 9-Not Applicable-not attempted and the patient did not perform the activity before the current illness, exacerbation or injury. 10-Not Attempted due to Environmental Limitations-(lack of equipment, weather restraints, etc.). 88-Not Attempted due to Medical Conditions or Safety Concerns. Eating (QC): 6 Oral Hygiene (QC): 6 Shower/Bathe Self (QC): 4 (sponge bath SBA) Upper Body Dressing (QC): 4 (SBA) Lower Body Dressing (QC): 4 (Supervision, cues) On/Off Footwear: 6 (socks and shoes. Elastic shoe laces) Toileting Hygiene (QC): 6 Toilet Transfer (QC): 6 Education OT Patient Education: Progress toward Goal/Update tx plan, Purpose of tx/functional activities, Safety issues Teaching Recipient: Patient Teaching Methods: Discussion Response to Teaching: Verbalize Understanding, Return Demonstration, Reinforcement Needed OT Short Term Goals Short Term Goals Time Frame: Sep 03, 2020 OT [place] Operator Goals Senior Living Goals Time Frame: Sep 10, 2020 Eating (QC): 6 Oral Hygiene (QC): 6 Toileting Hygiene (QC): 6 Shower/Bathe Self (QC): 4 Upper Body Dressing (QC): 5 Lower Body Dressing (QC): 4 On/Off Footwear (QC): 6 Additional Goals: 1-Demonstrate ADL Tasks, 2-Verbalize Understanding, 3- ImproveStrength/Kurtis 1=Demonstrate adherence to instructed precautions during ADL tasks. 2=Patient will verbalize/demonstrate understanding of assistive devices/modifications for ADL. 3=Patient will improve strength/tolerance for activity to enable patient to perform ADL's. OT Education/Plan Discharge Recommendations Plan/Recommendations: Continue POC Treatment Plan/Plan of Care Patient would benefit from OT for education, treatment and training to promote independence in ADL's, mobility, safety and/or upper extremity function for ADL's. Plan of Care: ADL Retraining, Functional Mobility, Group Exercise/Act as Ind, UE Funct Exercise/Act Treatment Duration: Sep 10, 2020 Frequency: At least 5 of 7 days/Wk (IRF) Estimated Hrs Per Day: 1.5 hours per day Agreement: Yes Rehab Potential: Good Time/GCodes Start Time: 10:00 Stop Time: 10:45 Total Time Billed (hr/min): 45 Billed Treatment Time visit, 45 minutes ADL KHLOE STEVENS OT Sep 02, 2020 10:52
--- NOTE | 2020-09-02 14:41 | Therapy Group Daily Note ---
Therapy Daily Group Note Patient Education Topic Other List Below (memory, ARU description/expectations) Session Ratio (pt:therapist): 4:1 Goal of Session: Education on ARU Expectations, Memory Strategies, UE/LE Strengthing Goal Met for this Session: Yes Pt Benefit of Group: Contributions to Others, F/U Use of Strategies @Home, Increased Functional Safety, Increased Functional Strength, Improved Cognition, Recognition of Peers, Socialization Other/Notes Pt ambulated using FWW to OT/PT group [facility] Group consisted of introductions (name, place living, categories question), socialization, B UE/LE seated exercises, memory task and education. Pt introduced self appropriately and actively listened to peers. Pt able to throw items in designated areas against gravity with 80% accuracy. Pt was able to chose correct memory match 50% of the time. Pt acknowledged understanding of educational topics by giving own strategies. After therapy, pt sitting in chair with call light/phone in reach. All needs met in room. Start Time: 13:00 Stop Time: 14:00 Total Billed Treatment Time: 60 Total Billed Treatment 1-GRP ROGE RODRIGUEZ Sep 02, 2020 14:41
[2020-09-02 20:00] VITALS: BP 119/58
[2020-09-02] MEDS: ACETAMINOPHEN 325 MG TABLET PO PRN (20:10)
[2020-09-03] MEDS ORDERED: METO50TA7 PO (05:43)
[2020-09-03] MEDS ORDERED: ACHD5005 PO (05:43)
--- NOTE | 2020-09-03 05:44 | D/C HH Face to Face Order ---
D/C Face to Face Orders Reconcile Patient Problems Problems Reviewed?: Yes Instructions for Patient Via [facility], Patient Instructions/FollowUp: Dr Jean-Baptiste 1 week Physician to follow Patient: Jerilyn Discharge Diet for Home: No Restrictions Patient Problems: Left hip pain Confusion Patient Data-Allergies,Ht & Wt Patient Allergies: Coded Allergies: lisinopril (Unverified Allergy, Unknown, 07/12/16) Sulfa (Sulfonamide Antibiotics) (Verified Adverse Reaction, Intermediate, RASH, 02/25/11) Height (Feet): 5 Height (Inches): 1.00 Weight (Pounds): 100 Home Health Need/Face to Face Date of Face to Face: Sep 03, 2020 Clinical Findings: Generalized weakness and fatigue, Instability, Muscle weakness, Pain with ambulation, Unsteady gait I have seen Pt vazw-oa-eqnv: Yes Discharged To: Home Diagnosis/Conditions: Left hip pain Confusion Patient is Homebound due to: CognItive deficits, Rickie fall risk due to instabilty, Pain w/ambulation Homebound Status Due to the above stated illness, injury or surgical procedure (medical condition or diagnosis) and associated clinical findings, the patient is homebound because of his/her inability to leave home except with aid of a suppo rtive device and/or person AND leaving the home requires a considerable and taxing effort or is medically contraindicated. Pt req the following assistanc: Walker Home Health Nursing Orders Home Health Services Order: Nursing Services, Ux Researcher-Evaluate & Treat, Physical Therapy-Evaluate & Treat Certify Stmt I certify that this patient is under my care and that I, a nurse practitioner or a physician; a ob gyn physician assistant working with me, had a face to face encounter that - meets the physician face to face encounter requirements with this patient as dated. DONN LEON DO Sep 03, 2020 05:44
[2020-09-03] MEDS: LEVOTHYROXINE 125 MCG (LEVOTHROID) TABLET PO SCH (06:35)
[2020-09-03] MEDS: KCL 20 MEQ TAB (K-DUR) PO SCH (06:35)
[2020-09-03] MEDS: VITAMIN D3 10 MCG (400 UNITS) TABLET PO SCH (06:35)
[2020-09-03 08:00] VITALS: BP 151/66
[2020-09-03] MEDS: CLOPIDOGREL 75 MG (PLAVIX) TABLET PO SCH (08:23)
[2020-09-03] MEDS: meTOproloL SUCCINATE 50 MG (TOPROL XL) TAB PO SCH (08:23)
[2020-09-03] MEDS: OMEGA 3 (FISH OIL) 1000 MG CAP PO SCH (08:23)
[2020-09-03] MEDS: CALCIUM CARBONATE 600 MG (CALCARB) TAB PO SCH (08:23)
[2020-09-03] MEDS: PANTOPRAZOLE 40 MG (PROTONIX) TAB PO SCH (08:23)
[2020-09-03] MEDS: DOCUSATE SODIUM 100 MG (COLACE) CAP PO SCH (08:24)
[2020-09-03] MEDS: COLESTIPOL 1 GM (COLESTID) TAB PO SCH ×2 (08:24→13:48)
[2020-09-03] MEDS: ASPIRIN 81 MG CHEW (CHILDREN'S ASA) PO SCH (08:24)
[2020-09-03] MEDS: FUROSEMIDE 40 MG (LASIX) TAB PO SCH (08:24)
[2020-09-03] MEDS: CARBAM PEROX/GLYC/PROP 15 ML DROPS (DEBROX) EACH EAR SCH (08:25)
[2020-09-03] MEDS: CALCITONIN NASAL 200 INTLU/AC (FORTICAL) 3.7 ML BTL SCH (08:25)
--- NOTE | 2020-09-03 09:39 | Therapy Team Discharge Summary ---
Therapy Discharge Summary Discharge Recommendations Date of Discharge Occupational Therapy Decreased Activ Tolerance, Decreased UE Strength, Dependent Transfers, Impaired Funct Balance, Impaired I ADL's, Impaired Self-Care Skills Speech-Language Pathology Patient was admitted to the ARU due to debility. She was given the SLUMS with a score indicating she had cognitive deficits. She received skilled ST services with good progress made. She is discharging to her home today where she will have family to assist her. PT Halfway Goals Halfway Goals PT Truck Rental Service Attendant Goals Time Frame: Sep 17, 2020 Roll Left to Right (QC): 6 (met) Sit to Lying (QC): 6 (met) Lying-Sitting on Side/Bed(QC): 6 (met) Sit to Stand (QC): 6 (met) Chair/Dnq-po-Qtodg Xfer(QC): 5 (exceeded) Car Transfer (QC): 5 (exceeded) Does the Patient Walk: Yes Walk 10 feet (QC): 5 (xceeded) Walk 10ft-Uneven Surface(QC): 5 (xceeded) Walk 50ft with 2 Turns (QC): 5 (exceeded) Walk 150 ft (QC): 5 (exceeded) Wheel 50 feet with 2 turns (QC: 9 1 Step (curb) (QC): 5 (exceeded) 4 Steps (QC): 5 (exceeded) 12 Steps (QC): 88 (na) Picking up an Object (QC): 88 (na) OT Halfway Goals Truck Rental Service Attendant Goals Time Frame: Sep 10, 2020 Eating (QC): 6 Oral Hygiene (QC): 6 Shower/Bathe Self (QC): 4 Upper Body Dressing (QC): 5 Lower Body Dressing (QC): 4 On/Off Footwear (QC): 6 Toileting Hygiene (QC): 6 Toilet/Commode Transfer (QC): 5 (exceeded) Additional Goals: 1-Demonstrate ADL Tasks, 2-Verbalize Understanding, 3- ImproveStrength/Kurtis 1=Demonstrate adherence to instructed precautions during ADL tasks. 2=Patient will verbalize/demonstrate understanding of assistive devices/modifications for ADL. 3=Patient will improve strength/tolerance for activity to enable patient to perform ADL's. Speech Halfway Goals Truck Rental Service Attendant Goals Patient will improve her cognitive communication abilities in order to require decreased assist with her daily needs. ORION REYES Sep 03, 2020 09:39
[2020-09-03] MEDS: ACETAMINOPHEN 325 MG TABLET PO PRN (10:43)
--- NOTE | 2020-09-03 10:56 | Discharge Summary ---
Diagnosis/Chief Complaint Date of Admission Aug 27, 2020 at 11:30 Date of Discharge Discharge Date: Sep 03, 2020 Discharge Diagnosis Assessment: Debility Left hip pain CAD HTN Memory loss Presbycusis Acute on chronic diarrhea Plan: Monitor closely Pain control Memory loss management 08/28/20: Imodium Colestid FP consult IRF protocol 08/29/2020: Supportive care Pain control Fall risk 08/30/2020: Much improved status Diarrhea much improved Ambulating around well 08/31/2020: Monitor closely Pain control 09/01/2020: Pain control Fall risk Metoprolol per PCP 09/02/2020: Discharge on home health tomorrow (1) Debility Status: Acute (2) Left hip pain Status: Acute (3) Low back pain Status: Acute (4) CAD (coronary artery disease) (5) Essential (primary) hypertension Status: Chronic (6) Hypothyroidism Status: Chronic (7) HLD (hyperlipidemia) Status: Chronic (8) Normocytic anemia Discharge Summary Discharge Physical Examination Allergies: Coded Allergies: lisinopril (Unverified Allergy, Unknown, 07/12/16) Sulfa (Sulfonamide Antibiotics) (Verified Adverse Reaction, Intermediate, RASH, 02/25/11) Vitals & I&Os Vital Signs Date Time Temp Pulse Resp B/P (MAP) Pulse Ox O2 Delivery O2 Flow Rate FiO2 09/03/20 16:59 36.4 75 18 151/66 93 Room Air General Appearance: Alert, Oriented X3 HEENT: Atraumatic Respiratory: Clear to Auscultation Cardiovascular: Regular Rate Neuro: Normal Gait, Normal Speech, Strength at 5/5 X4 Ext Hospital Course Was the Problem List Reviewed?: Yes Hospital course: Patient had an uneventful hospital course after she was admitted after a fall and subsequent left hip pain which was managed with pain medication. Overall she improved and was able to take Tylenol for the pain and had no decompensation during hospital stay although her confusion and presbycusis puts her at risk for additional issues she was discharged in improved condition with her daughter. Labs (last 24 hrs) Laboratory Tests 08/28/20 05:18: White Blood Count 5.0, Red Blood Count 3.83, Hemoglobin 10.5#L, Hematocrit 34L, Mean Corpuscular Volume 89, Mean Corpuscular Hemoglobin 27, Mean Corpuscular Hemoglobin Concent 31L, Red Cell Distribution Width 15.2H, Platelet Count 161, Mean Platelet Volume 11.8, Immature Granulocyte % (Auto) 0, Neutrophils (%) (Auto) 42, Lymphocytes (%) (Auto) 48H, Monocytes (%) (Auto) 10, Eosinophils (%) (Auto) 0, Basophils (%) (Auto) 0, Neutrophils # (Auto) 2.1, Lymphocytes # (Auto) 2.4, Monocytes # (Auto) 0.5, Eosinophils # (Auto) 0.0, Basophils # (Auto) 0.0, Immature Granulocyte # (Auto) 0.0, Sodium Level 142, Potassium Level 3.6, Chloride Level 105, Carbon Dioxide Level 25, Anion Gap 12, Blood Urea Nitrogen 17, Creatinine 0.83, Estimat Glomerular Filtration Rate > 60, BUN/Creatinine Ratio 20, Glucose Level 100, Calcium Level 9.2, Corrected Calcium 9.6, Total Bilirubin 0.3, Aspartate Amino Transf (AST/SGOT) 26, Alanine Aminotransferase (ALT/SGPT) 11, Alkaline Phosphatase 49, Total Protein 6.4, Albumin 3.5 09/02/20 05:10: White Blood Count 4.9, Red Blood Count 4.25, Hemoglobin 11.6, Hematocrit 37, Mean Corpuscular Volume 86, Mean Corpuscular Hemoglobin 27, Mean Corpuscular Hemoglobin Concent 32, Red Cell Distribution Width 14.9H, Platelet Count 152, Mean Platelet Volume 11.3, Immature Granulocyte % (Auto) 0, Neutrophils (%) (Auto) 55, Lymphocytes (%) (Auto) 32, Monocytes (%) (Auto) 13H, Eosinophils (%) (Auto) 0, Basophils (%) (Auto) 0, Neutrophils # (Auto) 2.7, Lymphocytes # (Auto) 1.6, Monocytes # (Auto) 0.6, Eosinophils # (Auto) 0.0, Basophils # (Auto) 0.0, Immature Granulocyte # (Auto) 0.0, Sodium Level 139, Potassium Level 4.3, Chloride Level 104, Carbon Dioxide Level 22, Anion Gap 13, Blood Urea Nitrogen 13, Creatinine 0.84, Estimat Glomerular Filtration Rate > 60, BUN/Creatinine Ratio 15, Glucose Level 87, Calcium Level 9.5, Corrected Calcium 9.7, Total Bilirubin 0.4, Aspartate Amino Transf (AST/SGOT) 30, Alanine Aminotransferase (ALT/SGPT) 13, Alkaline Phosphatase 53, Total Protein 7.2, Albumin 3.8 Pending Labs Laboratory Tests 08/28/20 05:18: White Blood Count 5.0, Red Blood Count 3.83, Hemoglobin 10.5, Hematocrit 34, Mean Corpuscular Volume 89, Mean Corpuscular Hemoglobin 27, Mean Corpuscular Hemoglobin Concent 31, Red Cell Distribution Width 15.2, Platelet Count 161, Mean Platelet Volume 11.8, Immature Granulocyte % (Auto) 0, Neutrophils (%) (Auto) 42, Lymphocytes (%) (Auto) 48, Monocytes (%) (Auto) 10, Eosinophils (%) (Auto) 0, Basophils (%) (Auto) 0, Neutrophils # (Auto) 2.1, Lymphocytes # (Auto) 2.4, Monocytes # (Auto) 0.5, Eosinophils # (Auto) 0.0, Basophils # (Auto) 0.0, Immature Granulocyte # (Auto) 0.0, Sodium Level 142, Potassium Level 3.6, Chloride Level 105, Carbon Dioxide Level 25, Anion Gap 12, Blood Urea Nitrogen 17, Creatinine 0.83, Estimat Glomerular Filtration Rate > 60, BUN/Creatinine Ratio 20, Glucose Level 100, Calcium Level 9.2, Corrected Calcium 9.6, Total Bilirubin 0.3, Aspartate Amino Transf (AST/SGOT) 26, Alanine Aminotransferase (ALT/SGPT) 11, Alkaline Phosphatase 49, Total Protein 6.4, Albumin 3.5 09/02/20 05:10: White Blood Count 4.9, Red Blood Count 4.25, Hemoglobin 11.6, Hematocrit 37, Mean Corpuscular Volume 86, Mean Corpuscular Hemoglobin 27, Mean Corpuscular Hemoglobin Concent 32, Red Cell Distribution Width 14.9, Platelet Count 152, Mean Platelet Volume 11.3, Immature Granulocyte % (Auto) 0, Neutrophils (%) (Auto) 55, Lymphocytes (%) (Auto) 32, Monocytes (%) (Auto) 13, Eosinophils (%) (Auto) 0, Basophils (%) (Auto) 0, Neutrophils # (Auto) 2.7, Lymphocytes # (Auto) 1.6, Monocytes # (Auto) 0.6, Eosinophils # (Auto) 0.0, Basophils # (Auto) 0.0, Immature Granulocyte # (Auto) 0.0, Sodium Level 139, Potassium Level 4.3, Chloride Level 104, Carbon Dioxide Level 22, Anion Gap 13, Blood Urea Nitrogen 13, Creatinine 0.84, Estimat Glomerular Filtration Rate > 60, BUN/Creatinine Ratio 15, Glucose Level 87, Calcium Level 9.5, Corrected Calcium 9.7, Total Bilirubin 0.4, Aspartate Amino Transf (AST/SGOT) 30, Alanine Aminotransferase (ALT/SGPT) 13, Alkaline Phosphatase 53, Total Protein 7.2, Albumin 3.8 Discharge Home Medications: Active Scripts Active HYDROcodone/APAP 5 MG/325 MG TAB (Acetaminophen/Hydrocodone Bitart) 1 Tab Tab 0.5 Ea PO Q8HR PRN Metoprolol Succinate 50 Mg Tab.er.24h 50 Mg PO DAILY Reported Debrox (Carbamide Peroxide) 15 Ml Drops 5 Drops EACH EAR BID HOLD DROPS IN EACH EAR FOR 10 MINUTES Calcium (Calcium Carbonate) 600 Mg Tablet 600 Mg PO DAILY Krill Oil 1,000 mg Softgel (Krill/Om-3/Dha/Epa/Phospho/Ast) 1 Each Capsule 1 Each PO DAILY Clopidogrel (Clopidogrel Bisulfate) 75 Mg Tablet 75 Mg PO DAILY Aspirin 81 Mg Tab.chew 81 Mg PO DAILY Imodium A-D (Loperamide HCl) 2 Mg Tablet 2-4 Mg PO UD PRN Potassium Chloride 10 Meq Tab.er.prt 20 Meq PO DAILY TAKES 2 (10MEQ) TABS Furosemide 40 Mg Tablet 40 Mg PO DAILY Colestipol HCl 1 Gm Tablet 1-2 Gm PO Q8H PRN TAKES 1 TO 2 (1GM) TABS Pantoprazole Sodium 40 Mg Tablet.dr 40 Mg PO DAILY Meclizine HCl 25 Mg Tablet 25 Mg PO Q6H PRN Citalopram HBr (Citalopram Hydrobromide) 10 Mg Tablet 10 Mg PO DAILY Atorvastatin Calcium 40 Mg Tablet 40 Mg PO DAILY LAST FILLED 06-12-2020 #15 DAY SUPPLY Levothyroxine Sodium 125 Mcg Tablet 125 Mcg PO DAILY Instructions to patient/family Please see electronic discharge instructions given to patient. Diagnosis/Problems Diagnosis/Problems (1) Debility Status: Acute (2) Left hip pain Status: Acute (3) Low back pain Status: Acute (4) CAD (coronary artery disease) (5) Essential (primary) hypertension Status: Chronic (6) Hypothyroidism Status: Chronic (7) HLD (hyperlipidemia) Status: Chronic (8) Normocytic anemia LEON,DONN DO Sep 03, 2020 10:56
--- NOTE | 2020-09-03 11:15 | Therapy Team Discharge Summary ---
Therapy Discharge Summary Discharge Recommendations Date of Discharge 09/03/2020 Therapy D/C Recommendations: Physical Therapy Home Care Physical Therapy This patient admitted to ARU post acute hospital stay with reports of intractable back and hip pain. Prior to her hospital stay, she was mod indep in her home, living alone. Upon admit to this unit, pt was CG to min assist with all bed mobility, transfers and ambulated 200 ft with CGA with FWW. Treatment has consisted of functional strength, balance, activity tolerance, balance and gait progression. She has made excellent progress. She is mod indep with all mobility for in home distances and has met all goals. She is to discharge home today with family support as needed. Recommend [facility] PT to follow. DC PT. Occupational Therapy Decreased Activ Tolerance, Decreased UE Strength, Dependent Transfers, Impaired Funct Balance, Impaired I ADL's, Impaired Self-Care Skills PT Manager Dialysis Goals Skilled Nursing Goals PT Manager Dialysis Goals Time Frame: Sep 17, 2020 Roll Left to Right (QC): 6 (met) Sit to Lying (QC): 6 (met) Lying-Sitting on Side/Bed(QC): 6 (met) Sit to Stand (QC): 6 (met) Chair/Aic-ki-Cwtea Xfer(QC): 5 (exceeded) Car Transfer (QC): 5 (exceeded) Does the Patient Walk: Yes Walk 10 feet (QC): 5 (xceeded) Walk 10ft-Uneven Surface(QC): 5 (xceeded) Walk 50ft with 2 Turns (QC): 5 (exceeded) Walk 150 ft (QC): 5 (exceeded) Wheel 50 feet with 2 turns (QC: 9 1 Step (curb) (QC): 5 (exceeded) 4 Steps (QC): 5 (exceeded) 12 Steps (QC): 88 (na) Picking up an Object (QC): 88 (na) All goals met to a satisfactory level OT Skilled Nursing Goals Manager Dialysis Goals Time Frame: Sep 10, 2020 Eating (QC): 6 Oral Hygiene (QC): 6 Shower/Bathe Self (QC): 4 Upper Body Dressing (QC): 5 Lower Body Dressing (QC): 4 On/Off Footwear (QC): 6 Toileting Hygiene (QC): 6 Toilet/Commode Transfer (QC): 5 (exceeded) Additional Goals: 1-Demonstrate ADL Tasks, 2-Verbalize Understanding, 3-ImproveStrength/Kurtis 1=Demonstrate adherence to instructed precautions during ADL tasks. 2=Patient will verbalize/demonstrate understanding of assistive devices/modifications for ADL. 3=Patient will improve strength/tolerance for activity to enable patient to perform ADL's. Speech Manager Dialysis Goals Skilled Nursing Goals Patient will improve her cognitive communication abilities in order to require decreased assist with her daily needs. ROGE TERESA PT Sep 03, 2020 11:15
--- NOTE | 2020-09-03 15:35 | Therapy Team Discharge Summary ---
Therapy Discharge Summary Discharge Recommendations Date of Discharge 09-03-20 Therapy D/C Recommendations: Home w/ Family Support, Physical Therapy Home Care Occupational Therapy Pt. has been seen by Occupational therapy to increase overall strength and independence with daily skills. Pt. has met all goals. She is able to complete most tasks with Mod I, and is able to complete dressing tasks with SBA. Pt. is discharging home with family support. No further OT needs warranted at this time. No equipment needs. Decreased Activ Tolerance PT Negative Retoucher Goals Negative Retoucher Goals PT Negative Retoucher Goals Time Frame: Sep 17, 2020 Roll Left to Right (QC): 6 (met) Sit to Lying (QC): 6 (met) Lying-Sitting on Side/Bed(QC): 6 (met) Sit to Stand (QC): 6 (met) Chair/Wzv-td-Vedox Xfer(QC): 5 (exceeded) Car Transfer (QC): 5 (exceeded) Does the Patient Walk: Yes Walk 10 feet (QC): 5 (xceeded) Walk 10ft-Uneven Surface(QC): 5 (xceeded) Walk 50ft with 2 Turns (QC): 5 (exceeded) Walk 150 ft (QC): 5 (exceeded) Wheel 50 feet with 2 turns (QC: 9 1 Step (curb) (QC): 5 (exceeded) 4 Steps (QC): 5 (exceeded) 12 Steps (QC): 88 (na) Picking up an Object (QC): 88 (na) OT Prison Goals Negative Retoucher Goals Time Frame: Sep 10, 2020 Eating (QC): 6 (met) Oral Hygiene (QC): 6 (met) Shower/Bathe Self (QC): 4 (met) Upper Body Dressing (QC): 5 (met) Lower Body Dressing (QC): 4 (met) On/Off Footwear (QC): 6 (met) Toileting Hygiene (QC): 6 (met) Toilet/Commode Transfer (QC): 5 (exceeded) Additional Goals: 1-Demonstrate ADL Tasks, 2-Verbalize Understanding, 3- ImproveStrength/Kurtis 1=Demonstrate adherence to instructed precautions during ADL tasks. 2=Patient will verbalize/demonstrate understanding of assistive devices/modific ations for ADL. 3=Patient will improve strength/tolerance for activity to enable patient to perform ADL's. Speech Negative Retoucher Goals Prison Goals Patient will improve her cognitive communication abilities in order to require decreased assist with her daily needs. MOHAN VENCES OT Sep 03, 2020 15:35
[2020-09-03 16:59] VITALS: BP 151/66
== END 2020-09-03 16:35 | disposition home health service (06) | DRG 555 ==
PROVIDERS: ADMIT Internal Medicine; ATTEND Internal Medicine
DX: M25.551 Pain in right hip (principal); I21.4 Non-ST elevation (NSTEMI) myocardial infarction; Z91.81 History of falling; S22.000D Wedge compression fracture of unspecified thoracic vertebra, subsequent encounter for fracture with routine healing; S32.000D Wedge compression fracture of unspecified lumbar vertebra, subsequent encounter for fracture with routine healing; M48.00 Spinal stenosis, site unspecified; R41.3 Other amnesia; I25.10 Atherosclerotic heart disease of native coronary artery without angina pectoris; Z66 Do not resuscitate; E78.00 Pure hypercholesterolemia, unspecified; E78.5 Hyperlipidemia, unspecified; H91.10 Presbycusis, unspecified ear; I10 Essential (primary) hypertension; R19.7 Diarrhea, unspecified; E03.9 Hypothyroidism, unspecified; D64.9 Anemia, unspecified; Z87.891 Personal history of nicotine dependence; Z95.1 Presence of aortocoronary bypass graft; Z95.5 Presence of coronary angioplasty implant and graft; Z79.82 Long term (current) use of aspirin; Z88.2 Allergy status to sulfonamides; W19.XXXD Unspecified fall, subsequent encounter
CPT/HCPCS: 36415; 80053; 85025

== ENCOUNTER → 2021-02-13 | Outpatient (CLI) | payer MEDICARE ==
[~2021-02-13] MED LIST changes: +ACHD5005 PO; +CARB15DR87 EACH EAR
--- NOTE | 2021-02-13 12:50 | Diagnostic Imaging Report ---
PROCEDURE: CT abdomen and pelvis without contrast. TECHNIQUE: Multiple contiguous axial images were obtained through the abdomen and pelvis without the use of intravenous contrast. Auto Exposure Controls were utilized during the CT exam to meet ALARA standards for radiation dose reduction. INDICATION: Colitis with diarrhea and abdominal pain. Comparison is made with prior CT from 08/10/2019. Imaging through lung bases demonstrates a stable nodule in the right lower lobe. No other nodules are seen. No discrete liver mass is detected. Gallbladder surgically absent. There is no biliary ductal dilatation. Pancreas and spleen are unremarkable. No adrenal mass is identified. No renal calculi are seen. There is no hydronephrosis. Aorta and iliac vessels are heavily calcified but non-aneurysmal. There is moderate stool in the colon. Bowel loops are nondilated. There is no evidence of obstruction. No significant wall thickening is seen. There is no pneumatosis. No free fluid or fluid collection is seen. The bladder is decompressed. There is moderate artifact through the pelvis from patient's right hip prosthesis. A chronic compression fracture deformity of the T12 vertebral body is noted. Patient has sustained a fracture of the inferior endplate of L5 as well since prior CT from July 2019. IMPRESSION: 1. Stable right lower lobe pulmonary nodule. 2. Unremarkable noncontrast CT of the abdomen and pelvis. No acute features detected. Dictated by: Dictated on workstation # [id number]
== END ==
LOC: RAD 11:45
PROVIDERS: ATTEND Family Medicine
DX: K52.9 Noninfective gastroenteritis and colitis, unspecified (principal); R91.1 Solitary pulmonary nodule
CPT/HCPCS: 74176

== ENCOUNTER 2022-03-14 12:09 | Emergency (ER) | payer MEDICARE ==
[~2022-03-14] VITALS: Ht 152 cm; Wt 57.0 kg
[~2022-03-14 12:09] MED LIST changes: -CITA10TA7 PO; +CITA10TA9 PO; +POTA-177 PO; -POTA10TA36 PO
--- NOTE | 2022-03-14 12:20 | ED Fall/Injury ---
General Chief Complaint: Trauma-Non Activation Stated Complaint: FALL/RT HIP PAIN Nursing Triage Note: PT ARRIVED PER EMS, PT STATES FELL LAST PM 2100 AND THIS AM COULD NOT BARE WT ON R HIP, PT DENIES LOC Source: patient, family, EMS Exam Limitations: no limitations History of Present Illness Date Seen by Provider: Mar 14, 2022 Time Seen by Provider: 12:10 Initial Comments 86-year-old female with past medical history of dementia, CHF, hypertension, CAD with stenting coming in via EMS from home after a fall. She was doing the dishes last night around 9 PM, tripped on a rug, fell landing on her right side hitting her hip. Having constant, severe, sharp hip pain, worse with movement, better with rest. She was able to scoot on her bottom to a chair and sit in it throughout the night. Contacted her daughter this morning who then called EMS. Did not hit her head or pass out, denies any neck or back pain. Otherwise denying any other acute complaints. Allergies and Home Medications Allergies Coded Allergies: lisinopril (Unverified Allergy, Unknown, 07/12/16) Sulfa (Sulfonamide Antibiotics) (Verified Adverse Reaction, Intermediate, RASH, 02/25/11) Patient Home Medication List Home Medication List Reviewed: Yes Aspirin (Aspirin) 81 Mg Tab.chew, 81 MG PO DAILY, (Reported) Entered as Reported by: ALIZE CHRISTIANSEN on 08/27/20 0936 Atorvastatin Calcium (Atorvastatin Calcium) 40 Mg Tablet, 40 MG PO DAILY, (Reported) Entered as Reported by: ALIZE CHRISTIANSEN on 07/31/20 1002 Calcium Carbonate (Calcium) 600 Mg Tablet, 600 MG PO DAILY, (Reported) Entered as Reported by: ALIZE CHRISTIANSEN on 08/27/20 0936 Carbamide Peroxide (Debrox) 15 Ml Drops, 5 DROPS EACH EAR BID, (Reported) Entered as Reported by: ALIZE CHRISTIANSEN on 08/27/20 1617 Citalopram Hydrobromide (Citalopram HBr) 10 Mg Tablet, 10 MG PO DAILY, (Reported) Entered as Reported by: ALIZE CHRISTIANSEN on 07/31/20 1002 Clopidogrel Bisulfate (Clopidogrel) 75 Mg Tablet, 75 MG PO DAILY, (Reported) Entered as Reported by: ALIZE CHRISTIANSEN on 08/27/20 0936 Colestipol HCl (Colestipol HCl) 1 Gm Tablet, 1-2 GM PO Q8H PRN for DIARRHEA, (Reported) Entered as Reported by: ALIZE CHRISTIANSEN on 07/31/201001 Furosemide (Furosemide) 40 Mg Tablet, 40 MG PO DAILY, (Reported) Entered as Reported by: ALIZE CHRISTIANSEN on 07/31/201001 Hydrocodone Bit/Acetaminophen (HYDROcodone/APAP 5 MG/325 MG TAB) 1 Tab Tab, 0.5 EA PO Q8HR PRN for PAIN-MODERATE (5-7) Prescribed by: DONN LEON on 09/03/20 0543 Krill/Om-3/Dha/Epa/Phospho/Ast (Krill Oil 1,000 mg Softgel) 1 Each Capsule, 1 EACH PO DAILY, (Reported) Entered as Reported by: ALIZE CHRISTIANSEN on 08/27/20 0936 Levothyroxine Sodium (Levothyroxine Sodium) 125 Mcg Tablet, 125 MCG PO DAILY, (Reported) Entered as Reported by: ALIZE CHRISTIANSEN on 07/31/201001 Loperamide HCl (Imodium A-D) 2 Mg Tablet, 2-4 MG PO UD PRN for DIARRHEA, (Reported) Entered as Reported by: ALIZE CHRISTIANSEN on 07/31/201001 Meclizine HCl (Meclizine HCl) 25 Mg Tablet, 25 MG PO Q6H PRN for DIZZINESS, (Reported) Entered as Reported by: ALIZE CHRISTIANSEN on 07/31/201001 Metoprolol Succinate (Metoprolol Succinate) 50 Mg Tab.er.24h, 50 MG PO DAILY Prescribed by: DONN LEON on 09/03/2043 Pantoprazole Sodium (Pantoprazole Sodium) 40 Mg Tablet.dr, 40 MG PO DAILY, (Reported) Entered as Reported by: ALIZE CHRISTIANSEN on 07/31/201001 Potassium Chloride (Potassium Chloride) 10 Meq Tab.er.prt, 20 MEQ PO DAILY, (Reported) Entered as Reported by: ALIZE CHRISTIANSEN on 07/31/201001 Review of Systems Review of Systems Constitutional: No fever Eyes: No Symptoms Reported Ears, Nose, Mouth, Throat: no symptoms reported Respiratory: no symptoms reported Cardiovascular: no symptoms reported Gastrointestinal: no symptoms reported Genitourinary: no symptoms reported Musculoskeletal: see HPI Skin: no symptoms reported Psychiatric/Neurological: No Symptoms Reported All Other Systems Reviewed Negative Unless Noted: Yes Past Aeuldri-Jrujtw-Vqizsu Hx Patient Social History Tobacco Use?: No Substance use?: No Alcohol Use?: No Immunizations Up To Date Tetanus Booster (TDap): Unknown Influenza Vaccine Up-to-Date: Yes; Up-to-Date Past Medical History Surgery/Hospitalization HX: R HIP SURG, STENTS Surgeries: Yes Appendectomy, CABG, Coronary Stent, Gallbladder, Hysterectomy, Thyroidectomy Respiratory: No Cardiac: Yes Coronary Artery Disease, High Cholesterol, Hypertension, Peripheral Vascular Neurological: No Reproductive Disorders: Yes Gastrointestinal: Yes (IBS, COLITIS) Musculoskeletal: Yes Arthritis Endocrine: Yes (throid removed) Hyperthyroidism Cancer: No Psychosocial: No Blood Disorders: No Family Medical History Non contributory Physical Exam Vital Signs Vital Signs - First Documented Capillary Refill : Less Than 3 Seconds Height, Weight, BMI Height: 5'1.00" Weight: 100lbs. oz. 45.904707xb; 24.00 BMI Method:Stated General Appearance: WD/WN, no apparent distress HEENT: PERRL/EOMI, normal ENT inspection, pharynx normal Neck: non-tender, full range of motion, supple, normal inspection Cardiovascular: regular rate, rhythm, no edema, no murmur Respiratory: chest non-tender, lungs clear, normal breath sounds, no respiratory distress, no accessory muscle use Gastrointestinal: normal bowel sounds, non tender, soft; No guarding, No rebound Back: normal inspection, no CVA tenderness, no vertebral tenderness Extremities: no pedal edema, no calf tenderness, normal capillary refill, other (Right hip with pain with logroll as well as palpation, normal distal pulses and sensation, normal dorsiflexion and plantarflexion of the foot, cannot actively move hip due to pain) Neurologic/Psychiatric: no motor/sensory deficits, alert, normal mood/affect, oriented x 3 Skin: normal color, warm/dry Lymphatic: no adenopathy Eugenia Coma Score Best Eye Response: (4) Open Spontaneously Best Verbal Response: (5) Oriented Best Motor Response: (6) Obeys Commands Progress/Results/Core Measures Results/Orders Lab Results Laboratory Tests Test 03/14/22 12:20 03/14/22 13:02 Range/Units White Blood Count 6.4 4.3-11.0 10^3/uL Red Blood Count 4.44 3.80-5.11 10^6/uL Hemoglobin 11.8 11.5-16.0 g/dL Hematocrit 39 35-52 % Mean Corpuscular Volume 87 80-99 fL Mean Corpuscular Hemoglobin 27 25-34 pg Mean Corpuscular Hemoglobin Concent 31 L 32-36 g/dL Red Cell Distribution Width 16.0 H 10.0-14.5 % Platelet Count 159 130-400 10^3/uL Mean Platelet Volume 11.7 9.0-12.2 fL Immature Granulocyte % (Auto) 1 % Neutrophils (%) (Auto) 65 42-75 % Lymphocytes (%) (Auto) 22 12-44 % Monocytes (%) (Auto) 9 0-12 % Eosinophils (%) (Auto) 2 0-10 % Basophils (%) (Auto) 1 0-10 % Neutrophils # (Auto) 4.2 1.8-7.8 10^3/uL Lymphocytes # (Auto) 1.4 1.0-4.0 10^3/uL Monocytes # (Auto) 0.6 0.0-1.0 10^3/uL Eosinophils # (Auto) 0.1 0.0-0.3 10^3/uL Basophils # (Auto) 0.0 0.0-0.1 10^3/uL Immature Granulocyte # (Auto) 0.0 0.0-0.1 10^3/uL Sodium Level 141 135-145 MMOL/L Potassium Level 4.2 3.6-5.0 MMOL/L Chloride Level 106 98-107 MMOL/L Carbon Dioxide Level 23 21-32 MMOL/L Anion Gap 12 5-14 MMOL/L Blood Urea Nitrogen 10 7-18 MG/DL Creatinine 0.74 0.60-1.30 MG/DL Estimat Glomerular Filtration Rate 80 BUN/Creatinine Ratio 14 Glucose Level 100 70-105 MG/DL Calcium Level 9.9 8.5-10.1 MG/DL Corrected Calcium 9.7 8.5-10.1 MG/DL Total Bilirubin 0.4 0.1-1.0 MG/DL Aspartate Amino Transf (AST/SGOT) 25 5-34 U/L Alanine Aminotransferase (ALT/SGPT) 14 0-55 U/L Alkaline Phosphatase 43 40-136 U/L Total Protein 7.5 6.4-8.2 GM/DL Albumin 4.2 3.2-4.5 GM/DL Prothrombin Time 12.9 12.2-14.7 SEC INR Comment 0.9 0.8-1.4 Activated Partial Thromboplast Time 29 24-35 SEC My Orders Orders - ARMIN HERR MD Pelvis With Right Hip 2-3views (03/14/22 12:17) Cbc With Automated Diff (03/14/22 12:17) Comprehensive Metabolic Panel (03/14/22 12:17) Protime With Inr (03/14/22 12:17) Partial Thromboplastin Time (03/14/22 12:17) Ct Head/Cervical Spine Wo (03/14/22 12:17) Hydrocodone/Apap 5/325 Tablet (Lortab 5 (03/14/22 13:15) Medications Given in ED Current Medications Medications Dose Ordered Sig/Norma Route Start Time Stop Time Status Last Admin Dose Admin Acetaminophen/ Hydrocodone Bitart 1 ea ONCE ONCE PO 03/14/22 13:15 03/14/22 13:16 DC 03/14/22 13:07 1 EA Vital Signs/I&O 03/14/22 03/14/22 12:10 12:10 Pulse 86 86 Resp 18 18 B/P (MAP) 151/90 (110) 151/90 (110) Pulse Ox 96 96 O2 Delivery Room Air Blood Pressure Mean: 110 Progress Progress Note : Progress Note 86-year-old female with above history coming in after tripping and landing on her right side last night. ABCs were intact, vital stable on presentation, physical exam with right hip pain. GCS is otherwise 15 and she is neuro intact. X-ray of the pelvis and right hip negative for acute abnormality. CT head and cervical spine also negative for acute abnormality. Given this was mechanical fall, without fracture, patient would otherwise be stable for discharge. He definitely needs physical therapy to strengthen herself and help prevent future falls. I did offer admission multiple times for potential senior care placem ent, and they are adamant she does not want that at this time. I was able to ambulate the patient with assistance around the room. She does have assistance with her daughter at home. I believe she is otherwise stable for discharge with outpatient follow-up. She was sent home with strict return precautions. Diagnostic Imaging Diagonstic Imaging: Xray (pelvis and right hip), CT (head and c spine) Comments NAME: [facility] REC#: [id number] PT STATUS: REG ER : 1935 PHYSICIAN: ARMIN HERR MD ADMIT DATE: 03/14/22/ER Draft Date of Exam:03/14/22 PELVIS WITH RIGHT HIP 2-3VIEWS INDICATION: Right hip pain. COMPARISON: 08/26/2020. DISCUSSION: AP view of the pelvis and two views of the right hip were obtained. Bipolar right hip prosthesis appears stable. No hardware complications. No acute fracture or dislocation. Alignment is anatomic. Soft tissues are unremarkable. IMPRESSION: 1. Stable bipolar right hip prosthesis without complication. Dictated on workstation # [id number] Dict: 03/14/22 1249 Trans: 03/14/22 1251 CV [id number] Interpreted by: VERONICA MONTOYA MD Electronically signed by: PT STATUS: REG ER : 1935 PHYSICIAN: ARMIN HERR MD ADMIT DATE: 03/14/22/ER Draft Date of Exam:03/14/22 CT HEAD/CERVICAL SPINE WO PROCEDURE: CT head and CT cervical spine without contrast. TECHNIQUE: Multiple contiguous axial images were obtained through the brain and cervical spine without the use of intravenous contrast. Sagittal and coronal reformations through the cervical spine were then performed. Auto Exposure Controls were utilized during the CT exam to meet ALARA standards for radiation dose reduction. INDICATION: Head and neck pain after fall. COMPARISON: 07/12/2016. DISCUSSION: Head: Diffuse brain volume loss is stable, likely age related. White matter hypoattenuation is nonspecific though not greater than expected for age related chronic small vessel ischemic disease, stable. No acute intracranial hemorrhage, mass, midline shift, hydrocephalus. The orbits, sinuses, mastoid air cells, and calvarium are unremarkable. Cervical spine: Degenerative disease is again noted throughout the cervical spine primarily affecting the facet joints in the C5-C6 intervertebral disc space. Prominent disc osteophyte complex at C5-C6 contributes to central canal stenosis. There is no acute fracture or subluxation identified. Paraspinal soft tissues are unremarkable. IMPRESSION: 1. Senescent changes as described. No acute intracranial abnormality identified. 2. 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 No fracture. Dictated on workstation # [id number] Dict: 03/14/22 1246 Trans: 03/14/22 1253 [facility] [id number] Interpreted by: VERONICA MONTOYA MD Electronically signed by: Departure Impression Primary Impression: Fall Qualified Codes: W19.XXXA - Unspecified fall, initial encounter Additional Impression: Right hip pain Disposition: HOME, SELF-CARE Condition: Stable Departure-Patient Inst. Decision time for Depature: 13:59 Referrals: NO,LOCAL PHYSICIAN (PCP/Family) Primary Care Physician Patient Instructions: Hip Pain ED, Preventing Falls ED Add. Discharge Instructions: Fortunately nothing is broken, dislocated, or bleeding. I do want you to call your regular doctor and get physical therapy orders to help with your balance and to help prevent future falls. Take Tylenol as needed for the pain, you can also ice the area. Scripts Hydrocodone/Acetaminophen (Hydrocodone-Acetamin 5-325 mg) 5 Mg-325 Mg Tablet 1 TAB PO Q8H PRN for PAIN-MODERATE (5-7) for 3 Days, #9 TAB Prov: ARMIN HERR MD 03/14/22 Work/School Note: Family Work Note Patient Received Medical Care In the Emergency Department On: Mar 14, 2022 Patient Will Be Able to Return to Work/School On: Mar 15, 2022 ARMIN HERR MD Mar 14, 2022 12:20
[2022-03-14 12:30] LABS: BASOPHILS % (AUTO) 1 % (0-10); EOSINOPHILS # (AUTO) 0.1 10^3/uL (0.0-0.3); EOSINOPHILS % (AUTO) 2 % (0-10); HEMATOCRIT 39 % (35-52); HEMOGLOBIN 11.8 g/dL (11.5-16.0); LYMPHOCYTES # (AUTO) 1.4 10^3/uL (1.0-4.0); LYMPHOCYTES % (AUTO) 22 % (12-44); MEAN CORPUSCULAR HEMOGLOBIN 27 pg (25-34); MEAN CORPUSCULAR HGB CONC 31 g/dL (32-36); MEAN CORPUSCULAR VOLUME 87 fL (80-99); MEAN PLATELET VOLUME 11.7 fL (9.0-12.2); MONOCYTES # (AUTO) 0.6 10^3/uL (0.0-1.0); MONOCYTES % (AUTO) 9 % (0-12); NEUTROPHILS # (AUTO) 4.2 10^3/uL (1.8-7.8); NEUTROPHILS % (AUTO) 65 % (42-75); PLATELET COUNT 159 10^3/uL (130-400); WHITE BLOOD COUNT 6.4 10^3/uL (4.3-11.0)
[2022-03-14 12:43] LABS: ALBUMIN 4.2 GM/DL (3.2-4.5); POTASSIUM 4.2 MMOL/L (3.6-5.0)
[2022-03-14 12:45] LABS: CALCIUM 9.9 MG/DL (8.5-10.1)
[2022-03-14 12:46] LABS: TOTAL PROTEIN 7.5 GM/DL (6.4-8.2)
[2022-03-14 12:47] LABS: BILIRUBIN,TOTAL 0.4 MG/DL (0.1-1.0)
[2022-03-14 12:49] LABS: CREATININE SERUM 0.74 MG/DL (0.60-1.30)
--- NOTE | 2022-03-14 12:51 | Diagnostic Imaging Report ---
INDICATION: Right hip pain. COMPARISON: 08/26/2020. DISCUSSION: AP view of the pelvis and two views of the right hip were obtained. Bipolar right hip prosthesis appears stable. No hardware complications. No acute fracture or dislocation. Alignment is anatomic. Soft tissues are unremarkable. IMPRESSION: 1. Stable bipolar right hip prosthesis without complication. Dictated by: Dictated on workstation # [id number]
--- NOTE | 2022-03-14 12:54 | Diagnostic Imaging Report ---
PROCEDURE: CT head and CT cervical spine without contrast. TECHNIQUE: Multiple contiguous axial images were obtained through the brain and cervical spine without the use of intravenous contrast. Sagittal and coronal reformations through the cervical spine were then performed. Auto Exposure Controls were utilized during the CT exam to meet ALARA standards for radiation dose reduction. INDICATION: Head and neck pain after fall. COMPARISON: 07/12/2016. DISCUSSION: Head: Diffuse brain volume loss is stable, likely age related. White matter hypoattenuation is nonspecific though not greater than expected for age related chronic small vessel ischemic disease, stable. No acute intracranial hemorrhage, mass, midline shift, hydrocephalus. The orbits, sinuses, mastoid air cells, and calvarium are unremarkable. Cervical spine: Degenerative disease is again noted throughout the cervical spine primarily affecting the facet joints in the C5-C6 intervertebral disc space. Prominent disc osteophyte complex at C5-C6 contributes to central canal stenosis. There is no acute fracture or subluxation identified. Paraspinal soft tissues are unremarkable. IMPRESSION: 1. Senescent changes as described. No acute intracranial abnormality identified. 2. 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 No fracture. Dictated by: Dictated on workstation # [id number]
[2022-03-14] MEDS ORDERED: HYDROcodone/APAP 5 MG/325 MG (LORTAB) TAB PO ONE (13:15)
[2022-03-14 13:39] LABS: INR 0.9 (0.8-1.4); PROTHROMBIN TIME PATIENT 12.9 SEC (12.2-14.7)
[2022-03-14] MEDS ORDERED: ACHD5005 PO (14:00)
[2022-03-14 14:12] VITALS: BP 184/95
== END 2022-03-14 14:12 | disposition home or self-care (01) ==
LOC: EDUNIT# 12:09 → ER 12:10
DX: M25.551 Pain in right hip (principal); Z28.310 Unvaccinated for COVID-19; W01.198A Fall on same level from slipping, tripping and stumbling with subsequent striking against other object, initial encounter
CPT/HCPCS: 36415; 70450; 72125; 80053; 85025; 85610; 85730

== ENCOUNTER 2022-12-30 16:10 | Emergency (ER) | payer MEDICARE ==
[~2022-12-30] VITALS: Ht 152 cm; Wt 53.0 kg
[~2022-12-30 16:10] MED LIST changes: -MECL-149 PO; +MECL-291 PO
--- NOTE | 2022-12-30 17:30 | ED Hip Pain/Injury ---
General Chief Complaint: Hip/Pelvic Problems Stated Complaint: FELL - LT HIP INJ, Nursing Triage Note: pt fell wednesday after losing her balance sweeping her porch. states she is having inner left thigh pain. she states she landed on her left hip. she states she hit her head, denies LOC or blood thinners. denies head or neck pain. Source: patient Exam Limitations: no limitations History of Present Illness Date Seen by Provider: Dec 30, 2022 Time Seen by Provider: 17:28 Initial Comments Patient is a 87-year-old female presents ED with left hip pain. She fell while sweeping her porch on Wednesday. She states she lost her balance hitting the left side of her pelvis and hip on the stairs. She states she landed against the side of the house. She did mildly hit her head but she has no head pain or on blood thinners. Her only complaint is left hip pain at this time. She is able to stand and bear weight but very minimal. She has been using a walker. Has been taken Tylenol. History of right hip replacement. She denies chest pain, headache, dizziness, visual changes, abdominal pain vomiting, diarrhea. Here with daughter at bedside. Allergies and Home Medications Allergies Coded Allergies: lisinopril (Unverified Allergy, Unknown, 07/12/16) Sulfa (Sulfonamide Antibiotics) (Verified Adverse Reaction, Intermediate, RASH, 02/25/11) Patient Home Medication List Home Medication List Reviewed: Yes Aspirin (Aspirin) 81 Mg Tab.chew, 81 MG PO DAILY, (Reported) Entered as Reported by: ALIZE CHRISTIANSEN on 08/27/20 0936 Atorvastatin Calcium (Atorvastatin Calcium) 40 Mg Tablet, 40 MG PO DAILY, (Reported) Entered as Reported by: ALIZE CHRISTIANSEN on 07/31/20 1002 Calcium Carbonate (Calcium) 600 Mg Tablet, 600 MG PO DAILY, (Reported) Entered as Reported by: ALIZE CHRISTIANSEN on 08/27/20 0936 Carbamide Peroxide (Debrox) 15 Ml Drops, 5 DROPS EACH EAR BID, (Reported) Entered as Reported by: ALIZE CHRISTIANSEN on 08/27/20 1617 Citalopram Hydrobromide (Citalopram HBr) 10 Mg Tablet, 10 MG PO DAILY, (Reported) Entered as Reported by: ALIZE CHRISTIANSEN on 07/31/20 1002 Clopidogrel Bisulfate (Clopidogrel) 75 Mg Tablet, 75 MG PO DAILY, (Reported) Entered as Reported by: ALIZE CHRISTIANSEN on 08/27/20935 Colestipol HCl (Colestipol HCl) 1 Gm Tablet, 1-2 GM PO Q8H PRN for DIARRHEA, (Reported) Entered as Reported by: ALIZE CHRISTIANSEN on 07/31/201001 Furosemide (Furosemide) 40 Mg Tablet, 40 MG PO DAILY, (Reported) Entered as Reported by: ALIZE CHRISTIANSEN on 07/31/201001 Hydrocodone Bit/Acetaminophen (HYDROcodone/APAP 5 MG/325 MG TAB) 1 Tab Tab, 0.5 EA PO Q8HR PRN for PAIN-MODERATE (5-7) Prescribed by: DONN LEON on 09/03/20542 Hydrocodone/Acetaminophen (Hydrocodone-Acetamin 5-325 mg) 5 Mg-325 Mg Tablet, 1 TAB PO Q8H PRN for PAIN-MODERATE (5-7) Prescribed by: ARMIN HERR on 03/14/22 1400 Krill/Om-3/Dha/Epa/Phospho/Ast (Krill Oil 1,000 mg Softgel) 1 Each Capsule, 1 EACH PO DAILY, (Reported) Entered as Reported by: ALIZE CHRISTIANSEN on 08/27/20935 Levothyroxine Sodium (Levothyroxine Sodium) 125 Mcg Tablet, 125 MCG PO DAILY, (Reported) Entered as Reported by: ALIZE CHRISTIANSEN on 07/31/201001 Loperamide HCl (Imodium A-D) 2 Mg Tablet, 2-4 MG PO UD PRN for DIARRHEA, (Reported) Entered as Reported by: ALIZE CHRISTIANSEN on 07/31/201001 Meclizine HCl (Meclizine HCl) 25 Mg Tablet, 25 MG PO Q6H PRN for DIZZINESS, (Reported) Entered as Reported by: ALIZE CHRISTIANSEN on 07/31/201001 Metoprolol Succinate (Metoprolol Succinate) 50 Mg Tab.er.24h, 50 MG PO DAILY Prescribed by: DONN LEON on 09/03/20542 Pantoprazole Sodium (Pantoprazole Sodium) 40 Mg Tablet.dr, 40 MG PO DAILY, (Reported) Entered as Reported by: ALIZE CHRISTIANSEN on 07/31/201001 Potassium Chloride (Potassium Chloride) 10 Meq Tab.er.prt, 20 MEQ PO DAILY, (Reported) Entered as Reported by: ALIZE CHRISTIANSEN on 07/31/20 1002 Review of Systems Constitutional: No chills, No diaphoresis EENTM: No hearing loss, No ear pain, No blurred vision Respiratory: No cough, No dyspnea on exertion Cardiovascular: No chest pain Gastrointestinal: No abdominal pain, No diarrhea, No nausea, No vomiting Genitourinary: No decreased output Musculoskeletal: No back pain; joint pain, muscle pain Skin: No change in color, No change in hair/nails All Other Systems Reviewed Negative Unless Noted: Yes Past Pgfhxni-Txvwwr-Gwvgtu Hx Patient Social History Tobacco Use?: No Substance use?: No Alcohol Use?: No Immunizations Up To Date Tetanus Booster (TDap): Unknown Past Medical History Surgery/Hospitalization HX: R HIP SURG, STENTS Surgeries: Yes Appendectomy, CABG, Coronary Stent, Gallbladder, Hysterectomy, Thyroidectomy Respiratory: No Cardiac: Yes Coronary Artery Disease, High Cholesterol, Hypertension, Peripheral Vascular Neurological: No Reproductive Disorders: Yes Gastrointestinal: Yes (IBS, COLITIS) Musculoskeletal: Yes Arthritis Endocrine: Yes (throid removed) Hyperthyroidism Cancer: No Psychosocial: No Blood Disorders: No Family Medical History Non contributory Physical Exam Vital Signs Vital Signs - First Documented 12/30/22 16:39 Temp 36.4 Pulse 71 Resp 20 Pulse Ox 95 O2 Delivery Room Air Capillary Refill : Less Than 3 Seconds Height, Weight, BMI Height: 5'1.00" Weight: 100lbs. oz. 45.078496tf; 22.00 BMI Method:Stated General Appearance: No Apparent Distress, WD/WN HEENT: PERRL/EOMI, TMs Normal, Normal ENT Inspection, Pharynx Normal Neck: Full Range of Motion, Normal Inspection, Non Tender, Supple Cardiovascular: Regular Rate, Rhythm, No Edema, No Gallop, No JVD, No Murmur Respiratory: Chest Non Tender, Lungs Clear, No Accessory Muscle Use, No Respiratory Distress Gastrointestinal: Normal Bowel Sounds, No Organomegaly, No Pulsatile Mass, Non Tender Back: Normal Inspection, No CVA Tenderness Extremity: Normal Capillary Refill, Normal Range of Motion, Other (Pain and discomfort with internal/external rotation of the left hip. Left anterior groin tenderness. Left posterior hip tenderness.) Skin: Normal Color, Warm/Dry Progress/Results/Core Measures Results/Orders My Orders Orders - ARMIN PATTON Ct Pelvis Wo (12/30/22 17:26) Femur, Left, 2 Views (12/30/22 17:26) Vital Signs/I&O 12/30/22 12/30/22 16:39 18:18 Temp 36.4 Pulse 71 71 Resp 20 20 B/P (MAP) Pulse Ox 95 95 O2 Delivery Room Air Room Air Departure Communication (PCP) Patient presents ED with daughter for evaluation after left hip injury. This occurred on Wednesday while sweeping her porch. Lost her balance while sweeping hitting the stairs on her left hip. History of falls. Denies having experienced any chest pain or shortness of breath or headache before the fall. She did hit the left side of her head on the house but denied loss of consciousness or on blood thinners. Normal mentation. No headache, dizziness, visual changes unilateral weakness or sensory changes. Denies any bruising or swelling to the head. Denies of any cervical neck pain. Only complaint at this time is left hip pain. She is able to ambulate but bearing more weight on her right leg. Using a walker. Has been taken Tylenol. On exam no evidence of s hortening or rotation. No significant bruising or swelling. Pain more in the pelvis area. She does have chronic pain in the left leg currently on gabapentin. She has no cervical, thoracic or midline tenderness. No trauma to the head. She denies headache, dizziness, visual changes, chest pain or shortness of breath. CT scan of the pelvis x-ray of the left femur was ordered. CT scan was negative for acute fracture. X-ray of the femur was negative for acute fracture. Refusing thing for pain. Discussed these results with patient and daughter. At this time recommend conservative treatment. Continue using her walker. Suggest PT. Orthopedic follow-up in 7 to 10 days for reevaluation. If any worsening symptoms return back to ED. Continue with your Tylenol. Impression Primary Impression: Left hip pain Disposition: HOME, SELF-CARE Condition: Stable Departure-Patient Inst. Decision time for Depature: 18:14 Referrals: JOHNNY SHORT MD, JACQUELINE S DO (PCP/Family) Primary Care Physician Patient Instructions: Hip Pain Add. Discharge Instructions: At this time recommend rest. Continue using her walker. Suggest follow-up your primary care physician for further evaluation. May require physical therapy. Orthopedic outpatient follow-up All discharge instructions reviewed with patient and/or family. Voiced understanding. ARMIN PATTON Dec 30, 2022 17:30
--- NOTE | 2022-12-30 17:56 | Diagnostic Imaging Report ---
PROCEDURE: CT pelvis without contrast. TECHNIQUE: Multiple contiguous axial images were obtained through the pelvis without the use of intravenous contrast. Sagittal and coronal reformations were performed. Auto Exposure Controls were utilized during the CT exam to meet ALARA standards for radiation dose reduction. INDICATION: Left hip injury from a fall There are postoperative changes from right hip arthroplasty. The left hip appears to be intact. There is no fracture or dislocation. Pelvic and obturator rings appear to be intact. There are no pathologic masses or fluid collections seen in the pelvis. IMPRESSION: No acute abnormality seen in the pelvis. Dictated by: Dictated on workstation # [id number]
--- NOTE | 2022-12-30 18:07 | Diagnostic Imaging Report ---
Indication: Left leg injury AP and lateral views of left femur show no fracture or dislocation. IMPRESSION: Negative left femur. Dictated by: Dictated on workstation # [id number]
== END 2022-12-30 18:18 | disposition home or self-care (01) ==
LOC: EDUNIT# 16:10 → ER 16:14
DX: M25.552 Pain in left hip (principal); W10.8XXA Fall (on) (from) other stairs and steps, initial encounter
CPT/HCPCS: 72192; 73552

== ENCOUNTER → 2023-02-25 | Outpatient (RCR) | payer MEDICARE | END | disposition home or self-care (01) | PROVIDERS: ATTEND Family Medicine | DX: R53.1 Weakness (principal); R26.81 Unsteadiness on feet; I10 Essential (primary) hypertension ==